=== PATIENT | female | born 1965 | race Caucasian/White ===

== ENCOUNTER → 2017-06-17 12:43 | Outpatient (CLI) | payer MEDICAID, SELFPAY ==
--- NOTE | 2017-06-17 13:03 | XR_ITS ---
XR chest 2V HISTORY: ITS.REASON: PNEUMONIA,COUGH ORDERING PHYSICIAN: Prem Boyce MD PATIENT AGE: 51 years COMPARISON: None available FINDINGS: The cardiomediastinal silhouette and pulmonary vascularity are within normal limits. The lungs are clear without infiltrates, suspicious nodules, or pleural effusions. No acute bony abnormalities. IMPRESSION: Negative chest, no acute finding
[2017-06-17 13:41] LABS: Basophils # 0.1 K/mm3 (0-0.2); Basophils % 0.7 % (0.1-2.0); Eosinophils # 0.3 K/mm3 (0.0-0.4); Eosinophils % 2.5 % (0.1-12.0); Hematocrit 40.6 % (37.0-47.0); Hemoglobin 13.5 g/dL (12.2-16.2); Lymphocytes # 2.6 K/mm3 (0.7-4.5); Lymphocytes % 21.5 K/mm3 (10-50); Mean Corpuscular HGB Conc 33.2 g/dL (31.8-35.4); Mean Corpuscular Hemoglobin 30.4 pg (27.0-31.2); Mean Corpuscular Volume 91.5 fl (81-99); Mean Platelet Volume 7.7 fl (7.4-10.4); Monocytes # 0.6 K/mm3 (0.1-1.0); Monocytes % 4.9 % (1.7-9.3); Neutrophils # 8.4 K/mm3 (1.8-7.8); Neutrophils % 70.4 % (37.0-80.0); Platelet Count 319 K/mm3 (142-424); Red Blood Count 4.43 M/mm3 (4.20-5.40); Red Cell Distribution Width 13.6 % (11.5-17.5); White Blood Count 11.9 K/mm3 (4.8-10.8)
[2017-06-17 14:11] LABS: Alanine Aminotransferase 49 U/L (12-78); Albumin Level 3.6 gm/dL (3.4-5.0); Albumin/Globulin Ratio 0.9 (1.1-1.8); Alkaline Phosphatase 100 U/L (46-116); Aspartate Amino Transferase 37 U/L (15-37); Bilirubin,Total 0.3 mg/dL (0.2-1.0); Blood Urea Nitrogen 8 mg/dL (7-18); Calcium 9.2 mg/dL (8.5-10.1); Carbon Dioxide 24 mmol/L (21.0-32.0); Chloride 100 mmol/L (98-107); Creatinine,Serum 0.67 mg/dL (0.55-1.02); Estimated Glomerular Filt Rate 94 ml/min (>60); GFR (African American) 113 ML/MIN (>60); Glucose 102 mg/dL (74-106); Sodium 134 mmol/L (136-145); Total Protein,Serum 7.6 gm/dL (6.4-8.2)
[2017-06-17 15:12] LABS: Creatine Kinase 51 U/L (26-192)
== END ==
PROVIDERS: PCP Internal Medicine Adolescent Medicine; Visit Provider Internal Medicine Adolescent Medicine
DX: J18.1 Lobar pneumonia, unspecified organism (principal); M79.1 Myalgia; R05 Cough
CPT/HCPCS: 36415; 71046; 80053; 82550; 85025

== ENCOUNTER → 2017-11-04 11:25 | Outpatient (CLI) | payer MEDICAID, SELFPAY ==
--- NOTE | 2017-11-04 11:38 | CT_ITS ---
CT abdomen pelvis wo con CLINICAL INDICATION: Right flank pain radiating into the right lower quadrant ITS.REASON: RENAL COLIC,FLANK PAIN ORDERING PHYSICIAN: Frances Roberto PATIENT AGE: 52 years COMPARISON: None TECHNIQUE: Axial images obtained with sagittal and coronal reformats. All CT scans at the facility use one or more dose reduction, viz: automated exposure control; ma/kV adjustment per patient size (including targeted exams where dose is matched to indication; i.e. head); or iterative reconstruction technique. PROCEDURE: Oral Contrast: None IV Contrast: None . FINDINGS: Lung bases are clear. The liver, gallbladder, spleen, adrenal glands, and pancreas have an unremarkable unenhanced CT appearance. No renal calculi. No ureteral calculi or hydronephrosis. There is a small umbilical hernia which contains fat. There is been prior appendectomy. There is diverticulosis of the ascending and sigmoid colon but no evidence of diverticulitis. Prior hysterectomy. Probable residual ovarian tissue in the left adnexa. No pelvic mass or focal inflammatory change or abnormal fluid collection evident. No acute bony anomalies. Mild osteoarthritic changes are present involving the hips IMPRESSION: 1. No acute abdominal or pelvic findings. 2. No evidence of hydronephrosis or renal or ureteral calculi
[2017-11-04 12:28] LABS: Basophils # 0.1 K/mm3 (0-0.2); Basophils % 0.7 % (0.1-2.0); Eosinophils # 0.2 K/mm3 (0.0-0.4); Eosinophils % 1.5 % (0.1-12.0); Hemoglobin 13.5 g/dL (12.2-16.2); Lymphocytes # 2.3 K/mm3 (0.7-4.5); Lymphocytes % 21.9 K/mm3 (10-50); Mean Corpuscular HGB Conc 31.4 g/dL (31.8-35.4); Mean Corpuscular Hemoglobin 29.1 pg (27.0-31.2); Mean Corpuscular Volume 92.5 fl (81-99); Mean Platelet Volume 7.6 fl (7.4-10.4); Monocytes # 0.4 K/mm3 (0.1-1.0); Monocytes % 3.8 % (1.7-9.3); Neutrophils # 7.5 K/mm3 (1.8-7.8); Platelet Count 357 K/mm3 (142-424); Red Blood Count 4.65 M/mm3 (4.20-5.40); Red Cell Distribution Width 13.3 % (11.5-17.5); White Blood Count 10.4 K/mm3 (4.8-10.8)
[2017-11-04 13:09] LABS: Alanine Aminotransferase 47 U/L (12-78); Albumin Level 3.6 gm/dL (3.4-5.0); Albumin/Globulin Ratio 0.9 (1.1-1.8); Alkaline Phosphatase 86 U/L (46-116); Anion Gap 15.2 mEq/L (5-15); Aspartate Amino Transferase 29 U/L (15-37); Bilirubin,Total 0.3 mg/dL (0.2-1.0); Blood Urea Nitrogen 8 mg/dL (7-18); Calcium 9.4 mg/dL (8.5-10.1); Carbon Dioxide 26 mmol/L (21.0-32.0); Chloride 103 mmol/L (98-107); Creatinine,Serum 0.75 mg/dL (0.55-1.02); Estimated Glomerular Filt Rate 82 ml/min (>60); GFR (African American) 99 ML/MIN (>60); Globulin 3.9 gm/dl (1.3-3.2); Glucose 117 mg/dL (74-106); Potassium 4.2 mmoL/L (3.5-5.1); Sodium 140 mmol/L (136-145); Total Protein,Serum 7.5 gm/dL (6.4-8.2)
== END ==
PROVIDERS: PCP Nurse Practitioner Family; Visit Provider Nurse Practitioner Family
DX: N23 Unspecified renal colic (principal); M54.5 Low back pain
CPT/HCPCS: 36415; 74176; 80053; 85025

== ENCOUNTER 2017-12-03 13:30 | Outpatient (RCR) | payer MEDICAID, SELFPAY | END 2017-12-20 10:41 | disposition home or self-care (01) | LOC: PT 13:30 | PROVIDERS: Family Provider Internal Medicine Adolescent Medicine; PCP Nurse Practitioner Family; Visit Provider Nurse Practitioner Family | DX: M54.16 Radiculopathy, lumbar region (principal) | CPT/HCPCS: 97010; 97012; 97014; 97035; 97140; 97163; G0283 ==

== ENCOUNTER → 2017-12-14 14:22 | Outpatient (CLI) | payer MEDICAID, SELFPAY ==
--- NOTE | 2017-12-14 14:36 | MR_ITS ---
MR lumbar spine wo con HISTORY: ITS.REASON: LOW BACK PAIN, RADICULOPATHY ORDERING PHYSICIAN: Frances Roberto PATIENT AGE: 52 years Comparison: None TECHNIQUE: Standard multiplanar multiecho sequences are performed without contrast. 3-D MIP and myelographic images are also rendered and reviewed FINDINGS: There is normal curvature and alignment. The marrow signal is normal in all lumbar vertebrae. The spinal canal is normal size throughout. There is a small central disc protrusion L4-5 combined with mild hypertrophic facet changes at this level resulting in mild neural foraminal narrowing bilaterally. There are multiple prominent hypertrophic facet changes at L5-S1 level but there is no abnormal disc protrusion. All the remaining lumbar disks appear normal. The conus appears normal. The myelogram sequence is unremarkable. IMPRESSION: Small central disc protrusion L4-5 and mild hypertrophic facet changes at L4-5 and L5-S1
== END ==
PROVIDERS: Family Provider Internal Medicine Adolescent Medicine; PCP Nurse Practitioner Family; Visit Provider Nurse Practitioner Family
DX: M54.16 Radiculopathy, lumbar region (principal)
CPT/HCPCS: 72148; 76376

== ENCOUNTER → 2018-01-03 10:46 | Outpatient (POV) | payer MEDICAID, SELFPAY ==
[2018-01-03 10:58] VITALS: BP 205/100; PULSE 76; RESP 18; O2SAT 98
--- NOTE | 2018-01-03 16:20 | HMH.PMCON ---
Assessment and Plan (1) Degenerative disc disease Current visit: Yes Status: Chronic Qualifiers: Spinal region: lumbar Qualified Code(s): M51.36 - Other intervertebral disc degeneration, lumbar region Category: Medical (2) Lumbar radiculopathy Current visit: Yes Status: Chronic Category: Medical Code(s): M54.16 - Radiculopathy, lumbar region - Assessment and plan all Dx Assessment and Plan for all problems:: We will schedule an L4-L5 lumbar epidural steroid injection. We will also give her 1 month of diclofenac 75 mg 1 p.o. twice daily and gabapentin 300 mg 1 p.o. twice daily. Patient is going to follow-up with me after her injection. Patient is not on any anticoagulation therapy. I believe this injection will be beneficial and allow her to get back to work sooner. This note was dictated using voice recognition software and may contain errors or omissions HPI - Data of Consult Consult date: 01/03/18 Requesting Physician: Lavonne Araujo APRN Primary Care Provider: Frances Roberto Family Provider: Prem Boyce MD - Consult Narrative Reason for consult: Back pain History of present illness: Ms. Caraballo is a 52 year old female who presents today for consultation in regards to her low back pain. Patient states that she had an injury at work and she began to have back pain with right leg tingling and numbness. Patient states standing for long periods of time make the pain worse while lying on her stomach it decreases her pain. Patient has been on Mobic/gabapentin/Lortab from her primary care physician. She states that the gabapentin and the Mobic to help. Patient's been to chiropractic therapy along with physical therapy with no relief. She also utilizes a TENS unit. Patient is out of refills in regards to her anti-inflammatories and her gabapentin. Patient is interested in injective therapy. Patient does have an MRI showing disc protrusion at L4-L5. CC: Lavonne Araujo APRN [facility] History I have reviewed the patient's past medical history: Yes Medical History: Reports:: Deep Vein Thrombosis, Diabetes Mellitus Type 2 Other Surgeries: Yes: Appendectomy, Hysterectomy-Total - *Social History Alcohol Intake: never Occupational Status: employed, other Housing: house - Psychiatric History Expresses thoughts of harming self/others: None Suicide Plan Description: No Plan *Family Hx:: Unable to obtain Review of Systems - Review of Systems ROS General: no recent weight change, no fever, no sleep disturbances Respiratory: no cough, no shortness of air, no recurring pulmonary infections Cardiovascular/Peripheral Vascular: No chest pain, No palpitations, no edema, no shortness of breath. Gastrointestinal: no incontinence, normal bowel movements reported Genitourinary: no incontinence Musculoskeletal: Back pain, leg pain Psychiatric: normal mood/ affect Neurological: [denies weakness in extremities], [denies balance issues] Meds Home Medications Medication Instructions Recorded Confirmed Type Amlodipine Besylate [Amlodipine 10 mg PO DAILY 01/03/18 01/03/18 History 10mg Tab] Carvedilol [Carvedilol 6.25mg Tab] 6.25 mg PO DAILY 01/03/18 01/03/18 History Doxazosin Mesylate [Doxazosin 2mg 4 mg PO DAILY 01/03/18 01/03/18 History Tab] Lisinopril [Lisinopril 40mg Tablet] 40 mg PO DAILY 01/03/18 01/03/18 History Metformin HCl [Metformin 500mg 0 mg PO BID 01/03/18 01/03/18 History Tablet] raNITIdine HCl [Ranitidine HCl] 150 mg PO DAILY 01/03/18 01/03/18 History Allergies Allergy/AdvReac Type Severity Reaction Status Date / Time No Known Allergies Allergy Unverified 05/18/17 14:43 Objective Vital signs: Pulse Resp BP Pulse Ox 76 18 205/100 98 01/03/18 10:58 01/03/18 10:58 01/03/18 10:58 01/03/18 10:58 Narrative: Physical Exam General: Alert and oriented x3, no acute distress, pleasant and cooperative, [on room air]
--- NOTE | 2018-01-03 16:23 | P.CONS_ITS ---
Assessment and Plan (1) Degenerative disc disease Current visit: Yes Status: Chronic Qualifiers: Spinal region: lumbar Qualified Code(s): M51.36 - Other intervertebral disc degeneration, lumbar region Category: Medical (2) Lumbar radiculopathy Current visit: Yes Status: Chronic Category: Medical Code(s): M54.16 - Radiculopathy, lumbar region - Assessment and plan all Dx Assessment and Plan for all problems:: We will schedule an L4-L5 lumbar epidural steroid injection. We will also give her 1 month of diclofenac 75 mg 1 p.o. twice daily and gabapentin 300 mg 1 p.o. twice daily. Patient is going to follow-up with me after her injection. Patient is not on any anticoagulation therapy. I believe this injection will be beneficial and allow her to get back to work sooner. This note was dictated using voice recognition software and may contain errors or omissions HPI - Data of Consult Consult date: 01/03/18 Requesting Physician: Lavonne Araujo APRN Primary Care Provider: Frances Roberto Family Provider: Prem Boyce MD - Consult Narrative Reason for consult: Back pain History of present illness: Ms. Caraballo is a 52 year old female who presents today for consultation in regards to her low back pain. Patient states that she had an injury at work and she began to have back pain with right leg tingling and numbness. Patient states standing for long periods of time make the pain worse while lying on her stomach it decreases her pain. Patient has been on Mobic/gabapentin/Lortab from her primary care physician. She states that the gabapentin and the Mobic to help. Patient's been to chiropractic therapy along with physical therapy with no relief. She also utilizes a TENS unit. Patient is out of refills in regards to her anti-inflammatories and her gabapentin. Patient is interested in injective therapy. Patient does have an MRI showing disc protrusion at L4- L5. CC: Lavonne Araujo APRN [facility] History I have reviewed the patient's past medical history: Yes Medical History: Reports:: Deep Vein Thrombosis, Diabetes Mellitus Type 2 Other Surgeries: Yes: Appendectomy, Hysterectomy-Total - *Social History Alcohol Intake: never Occupational Status: employed, other Housing: house - Psychiatric History Expresses thoughts of harming self/others: None Suicide Plan Description: No Plan *Family Hx:: Unable to obtain Review of Systems - Review of Systems ROS General: no recent weight change, no fever, no sleep disturbances Respiratory: no cough, no shortness of air, no recurring pulmonary infections Cardiovascular/Peripheral Vascular: No chest pain, No palpitations, no edema, no shortness of breath. Gastrointestinal: no incontinence, normal bowel movements reported Genitourinary: no incontinence Musculoskeletal: Back pain, leg pain Psychiatric: normal mood/ affect Neurological: [denies weakness in extremities], [denies balance issues] Meds Home Medications Medication Instructions Recorded Confirmed Type Amlodipine Besylate [Amlodipine 10 mg PO DAILY 01/03/18 01/03/18 History 10mg Tab] Carvedilol [Carvedilol 6.25mg Tab] 6.25 mg PO DAILY 01/03/18 01/03/18 History Doxazosin Mesylate [Doxazosin 2mg 4 mg PO DAILY 01/03/18 01/03/18 History Tab] Lisinopril [Lisinopril 40mg Tablet] 40 mg PO DAILY 01/03/18 01/03/18 History Metformin HCl [Metformin 500mg 0 mg PO BID 01/03/18 01/03/18 History Tablet]
== END ==
PROVIDERS: Family Provider Internal Medicine Adolescent Medicine; PCP Nurse Practitioner Family; Visit Provider Clinical Nurse Specialist Family Health
DX: M51.36 Other intervertebral disc degeneration, lumbar region (principal); M54.16 Radiculopathy, lumbar region
CPT/HCPCS: 99202

== ENCOUNTER → 2018-02-14 10:05 | Outpatient (POV) | payer MEDICAID, SELFPAY ==
[2018-02-14 10:12] VITALS: BP 199/100; PULSE 73; RESP 18; O2SAT 95; BMI 39.5
--- NOTE | 2018-02-14 10:50 | HMH.PAINSOAP ---
[facility] Pain Management SOAP Note Subjective:: Patient is a pleasant 52-year-old white female who we are treating for low back pain and lumbar radiculopathy. Patient states that after her injection she had no relief. Patient has not had any relief with anti-inflammatories or gabapentin. Patient does have a MRI from November showing a disc bulge. She may need a consultation with neurosurgery. Patient rates her pain 7 out of 10. ROS General: no recent weight change, no fever, no sleep disturbances Respiratory: no cough, no shortness of air, no recurring pulmonary infections Cardiovascular/Peripheral Vascular: No chest pain, No palpitations, no edema, no shortness of breath. Gastrointestinal: no incontinence, normal bowel movements reported Genitourinary: no incontinence Musculoskeletal: Back pain, leg pain Psychiatric: normal mood/ affect Neurological: [denies weakness in extremities], [denies balance issues] Objective:: Physical Exam General: Alert and oriented x3, no acute distress, pleasant and cooperative, [on room air] Lungs: Resps E/U, Symmetrical chest expansion Eyes: PERRL Musculoskeletal: Flexion and extension of lumbar spine somewhat guarded secondary to pain, deep tendon reflexes normal, strength in upper and lower extremities [5/5], [abnormal gait noted] Neurological: speech clear, garden consultant equal, no gross sensory deficits Assessment:: Degenerative disc disease lumbar spine with lumbar radiculopathy Plan:: We will have the patient continue on her anti-inflammatories we will set up an appointment with neurosurgery for consultation. This note was dictated using voice recognition software and may contain errors or omissions
--- NOTE | 2018-02-14 10:54 | P.CONS_ITS ---
[facility] Pain Management SOAP Note Subjective:: Patient is a pleasant 52-year-old white female who we are treating for low back pain and lumbar radiculopathy. Patient states that after her injection she had no relief. Patient has not had any relief with anti-inflammatories or gabapentin. Patient does have a MRI from November showing a disc bulge. She may need a consultation with neurosurgery. Patient rates her pain 7 out of 10. ROS General: no recent weight change, no fever, no sleep disturbances Respiratory: no cough, no shortness of air, no recurring pulmonary infections Cardiovascular/Peripheral Vascular: No chest pain, No palpitations, no edema, no shortness of breath. Gastrointestinal: no incontinence, normal bowel movements reported Genitourinary: no incontinence Musculoskeletal: Back pain, leg pain Psychiatric: normal mood/ affect Neurological: [denies weakness in extremities], [denies balance issues] Objective:: Physical Exam General: Alert and oriented x3, no acute distress, pleasant and cooperative, [on room air] Lungs: Resps E/U, Symmetrical chest expansion Eyes: PERRL Musculoskeletal: Flexion and extension of lumbar spine somewhat guarded secondary to pain, deep tendon reflexes normal, strength in upper and lower extremities [5/5], [abnormal gait noted] Neurological: speech clear, board machine set up operator equal, no gross sensory deficits Assessment:: Degenerative disc disease lumbar spine with lumbar radiculopathy Plan:: We will have the patient continue on her anti-inflammatories we will set up an appointment with neurosurgery for consultation. This note was dictated using voice recognition software and may contain errors or omissions
== END ==
PROVIDERS: Family Provider Internal Medicine Adolescent Medicine; PCP Nurse Practitioner Family; Visit Provider Clinical Nurse Specialist Family Health
DX: M51.16 Intervertebral disc disorders with radiculopathy, lumbar region (principal)
CPT/HCPCS: 99213

== ENCOUNTER → 2018-02-22 13:36 | Outpatient (POV) | payer MEDICAID, SELFPAY ==
[2018-02-22 13:47] VITALS: BP 198/101; PULSE 109; RESP 18; O2SAT 96; BMI 39.5
--- NOTE | 2018-02-22 14:10 | HMH.PAINSOAP ---
[facility] Pain Management SOAP Note Subjective:: Patient pleasant 52-year-old white female in today for follow-up. Patient was seen last week and it was determined we would send her to her neurosurgeon. Patient states that her pain is out of control and she is unable to do anything at this point. Patient states that she is unable to sleep. Patient is rating her pain a 9 out of 10 the patient states that she has been on gabapentin 300 mg 1 p.o. 3 times daily and it is no longer helping her as much as it used to. ROS General: no recent weight change, no fever, no sleep disturbances Respiratory: no cough, no shortness of air, no recurring pulmonary infections Cardiovascular/Peripheral Vascular: No chest pain, No palpitations, no edema, no shortness of breath. Gastrointestinal: no incontinence, normal bowel movements reported Genitourinary: no incontinence Musculoskeletal: Back pain Psychiatric: normal mood/ affect, Neurological: [denies weakness in extremities], [denies balance issues] Objective:: Physical Exam General: Alert and oriented x3, no acute distress, pleasant and cooperative, [on room air] Lungs: Resps E/U, Symmetrical chest expansion, Eyes: PERRL Musculoskeletal: Flexion and extension of lumbar spine somewhat guarded secondary to pain, deep tendon reflexes normal, strength in upper and lower extremities [5/5], [abnormal gait noted] Neurological: speech clear, stand up comedian equal, no gross sensory deficits Assessment:: Degenerative disc disease lumbar spine with lumbar radiculopathy Plan:: We will call in prednisone 20 mg 1 p.o. twice daily 5 days along with gabapentin 600 mg 1 p.o. 3 times daily and lidocaine cream 5% to see if this is been official for the patient. I still believe that she needs to be consulted by neurosurgery. I will follow-up with her after this. This note was dictated using voice recognition software and may contain errors or omissions
== END ==
PROVIDERS: Family Provider Internal Medicine Adolescent Medicine; PCP Nurse Practitioner Family; Visit Provider Clinical Nurse Specialist Family Health
DX: M51.16 Intervertebral disc disorders with radiculopathy, lumbar region (principal)
CPT/HCPCS: 99213

== ENCOUNTER → 2018-03-17 12:39 | Outpatient (POV) | payer MEDICAID, SELFPAY | PROVIDERS: Visit Provider Neurological Surgery | DX: Z00.00 Encounter for general adult medical examination without abnormal findings (principal) ==

== ENCOUNTER → 2018-03-24 07:24 | Outpatient (CLI) | payer MEDICAID, SELFPAY ==
--- NOTE | 2018-03-24 07:27 | AS_ITS ---
Renal Arterial Duplex Indications: 405.91 Unspecified renovascular hypertension. IMPRESSIONS 1. Left proximal renal artery not visualized due overlaying gas and patient body habitus. 2. The right renal artery appears normal. 3. The left renal artery appears normal. Complete renal arterial duplex. Duplex scan and Doppler flow study including spectral analysis, color and hdz scale imaging. Location: Vascular laboratory. Patient status: Outpatient. Tables: Arterial flow: + +--------+--------+ Location V sys V ed + +--------+--------+ Right renal - proximal 67.2cm/s 24.2cm/s + +--------+--------+ Right renal - mid 79.2cm/s 21.5cm/s + +--------+--------+ Right renal - distal 65.5cm/s 18.1cm/s + +--------+--------+ Left renal - mid 85.8cm/s 33.8cm/s + +--------+--------+ Left renal - distal 92.7cm/s 30.6cm/s + +--------+--------+ Renal anatomy: + +------+------+ Left Right + +------+------+ Long axis 13.1cm 11.5cm + +------+------+ Short axis 8.4cm 7.9cm + +------+------+ Velocity ratios: + +-----+ V sys + +-----+ Right renal/aortic 1.44 + +-----+ Left renal/aortic 1.69 + +-----+ (Report amended ) Electronically signed by: Ezra Quinteros [id number]
== END ==
PROVIDERS: PCP Nurse Practitioner Family; Visit Provider Nurse Practitioner Family
DX: I10 Essential (primary) hypertension (principal)
CPT/HCPCS: 93976

== ENCOUNTER → 2018-03-28 14:22 | Outpatient (POV) | payer MEDICAID, SELFPAY ==
[2018-03-28 15:05] VITALS: BP 189/89; PULSE 85; RESP 18; O2SAT 97; BMI 39.2
--- NOTE | 2018-03-28 15:36 | HMH.PAINSOAP ---
[facility] Pain Management SOAP Note Subjective:: Patient is a pleasant 52-year-old white female who presents today for follow-up after neurosurgical consultation. Patient is frustrated today because of her low back pain. Patient states the pain is in the middle of her back. Rotation makes it worse. Patient has had one lumbar epidural steroid injection however is not done well for her. Patient has been on gabapentin 600 mg 1 p.o. 3 times daily. She states it makes her quite sleepy. Patient was consulted by neurosurgery and determined to be not a candidate for surgery. She rates her pain an 8 out of 10 today. Patient's MARY ANN #[id number] reviewed and appropriate. ROS General: no recent weight change, no fever, no sleep disturbances Respiratory: no cough, no shortness of air, no recurring pulmonary infections Cardiovascular/Peripheral Vascular: No chest pain, No palpitations, no edema, no shortness of breath. Gastrointestinal: no incontinence, normal bowel movements reported Genitourinary: no incontinence Musculoskeletal: Back pain Psychiatric: normal mood/ affect Neurological: [denies weakness in extremities], [denies balance issues] Objective:: Physical Exam General: Alert and oriented x3, no acute distress, pleasant and cooperative, [on room air] Lungs: Resps E/U, Symmetrical chest expansion, Eyes: PERRL Musculoskeletal: Flexion and extension of lumbar spine somewhat guarded secondary to pain, deep tendon reflexes normal, strength in upper and lower extremities [5/5], [abnormal gait noted], positive Kemps test bilaterally lumbar spine Neurological: speech clear, superintendent board mill equal, no gross sensory deficits Assessment:: Facet arthropathy, lumbar spondylosis, degenerative disc disease lumbar spine Plan:: We will schedule medial branch blocks/facet joint injection at L3-L4 L4-L5 L5-S1. Patient is that this is a diagnostic procedure to help determine her pain center. Patient will follow-up after this injection. Patient may be a stimulator candidate if this is not helpful. This note was dictated using voice recognition software and may contain errors or omissions
== END ==
PROVIDERS: PCP Nurse Practitioner Family; Visit Provider Clinical Nurse Specialist Family Health
DX: M54.06 Panniculitis affecting regions of neck and back, lumbar region (principal); M51.36 Other intervertebral disc degeneration, lumbar region; M47.896 Other spondylosis, lumbar region
CPT/HCPCS: 99213

== ENCOUNTER → 2018-05-16 13:02 | Outpatient (POV) | payer MEDICAID, SELFPAY ==
[2018-05-16 14:05] VITALS: BP 150/82; PULSE 84; RESP 18; O2SAT 99; BMI 39.1
--- NOTE | 2018-05-17 08:39 | P.CONS_ITS ---
[facility] Pain Management SOAP Note Subjective:: Patient is a pleasant 52-year-old white female who presents today for follow-up after medial branch block. Patient got a week relief of 80%. She is doing well. Patient wants to discuss a neurostimulator versus an RFA. I gave her information in regards to both. I do think that she might benefit from a repeat medial branch block before she makes this decision. Patient has been let us know. She rates her pain a 6 out of 10 both in her neck and her lower back ROS General: no recent weight change, no fever, no sleep disturbances Respiratory: no cough, no shortness of air, no recurring pulmonary infections Cardiovascular/Peripheral Vascular: No chest pain, No palpitations, no edema, no shortness of breath. Gastrointestinal: no incontinence, normal bowel movements reported Genitourinary: no incontinence Musculoskeletal: Back pain, neck pain Psychiatric: normal mood/ affect, [denies depression], [denies anxiety] Neurological: [denies weakness in extremities], [denies balance issues] Objective:: Physical Exam General: Alert and oriented x3, no acute distress, pleasant and cooperative, [on room air] Lungs: Resps E/U, Symmetrical chest expansion, Eyes: PERRL Musculoskeletal: Flexion and extension of lumbar spine somewhat guarded secondary to pain, deep tendon reflexes normal, strength in upper and lower extremities [5/5], slightly antalgic gait noted, positive Kemps test bilateral lumbar spine Neurological: speech clear, water and 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 Patient is good to review both and decide which direction she would like to go. Patient can call our office. This note was dictated using voice recognition software and may contain errors or omissions
== END ==
PROVIDERS: PCP Nurse Practitioner Family; Visit Provider Clinical Nurse Specialist Family Health
DX: M51.36 Other intervertebral disc degeneration, lumbar region (principal); M47.896 Other spondylosis, lumbar region; M54.06 Panniculitis affecting regions of neck and back, lumbar region
CPT/HCPCS: 99213

== ENCOUNTER → 2018-07-05 10:06 | Outpatient (POV) | payer MEDICAID, SELFPAY ==
[2018-07-05 10:20] VITALS: BP 160/87; PULSE 77; RESP 18; O2SAT 99; BMI 39.1
--- NOTE | 2018-07-05 10:31 | HMH.PAINSOAP ---
[facility] Pain Management SOAP Note Subjective:: Patient is a pleasant 52-year-old white female who presents today for follow-up. Patient is interested in pursuing her rhizotomy. Patient has had 3 level bilateral medial branch block with which she got 80% relief for over a week. She is doing well she rates her pain a 7 out of 10. She states she has does have some muscle spasms due to the weather. Patient currently on tramadol and gabapentin. Patient states most of her pain is in her back she has pain with twisting motions. Patient failed epidural injections. She is done physical therapy and is continuing a home stretching routine. She is currently on anti-inflammatories. She is not on any anticoagulation therapy. ROS General: no recent weight change, no fever, no sleep disturbances Respiratory: no cough, no shortness of air, no recurring pulmonary infections Cardiovascular/Peripheral Vascular: No chest pain, No palpitations, no edema, no shortness of breath. Gastrointestinal: no incontinence, normal bowel movements reported Genitourinary: no incontinence Musculoskeletal: Back pain Psychiatric: normal mood/ affect Neurological: [denies weakness in extremities], [denies balance issues] Objective:: Physical Exam General: Alert and oriented x3, no acute distress, pleasant and cooperative, [on room air] Lungs: Resps E/U, Symmetrical chest expansion, Eyes: PERRL Musculoskeletal: Flexion and extension of lumbar spine somewhat guarded secondary to pain, deep tendon reflexes normal, strength in upper and lower extremities [5/5], slightly antalgic gait noted, positive Kemps test bilateral lumbar spine, positive facet loading Neurological: speech clear, horse stud worker equal, no gross sensory deficits Assessment:: 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 Patient start with the right side and then 2 weeks later we will do the left side. I will follow-up with the patient after her rhizotomy. We will also start her on Zanaflex 4 mg [address] Hope has reviewed this note and agrees with this plan of care. This note was dictated using voice recognition software and may contain errors or omissions
--- NOTE | 2018-07-05 10:34 | P.CONS_ITS ---
[facility] Pain Management SOAP Note Subjective:: Patient is a pleasant 52-year-old white female who presents today for follow-up. Patient is interested in pursuing her rhizotomy. Patient has had 3 level bilateral medial branch block with which she got 80% relief for over a week. She is doing well she rates her pain a 7 out of 10. She states she has does have some muscle spasms due to the weather. Patient currently on tramadol and gabapentin. Patient states most of her pain is in her back she has pain with twisting motions. Patient failed epidural injections. She is done physical therapy and is continuing a home stretching routine. She is currently on anti- inflammatories. She is not on any anticoagulation therapy. ROS General: no recent weight change, no fever, no sleep disturbances Respiratory: no cough, no shortness of air, no recurring pulmonary infections Cardiovascular/Peripheral Vascular: No chest pain, No palpitations, no edema, no shortness of breath. Gastrointestinal: no incontinence, normal bowel movements reported Genitourinary: no incontinence Musculoskeletal: Back pain Psychiatric: normal mood/ affect Neurological: [denies weakness in extremities], [denies balance issues] Objective:: Physical Exam General: Alert and oriented x3, no acute distress, pleasant and cooperative, [on room air] Lungs: Resps E/U, Symmetrical chest expansion, Eyes: PERRL Musculoskeletal: Flexion and extension of lumbar spine somewhat guarded secondary to pain, deep tendon reflexes normal, strength in upper and lower extremities [5/5], slightly antalgic gait noted, positive Kemps test bilateral lumbar spine, positive facet loading Neurological: speech clear, medical typist equal, no gross sensory deficits Assessment:: 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 Patient start with the right side and then 2 weeks later we will do the left side. I will follow- up with the patient after her rhizotomy. We will also start her on Zanaflex 4 mg [address] Hope has reviewed this note and agrees with this plan of care. This note was dictated using voice recognition software and may contain errors or omissions
== END ==
PROVIDERS: PCP Nurse Practitioner Family; Visit Provider Clinical Nurse Specialist Family Health
DX: M51.16 Intervertebral disc disorders with radiculopathy, lumbar region (principal); M54.06 Panniculitis affecting regions of neck and back, lumbar region
CPT/HCPCS: 99213

== ENCOUNTER → 2018-08-29 14:26 | Outpatient (POV) | payer MEDICAID, SELFPAY ==
--- NOTE | 2018-08-29 15:01 | HMH.PAINSOAP ---
[facility] Pain Management SOAP Note Subjective:: Patient is a pleasant 52-year-old white female presents today for follow-up after RFA. Patient is just getting no relief from her pain. Most of her pain is in the low back and bilateral legs. She rates her pain a 7 out of 10. She is very frustrated at this time. Patient wanted to discuss both intrathecal therapy and neuro stimulation. Patient had a long discussion in regards to this. Patient was unable to make her last psychological evaluation however she states she is ready to do this at this time. ROS General: no recent weight change, no fever, no sleep disturbances Respiratory: no cough, no shortness of air, no recurring pulmonary infections Cardiovascular/Peripheral Vascular: No chest pain, No palpitations, no edema, no shortness of breath. Gastrointestinal: no incontinence, normal bowel movements reported Genitourinary: no incontinence Musculoskeletal: Back pain, leg pain Psychiatric: normal mood/ affect Neurological: [denies weakness in extremities], [denies balance issues] Objective:: Physical Exam General: Alert and oriented x3, no acute distress, pleasant and cooperative, [on room air] Lungs: Resps E/U, Symmetrical chest expansion, Eyes: PERRL Musculoskeletal: Flexion and extension of lumbar spine somewhat guarded secondary to pain, deep tendon reflexes normal, strength in upper and lower extremities [5/5], [abnormal gait noted] Neurological: speech clear, computer technology instructor equal, no gross sensory deficits Assessment:: 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 Patient would like to start with a neurostimulator trial. I do believe this would be appropriate. I will follow-up with the patient after her psych eval. Dr. Hope has reviewed this note and agrees with this plan of care. This note was dictated using voice recognition software and may contain errors or omissions
--- NOTE | 2018-08-29 15:08 | P.CONS_ITS ---
[facility] Pain Management SOAP Note Subjective:: Patient is a pleasant 52-year-old white female presents today for follow-up after RFA. Patient is just getting no relief from her pain. Most of her pain is in the low back and bilateral legs. She rates her pain a 7 out of 10. She is very frustrated at this time. Patient wanted to discuss both intrathecal therapy and neuro stimulation. Patient had a long discussion in regards to this. Patient was unable to make her last psychological evaluation however she states she is ready to do this at this time. ROS General: no recent weight change, no fever, no sleep disturbances Respiratory: no cough, no shortness of air, no recurring pulmonary infections Cardiovascular/Peripheral Vascular: No chest pain, No palpitations, no edema, no shortness of breath. Gastrointestinal: no incontinence, normal bowel movements reported Genitourinary: no incontinence Musculoskeletal: Back pain, leg pain Psychiatric: normal mood/ affect Neurological: [denies weakness in extremities], [denies balance issues] Objective:: Physical Exam General: Alert and oriented x3, no acute distress, pleasant and cooperative, [on room air] Lungs: Resps E/U, Symmetrical chest expansion, Eyes: PERRL Musculoskeletal: Flexion and extension of lumbar spine somewhat guarded secondar y to pain, deep tendon reflexes normal, strength in upper and lower extremities [5/5], [abnormal gait noted] Neurological: speech clear, coach tour driver equal, no gross sensory deficits Assessment:: 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 Patient would like to start with a neurostimulator trial. I do believe this would be appropriate. I will follow-up with the patient after her psych eval. Dr. Hope has reviewed this note and agrees with this plan of care. This note was dictated using voice recognition software and may contain errors or omissions
[2018-08-29 15:16] VITALS: BP 192/98; PULSE 83; RESP 18; O2SAT 98; BMI 40.4
== END ==
PROVIDERS: PCP Nurse Practitioner Family; Visit Provider Clinical Nurse Specialist Family Health
DX: M51.16 Intervertebral disc disorders with radiculopathy, lumbar region (principal); M54.06 Panniculitis affecting regions of neck and back, lumbar region; M47.816 Spondylosis without myelopathy or radiculopathy, lumbar region
CPT/HCPCS: 99212

== ENCOUNTER → 2018-11-15 11:32 | Outpatient (CLI) | payer MEDICAID, SELFPAY ==
[2018-11-15 12:07] LABS: Basophils # 0.1 K/mm3 (0-0.2); Basophils % 0.9 % (0.1-2.0); Eosinophils # 0.2 K/mm3 (0.0-0.4); Eosinophils % 1.4 % (0.1-12.0); Hematocrit 39.3 % (37.0-47.0); Hemoglobin 12.7 g/dL (12.2-16.2); Lymphocytes # 1.7 K/mm3 (0.7-4.5); Lymphocytes % 16.9 % (10-50); Mean Corpuscular HGB Conc 32.4 g/dL (31.8-35.4); Mean Corpuscular Hemoglobin 29.1 pg (27.0-31.2); Mean Corpuscular Volume 89.7 fl (81-99); Mean Platelet Volume 7.4 fl (7.4-10.4); Monocytes # 0.5 K/mm3 (0.1-1.0); Monocytes % 4.5 % (1.7-9.3); Neutrophils # 7.8 K/mm3 (1.8-7.8); Neutrophils % 76.3 % (37.0-80.0); Platelet Count 338 K/mm3 (142-424); Red Blood Count 4.38 M/mm3 (4.20-5.40); Red Cell Distribution Width 13.1 % (11.5-17.5); White Blood Count 10.3 K/mm3 (4.8-10.8)
[2018-11-15 12:34] LABS: Anion Gap 12.3 mEq/L (5-15); Blood Urea Nitrogen 6 mg/dL (7-18); Calcium 8.9 mg/dL (8.5-10.1); Carbon Dioxide 27 mmol/L (21.0-32.0); Chloride 103 mmol/L (98-107); Creatinine,Serum 0.74 mg/dL (0.55-1.02); Estimated Glomerular Filt Rate 83 ml/min (>60); GFR (African American) 100 ML/MIN (>60); Glucose 211 mg/dL (74-106); Potassium 4.3 mmoL/L (3.5-5.1); Sodium 138 mmol/L (136-145)
== END ==
PROVIDERS: Visit Provider Anesthesiology
DX: Z01.818 Encounter for other preprocedural examination (principal)
CPT/HCPCS: 36415; 80048; 85025

== ENCOUNTER → 2018-11-18 10:41 | Outpatient (POV) | payer MEDICAID, SELFPAY ==
[2018-11-18 11:00] VITALS: BP 193/98; PULSE 100; RESP 20; O2SAT 98; BMI 34.8
--- NOTE | 2018-11-18 11:10 | HMH.PAINSOAP ---
[facility] Pain Management SOAP Note Subjective:: This patient is a pleasant 52-year-old white female who is 2 days status post permanent placement of intrathecal pain pump. She is doing well with her pump however she has increased incisional pain. The wound VAC is in place. There is no redness around the wound VAC or incisional area. She has no radicular symptoms no fevers no signs of infection. We will write her for tramadol 50 mg 3-4 times daily to help with her incisional pain over the next week. I will give her 60 pills of her tramadol. Objective:: Alert and oriented x3 no acute distress. Patient does have an antalgic gait. Motor strength of the lower extremities is 5/5. There is no gross sensory deficit. There is no swelling no redness around the incisional area. Assessment:: Degenerative disease of lumbar spine with lumbar radiculopathy symptoms and lumbar spondylosis status post permanent placement intrathecal pain pump 2 days ago with incisional pain. Plan:: We will write her for tramadol 50 mg 3-4 times daily for her incisional pain. I will give her 60 pills. We will follow-up with her on Wednesday to remove her wound VAC.
== END ==
PROVIDERS: PCP Surgery; Visit Provider Anesthesiology
DX: M51.16 Intervertebral disc disorders with radiculopathy, lumbar region (principal); M47.896 Other spondylosis, lumbar region; Z96.89 Presence of other specified functional implants
CPT/HCPCS: 99212

== ENCOUNTER → 2018-11-22 13:58 | Outpatient (POV) | payer MEDICAID, SELFPAY ==
[2018-11-22 14:52] VITALS: BP 179/99; PULSE 94; RESP 20; O2SAT 93; BMI 39.1
--- NOTE | 2018-11-22 15:00 | HMH.PMPROC ---
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 The patient did have some nausea initially after insertion of the pump. She denies any nausea or vomiting today. She does rate her pain a 6 out of 10. She says that her incisional pain is better, but her back pain is still present. Physical Exam General: Alert and oriented x3, no acute distress, pleasant and cooperative, [on room air] Lungs: Resps E/U, Symmetrical chest expansion, Eyes: PERRL Musculoskeletal: Flexion and extension of lumbar spine somewhat guarded secondary to pain, deep tendon reflexes normal, strength in upper and lower extremities [5/5], normal gait noted Neurological: speech clear, buildings and grounds coordinator equal, no gross sensory deficits Procedure Details:: Informed consent was obtained and the risk and benefits of the procedure were explained to the patient. The patient was taken to the procedure room where noninvasive monitoring was placed including noninvasive blood pressure cuff and pulse oximeter. Patient's pump was interrogated and reprogrammed. The infusion rate was increased to 0.125 mg of morphine. The patient tolerated the procedure well. Plan and Disposition:: Wound VAC was removed and tolerated well by the patient. The incision is well approximated, no drainage no redness, or no infection noted to site. We will see the patient back in 2 weeks and reassess her symptoms at that time. She is been instructed to call the office if she has any concerns prior to her next appointment. Dr. Hope has reviewed this note and agrees with this plan of care. This note was dictated using voice recognition software and may contain errors or omissions
== END ==
PROVIDERS: PCP Surgery; Visit Provider Clinical Nurse Specialist Family Health
DX: M51.16 Intervertebral disc disorders with radiculopathy, lumbar region (principal); M54.06 Panniculitis affecting regions of neck and back, lumbar region; M47.896 Other spondylosis, lumbar region
CPT/HCPCS: 62368; 99212

== ENCOUNTER → 2018-12-06 09:59 | Outpatient (POV) | payer MEDICAID, SELFPAY ==
--- NOTE | 2018-12-06 10:19 | HMH.PMPROC ---
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 The patient's incision looks good, it is well approximated, no drainage no redness, no edema. He says I have not had this type of pain relief in many years . The patient says she is doing great, and reports that her pain is a 3 out of 10 today. She does say that her pain starts to come back in a couple of hours however, feeling like a dull ache . She would like an increase in her dose today. Patient says she discussed PTC boluses at her last visit and would like to consider this today. Physical exam General: Alert and oriented x3, no acute distress, pleasant and cooperative, [on room air] Lungs: Respirations even and unlabored, symmetrical chest expansion Eyes: PERRL Musculoskeletal: Flexion and extension of lumbar spine somewhat guarded secondary to pain, deep tendon reflexes normal, strength in upper and lower extremities [5/5], [abnormal gait noted] Neurological: Speech clear, financial analyst accountant equal, no gross sensory deficit Procedure Details:: Informed consent was obtained and the risk and benefits of the procedure were explained to the patient. Patient was taken to the procedure room where noninvasive monitoring was placed including noninvasive blood pressure cuff and pulse oximeter. Patient's pump was interrogated and was reprogrammed. The infusion rate was increased to 0.15 mg of morphine. She was also started on PTC boluses of 0.015 mg every 6 hours. The patient tolerated the procedure well with no complications. Plan and Disposition:: We will see the patient back in 2 weeks and reassess her symptoms at that time. She is been instructed to call the office if she has any concerns prior to her next appointment. Dr. Hope has reviewed this note and agrees with this plan of care. This note was dictated using voice recognition software and make contain errors or omissions.
[2018-12-06 10:32] VITALS: BP 166/95; PULSE 85; RESP 18; O2SAT 99; BMI 40.3
== END ==
PROVIDERS: PCP Nurse Practitioner Family; Visit Provider Clinical Nurse Specialist Family Health
DX: M51.16 Intervertebral disc disorders with radiculopathy, lumbar region (principal); M54.06 Panniculitis affecting regions of neck and back, lumbar region; M47.896 Other spondylosis, lumbar region
CPT/HCPCS: 62368; 99213

== ENCOUNTER → 2018-12-20 10:33 | Outpatient (POV) | payer MEDICAID, SELFPAY ==
--- NOTE | 2018-12-20 11:38 | HMH.PMPROC ---
- Procedure Date: 12/20/18 Time: 11:38 Anesthesiologist:: Fabi Eisenberg APRN Complications:: None Pre-procedure Diagnosis:: Disc disease lumbar spine with lumbar radiculopathy Post-procedure Diagnosis:: Same Indications for Procedure:: Patient is a 52-year-old white female who presents today for follow-up. Patient had an intrathecal pain pump placed. Patient looks good she is doing well today. She does say, however she is still having some pain. She rates her pain a 4 out of 10. She has not been using her PTC doses throughout the day, stating only use it once or twice a day . Patient says that she forgets to use it. She says that she is continuing to have somewhat of a dull ache . She would like an increase in her medication today. We will change the patient's dosing to periodic flow today. Patient understands that she will not need to use the PTC boluses with this type of dosing. She is continuing a home stretching program and anti-inflammatories. She denies any side effects to her medications. [facility] #[id number] has been reviewed and is appropriate. Physical exam General: Alert and oriented x3, no acute distress, pleasant and cooperative, [on room air] Lungs: Respirations even and unlabored, symmetrical chest expansion Eyes: PERRL Musculoskeletal: Flexion and extension of lumbar spine somewhat guarded secondary to pain, deep tendon reflexes normal, strength in upper and lower extremities [5/5], [abnormal gait noted] Neurological: Speech clear, line worker equal, no gross sensory deficit Procedure Details:: Informed consent was obtained and the risk and benefits of the procedure were explained to the patient. Patient was taken to the procedure room where noninvasive monitoring was placed including noninvasive blood pressure cuff and pulse oximeter. Patient's pump was interrogated and was reprogrammed to periodic flow of [morphine 0.025 mg every 3 hours.]. The patient tolerated the procedure well with no complications. Plan and Disposition:: We will see the patient back in 1 week to reassess her symptoms at that time. She is been instructed to call the office if she has any concerns prior to her next appointment. Dr. Hope has reviewed this note and agrees with this plan of care. This note was dictated using voice recognition software and make contain errors or omissions.
--- NOTE | 2018-12-20 11:42 | P.PCN_ITS ---
- Procedure Date: 12/20/18 Time: 11:38 Anesthesiologist:: Fabi Eisenberg APRN Complications:: None Pre-procedure Diagnosis:: Disc disease lumbar spine with lumbar radiculopathy Post-procedure Diagnosis:: Same Indications for Procedure:: Patient is a 52-year-old white female who presents today for follow-up. Patient had an intrathecal pain pump placed. Patient looks good she is doing well today. She does say, however she is still having some pain. She rates her pain a 4 out of 10. She has not been using her PTC doses throughout the day, stating only use it once or twice a day . Patient says that she forgets to use it. She says that she is continuing to have somewhat of a dull ache . She would like an increase in her medication today. We will change the patient's dosing to periodic flow today. Patient understands that she will not need to use the PTC boluses with this type of dosing. She is continuing a home stretching program and anti-inflammatories. She denies any side effects to her medications. [facility] #[id number] has been reviewed and is appropriate. Physical exam General: Alert and oriented x3, no acute distress, pleasant and cooperative, [on room air] Lungs: Respirations even and unlabored, symmetrical chest expansion Eyes: PERRL Musculoskeletal: Flexion and extension of lumbar spine somewhat guarded secondary to pain, deep tendon reflexes normal, strength in upper and lower extremities [5/5], [abnormal gait noted] Neurological: Speech clear, student admissions clerk equal, no gross sensory deficit Procedure Details:: Informed consent was obtained and the risk and benefits of the procedure were explained to the patient. Patient was taken to the procedure room where noninvasive monitoring was placed including noninvasive blood pressure cuff and pulse oximeter. Patient's pump was interrogated and was reprogrammed to periodic flow of [morphine 0.025 mg every 3 hours.]. The patient tolerated the procedure well with no complications. Plan and Disposition:: We will see the patient back in 1 week to reassess her symptoms at that time. She is been instructed to call the office if she has any concerns prior to her next appointment. Dr. Hope has reviewed this note and agrees with this plan of care. This note was dictated using voice recognition software and make contain errors or omissions.
[2018-12-20 12:01] VITALS: BP 156/90; PULSE 76; RESP 18; O2SAT 98; BMI 39.1
== END ==
PROVIDERS: PCP Nurse Practitioner Family; Visit Provider Clinical Nurse Specialist Family Health
DX: M51.16 Intervertebral disc disorders with radiculopathy, lumbar region (principal)
CPT/HCPCS: 62368

== ENCOUNTER → 2019-01-23 12:51 | Outpatient (POV) | payer MEDICAID, SELFPAY ==
[2019-01-23 13:00] VITALS: BP 171/88; PULSE 77; RESP 18; O2SAT 98; BMI 39.1
--- NOTE | 2019-01-23 13:38 | P.PCN_ITS ---
- Procedure Date: 01/23/19 Time: 13:36 Anesthesiologist:: Lavonne Araujo APRN Complications:: None Pre-procedure Diagnosis:: Degenerative disc disease lumbar spine with lumbar radiculopathy Post-procedure Diagnosis:: Same Indications for Procedure:: Patient is a pleasant 53-year-old white female who presents today from intrathecal pain pump adjustment. She rates her pain a 5 out of 10 she is currently on a periodic flow. She denies any side effects or medication. We will increase her today. Physical Exam General: Alert and oriented x3, no acute distress, pleasant and cooperative, [on room air] Lungs: Resps E/U, Symmetrical chest expansion, Eyes: PERRL Musculoskeletal: Flexion and extension of lumbar spine somewhat guarded secondary to pain, deep tendon reflexes normal, strength in upper and lower extremities [5/5], [abnormal gait noted] Neurological: speech clear, parcel post delivery equal, no gross sensory deficits Procedure Details:: Informed consent was obtained and the risk and benefits of the procedure were explained to the patient. The patient was taken to the procedure room where noninvasive monitoring was placed including noninvasive blood pressure cuff and pulse oximeter. Patient's pump was interrogated and reprogrammed. The infusion rate was increased to 0.025 mg of morphine every 2 hours for total daily dose of 0.3 mg/day. The patient tolerated the procedure well. Plan and Disposition:: We will see the patient back at her next intrathecal pain pump refill and reprogram she is been instructed to call the office if she has any issues prior to her next appointment. Dr. Hope has reviewed this note and agrees with this plan of care. This note was dictated using voice recognition software and may contain errors or omissions
--- NOTE | 2019-01-27 13:25 | PC.NURSE ---
REFILLS FOR GABAPENTIN 600MG QID WITH 2 REFILLS CALLED INTO [facility] PER PROVIDER ORDER
== END ==
PROVIDERS: PCP Nurse Practitioner Family; Visit Provider Clinical Nurse Specialist Family Health
DX: M51.16 Intervertebral disc disorders with radiculopathy, lumbar region (principal)
CPT/HCPCS: 62368

== ENCOUNTER → 2019-04-03 14:33 | Outpatient (POV) | payer MEDICAID, SELFPAY ==
[2019-04-03 14:48] VITALS: BP 189/87; PULSE 72; RESP 18; O2SAT 98; BMI 40.7
--- NOTE | 2019-04-04 08:38 | HMH.PMPROC ---
- Procedure Date: 04/03/19 Time: 14:30 Anesthesiologist:: Lavonne Araujo APRN Complications:: None Pre-procedure Diagnosis:: Degenerative disc disease lumbar spine with lumbar radiculopathy and sacroiliitis Post-procedure Diagnosis:: Same Indications for Procedure:: Patient is a pleasant 53-year-old white female who presents today for intrathecal pain pump adjustment. She is had increased pain since she started moving her [place] tree. She rates her pain a 9 out of 10. She is extremely tender over bilateral SI joint. She has a positive Sandra test Rolo's test and SI joint compression test bilaterally. Patient does have an intrathecal pain pump going at 0.03 mg of morphine every 2 hours for total daily dose of 0.36 mg/day. Up until lately she is doing well with this. Physical Exam General: Alert and oriented x3, no acute distress, pleasant and cooperative, [on room air] Lungs: Resps E/U, Symmetrical chest expansion, Eyes: PERRL Musculoskeletal: Flexion and extension of lumbar spine somewhat guarded secondary to pain, deep tendon reflexes normal, strength in upper and lower extremities [5/5], [abnormal gait noted] Neurological: speech clear, supervisor pipe joints equal, no gross sensory deficits Procedure Details:: Informed consent was obtained and the risk and benefits of the procedure were explained to the patient. The patient was taken to the procedure room where noninvasive monitoring was placed including noninvasive blood pressure cuff and pulse oximeter. Patient's pump was interrogated and reprogrammed. The infusion rate was increased to 0.04 mg of morphine every 2 hours for total daily dose of 0.48 mg a day. The patient tolerated the procedure well. Plan and Disposition:: We will set the patient up for bilateral SI joint injections. We will also call her in prednisone 20 mg 1 p.o. twice daily for 5 days and methocarbamol 500 mg 1 p.o. twice daily as needed. She is instructed to call the office if she has any issues prior to her next appointment. Dr. Hope has reviewed this note and agrees with this plan of care. This note was dictated using voice recognition software and may contain errors or omissions
--- NOTE | 2019-04-04 08:41 | P.PCN_ITS ---
- Procedure Date: 04/03/19 Time: 14:30 Anesthesiologist:: Lavonne Araujo APRN Complications:: None Pre-procedure Diagnosis:: Degenerative disc disease lumbar spine with lumbar radiculopathy and sacroiliitis Post-procedure Diagnosis:: Same Indications for Procedure:: Patient is a pleasant 53-year-old white female who presents today for intrathecal pain pump adjustment. She is had increased pain since she started moving her [place] tree. She rates her pain a 9 out of 10. She is extremely tender over bilateral SI joint. She has a positive Sandra test Rolo's test and SI joint compression test bilaterally. Patient does have an intrathecal pain pump going at 0.03 mg of morphine every 2 hours for total daily dose of 0.36 mg/day. Up until lately she is doing well with this. Physical Exam General: Alert and oriented x3, no acute distress, pleasant and cooperative, [on room air] Lungs: Resps E/U, Symmetrical chest expansion, Eyes: PERRL Musculoskeletal: Flexion and extension of lumbar spine somewhat guarded secondary to pain, deep tendon reflexes normal, strength in upper and lower extremities [5/5], [abnormal gait noted] Neurological: speech clear, director quality systems equal, no gross sensory deficits Procedure Details:: Informed consent was obtained and the risk and benefits of the procedure were explained to the patient. The patient was taken to the procedure room where noninvasive monitoring was placed including noninvasive blood pressure cuff and pulse oximeter. Patient's pump was interrogated and reprogrammed. The infusion rate was increased to 0.04 mg of morphine every 2 hours for total daily dose of 0.48 mg a day. The patient tolerated the procedure well. Plan and Disposition:: We will set the patient up for bilateral SI joint injections. We will also call her in prednisone 20 mg 1 p.o. twice daily for 5 days and methocarbamol 500 mg 1 p.o. twice daily as needed. She is instructed to call the office if she has any issues prior to her next appointment. Dr. Hope has reviewed this note and agrees with this plan of care. This note was dictated using voice recognition software and may contain errors or omissions
== END ==
PROVIDERS: PCP Nurse Practitioner Family; Visit Provider Clinical Nurse Specialist Family Health
DX: M51.16 Intervertebral disc disorders with radiculopathy, lumbar region (principal); M46.1 Sacroiliitis, not elsewhere classified
CPT/HCPCS: 62368

== ENCOUNTER → 2019-07-31 10:44 | Outpatient (POV) | payer OTHER, SELFPAY ==
[2019-07-31 11:15] VITALS: BP 167/91; PULSE 91; RESP 18; O2SAT 98; BMI 37.3
--- NOTE | 2019-07-31 11:36 | XR_ITS ---
PROCEDURE: XR SACROILIAC JOINT BI MIN 3V CLINICAL INDICATION: SACROILITIS COMPARISON: No exams were available for comparison FINDINGS: The SI joints have an unremarkable appearance. No evidence of effusion/sclerosis lytic change or significant arthritic change. There are mild osteoarthritic changes of the hips. There is an epidural catheter present with the pump in the right lower quadrant. IMPRESSION: Negative SI joints Dictated by: Ezra Quinteros MD 07/31/2019 13:43 Electronically signed by Ezra Quinteros MD in [place] 07/31/2019 13:43
--- NOTE | 2019-07-31 12:34 | HMH.PMPROC ---
- Procedure Date: 07/31/19 Time: 11:30 Anesthesiologist:: Lavonne Araujo APRN Complications:: None Pre-procedure Diagnosis:: degenerative disc disease lumbar spine with lumbar radiculopathy symptoms and bilateral sacroiliitis Post-procedure Diagnosis:: same Indications for Procedure:: Patient is pleasant 53-year-old white female who presents today for follow-up. Patient is having extreme right SI joint pain. He is struggled with this pain for over 6 months. She does get brief relief with SI joint injections however nothing long-term. Her back and leg pain is doing well with her intrathecal pain pump. Patient and I have discussed an percutaneous SI joint fusion. She is interested in pursuing that. She rates her pain today a 7 out of 10. He is quite tearful today. Physical Exam General: Alert and oriented x3, no acute distress, pleasant and cooperative, [on room air] Lungs: Resps E/U, Symmetrical chest expansion, Eyes: PERRL Musculoskeletal: Flexion and extension of lumbar spine somewhat guarded secondary to pain, deep tendon reflexes normal, strength in upper and lower extremities [5/5], [abnormal gait noted] positive Sandra test SI joint compression test and Rolo's test on the right side. Neurological: speech clear, perianesthesia manager equal, no gross sensory deficits Procedure Details:: Informed consent was obtained and the risk and benefits of the procedure were explained to the patient. The patient was taken to the procedure room where noninvasive monitoring was placed including noninvasive blood pressure cuff and pulse oximeter. Patient's pump was interrogated and reprogrammed. The infusion rate was increased to 0.6 milligrams of morphine a day. The patient tolerated the procedure well. Plan and Disposition:: We will send the patient for some x-rays of her SI joints. We will also set her up for percutaneous SI joint fusion. Patient is continuing a home stretching program she is not on any anticoagulation therapy. Dr. Hope has reviewed this note and agrees with this plan of care. This note was dictated using voice recognition software and may contain errors or omissions
--- NOTE | 2019-08-23 13:00 | PC.PHONENOTE ---
called in Rx for Gabapentin 600mg 5xa day with 2 refills to [facility] per provider order.
== END ==
PROVIDERS: PCP Nurse Practitioner Family; Visit Provider Clinical Nurse Specialist Family Health
DX: M51.16 Intervertebral disc disorders with radiculopathy, lumbar region (principal); M46.1 Sacroiliitis, not elsewhere classified
CPT/HCPCS: 62368; 72202

== ENCOUNTER → 2019-09-18 14:22 | Outpatient (POV) | payer OTHER, SELFPAY ==
[2019-09-18 15:43] VITALS: BP 185/97; PULSE 90; RESP 18; TEMP 36.8; O2SAT 98; BMI 37.5
--- NOTE | 2019-09-18 16:08 | P.PCN_ITS ---
- Procedure Date: 09/18/19 Time: 16:08 Anesthesiologist:: Lavonne Araujo APRN Complications:: None Pre-procedure Diagnosis:: Degenerative disc disease lumbar spine with lumbar radiculopathy and bilateral sacroiliitis Post-procedure Diagnosis:: Same Indications for Procedure:: She is a pleasant 53-year-old white female who presents today for intrathecal pain pump adjustment. Patient is currently having quite a bit of pain rating it a 9 out of 10. Patient had a long discussion in regards to the benefit of SI joint injections for her versus adding bupivacaine to her pump. We will add bupivacaine to her pump on Wednesday. We will start the patient off at 7 5 mg of morphine and 1.5 mg a day of bupivacaine. Physical Exam General: Alert and oriented x3, no acute distress, pleasant and cooperative, [on room air] Lungs: Resps E/U, Symmetrical chest expansion, Eyes: PERRL Musculoskeletal: Flexion and extension of lumbar spine somewhat guarded secondary to pain, deep tendon reflexes normal, strength in upper and lower extremities [5/5], [abnormal gait noted] Neurological: speech clear, electrocardiographic technician equal, no gross sensory deficits Procedure Details:: Pain pump adjustment informed consent was obtained and the risk and benefits of the procedure were explained to the patient. The patient was taken to the procedure room where noninvasive monitoring was placed including noninvasive blood pressure cuff and pulse oximeter. Patient's pump was interrogated and reprogrammed. The infusion rate was increased to 0.75 mg/day of morphine. The patient tolerated the procedure well. Plan and Disposition:: I will follow-up with the patient and her next intrathecal pain pump refill and reprogram. we will fill her with morphine 5 mg/mL and bupivacaine 10 mg/mL Dr. Hope has reviewed this note and agrees with this plan of care. This note was dictated using voice recognition software and may contain errors or omissions We specifically discussed risk factors for Covid-19 including age, heart or lung disease, diabetes, immunosuppression and travel. We also discussed that NSAIDs may worsen Covid-19 infection symptoms and that they should not be used to treat Covid-19 symptoms. Patient was also informed that corticosteroids in any form oral or injectable will decrease immune response and may increase risk of Covid- [address] Hope has reviewed this patient's chart and this note and agrees with plan of care. Patient has been instructed to call the office if they have any issues prior to the next appointment.
== END ==
PROVIDERS: PCP Nurse Practitioner Family; Visit Provider Clinical Nurse Specialist Family Health
DX: M51.16 Intervertebral disc disorders with radiculopathy, lumbar region (principal); M46.1 Sacroiliitis, not elsewhere classified
CPT/HCPCS: 62368

== ENCOUNTER 2019-09-22 08:33 | Day surgery (SDC) | payer OTHER, SELFPAY ==
--- NOTE | 2019-09-21 10:47 | PC.NURSE ---
tizanidine 4mg po tid with 3 refills called into [facility] per provider order
[2019-09-22 08:52] VITALS: BP 104/57; PULSE 73; RESP 18; O2SAT 98; BMI 82.1
[2019-09-22 09:19] VITALS: BP 111/65; PULSE 95; RESP 18
[2019-09-22 09:30] VITALS: BP 115/68; PULSE 85; RESP 18; TEMP 36.8; O2SAT 99
--- NOTE | 2019-09-22 09:37 | HMH.PMPROC ---
- Procedure Date: 09/22/19 Time: 09:37 Anesthesiologist:: Tk Hope MD Complications:: None Pre-procedure Diagnosis:: Degenerative disc disease of lumbar spine with lumbar radiculopathy symptoms and bilateral sacroiliitis Post-procedure Diagnosis:: Same Indications for Procedure:: This patient is a pleasant 53-year-old white female who we are treating for low back pain with lumbar radiculopathy symptoms and bilateral sacroiliitis. She currently has a intrathecal morphine pain pump in place. She is having some increasing pain in her back and down her legs. We will refill her with intrathecal morphine and add bupivacaine to her mixture today. He is currently on 0.8 mg/day of intrathecal morphine. We will add bupivacaine today we will increase her dose today and also increase her PTC boluses. Her [place] and urine drug screen are all appropriate. She is also benefited in the past from SI joint injections with 80 to 90% relief of her bilateral hip pain for several days however this is not long-lasting. She is a candidate for SI joint stabilization. We will seek approval and plan on SI joint stabilization here in the near future. She does have an antalgic gait. Her strength of lower extremities is 5/5. There is no gross sensory deficit. Procedure Details:: Pain pump refill informed consent was obtained and the risks and benefits of the procedure was explained to the patient. The patient was taken to the procedure room. The pump was interrogated. The area over the pump was prepped using ChloraPrep. The pump was accessed with a 22-gauge needle. Approximately 10 mL's of the intrathecal solution was withdrawn and discarded. The pump was then refilled with 20 mL's of intrathecal morphine 5 mg/mL plus bupivacaine 10 mg/mL the pump was interrogated and the infusion was increased to 1 mg/day. PTC was increased to 0.1 mg/day every 3 hours for total of 8 as needed boluses per day.. The patient tolerated the procedure well with no complication. Plan and Disposition:: We will follow-up with her in 2 weeks. Will reevaluate her symptoms at that time. We will seek approval for SI joint stabilization procedure.
[2019-09-22 09:46] VITALS: BP 126/69; PULSE 72; RESP 18; O2SAT 100
== END 2019-09-22 09:48 | disposition home or self-care (01) ==
LOC: SC.PAINP 08:34
PROVIDERS: PCP Nurse Practitioner Family; Visit Provider Anesthesiology
DX: M51.16 Intervertebral disc disorders with radiculopathy, lumbar region (principal); M46.1 Sacroiliitis, not elsewhere classified
CPT/HCPCS: 62370

== ENCOUNTER → 2019-10-09 11:12 | Outpatient (CLI) | payer OTHER, SELFPAY ==
[2019-10-09 11:32] LABS: Basophils # 0.1 K/mm3 (0-0.2); Basophils % 0.9 % (0.1-2.0); Eosinophils # 0.2 K/mm3 (0.0-0.4); Eosinophils % 2.1 % (0.1-12.0); Hematocrit 37.6 % (37.0-47.0); Hemoglobin 12.3 g/dL (12.2-16.2); Lymphocytes # 2.5 K/mm3 (0.7-4.5); Lymphocytes % 28.9 % (10-50); Mean Corpuscular HGB Conc 32.8 g/dL (31.8-35.4); Mean Corpuscular Hemoglobin 29.8 pg (27.0-31.2); Mean Corpuscular Volume 90.8 fl (81-99); Mean Platelet Volume 8.6 fl (7.4-10.4); Monocytes # 0.5 K/mm3 (0.1-1.0); Monocytes % 5.4 % (1.7-9.3); Neutrophils # 5.5 K/mm3 (1.8-7.8); Neutrophils % 62.7 % (37.0-80.0); Platelet Count 277 K/mm3 (142-424); Red Blood Count 4.14 M/mm3 (4.20-5.40); Red Cell Distribution Width 13.7 % (11.5-17.5); White Blood Count 8.8 K/mm3 (4.8-10.8)
[2019-10-09 12:16] LABS: Chloride 100 mmol/L (98-107); Potassium 4.4 mmoL/L (3.5-5.1); Sodium 137 mmol/L (136-145)
[2019-10-09 12:19] LABS: Anion Gap 10.4 mEq/L (5-15); Blood Urea Nitrogen 9 mg/dl (7-17); Carbon Dioxide 31 mmol/L (22.0-30.0); Estimated Glomerular Filt Rate 88 ml/min (>60); GFR (African American) 106 ML/MIN (>60)
[2019-10-09 12:20] LABS: Glucose 142 mg/dl (74-100)
[2019-10-31 16:06] LABS: Covid-19 Nasal PCR Sendout Lex NOT DETECTED
== END ==
PROVIDERS: Visit Provider Anesthesiology
DX: Z01.818 Encounter for other preprocedural examination (principal)
CPT/HCPCS: 36415; 80048; 85025; U0004

== ENCOUNTER 2019-10-11 11:46 | Day surgery (SDC) | payer OTHER, SELFPAY ==
--- NOTE | 2019-10-06 10:15 | SUR.PREOP ---
10/06/2019 @ 1015--PHONE CALL MADE TO PATIENT. PATIENT UNDERSTANDS THAT LAB WORK AND COVID TESTING NEEDS TO BE COMPLETED @ 1100 ON 10/09/2019. PATIENT UNDERSTANDS IF LAB WORK AND COVID-19 TESTS ARE NOT COMPLETED BY 12PM ON THAT DATE, THE SURGERY SCHEDULED WILL BE CANCELLED AND RESCHEDULED FOR ANOTHER TIME.
[2019-10-10 13:24] VITALS: BMI 37.5
[2019-10-11 12:02] VITALS: BP 145/77; PULSE 70; RESP 18; TEMP 37.2; O2SAT 99
--- NOTE | 2019-10-11 12:34 | HMH.ANESCL ---
[facility] Anesthesia Checklist - Patient Identification Patient Identification: Arm Band, Verbal (Name & ) - Structural Data Admitted From: Home Planned Operative Procedure/s: si joint infusion Consent for Planned Operative Procedure(s) Verified: Yes Verified Documents: History and Physical - NPO Status Verified Time NPO: 00:00 - Additional verifications Patient : No Anesthesia Reactions: No Hx Blood Transfusions: No Blood Transfusion Reaction: No Cephalosporin Allergy: No Previous Colonoscopy: Yes - Cardiovascular Assessment Heart Sounds: S1 & S2 Pulse Strength: Baseline Pulse Rhythm: Regular Peripheral Edema: No - Airway Assessment C-Spine Mobility Assessed: Yes TMJ Mobility Assessed: Yes - Neurological Assessment Level of Consciousness: Awake, Alert, Appropriate Hx Seizures: No Numbness or tingling in extremities: No - Anesthesia Plan Anesthesia Risk discussed: Yes Anesthesia Plan: Verified ASA Class: II Anesthesia Type: MAC [facility] History I have reviewed the patient's past medical history: Yes Medical History: Reports:: Deep Vein Thrombosis, Diabetes Mellitus Type 2, Hypertension Denies:: Cancer, Diabetes Mellitus Type 1, Internal Pacemaker, MRSA, Seizures *Have you ever received a pneumonia vaccine?: Yes *Have you received a flu vaccine this season?: Yes Other Medical History: Denies: Blood Transfusion Reaction Anesthesia experience/problems:: none Other Surgeries: Yes: Appendectomy, Hysterectomy-Total, Hysterectomy-Partial, Other (intrathecal pain pump implant). No: Pacemaker Amputation: No Fractures: No - *Social History Educational Level: Completed College Smoking Status: Never smoker Alcohol Intake: never Alcohol Intake Frequency:: holidays/special occasions only Substance Use Type: other *Occupational Status:: unemployed Housing: house Household Members: spouse *Travel in the last 8 weeks: None Family Hx:: Unable to obtain
[2019-10-11 14:11] LABS: POC Glucose,Bedside 116 (70-110)
--- NOTE | 2019-10-11 14:31 | HMH.OPNOTE ---
Date of procedure: 10/11/19 Pre-op Diagnosis:: Sacroiliitis chronic Post-op Diagnosis:: Same Procedure performed:: Right SI joint stabilization with Cornerloc Surgeon:: Tk Hope MD ASSEMBLER FAUCETS:: Marquis Anderson Anesthesia: MAC Estimated blood loss (mL): 5 Clinical Note:: This patient is a pleasant 53-year-old white female who been treating for low back pain with lumbar radiculopathy symptoms. She does have an intrathecal morphine/bupivacaine pain pump in place. She also has chronic sacroiliitis. She does get good relief with injections however this is not long-lasting. Her right side is worse than left. We will do a right SI joint stabilization with Cornerloc system today. Operative findings:: None Operative note:: Informed consent was obtained and the risk and benefits of the procedure was explained to the patient. Patient was taken to the operating room placed prone on the procedure table. Patient was prepped and draped in sterile fashion. A lateral view of the sacrum with C-arm was taken to make sure it was out of anteversion. We then did an oblique view of the right sacroiliac joint. We lined up the anterior and posterior sides of the joint to achieve a [place] . A line was drawn on the skin with the SI joint. The superior and inferior aspect of the joint were anesthetized using lidocaine. The superior and inferior aspect of the joint were marked off. 1 cm medial and 1 cm superiorly into the upper quadrant and 1 cm medial and 1 cm distal a 1 1/2 cm longitudinal incisions were made through the skin and subcutaneous tissues. Guidepins were then placed superior and inferior at a 90 degree angle to each other under C-arm guidance through the incision was made into the superior third and inferior third of the SI joint. Lateral C-arm view was then taken to check the depth of the pins into the SI joint. On the lateral view the joint finder was placed over the guidepin into the appropriate position. The working cannula retractor was then placed over the joint finder into the SI joint into the appropriate position and depth. The joint finder and guidepin were removed. The SI joint was drilled to remove cartilage and to get into the subchondral bone of the sacrum and ilium. The broach was then used to prepare a triangular groove into both the sacrum and ilium for insertion of stabilization grafts. A collagen spine was then placed into the prepared space and the stabilization graft was placed. This was done both superiorly inferiorly into the SI joint. The cannulated retractor was removed. The incisions were then closed with 2-0 Vicryl followed by 4-0 nylon. Dressings were placed and the patient was taken recovery in stable condition. Patient tolerated the procedure well with no complications. Plan and disposition: We will follow-up with this patient in 2 weeks. Will reevaluate her symptoms at that time. We will also remove her sutures at that time. Condition: stable Disposition: PACU Complications:: None
[2019-10-11 16:10] VITALS: BP 164/92; PULSE 82; RESP 20; TEMP 36.8; O2SAT 98
[2019-10-11 16:20] VITALS: BP 122/74; PULSE 87; RESP 20; TEMP 36.8; O2SAT 100
[2019-10-11 16:30] VITALS: BP 179/90; PULSE 75; RESP 20; TEMP 36.8; O2SAT 100
[2019-10-11 16:40] VITALS: BP 174/73; PULSE 74; RESP 20; TEMP 36.8; O2SAT 100
[2019-10-11 16:50] VITALS: BP 167/89; PULSE 78; RESP 20; TEMP 36.8; O2SAT 100
== END 2019-10-11 16:52 | disposition home or self-care (01) ==
LOC: OR 11:48
PROVIDERS: PCP Nurse Practitioner Family; Visit Provider Anesthesiology
PROC: (CPT 27279; principal; 2019-10-11 13:15)
DX: M46.1 Sacroiliitis, not elsewhere classified (principal); E66.9 Obesity, unspecified; I10 Essential (primary) hypertension; K21.9 Gastro-esophageal reflux disease without esophagitis; E11.9 Type 2 diabetes mellitus without complications; M54.16 Radiculopathy, lumbar region; Z68.37 Body mass index [BMI] 37.0-37.9, adult
CPT/HCPCS: 27279; 82962; 96374; 96375; C1713; J3370

== ENCOUNTER 2019-10-24 13:01 | Day surgery (SDC) | payer OTHER, SELFPAY ==
[2019-10-24 13:11] VITALS: BP 157/80; PULSE 100; RESP 18; TEMP 36.7; O2SAT 100; BMI 36.1
--- NOTE | 2019-10-24 13:34 | P.PCN_ITS ---
- Procedure Date: 10/24/19 Time: 13:34 Anesthesiologist:: Lavonne Araujo APRN Complications:: None Pre-procedure Diagnosis:: Degenerative disc disease lumbar spine with lumbar radiculopathy and chronic sacroiliitis Post-procedure Diagnosis:: Same Indications for Procedure:: Patient is a pleasant 54-year-old white female who presents today for medical pain pump refill and reprogram. She is currently on it for morphine and bupivacaine pain pump. She also had a recent coronary lock procedure. This was done on her right SI joint. She was given a one-time prescription of 7.5 mg of [place] for 5 days. [facility] #[id number] reviewed and appropriate. Patient is doing all right however she is having some soreness secondary to that procedure. She denies side effects to her medication and her intrathecal therapy. Physical Exam General: Alert and oriented x3, no acute distress, pleasant and cooperative, [on room air] Lungs: Resps E/U, Symmetrical chest expansion, Eyes: PERRL Musculoskeletal: Flexion and extension of lumbar spine somewhat guarded secondary to pain, deep tendon reflexes normal, strength in upper and lower extremities [5/5], [abnormal gait noted] Neurological: speech clear, relay tester equal, no gross sensory deficits Procedure Details:: Informed consent was obtained and the risk and benefits of the procedure were explained to the patient. The patient was taken to the procedure room where noninvasive monitoring was placed including noninvasive blood pressure cuff and pulse oximeter. Patient's pump was interrogated. The area over the pump was cleansed with chlorhexidine as a cleansing solution. In sterile fashion the pump was accessed with a 22-gauge needle. Approximately 11.5 mL's were removed of the pump solution and discarded appropriately. The pump was then refilled with 20 mL's of morphine 5 mg/mL and bupivacaine 10 mg/mL. The needle was withdrawn and a bandage was placed over the puncture site. The infusion rate was reprogrammed to 0.8 mg/day. The patient tolerated the procedure well. Plan and Disposition:: I will follow-up with the patient at her next intrathecal pain pump refill. She has been instructed to call the office if she has any issues prior to her next appointment. Dr. Hope has reviewed this note and agrees with this plan of care. This note was dictated using voice recognition software and may contain errors or omissions
[2019-10-24 13:38] VITALS: BP 135/85; PULSE 84
[2019-10-24 13:40] VITALS: BP 135/85; PULSE 86; RESP 18; TEMP 36.8
[2019-10-24 13:58] VITALS: BP 150/93; PULSE 85; RESP 18; O2SAT 100
== END 2019-10-24 14:00 | disposition home or self-care (01) ==
LOC: SC.PAINP 13:02
PROVIDERS: PCP Nurse Practitioner Family; Visit Provider Clinical Nurse Specialist Family Health
DX: M51.16 Intervertebral disc disorders with radiculopathy, lumbar region (principal); M46.1 Sacroiliitis, not elsewhere classified; I10 Essential (primary) hypertension
CPT/HCPCS: 62370

== ENCOUNTER → 2019-11-07 11:16 | Outpatient (POV) | payer OTHER, SELFPAY ==
[2019-11-07 12:16] VITALS: BP 99/55; PULSE 64; RESP 18; TEMP 36.6; O2SAT 99; BMI 36.6
--- NOTE | 2019-11-07 12:31 | HMH.PMPROC ---
- Procedure Date: 11/07/19 Time: 12:31 Anesthesiologist:: Lavonne Araujo APRN Complications:: None Pre-procedure Diagnosis:: Degenerative disc disease lumbar spine with lumbar radiculopathy and chronic sacroiliitis Post-procedure Diagnosis:: Same Indications for Procedure:: Patient is a pleasant 54-year-old white female who presents today for intrathecal pain pump reprogram. 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 She like to move forward with the left side. She is having some incisional pain. We will order compounding cream for her to see if this is beneficial. Physical Exam General: Alert and oriented x3, no acute distress, pleasant and cooperative, [on room air] Lungs: Resps E/U, Symmetrical chest expansion, Eyes: PERRL Musculoskeletal: Flexion and extension of lumbar spine somewhat guarded secondary to pain, deep tendon reflexes normal, strength in upper and lower extremities [5/5], [abnormal gait noted] Neurological: speech clear, manager information equal, no gross sensory deficits Procedure Details:: Informed consent was obtained and the risk and benefits of the procedure were explained to the patient. The patient was taken to the procedure room where noninvasive monitoring was placed including noninvasive blood pressure cuff and pulse oximeter. Patient's pump was interrogated and reprogrammed. The infusion rate was increased to 1.3 mg/day. The patient tolerated the procedure well. Plan and Disposition:: We will see the patient back in 3 weeks reassess her symptoms at that time. We will prescribe a compounding cream for her incisional sites on her right coronary lock site. We will set her up for left-sided corner lock when appropriate. She has been instructed to call the office if she has any issues prior to her next appointment. Dr. Hope has reviewed this note and agrees with this plan of care. This note was dictated using voice recognition software and may contain errors or omissions
== END ==
PROVIDERS: PCP Nurse Practitioner Family; Visit Provider Clinical Nurse Specialist Family Health
DX: M51.16 Intervertebral disc disorders with radiculopathy, lumbar region (principal); M46.1 Sacroiliitis, not elsewhere classified
CPT/HCPCS: 62368

== ENCOUNTER → 2019-12-04 14:27 | Day surgery (SDC) | payer OTHER, SELFPAY ==
[2019-12-04 14:38] VITALS: BP 133/73; PULSE 78; RESP 16; TEMP 36.6; O2SAT 98; BMI 37.5
[2019-12-04 14:53] VITALS: BP 135/85; PULSE 85
[2019-12-04 14:54] VITALS: BP 140/88; PULSE 82; RESP 18; O2SAT 99
--- NOTE | 2019-12-04 15:00 | HMH.PMPROC ---
- Procedure Date: 12/04/19 Time: 15:00 Anesthesiologist:: Lavonne Araujo APRN Complications:: None Pre-procedure Diagnosis:: degenerative disease lumbar spine with lumbar radiculopathy and chronic sacroiliitis Post-procedure Diagnosis:: Same Indications for Procedure:: Pleasant 54-year-old white female presents today for intrathecal pain pump refill and reprogram. Patient had a coronary lock procedure on her right side and is doing well. She was given some compounding cream to help with incisional pain she states that this was very beneficial. She rates her pain today a 4 out of 10 overall doing well she would like a slight increase in her intrathecal medications. She is currently on morphine 1.3 mg/day Physical Exam General: Alert and oriented x3, no acute distress, pleasant and cooperative, [on room air] Lungs: Resps E/U, Symmetrical chest expansion, Eyes: PERRL Musculoskeletal: Flexion and extension of lumbar spine somewhat guarded secondary to pain, deep tendon reflexes normal, strength in upper and lower extremities [5/5], [abnormal gait noted] Neurological: speech clear, quick print operator equal, no gross sensory deficits Procedure Details:: Informed consent was obtained and the risk and benefits of the procedure were explained to the patient. The patient was taken to the procedure room where noninvasive monitoring was placed including noninvasive blood pressure cuff and pulse oximeter. Patient's pump was interrogated. The area over the pump was cleansed with chlorhexidine as a cleansing solution. In sterile fashion the pump was accessed with a 22-gauge needle. Approximately 7 mL's were removed of the pump solution and discarded appropriately. The pump was then refilled with 20 mL's of morphine 5 mg/mL. The needle was withdrawn and a bandage was placed over the puncture site. The infusion rate was reprogrammed to 1.5 mg/day. The patient tolerated the procedure well. Plan and Disposition:: I will see the patient back at her next intrathecal pain pump refill and reprogram. We will also schedule her for a left corner lock procedure given the efficacy of the right side I do believe it would benefit her. Overall patient is doing extremely well and is more active and functional. She has been instructed to call the office if she has any issues prior to her next appointment. Dr. Hope has reviewed this note and agrees with this plan of care. This note was dictated using voice recognition software and may contain errors or omissions
== END ==
PROVIDERS: PCP Nurse Practitioner Family; Visit Provider Clinical Nurse Specialist Family Health
DX: M51.16 Intervertebral disc disorders with radiculopathy, lumbar region (principal); M46.1 Sacroiliitis, not elsewhere classified; I10 Essential (primary) hypertension; K21.9 Gastro-esophageal reflux disease without esophagitis; F32.9 Major depressive disorder, single episode, unspecified; Z79.84 Long term (current) use of oral hypoglycemic drugs; Z79.899 Other long term (current) drug therapy
CPT/HCPCS: 62370

== ENCOUNTER 2020-01-01 14:11 | Day surgery (SDC) | payer OTHER, SELFPAY ==
[2020-01-01 14:33] VITALS: BP 165/95; PULSE 75; RESP 18; TEMP 36.7; O2SAT 99; BMI 37.5
[2020-01-01 14:38] VITALS: BP 185/88; PULSE 69; RESP 18; O2SAT 100
[2020-01-01 14:56] VITALS: BP 174/89; PULSE 74; RESP 18; O2SAT 100
--- NOTE | 2020-01-01 15:03 | P.PCN_ITS ---
- Procedure Date: 01/01/20 Time: 15:03 Anesthesiologist:: Lavonne Araujo APRN Complications:: None Pre-procedure Diagnosis:: Degenerative disc disease lumbar spine lumbar radiculopathy Post-procedure Diagnosis:: Same Indications for Procedure:: Patient is a pleasant 54-year-old white female who presents today for intrathecal pain pump refill and reprogram. Patient had a coronary lock procedure on her right side and is doing very well. Most of her pain has resolved. She is got 90% relief of her symptomology in that area. She does still have continuing left-sided pain. She is can be set up for left-sided corner lock procedure. She has had multiple injections with short-term relief. She has a positive Sandra sign SI joint compression test and Cristina's test on the left side. She is currently on morphine 1. 5 mg/day intrathecally. She is doing extremely well with this. Patient is also on gabapentin 600 mg 1 p.o. 5 times a day. [facility] #[id number] reviewed and appropriate. Physical Exam General: Alert and oriented x3, no acute distress, pleasant and cooperative, [on room air] Lungs: Resps E/U, Symmetrical chest expansion, Eyes: PERRL Musculoskeletal: Flexion and extension of lumbar spine somewhat guarded secondary to pain, deep tendon reflexes normal, strength in upper and lower extremities [5/5], [abnormal gait noted] Neurological: speech clear, monument erector equal, no gross sensory deficits Procedure Details:: Informed consent was obtained and the risk and benefits of the procedure were explained to the patient. The patient was taken to the procedure room where noninvasive monitoring was placed including noninvasive blood pressure cuff and pulse oximeter. Patient's pump was interrogated. The area over the pump was cleansed with chlorhexidine as a cleansing solution. In sterile fashion the pump was accessed with a 22-gauge needle. Approximately 9.5 mL's were removed of the pump solution and discarded appropriately. The pump was then refilled with 20 mL's of morphine 10 mg/mL. The needle was withdrawn and a bandage was placed over the puncture site. The infusion rate was reprogrammed to continue to run at 1.5 mg/day. The patient tolerated the procedure well. Plan and Disposition:: We will have her left-sided corner lock procedure. I will follow-up with her at her next intrathecal pain pump refill and reprogram. She has been instructed to call the office if she has any issues prior to her next appointment. Dr. Hope has reviewed this note and agrees with this plan of care. This note was dictated using voice recognition software and may contain errors or omissions
[2020-01-01 15:08] VITALS: BP 170/90; PULSE 67; RESP 18; O2SAT 99
== END 2020-01-01 15:09 | disposition home or self-care (01) ==
LOC: SC.PAINP 14:11
PROVIDERS: PCP Nurse Practitioner Family; Visit Provider Clinical Nurse Specialist Family Health
DX: M51.16 Intervertebral disc disorders with radiculopathy, lumbar region (principal); I10 Essential (primary) hypertension; K21.9 Gastro-esophageal reflux disease without esophagitis; F32.9 Major depressive disorder, single episode, unspecified; Z87.39 Personal history of other diseases of the musculoskeletal system and connective tissue; Z79.899 Other long term (current) drug therapy
CPT/HCPCS: 95991

== ENCOUNTER 2020-03-04 13:57 | Day surgery (SDC) | payer OTHER, SELFPAY ==
[2020-03-04 14:41] VITALS: BP 175/82; PULSE 77; RESP 20; TEMP 36.2; O2SAT 97; BMI 37.5
[2020-03-04 15:03] VITALS: BP 164/88; PULSE 82; RESP 18; O2SAT 98
[2020-03-04 15:06] VITALS: BP 162/87; PULSE 85; RESP 18; O2SAT 98
[2020-03-04 15:16] VITALS: BP 171/92; PULSE 77; RESP 18; O2SAT 97
--- NOTE | 2020-03-14 08:31 | P.PCN_ITS ---
- Procedure Date: 03/14/20 Time: 08:31 Anesthesiologist:: Fabi Eisenberg APRN Complications:: None Pre-procedure Diagnosis:: Degenerative disc disease lumbar spine with lumbar radiculopathy symptoms Post-procedure Diagnosis:: Same Indications for Procedure:: Patient is a pleasant 54-year-old white female who presents today for intrathecal pain pump refill and reprogram. She has been treated for chronic low back pain with lumbar radiculopathy symptoms. Patient would like an increase in her intrathecal therapy today. She is having worsening low back pain. We will increase her today to see if she gets relief. Her drug screen and Clive have been appropriate. 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 The patient was taken to the procedure room where noninvasive monitoring was placed including noninvasive blood pressure cuff and pulse oximeter. Patient's pump was interrogated. The area over the pump was cleansed with chlorhexidine as a cleansing solution. In sterile fashion the pump was accessed with a 22-gauge needle. Approximately 8 mL mls of the pump solution was removed and discarded appropriately. The pump was then refilled with 20 mL's of morphine 10 mg per mill bupivacaine 10 mg/mL. The needle was withdrawn and a bandage was placed over the puncture site. The infusion rate was reprogrammed at increased to morphine 2 mg/day and bupivacaine 2 mg/day. The patient tolerated well with no complication. Plan and Disposition:: We will see the patient back at her next intrathecal pain pump refill and reprogram. She has been instructed to contact the clinic if she has any concerns before next appointment. The patient and I specifically discussed risk factors for COVID19. These risks include, but are not limited to age greater than 60, heart or lung disease, diabetes, immunosuppression, and travel. We also discussed NSAIDs may worsen COVID19 infection or symptoms. Patient should not use NSAIDs to treat COVID19 signs or symptoms. Patient was also informed that any type of corticosteroid of any form (oral or injection) will decrease the patient's immune system response and may increase the likelihood of COVID19 infection and symptoms[address] Dr. Hope has reviewed this note and agrees with this plan of care. This note was dictated using voice recognition software and make contain errors or omissions.
== END 2020-03-04 15:17 | disposition home or self-care (01) ==
LOC: SC.PAINP 13:58
PROVIDERS: PCP Nurse Practitioner Family; Visit Provider Clinical Nurse Specialist Family Health
DX: M51.16 Intervertebral disc disorders with radiculopathy, lumbar region (principal); I10 Essential (primary) hypertension; K21.9 Gastro-esophageal reflux disease without esophagitis; F32.9 Major depressive disorder, single episode, unspecified
CPT/HCPCS: 62370

== ENCOUNTER 2020-04-22 14:06 | Day surgery (SDC) | payer OTHER, SELFPAY ==
[2020-04-22 14:13] VITALS: BP 147/80; PULSE 75; RESP 18; O2SAT 98; BMI 38.5
[2020-04-22 14:34] VITALS: BP 95/80; PULSE 72; RESP 18; TEMP 36.9; O2SAT 99
[2020-04-22 14:42] VITALS: BP 100/87; PULSE 73; RESP 18; O2SAT 99
--- NOTE | 2020-04-22 14:46 | P.PCN_ITS ---
- Procedure Date: 04/22/20 Time: 14:47 Anesthesiologist:: Lavonne Araujo APRN Complications:: None Pre-procedure Diagnosis:: Degenerative disc disease lumbar spine lumbar radiculopathy Post-procedure Diagnosis:: Same Indications for Procedure:: Patient is a very pleasant 54-year-old white female who presents today for intrathecal pain pump refill and reprogram. Patient rates her pain today at 7 out of 10. Patient had a right-sided corner lock procedure and is doing extremely well with this. Patient's left side is giving her trouble at this time. She has had several rounds of SI joint injections with good relief. She would like to do a corner lock procedure on the left side. Patient denies any side effects to her medication she would like a slight increase in her intrat hecal infusion. She is currently on a morphine/bupivacaine infusion. Procedure Details:: Informed consent was obtained and the risk and benefits of the procedure were explained to the patient. The patient was taken to the procedure room where noninvasive monitoring was placed including noninvasive blood pressure cuff and pulse oximeter. Patient's pump was interrogated. The area over the pump was cleansed with chlorhexidine as a cleansing solution. In sterile fashion the pump was accessed with a 22-gauge needle. Approximately 7.5mL's were removed of the pump solution and discarded appropriately. The pump was then refilled with 20 mL's of morphine 10 mg/mL and bupivacaine 10 mg/mL. The needle was withdrawn and a bandage was placed over the puncture site. The infusion rate was reprogrammed to increase to 2.25 mg/day. The patient tolerated the procedure well. Plan and Disposition:: See the patient back at her next intrathecal pain pump refill and reprogram she has been instructed to call the office if she has any issues prior to her next appointment. Patient's [facility] #[id number] reviewed reviewed and appropriate. She is on gabapentin 600 mg 1 p.o. 5 times a day. We will set her up for her left-sided corner lock procedure. Dr. Hope has reviewed this note and agrees with this plan of care. This note was dictated using voice recognition software and may contain errors or omissions
[2020-04-22 14:52] VITALS: BP 135/90; PULSE 70; RESP 18; O2SAT 98
== END 2020-04-22 14:53 | disposition home or self-care (01) ==
LOC: SC.PAINP 14:07
PROVIDERS: PCP Nurse Practitioner Family; Visit Provider Clinical Nurse Specialist Family Health
DX: M51.16 Intervertebral disc disorders with radiculopathy, lumbar region (principal); I10 Essential (primary) hypertension; E78.5 Hyperlipidemia, unspecified; K21.9 Gastro-esophageal reflux disease without esophagitis; F41.9 Anxiety disorder, unspecified; F32.9 Major depressive disorder, single episode, unspecified
CPT/HCPCS: 62370

== ENCOUNTER 2020-06-03 14:29 | Day surgery (SDC) | payer MEDICARE, MEDICAID, SELFPAY ==
[2020-06-03 14:34] VITALS: BP 155/79; PULSE 91; RESP 18; TEMP 36.4; O2SAT 98; BMI 37.5
[2020-06-03 14:54] VITALS: BP 167/97; PULSE 89; RESP 18; TEMP 36.8; O2SAT 98
[2020-06-03 14:59] VITALS: BP 168/85; PULSE 90; RESP 18; TEMP 36.9; O2SAT 98
--- NOTE | 2020-06-03 15:03 | P.PCN_ITS ---
- Procedure Date: 06/03/20 Time: 15:03 Anesthesiologist:: Lavonne Araujo APRN Complications:: None Pre-procedure Diagnosis:: Degenerative disc disease lumbar spine lumbar radiculopathy Post-procedure Diagnosis:: Same Indications for Procedure:: Patient is a very pleasant 54-year-old white female presents today for intrathecal pain pump refill and reprogram she rates the pain a 7 out of 10. She had a right-sided corner lock procedure and is doing well with this she would like the left side to be done. She has had several rounds of SI joint injections with good relief. She like to move forward with a left-sided corner lock. She would also like an increase in her morphine she is currently at 2.25 mg/day. [facility] #[id number] reviewed and appropriate. Procedure Details:: Informed consent was obtained and the risk and benefits of the procedure were explained to the patient. The patient was taken to the procedure room where noninvasive monitoring was placed including noninvasive blood pressure cuff and pulse oximeter. Patient's pump was interrogated. The area over the pump was cleansed with chlorhexidine as a cleansing solution. In sterile fashion the pump was accessed with a 22-gauge needle. Approximately 8.5 mL's were removed of the pump solution and discarded appropriately. The pump was then refilled with 20 mL's of morphine 20 mg/mL and bupivacaine 10 mg/mL. The needle was withdrawn and a bandage was placed over the puncture site. The infusion rate was reprogrammed to be increased to 2.75 mg/day. The patient tolerated the procedure well. Plan and Disposition:: I will see the patient back at her next intrathecal pain pump refill and reprogram she has been instructed to call the office if she has any issues prior to her next appointment. Patient will get set up for her left-sided corner lock procedure. Dr. Hope has reviewed this note and agrees with this plan of care. This note was dictated using voice recognition software and may contain errors or omissions
[2020-06-03 15:12] VITALS: BP 149/81; PULSE 92; RESP 18; O2SAT 98
== END 2020-06-03 15:13 | disposition home or self-care (01) ==
LOC: SC.PAINP 14:33
PROVIDERS: PCP Nurse Practitioner Family; Visit Provider Clinical Nurse Specialist Family Health
DX: M51.16 Intervertebral disc disorders with radiculopathy, lumbar region (principal); Z45.1 Encounter for adjustment and management of infusion pump; I10 Essential (primary) hypertension; E11.9 Type 2 diabetes mellitus without complications; K21.9 Gastro-esophageal reflux disease without esophagitis; F41.9 Anxiety disorder, unspecified; F32.9 Major depressive disorder, single episode, unspecified; Z79.84 Long term (current) use of oral hypoglycemic drugs; Z79.899 Other long term (current) drug therapy
CPT/HCPCS: 62370

== ENCOUNTER → 2020-07-22 09:47 | Outpatient (CLI) | payer MEDICARE, MEDICAID, SELFPAY ==
[2020-07-22 10:25] LABS: Basophils # 0.1 K/mm3 (0-0.2); Basophils % 0.9 % (0.1-2.0); Eosinophils # 0.2 K/mm3 (0.0-0.4); Eosinophils % 1.9 % (0.1-12.0); Hematocrit 39.9 % (37.0-47.0); Lymphocytes # 2.8 K/mm3 (0.7-4.5); Lymphocytes % 25.7 % (10-50); Mean Corpuscular HGB Conc 32.6 g/dL (31.8-35.4); Mean Corpuscular Hemoglobin 30.5 pg (27.0-31.2); Mean Corpuscular Volume 93.7 fl (81-99); Mean Platelet Volume 7.8 fl (7.4-10.4); Monocytes # 0.7 K/mm3 (0.1-1.0); Monocytes % 6.3 % (1.7-9.3); Neutrophils # 7.1 K/mm3 (1.8-7.8); Neutrophils % 65.3 % (37.0-80.0); Platelet Count 301 K/mm3 (142-424); Red Blood Count 4.26 M/mm3 (4.20-5.40); Red Cell Distribution Width 13.6 % (11.5-17.5); White Blood Count 10.8 K/mm3 (4.8-10.8)
[2020-07-22 10:44] LABS: Chloride 107 mmol/L (98-107)
[2020-07-22 10:45] LABS: Potassium 4.9 mmoL/L (3.5-5.1); Sodium 141 mmol/L (136-145)
[2020-07-22 10:48] LABS: Anion Gap 14.9 mEq/L (5-15); Blood Urea Nitrogen 29 mg/dl (7-17); Calcium 10.3 mg/dl (8.4-10.2); Carbon Dioxide 24 mmol/L (22.0-30.0); Estimated Glomerular Filt Rate 52 ml/min (>60); GFR (African American) 63 ML/MIN (>60); Glucose 140 mg/dl (74-100)
[2020-07-22 11:01] LABS: Coronavirus 19 IgG Antibody Positive (Negative); Coronavirus 19 IgM Antibody Negative (Negative)
== END ==
PROVIDERS: Visit Provider Anesthesiology
DX: Z01.818 Encounter for other preprocedural examination (principal); Z20.822 Contact with and (suspected) exposure to COVID-19; Z86.16 Personal history of COVID-19; M53.3 Sacrococcygeal disorders, not elsewhere classified
CPT/HCPCS: 36415; 80048; 85025; 86328

== ENCOUNTER → 2020-07-24 10:00 | Outpatient (CLI) | payer MEDICARE, MEDICAID, SELFPAY ==
[2020-07-24 10:27] LABS: Basophils # 0.1 K/mm3 (0-0.2); Basophils % 0.8 % (0.1-2.0); Eosinophils # 0.3 K/mm3 (0.0-0.4); Eosinophils % 2.9 % (0.1-12.0); Hematocrit 39.4 % (37.0-47.0); Hemoglobin 12.6 g/dL (12.2-16.2); Lymphocytes # 2.5 K/mm3 (0.7-4.5); Lymphocytes % 27.7 % (10-50); Mean Corpuscular HGB Conc 32.1 g/dL (31.8-35.4); Mean Corpuscular Hemoglobin 30.6 pg (27.0-31.2); Mean Corpuscular Volume 95.2 fl (81-99); Mean Platelet Volume 7.7 fl (7.4-10.4); Monocytes # 0.3 K/mm3 (0.1-1.0); Monocytes % 3.7 % (1.7-9.3); Neutrophils # 5.8 K/mm3 (1.8-7.8); Neutrophils % 64.8 % (37.0-80.0); Platelet Count 262 K/mm3 (142-424); Red Blood Count 4.14 M/mm3 (4.20-5.40); Red Cell Distribution Width 13.8 % (11.5-17.5); White Blood Count 8.9 K/mm3 (4.8-10.8)
[2020-07-24 12:05] LABS: Chloride 104 mmol/L (98-107)
[2020-07-24 12:06] LABS: Potassium 4.3 mmoL/L (3.5-5.1); Sodium 139 mmol/L (136-145)
[2020-07-24 12:08] LABS: Blood Urea Nitrogen 22 mg/dl (7-17); Estimated Glomerular Filt Rate 66 ml/min (>60); GFR (African American) 80 ML/MIN (>60)
[2020-07-24 12:09] LABS: Anion Gap 13.3 mEq/L (5-15); Carbon Dioxide 26 mmol/L (22.0-30.0); Glucose 223 mg/dl (74-100)
[2020-07-24 12:23] LABS: Coronavirus 19 IgG Antibody Negative (Negative); Coronavirus 19 IgM Antibody Negative (Negative)
== END ==
PROVIDERS: Visit Provider Anesthesiology
DX: Z01.818 Encounter for other preprocedural examination (principal); Z20.822 Contact with and (suspected) exposure to COVID-19; M53.3 Sacrococcygeal disorders, not elsewhere classified
CPT/HCPCS: 36415; 80048; 85025; 86328

== ENCOUNTER 2020-07-26 10:59 | Day surgery (SDC) | payer MEDICARE, MEDICAID, SELFPAY ==
[2020-07-17 15:19] VITALS: BMI 37.5
[2020-07-26] VITALS (12 sets, daily range): BP systolic 105–172; BP diastolic 52–96; PULSE 67–90; RESP 15–18; TEMP 36.1–36.4; O2SAT 92–100
--- NOTE | 2020-07-26 13:14 | P.PN_ITS ---
[facility] Anesthesia Checklist - Patient Identification Patient Identification: Arm Band - Structural Data Admitted From: Home Planned Operative Procedure/s: Sacroiliac Joint Fusion Consent for Planned Operative Procedure(s) Verified: Yes Verified Documents: Surgical Consent, History and Physical - NPO Status Verified Time NPO: 00:00 - Additional verifications Anesthesia Reactions: No Hx Blood Transfusions: No Blood Transfusion Reaction: No - Airway Assessment C-Spine Mobility Assessed: Yes (mp2) TMJ Mobility Assessed: Yes Dentition: Good Dentition - Neurological Assessment Level of Consciousness: Awake, Alert - Anesthesia Plan Anesthesia Risk discussed: Yes Anesthesia Plan: Verified ASA Class: III Anesthesia Type: General [facility] History I have reviewed the patient's past medical history: Yes Medical History: Reports:: Deep Vein Thrombosis, Diabetes Mellitus Type 2, Hyperlipidemia, Hypertension Denies:: Cancer, Diabetes Mellitus Type 1, Internal Pacemaker, MRSA, Seizures *Have you ever received a pneumonia vaccine?: Yes *Have you received a flu vaccine this season?: Yes Other Medical History: Denies: Blood Transfusion Reaction Anesthesia experience/problems:: nac Laterality Cases: Right: Other Other Surgeries: Yes: Appendectomy, Hysterectomy-Total, Hysterectomy-Partial, Other (bladder reconstruction). No: Pacemaker Amputation: No Fractures: No - *Social History Last grade of school completed: Some college Smoking Status: Never smoker Alcohol Intake: never Alcohol Intake Frequency:: holidays/special occasions only Substance Use Type: other *Occupational Status:: disabled Housing: house Household Members: spouse *Travel in the last 8 weeks: None Family Hx:: No significant family history
--- NOTE | 2020-07-26 14:07 | P.PN_ITS ---
[facility] Anesthesia Record Part I Intake, IV Amount: 1,000 Estimated blood loss (mL): 10 Urine output (mL): 0 Blood Pressure: 105/52 SaO2: 94 Pulse Rate: 83 Respiratory Rate: 16 Temperature: 97 F Patient is:: Drowsy, Stable Stable to PACU at:: 14:00
--- NOTE | 2020-07-26 14:11 | HMH.OPNOTE ---
Date of procedure: 07/26/20 Pre-op Diagnosis:: Sacroiliitis Post-op Diagnosis:: Same Procedure performed:: Left SI joint stabilization fluoroscopy Surgeon:: Tk Hope MD WILDLAND FIRE FIGHTER:: Sunday Patel Anesthesia: GETAleta Estimated blood loss (mL): 25 Clinical Note:: Pleasant 54-year-old white female who we are treating for sacroiliitis. She is status post right sided SI joint stabilization approximately 4 to 5 months ago. She is doing very well with this. She does also have an intrathecal morphine/bupivacaine pain pump in place. She is doing well with her pain pump. She is having some increasing pain over her left SI joint. She has failed all conservative treatments including physical therapy, injections, oral medications. She only gets short-term relief with injections. She did get 80 to 90% relief with previous injections only for short period of time. She [facility] Operative findings:: None Operative note:: Informed consent was obtained and the risk and benefits of the procedure was explained to the patient. Patient was taken to the operating room placed prone on the procedure table. Patient was prepped and draped in sterile fashion. A lateral view of the sacrum with C-arm was taken to make sure it was out of anteversion. We then did an oblique view of the left sacroiliac joint. We lined up the anterior and posterior sides of the joint to achieve a Purlear . A line was drawn on the skin with the SI joint. The superior and inferior aspect of the joint were anesthetized using lidocaine. The superior and inferior aspect of the joint were marked off. 1 cm medial and 1 cm superiorly into the upper quadrant and 1 cm medial and 1 cm distal a 1 1/2 cm longitudinal incisions were made through the skin and subcutaneous tissues. Guidepins were then placed superior and inferior at a 90 degree angle to each other under C-arm guidance through the incision was made into the superior third and inferior third of the SI joint. Lateral C-arm view was then taken to check the depth of the pins into the SI joint. On the lateral view the joint finder was placed over the guidepin into the appropriate position. The working cannula retractor was then placed over the joint finder into the SI joint into the appropriate position and depth. The joint finder and guidepin were removed. The SI joint was drilled to remove cartilage and to get into the subchondral bone of the sacrum and ilium. The broach was then used to prepare a triangular groove into both the sacrum and ilium for insertion of stabilization grafts. A collagen spine was then placed into the prepared space and the stabilization graft was placed. This was done both superiorly inferiorly into the SI joint. The cannulated retractor was removed. The incisions were then closed with 2-0 Vicryl followed by apples and 4-0 nylon. Dressings were placed and the patient was taken recovery in stable condition. Patient tolerated the procedure well with no complications. Patient was discharged home neurologically intact with good relief of pain symptoms. We will follow-up with this patient in 1 week for wound check. We will follow-up in 2 weeks for suture removal and staple removal. We have given the patient [place] and Phenergan for postop pain. Condition: stable Disposition: PACU Complications:: None
[2020-07-26 14:17] LABS: POC Glucose,Bedside 151 (70-110)
--- NOTE | 2020-07-29 11:03 | P.PN_ITS ---
[facility] Anesthesia Record Part II Discharge Time: 14:34 Destination: Surgical Day Care (OP Surgery) PACU nurse assessment reviewed?: Yes Patient Condition:: Good Anesthesia Complications:: None Swallowing reflex intact?: Yes Cyanosis?: No Blood Pressure: 144/82 Pulse Rate: 69 Temperature: 97.4 F Mental Status: Alert & Oriented Pain level:: 5 Nausea and/or vomitting:: Nauseated Intake, IV Amount: 0
[2020-07-29 11:04] VITALS: BP 144/82; PULSE 69; TEMP 36.3
[2020-08-02 10:52] LABS: POC Glucose,Bedside 111 (70-110)
[2020-08-02 10:52] LABS: POC Glucose,Bedside < 40 (70-110)
== END 2020-07-26 15:38 | disposition home or self-care (01) ==
LOC: OR 11:00
PROVIDERS: PCP Nurse Practitioner Family; Visit Provider Anesthesiology
DX: M46.1 Sacroiliitis, not elsewhere classified (principal); E11.9 Type 2 diabetes mellitus without complications; E78.5 Hyperlipidemia, unspecified; I10 Essential (primary) hypertension; K21.9 Gastro-esophageal reflux disease without esophagitis; Z86.718 Personal history of other venous thrombosis and embolism; Z90.49 Acquired absence of other specified parts of digestive tract; Z79.899 Other long term (current) drug therapy
CPT/HCPCS: 27279; 82962; 96374; C1713; J2405; J2710; J3370

== ENCOUNTER → 2020-08-08 14:08 | Outpatient (POV) | payer MEDICARE, MEDICAID, SELFPAY ==
--- NOTE | 2020-08-08 14:24 | P.CONS_ITS ---
[facility] Pain Management SOAP Note Subjective:: Patient is a 54-year-old white female who presents today for follow-up after left SI joint stabilization. Patient has bebo and sutures in place. Patient has noted redness and some drainage around certain bebo. Patient was given 3 days worth of Bactrim and did finish this however I do believe a another course of Bactrim would be advantageous. Patient rates her pain today a 9 out of 10. ROS General: no recent weight change, no fever, no sleep disturbances Respiratory: no cough, no shortness of air, no recurring pulmonary infections Cardiovascular/Peripheral Vascular: No chest pain, No palpitations, no edema, no shortness of breath. Gastrointestinal: no new onset incontinence, normal bowel movements reported Genitourinary: no new onset incontinence Musculoskeletal: SI joint pain, suture pain Psychiatric: normal mood/ affect Neurological: [denies new onset weakness in extremities], [denies new onset balance issues] Objective:: Physical Exam General: Alert and oriented x3, no acute distress, pleasant and cooperative, [on room air] Lungs: Resps E/U, Symmetrical chest expansion, Eyes: PERRL Musculoskeletal: Flexion and extension of lumbar spine somewhat guarded secondary to pain, deep tendon reflexes normal, strength in upper and lower extremities [5/5], [abnormal gait noted] Neurological: speech clear, 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 I will see the patient back in 1 week reassess her symptoms at that time she has been instructed to call the office if she has any worsening symptomology or issues prior to this appointment. Dr. Hope has reviewed this note and agrees with this plan of care. This note was dictated using voice recognition software and may contain errors or omissions [facility] History I have reviewed the patient's past medical history: Yes Medical History: Reports:: Deep Vein Thrombosis, Diabetes Mellitus Type 2, Hy perlipidemia, Hypertension Denies:: Cancer, Diabetes Mellitus Type 1, Internal Pacemaker, MRSA, Seizures *Have you ever received a pneumonia vaccine?: Yes *Have you received a flu vaccine this season?: Yes Other Medical History: Denies: Blood Transfusion Reaction Laterality Cases: Right: Other Other Surgeries: Yes: Appendectomy, Hysterectomy-Total, Hysterectomy-Partial, Other (bladder reconstruction). No: Pacemaker Amputation: No Fractures: No - *Social History Smoking Status: Never smoker Alcohol Intake: never Alcohol Intake Frequency:: holidays/special occasions only Substance Use Type: other *Occupational Status:: disabled Housing: house Household Members: spouse *Travel in the last 8 weeks: None Family Hx:: No significant family history
[2020-08-08 15:56] VITALS: BP 134/74; PULSE 75; RESP 18; O2SAT 98; BMI 37.5
== END ==
PROVIDERS: PCP Nurse Practitioner Family; Visit Provider Clinical Nurse Specialist Family Health
DX: M51.16 Intervertebral disc disorders with radiculopathy, lumbar region (principal); M46.1 Sacroiliitis, not elsewhere classified; Z98.890 Other specified postprocedural states
CPT/HCPCS: 99213; G0463

== ENCOUNTER 2020-08-15 11:37 | Day surgery (SDC) | payer MEDICARE, MEDICAID, SELFPAY ==
--- NOTE | 2020-08-15 12:01 | HMH.PMPROC ---
- Procedure Date: 08/15/20 Time: 12:01 Anesthesiologist:: Lavonne Araujo APRN Complications:: None Pre-procedure Diagnosis:: Degenerative disc disease lumbar spine lumbar radiculopathy, sacroiliitis, status post SI joint stabilization Post-procedure Diagnosis:: Same Indications for Procedure:: Patient is pleasant 54-year-old white female who presents today for an intrathecal pain pump refill and reprogram. Patient was having a little bit of drainage and redness with her previous SI joint stabilization that has since resolved. She is completed her antibiotics. We are here today refilling her intrathecal pain pump. Procedure Details:: Informed consent was obtained and the risk and benefits of the procedure were explained to the patient. The patient was taken to the procedure room where noninvasive monitoring was placed including noninvasive blood pressure cuff and pulse oximeter. Patient's pump was interrogated. The area over the pump was cleansed with chlorhexidine as a cleansing solution. In sterile fashion the pump was accessed with a 22-gauge needle. Approximately 8.5 mL's were removed of the pump solution and discarded appropriately. The pump was then refilled with 20 mL's of morphine 20 mg/mL and bupivacaine 10 mg/mL. The needle was withdrawn and a bandage was placed over the puncture site. The infusion rate was reprogrammed to we will continue her at morphine 2.75 mg/day. The patient tolerated the procedure well. Plan and Disposition:: We will see the patient back in 2 weeks reassess her at that time she has been instructed to call the office if she has any issues prior to her next appointment. Dr. Hope has reviewed this note and agrees with this plan of care. This note was dictated using voice recognition software and may contain errors or omissions
[2020-08-15 12:13] VITALS: BP 159/78; BP 162/92; BP 163/91; PULSE 72; PULSE 74; RESP 18; O2SAT 98; BMI 37.7
== END 2020-08-15 12:15 | disposition home or self-care (01) ==
LOC: SC.PAINP 11:38
PROVIDERS: PCP Nurse Practitioner Family; Visit Provider Clinical Nurse Specialist Family Health
DX: M51.16 Intervertebral disc disorders with radiculopathy, lumbar region (principal); Z45.1 Encounter for adjustment and management of infusion pump; M46.1 Sacroiliitis, not elsewhere classified; Z98.890 Other specified postprocedural states; I10 Essential (primary) hypertension; M19.90 Unspecified osteoarthritis, unspecified site; F32.9 Major depressive disorder, single episode, unspecified
CPT/HCPCS: 95991

== ENCOUNTER → 2020-10-03 17:43 | Outpatient (CLI) | payer MEDICARE, MEDICAID, SELFPAY ==
[2020-10-03 17:56] LABS: Basophils # 0.1 K/mm3 (0-0.2); Basophils % 1.2 % (0.1-2.0); Eosinophils # 0.2 K/mm3 (0.0-0.4); Eosinophils % 2.4 % (0.1-12.0); Hematocrit 36.9 % (37.0-47.0); Hemoglobin 11.9 g/dL (12.2-16.2); Lymphocytes # 2.2 K/mm3 (0.7-4.5); Lymphocytes % 24.5 % (10-50); Mean Corpuscular HGB Conc 32.2 g/dL (31.8-35.4); Mean Corpuscular Hemoglobin 30.1 pg (27.0-31.2); Mean Corpuscular Volume 93.5 fl (81-99); Mean Platelet Volume 9.3 fl (7.4-10.4); Monocytes # 0.7 K/mm3 (0.1-1.0); Monocytes % 7.4 % (1.7-9.3); Neutrophils # 5.8 K/mm3 (1.8-7.8); Neutrophils % 64.5 % (37.0-80.0); Platelet Count 304 K/mm3 (142-424); Red Blood Count 3.94 M/mm3 (4.20-5.40); Red Cell Distribution Width 13.6 % (11.5-17.5)
[2020-10-03 18:44] LABS: Alanine Aminotransferase 38 U/L (12-78); Albumin Level 4.2 g/dl (3.5-5.0); Albumin/Globulin Ratio 1.4 (1.1-1.8); Alkaline Phosphatase 121 U/L (38-126); Anion Gap 11.6 mEq/L (5-15); Aspartate Amino Transferase 39 U/L (14-36); Bilirubin,Total 0.4 mg/dl (0.2-1.3); Blood Urea Nitrogen 20 mg/dl (7-17); Calcium 9.2 mg/dl (8.4-10.2); Carbon Dioxide 28 mmol/L (22.0-30.0); Chloride 104 mmol/L (98-107); Estimated Glomerular Filt Rate 58 ml/min (>60); GFR (African American) 70 ML/MIN (>60); Glucose 111 mg/dl (74-100); Potassium 4.6 mmoL/L (3.5-5.1); Sodium 139 mmol/L (136-145); Total Protein,Serum 7.2 g/dl (6.3-8.2)
[2020-10-03 19:13] LABS: Thyroid Stimulating Hormone 0.81 uIU/mL (0.465-4.68)
== END ==
PROVIDERS: Visit Provider Internal Medicine Adolescent Medicine
DX: I10 Essential (primary) hypertension (principal); E11.9 Type 2 diabetes mellitus without complications; Z79.84 Long term (current) use of oral hypoglycemic drugs
CPT/HCPCS: 80053; 83036; 84443; 85025

== ENCOUNTER 2020-11-11 14:02 | Day surgery (SDC) | payer MEDICARE, MEDICAID, SELFPAY ==
[2020-11-11 14:05] VITALS: BP 135/79; PULSE 80; RESP 18; TEMP 36.7; O2SAT 97; BMI 38.3
[2020-11-11 14:30] VITALS: BP 153/96; PULSE 83; RESP 18; O2SAT 99
[2020-11-11 14:31] VITALS: BP 151/103; RESP 18; O2SAT 99
[2020-11-11 14:50] VITALS: BP 126/86; PULSE 86; RESP 18; O2SAT 97
--- NOTE | 2020-11-11 15:05 | HMH.PMPROC ---
- Procedure Date: 11/11/20 Time: 15:05 Anesthesiologist:: Fabi Eisenberg APRN Complications:: None Pre-procedure Diagnosis:: Degenerative disc disease lumbar spine with lumbar radiculopathy symptoms, chronic sacroiliitis Post-procedure Diagnosis:: Same Indications for Procedure:: Patient is a 55-year-old white female who presents today for intrathecal pain pump refill and reprogram. She has been treated for degenerative disc disease lumbar spine with lumbar radiculopathy symptoms and chronic sacroiliitis. She is status post bilateral corner lock with no relief. She is currently on 10/bupivacaine at 2.75 mg/day. She says that she is not getting any relief and rates her pain a 9 out of 10 today. She is asking for other medications that she can take. She takes gabapentin and tizanidine with little to no relief. According to the patient's Clive she is also being given tramadol, patient also takes tramadol 50 mg 1 tablet p.o. 3 times daily. Her Clive #[id number] has been reviewed and is appropriate. X-rays have been appropriate. We discussed changing her medication to Dilaudid. Patient would like to try this. I did discuss with Dr. Lou the medication change out. He would like to start her on Dilaudid 5 mg per mil to begin at a dose of Dilaudid at 0.5 mg/day. Physical exam General: Alert and oriented x3, no acute distress, pleasant and cooperative, [on room air] Lungs: Respirations even and unlabored, symmetrical chest expansion Eyes: PERRL Musculoskeletal: Flexion and extension of lumbar spine somewhat guarded secondary to pain, deep tendon reflexes normal, strength in upper and lower extremities [5/5], [abnormal gait noted] Neurological: Speech clear, wellness health coach equal, no gross sensory deficit Procedure Details:: Informed consent was obtained and the risk and benefits of the procedure were explained to the patient. The patient was taken to the procedure room where noninvasive monitoring was placed including noninvasive blood pressure cuff and pulse oximeter. Patient's pump was interrogated. The area over the pump was cleansed with chlorhexidine as a cleansing solution. In sterile fashion the pump was accessed with a 22-gauge needle. Approximately 7 mL mls of the pump solution was removed and discarded appropriately. The pump was then refilled with 20 mL's of morphine 20 mg per mill bupivacaine 10 mg per male. The needle was withdrawn and a bandage was placed over the puncture site. The infusion rate was reprogrammed at morphine/bupivacaine at 3.02 mg/day. The patient tolerated well with no complication. Plan and Disposition:: We will plan for concentration change of Dilaudid 5 mg per mill to start at 0.5 mg/day per Dr. Hope. Patient will undergo medication change out under fluoroscopy with Dr. Jaquez. I will see the patient back at her next intrathecal refill. Patient has been instructed to contact the clinic with any concerns before the next appointment. Dr. Hope has reviewed this note and agrees with this plan of care. This note was dictated using voice recognition software and make contain errors or omissions.
== END 2020-11-11 14:51 | disposition home or self-care (01) ==
LOC: SC.PAINP 14:04
PROVIDERS: PCP Internal Medicine Adolescent Medicine; Visit Provider Clinical Nurse Specialist Family Health
DX: M51.16 Intervertebral disc disorders with radiculopathy, lumbar region (principal); M46.1 Sacroiliitis, not elsewhere classified
CPT/HCPCS: 62370

== ENCOUNTER 2020-11-22 11:14 | Day surgery (SDC) | payer MEDICARE, MEDICAID, SELFPAY ==
[2020-11-22 11:50] VITALS: BP 127/76; PULSE 76; RESP 18; TEMP 36.4; O2SAT 98; BMI 38.3
[2020-11-22 13:31] VITALS: BP 163/94; PULSE 84; RESP 18; O2SAT 98
[2020-11-22 13:49] VITALS: PULSE 83; RESP 18; O2SAT 98
[2020-11-22 14:40] VITALS: BP 148/88; PULSE 83; RESP 20; O2SAT 98
--- NOTE | 2020-11-22 17:24 | HMH.PMPROC ---
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 She treated for degenerative disc disease of the lumbar spine with lumbar radiculopathy symptoms and chronic sacroiliitis. She has underwent the joint stabilization procedure bilaterally with unfortunately no pain relief. She is currently on morphine 20 mg/mL with bupivacaine 10 mg/mL at constant flow with a PTC of 0.13 mg boluses 8 times a day with a 3-hour lockout, with the total max daily dose of 4.02 mg/day. She reports that she has not been getting very much pain relief with the current pump settings and rates her pain as a 9 out of 10 today. She reports that there has also been slight discrepancies during her pump refills with the volume withdrawn versus expected volume. She currently is taking gabapentin tizanidine also with very minimal pain relief. She is also taking tramadol 50 mg 1 tablet p.o. 3 times a day per Clive report. Plan is for her To Undergo Intrathecal Pain Pump Refill and Reprogram with a Double procedure given the change in medication from morphine to Dilaudid. Procedure Details:: Informed consent was obtained and the risks and benefits of the procedure was explained to the patient. The patient was taken to the procedure room. The pump was interrogated. The area over the pump was prepped using ChloraPrep. The pump was accessed with a 22-gauge needle. Approximately [18] mL's of the intrathecal solution was withdrawn and discarded as needle was withdrawn and discarded. The pump was then refilled with 20 mL's of intrathecal [dilaudid 5mg/ml and bupivacaine 5 mg/mL]. Next, was attempted to access the catheter side-port, unfortunately medication and CSF was not able to be freely withdrawn. Furthermore, it was calculated that there was 7.4 mg of previous medication solution in the internal tubing and catheter. As of this high concentration, we were unable to proceed further with a catheter dye study to assess the integrity, patency, and overall function of the catheter. Next, the needle was withdrawn and discarded. The pump was re-interrogated so that the daily dose will be[0.5 mg/day] with the constant flow setting and a bridge bolus of 7.43 mg for 44 hours was initiated]. The patient tolerated the procedure well with no complications. Next refill date is on [May 09, 2021]. Plan and Disposition:: We discussed with the patient that we were unable to aspirate the old medication from the internal tubing and the catheter. We will follow-up with her on Wednesday and will reassess pain symptoms at that time. I discussed with her to contact her clinic sooner should any issues arise. Should patient continue to have no pain relief with this current change we may consider catheter revision in the future.
== END 2020-11-22 14:40 | disposition home or self-care (01) ==
LOC: SC.PAINP 11:15
PROVIDERS: PCP Internal Medicine Adolescent Medicine; Visit Provider Anesthesiology Pain Medicine
DX: M51.16 Intervertebral disc disorders with radiculopathy, lumbar region (principal); M46.1 Sacroiliitis, not elsewhere classified; E78.5 Hyperlipidemia, unspecified; I10 Essential (primary) hypertension; M19.90 Unspecified osteoarthritis, unspecified site; E11.9 Type 2 diabetes mellitus without complications; Z86.718 Personal history of other venous thrombosis and embolism; K21.9 Gastro-esophageal reflux disease without esophagitis; F41.9 Anxiety disorder, unspecified; F32.9 Major depressive disorder, single episode, unspecified
CPT/HCPCS: 61070; 62370; C1772

== ENCOUNTER 2020-11-23 14:14 | Observation (INO) | payer MEDICARE, MEDICAID, SELFPAY ==
[2020-11-23] VITALS (10 sets, daily range): BP systolic 140–177; BP diastolic 77–100; PULSE 96–122; RESP 12–224; TEMP 36.6–37; O2SAT 93–99; BMI 40.3; BMI 38.7
--- NOTE | 2020-11-23 14:17 | HMH.EDGENADL ---
ED Disposition Clinical Impression: Encephalopathy Accidental overdose Qualifiers: Encounter type: initial encounter Qualified Code(s): T50.901A - Poisoning by unspecified drugs, medicaments and biological substances, accidental (unintentional), initial encounter UTI (urinary tract infection) Qualifiers: Urinary tract infection type: acute pyelonephritis Qualified Code(s): N10 - Acute pyelonephritis Disposition: Admitted as Observation Condition on Discharge: Good Time of Disposition: 17:31 - Critical Care Critical Care Time: No Attestation: On 11/23/20, the high probability of a clinically significant, sudden or life threatening deterioration of the following system(s) required my full and direct attention, intervention and personal management. The time I documented below is in addition to time spent performing reported procedures but includes the following listed in this critical care notation. Medical Decision Making - Medical Records Medical records reviewed: Yes: I reviewed the patient's medical records. - Clive Inquiry Pt receiving controlled substance: No Vital Signs: 11/23/20 14:21 11/23/20 15:02 11/23/20 15:23 Temperature 98.6 F Temperature Source Oral Pulse Rate 122 H Pulse Rate [Left] 121 H Respiratory Rate 224 H 20 12 Blood Pressure Blood Pressure [Right Arm] 177/100 H Blood Pressure Mean Blood Pressure Mean [Right Arm] 125 02 Sat by Pulse Oximetry 96 96 Oxygen Delivery Method Room Air 11/23/20 16:10 11/23/20 16:30 11/23/20 17:01 Temperature Temperature Source Pulse Rate 96 H 101 H 107 H Pulse Rate [Left] Respiratory Rate 13 23 26 H Blood Pressure 152/77 H 140/81 150/95 H Blood Pressure [Right Arm] Blood Pressure Mean 116 101 113 Blood Pressure Mean [Right Arm] 02 Sat by Pulse Oximetry 95 93 L 93 L Oxygen Delivery Method - Lab Data Lab results reviewed: Yes: I reviewed the patient's lab results. Lab Results 11/23/20 14:15: WBC 12.7 H, RBC 4.54, Hgb 13.9, Hct 40.3, MCV 88.8, MCH 30.5, MCHC 34.4, RDW 13.5, Plt Count 293, MPV 8.5, Neut % (Auto) 88.4 H, Lymph % (Auto) 9.3 L, [place] % (Auto) 1.7, Eos % (Auto) 0.2, Baso % (Auto) 0.4, Neut # (Auto) 11.2 H, Lymph # (Auto) 1.2, [place] # (Auto) 0.2, Eos # (Auto) 0.0, Baso # (Auto) 0.1, Total Counted 100, Neutrophils % (Manual) 87 H, Lymphocytes % (Manual) 10, Monocytes % (Manual) 3, Platelet Estimate Normal, RBC Morphology Normal 11/23/20 14:15: Sodium 140, Potassium 3.9, Chloride 107, Carbon Dioxide 22, Anion Gap 14.9, BUN 16, Creatinine 0.90, Estimated Creat Clear 129, Estimated GFR 65, Est GFR ( Amer) 79, Glucose 263 H, Calcium 10.1 11/23/20 15:21: Urine Color Yellow, Urine Appearance Cloudy, Urine pH 6.0, Ur Specific [place] 1.020, Urine Protein Negative, Urine Glucose (UA) 1+, Urine Ketones Trace, Urine Blood Trace-i, Urine Nitrate Positive, Urine Bilirubin Negative, Urine Urobilinogen 1.0, Ur Leukocyte Esterase 2+ A, Urine RBC Occasional, Urine WBC 10-20, Ur Squamous Epith Cells 10-20, Urine Bacteria 2+ 11/23/20 15:21: Urine Opiates Screen Positive H, Urine Methadone Screen Negative, Ur Barbituates Screen Negative, Ur Phencyclidine Scrn Negative, Ur Amphetamines Screen Negative, U Benzodiazepines Scrn Negative, Urine Cocaine Screen Negative, U Marijuana (THC) Screen Negative Result diagrams: 11/23/20 14:15 11/23/20 14:15 Orders (Tests/Meds): ED MEDICATIONS Generic Name Dose Route Start Last Admin Trade Name Freq PRN Reason Stop Dose Admin Ceftriaxone Sodium 1 gm/ 50 mls @ 100 mls/hr 11/23/20 16:00 11/23/20 16:02 Sodium Chloride IV 12/07/20 15:59 100 mls/hr Q24H JENNY Administration Protocol Discontinued Medications Generic Name Dose Route Start Last Admin Trade Name Freq PRN Reason Stop Dose Admin Iopamidol 100 ml 11/23/20 15:55 11/23/20 16:13 Iopamidol-370 (76%);100ml Bottle IV 11/23/20 15:56 100 ml ONCE ONE Administration Sodium Chloride 10 ml 11/23
--- NOTE | 2020-11-23 14:33 | ECG_ITS ---
APPROVED REPORT Exam: Resting ECG HR:119 bpm ECG Measurements Heart Rate 119 AXES DC 158 P 61 QRSd 114 QRS 261 QT 320 T 24 QTc 450 Conclusion Sinus tachycardia Low voltage QRS Right bundle branch block Inferior infarct, age undetermined Abnormal ECG Electronically signed by : Prem Boyce, 11/23/2020 21:27:43
--- NOTE | 2020-11-23 14:45 | PC.NURSE ---
Family at bedside.
[2020-11-23 14:52] LABS: Basophils # 0.1 K/mm3 (0-0.2); Basophils % 0.4 % (0.1-2.0); Chloride 107 mmol/L (98-107); Eosinophils % 0.2 % (0.1-12.0); Hematocrit 40.3 % (37.0-47.0); Hemoglobin 13.9 g/dL (12.2-16.2); Lymphocytes # 1.2 K/mm3 (0.7-4.5); Lymphocytes % 9.3 % (10-50); Mean Corpuscular HGB Conc 34.4 g/dL (31.8-35.4); Mean Corpuscular Hemoglobin 30.5 pg (27.0-31.2); Mean Corpuscular Volume 88.8 fl (81-99); Mean Platelet Volume 8.5 fl (7.4-10.4); Monocytes # 0.2 K/mm3 (0.1-1.0); Monocytes % 1.7 % (1.7-9.3); Neutrophils # 11.2 K/mm3 (1.8-7.8); Neutrophils % 88.4 % (37.0-80.0); Platelet Count 293 K/mm3 (142-424); Potassium 3.9 mmoL/L (3.5-5.1); Red Blood Count 4.54 M/mm3 (4.20-5.40); Red Cell Distribution Width 13.5 % (11.5-17.5); Sodium 140 mmol/L (136-145); White Blood Count 12.7 K/mm3 (4.8-10.8)
[2020-11-23 14:54] LABS: MANUAL DIFFERENTIAL MANUAL DIFFERENTIAL (MANUAL DIFF)
[2020-11-23 14:55] LABS: Anion Gap 14.9 mEq/L (5-15); Blood Urea Nitrogen 16 mg/dl (7-17); Carbon Dioxide 22 mmol/L (22.0-30.0); Creatinine Clearance Estimated 129 mL/min (50-200); Estimated Glomerular Filt Rate 65 ml/min (>60); GFR (African American) 79 ML/MIN (>60)
[2020-11-23 14:56] LABS: Calcium 10.1 mg/dl (8.4-10.2); Glucose 263 mg/dl (74-100)
--- NOTE | 2020-11-23 15:02 | CT_ITS ---
PROCEDURE INFORMATION: Exam: CT Abdomen And Pelvis With Contrast Exam date and time: 11/23/2020 3:02 PM Age: 55 years old Clinical indication: Nausea and vomiting; Additional info: Nausea/vomiting TECHNIQUE: Imaging protocol: Computed tomography of the abdomen and pelvis with contrast. Radiation optimization: All CT scans at this facility use at least one of these dose optimization techniques: automated exposure control; mA and/or kV adjustment per patient size (includes targeted exams where dose is matched to clinical indication); or iterative reconstruction. Contrast material: ISOVUE; Contrast volume: 100 ml; Contrast route: IV; COMPARISON: ABDPELWO CT abdomen pelvis wo con 11/04/2017 11:45 AM FINDINGS: Tubes, catheters and devices: Spinal stimulator noted posteriorly. Lungs: Atelectatic changes noted within the lung bases. Heart: The heart demonstrates mild diffuse enlargement. Liver: There is a diffuse decrease in hepatic parenchymal density, consistent with mild fatty infiltration. Gallbladder and bile ducts: Normal. No calcified stones. No ductal dilation. Pancreas: Normal. No ductal dilation. Spleen: Normal. No splenomegaly. Adrenal glands: Normal. No mass. Kidneys and ureters: Nonspecific low-density foci of the kidneys statistically favor benign cysts, no further follow-up needed, as large as 9 mm on the right. Stomach and bowel: Mild diverticulosis is present in the distal colon. Appendix: No evidence of appendicitis. Intraperitoneal space: Normal. No significant fluid collection. Vasculature: The vasculature demonstrates diffuse mild atherosclerotic calcification. Lymph nodes: Unremarkable. No enlarged lymph nodes. Urinary bladder: Unremarkable as visualized. Reproductive: Unremarkable as visualized. Bones/joints: The lumbar spine demonstrates mild degenerative changes at multiple levels. Soft tissues: There is a fat-containing umbilical hernia. IMPRESSION: 1. Mild diverticulosis is present in the distal colon. 2. The heart demonstrates mild diffuse enlargement. COMMENTS: Consistent with the [employer]'s Incidental Findings Committee white paper (J Am Jeremías Radiol 2018): Any incidental renal lesion less than 1 cm or classified as too small to characterize, or any incidental cystic renal lesion characterized as simple-appearing, is likely benign. No follow-up imaging is recommended for these lesions per consensus recommendations based on imaging criteria.
[2020-11-23 15:03] LABS: Lymphocytes % 10 % (10-50); Monocytes % 3 % (2-9); Neutrophils % 87 % (42-76); Platelet Estimate Normal; RBC Morphology Normal; Total Cells Counted 100
[2020-11-23 15:38] LABS: Microscopic, Urine URINE MICROSCOPIC (MICROSCOPIC)
--- NOTE | 2020-11-23 15:40 | PC.NURSE ---
Pt going to rad.
--- NOTE | 2020-11-23 15:41 | PC.NURSE ---
Pt to rad.
[2020-11-23 15:44] LABS: Appearance,Urine CLOUDY (Clear); Bilirubin,Urine Negative (Negative); Blood, Urine TRACE-I (Negative); Color,Urine YELLOW (Yellow); Glucose,Urine (UA) 1+ (Negative); Ketones,Urine TRACE (Negative); Leukocyte Esterase,Urine 2+ (Negative); Nitrate,Urine POSITIVE (Negative); Protein,Urine Negative (Negative)
[2020-11-23 15:49] LABS: Bacteria,Urine 2+ /lpf; RBC,Urine Occasional #/hpf (0-3)
[2020-11-23 15:59] LABS: Barbiturates Screen,Urine Negative ng/ml (<200)
[2020-11-23 16:00] LABS: Benzodiazepines Screen,Urine Negative ng/ml (<200)
[2020-11-23 16:01] LABS: Amphetamine/Metha Screen,Urine Negative ng/ml (<1000); Cannabinoid Screen,Urine Negative ng/ml (<50)
--- NOTE | 2020-11-23 16:01 | PC.NURSE ---
pt back from CT scanner at this time.
[2020-11-23 16:02] LABS: Cocaine Screen,Urine Negative ng/ml (<300); Methadone Screen,Urine Negative ng/ml (<300)
[2020-11-23 16:03] LABS: Opiate Screen,Urine Positive ng/ml (<300)
--- NOTE | 2020-11-23 16:03 | PC.NURSE ---
pt returned from rad
[2020-11-23 16:04] LABS: Phencyclidine Screen,Urine Negative ng/ml (<25)
--- NOTE | 2020-11-23 16:43 | PC.NURSE ---
Messaged left for
--- NOTE | 2020-11-23 17:04 | PC.NURSE ---
MD speaking with MD Ferro at this time.
--- NOTE | 2020-11-23 17:06 | PC.NURSE ---
Dr Solo gifford.
--- NOTE | 2020-11-23 17:12 | PC.NURSE ---
Dr Li speaking to Dr Banda
[2020-11-23 17:15] LABS: Coronavirus 19, PCR Not Detected (NotDetected); Influenza A, PCR Not Detected (NotDetected); Influenza B, PCR Not Detected (NotDetected)
--- NOTE | 2020-11-23 17:25 | PC.NURSE ---
Pt's daughter gave me her remote to her pain pump. I will give it to her nurse.
--- NOTE | 2020-11-23 17:40 | PC.NURSE ---
Pt has requested to leave the v/s monitors off.
--- NOTE | 2020-11-23 17:49 | PC.NURSE ---
Bernadine from pain managment at bedside, unable to change dose on pain pump as pt is still on bridge bolus of morphine for 17.5 more hours. Informed to call Dr. Hope if any further changes.
--- NOTE | 2020-11-23 17:55 | PC.NURSE ---
Admit report given to GRACIELA Centeno
--- NOTE | 2020-11-23 18:17 | PC.NURSE ---
Pt arrived to the floor at this time
--- NOTE | 2020-11-23 18:45 | PC.NURSE ---
Pt lethargic, but awakens easily. Will awaken for brief period of time, but uncooperative w/ admission. Unable to complete med rec @ this time.
--- NOTE | 2020-11-23 18:47 | PC.NURSE ---
Pt's remote to pain pump locked in drawer, Jose Lees RN witnessed.
--- NOTE | 2020-11-23 21:58 | PC.NURSE ---
Spoke to Dr Banda on the phone, wanted 6.25 of Coreg given once now, and to resume scheduled coreg in the AM.
[2020-11-24 04:18] VITALS: BP 150/90; PULSE 82; RESP 18; TEMP 36.7; O2SAT 94
--- NOTE | 2020-11-24 04:43 | PC.NURSE ---
Pt is A/O x4. Pt has been easily arousable and able to carry on a conversation. Stand by assist to bathroom and tolerated well. Pt on Room air. New IV started #20 right hand and is patent and infusing LR @ 125ml/hr. Patient is on a diabetic diet. Pt denies any pain. Call light within reach, VSS, no concerns at this time.
[2020-11-24 05:23] VITALS: BMI 40.1
[2020-11-24 06:37] LABS: Basophils # 0.1 K/mm3 (0-0.2); Basophils % 0.3 % (0.1-2.0); Eosinophils # 0.1 K/mm3 (0.0-0.4); Eosinophils % 0.4 % (0.1-12.0); Hematocrit 36.5 % (37.0-47.0); Lymphocytes # 1.9 K/mm3 (0.7-4.5); Lymphocytes % 14.5 % (10-50); Mean Corpuscular Hemoglobin 30.3 pg (27.0-31.2); Mean Corpuscular Volume 89.2 fl (81-99); Mean Platelet Volume 8.2 fl (7.4-10.4); Monocytes # 0.5 K/mm3 (0.1-1.0); Monocytes % 3.9 % (1.7-9.3); Neutrophils # 10.7 K/mm3 (1.8-7.8); Neutrophils % 80.9 % (37.0-80.0); Platelet Count 257 K/mm3 (142-424); Red Cell Distribution Width 13.6 % (11.5-17.5); White Blood Count 13.2 K/mm3 (4.8-10.8)
[2020-11-24 06:45] LABS: Chloride 106 mmol/L (98-107); Potassium 3.8 mmoL/L (3.5-5.1); Sodium 142 mmol/L (136-145)
[2020-11-24 06:48] LABS: Anion Gap 11.8 mEq/L (5-15); Blood Urea Nitrogen 16 mg/dl (7-17); Carbon Dioxide 28 mmol/L (22.0-30.0); Creatinine Clearance Estimated 76 mL/min (50-200); Estimated Glomerular Filt Rate 75 ml/min (>60); GFR (African American) 91 ML/MIN (>60)
[2020-11-24 06:49] LABS: Calcium 9.3 mg/dl (8.4-10.2); Glucose 220 mg/dl (74-100)
[2020-11-24 07:37] LABS: Hemoglobin 12.4 g/dL (12.2-16.2)
[2020-11-24 07:57] VITALS: BP 152/89; PULSE 73; RESP 15; TEMP 36.5; O2SAT 94
--- NOTE | 2020-11-24 10:07 | HMH.HPDC ---
General - General Admission date:: 11/23/20 Discharge date: 11/24/20 *Admission Date: 11/23/20 *Chief complaint: Encephalopathy *History of present illness: Ms. hellers 55-year-old female with chronic pain, depression, hypertension who was brought to the ER via EMS after her family found her at home confused and concerning for possible overdose. On arrival she was somnolent and difficult to arouse. Patient's family found her at home she was having nausea and vomiting and stating her abdomen hurt. She received Narcan x1 with some improvement in her symptoms temporarily until the medication wore off. On arrival to the ER work-up included a CT of her abdomen pelvis, urinalysis, labs, and IV fluids. Findings initially positive for UTI. Additionally patient had a recent visit to her pain management doctor where her pain pump reservoir was transitioned from morphine to Dilaudid. Admitted to medicine for further observation and management due to patient living by herself, being unable to go home to a safe environment, and persistent encephalopathy. On assessment this morning, she is sitting up on bedside, alert and oriented x3. Requesting to go home. Still complaining of some mild nausea but overall feeling significantly better. Has been drinking adequate p.o. fluids but poor p.o. food intake. Vitals consistent with mild hypertension but no respiratory distress, oxygen requirement, somnolence on exam, or altered mental status. Denies chest pain, shortness of breath, diarrhea. Does have some nausea and episode of vomiting this morning. Abdominal discomfort somewhat improved. Afebrile [facility] History I have reviewed the patient's past medical history: Yes Medical History: Reports:: Deep Vein Thrombosis, Diabetes Mellitus Type 2, Hyperlipidemia, Hypertension Denies:: Cancer, Diabetes Mellitus Type 1, Internal Pacemaker, MRSA, Seizures *Have you ever received a pneumonia vaccine?: No *Have you received a flu vaccine this season?: No Other Medical History: Reports: Arthritis. Denies: Blood Transfusion Reaction Laterality Cases: Right: Other Other Surgeries: Yes: Appendectomy, Hysterectomy-Total, Hysterectomy-Partial, Other (bladder reconstruction). No: Pacemaker Amputation: No Fractures: No - *Social History Smoking Status: Never smoker Alcohol Intake: never Alcohol Intake Frequency:: holidays/special occasions only Substance Use Type: other *Occupational Status:: disabled Housing: house Household Members: spouse *Travel in the last 8 weeks: None Family Hx:: Unable to obtain Review of Systems - Review of Systems Review of systems:: pertinent systems reviewed and negative unless documented below (14 point review of systems performed, pertinent positives and negatives as per HPI) Exam Vital signs and Labs for Last 24 Hours: Temp Pulse Resp BP Pulse Ox 97.7 F 73 15 152/89 H 94 L 11/24/20 07:57 11/24/20 07:57 11/24/20 07:57 11/24/20 07:57 11/24/20 07:57 Laboratory Results - last 24 hr 11/23/20 14:15: WBC 12.7 H, RBC 4.54, Hgb 13.9, Hct 40.3, MCV 88.8, MCH 30.5, MCHC 34.4, RDW 13.5, Plt Count 293, MPV 8.5, Neut % (Auto) 88.4 H, Lymph % (Auto) 9.3 L, [place] % (Auto) 1.7, Eos % (Auto) 0.2, Baso % (Auto) 0.4, Neut # (Auto) 11.2 H, Lymph # (Auto) 1.2, [place] # (Auto) 0.2, Eos # (Auto) 0.0, Baso # (Auto) 0.1, Total Counted 100, Neutrophils % (Manual) 87 H, Lymphocytes % (Manual) 10, Monocytes % (Manual) 3, Platelet Estimate Normal, RBC Morphology Normal 11/23/20 14:15: Sodium 140, Potassium 3.9, Chloride 107, Carbon Dioxide 22, Anion Gap 14.9, BUN 16, Creatinine 0.90, Estimated Creat Clear 129, Estimated GFR 65, Est GFR ( Amer) 79, Glucose 263 H, Calcium 10.1 11/23/20 15:21: Urine Color Yellow, Urine Appearance Cloudy, Urine pH 6.0, Ur Specific [place] 1.020, Urine Protein Negative, Urine Glucose (UA) 1+, Urine Ketones Trace, Urine Blood Trace-i, Urine Nitrate Positive, Urine Bilirubin Negative, Urine Urobilinogen 1.0, Ur Leukoc
[2020-11-24 10:49] LABS: POC Glucose,Bedside 232 (70-110)
--- NOTE | 2020-11-24 12:01 | PC.NURSE ---
Discharge education provided to pt who verbalized understanding. Pain pump remote given to pt prior to discharge. Pt left floor at 11:58 by wheelchair accompanied by 2nd floor staff.
[2020-11-25 00:52] LABS: POC Glucose,Bedside 206 (70-110)
[2020-11-29 16:12] LABS: Methadone Negative (Cutoff=100)
[2020-11-29 21:38] LABS: Cocaine + Metabolite Negative (Cutoff=150); Codeine Negative (Cutoff=100); Hydrocodone Negative (Cutoff=100); Hydromorphone Negative (Cutoff=100); Morphine Positive (.); Opiates Positive (.)
[2020-12-05 10:13] LABS: Miscellaneous Test NEGATIVE
== END 2020-11-24 11:58 | disposition home or self-care (01) ==
LOC: ER 15:35 → 2ND 17:25
PROVIDERS: Admitting Provider Internal Medicine Adolescent Medicine; Emergency Provider Family Medicine; PCP Internal Medicine Adolescent Medicine; Visit Provider Internal Medicine Adolescent Medicine
DX: T40.2X1A Poisoning by other opioids, accidental (unintentional), initial encounter (principal); N39.0 Urinary tract infection, site not specified; G92 Toxic encephalopathy; Z20.822 Contact with and (suspected) exposure to COVID-19; Y83.1 Surgical operation with implant of artificial internal device as the cause of abnormal reaction of the patient, or of later complication, without mention of misadventure at the time of the procedure; Z45.1 Encounter for adjustment and management of infusion pump; Z96.89 Presence of other specified functional implants; E11.9 Type 2 diabetes mellitus without complications; Z79.84 Long term (current) use of oral hypoglycemic drugs; I10 Essential (primary) hypertension; Z79.899 Other long term (current) drug therapy; M54.16 Radiculopathy, lumbar region; R45.89 Other symptoms and signs involving emotional state
CPT/HCPCS: 74177; 80048; 80305; 80353; 80358; 80361; 80365; 81001; 82962; 85007; 85025; 87086; 87088; 87186; 93005; 96374; 99283; G0378; G0480; J2405; Q9967; U0003

== ENCOUNTER → 2020-11-25 08:40 | Outpatient (POV) | payer MEDICARE, MEDICAID, SELFPAY ==
[2020-11-25 09:02] VITALS: BP 154/84; PULSE 74; RESP 18; O2SAT 96; BMI 38.3
--- NOTE | 2020-11-25 12:30 | P.PCN_ITS ---
- Procedure Date: 11/25/20 Time: 08:35 Anesthesiologist:: Fabi Eisenberg APRN Complications:: None Pre-procedure Diagnosis:: Degenerative disc disease lumbar spine with lumbar radiculopathy symptoms Post-procedure Diagnosis:: Same Indications for Procedure:: Patient is a 55-year-old white female who presents today for intrathecal pain pump adjustment. The patient did contact the clinic over the weekend due to feelings of oversedation. Patient underwent medication change out on 11/22/2020 from morphine/bupivacaine to Dilaudid. According to the patient and her assessment note, the patient's family contacted EMS after the family found her at home confused and somnolent. The patient was given Narcan x2. The patient reports that she did have a seizure after Narcan. She also reports to have been getting severe nausea vomiting and diarrhea following Narcan. On arrival at the emergency room, a work-up of the CT of her abdomen, pelvis, and urinalysis found the patient to be positive for urinary tract infection. She is alert and oriented today. She is rating her pain at 8 out of 10. Patient says, however, she would like a decrease in her medications. We will decrease her today. She is complaining of severe taste and smell since having the medication changed out. She is denying any drowsiness at this time. She does continue to have some nausea. She is currently on Dilaudid at 0.5 mg/day Physical exam General: Alert and oriented x3, no acute distress, pleasant and cooperative, [on room air] Lungs: Respirations even and unlabored, symmetrical chest expansion Eyes: PERRL Musculoskeletal: Flexion and extension of [] lumbar spine somewhat guarded secondary to pain, deep tendon reflexes normal, strength in upper and lower extremities [5/5], [abnormal gait noted] Neurological: Speech clear, employee relations representative equal, no gross sensory deficit Procedure Details:: Informed consent was obtained and the risk and benefits of the procedure were explained to the patient. Patient was taken to the procedure room where noninvasive monitoring was placed including noninvasive blood pressure cuff and pulse oximeter. Patient's pump was interrogated and was reprogrammed to Dilaudid at 0.4 mg/day []. The patient tolerated the procedure well with no complications. Plan and Disposition:: We will plan to follow-up with the patient in 1 week for reevaluation of symptoms. She is alert and oriented today and is tolerating the medication more appropriately at this time. She was decreased today to Dilaudid at 0.4 mg/day. She has been instructed if she does feel any drowsiness or changes in symptoms, to return to the emergency room or clinic. Patient has been instructed to contact the clinic with any concerns before the next appointment. Dr. Hope has reviewed this note and agrees with this plan of care. This note was dictated using voice recognition software and make contain errors or omissions.
== END ==
PROVIDERS: Visit Provider Clinical Nurse Specialist Family Health
DX: M51.16 Intervertebral disc disorders with radiculopathy, lumbar region (principal); Z45.1 Encounter for adjustment and management of infusion pump
CPT/HCPCS: 62368

== ENCOUNTER → 2020-12-02 09:01 | Outpatient (POV) | payer MEDICARE, MEDICAID, SELFPAY ==
[2020-12-02 09:15] VITALS: BP 161/92; PULSE 74; RESP 18; O2SAT 98; BMI 38.8
--- NOTE | 2020-12-02 09:17 | P.PCN_ITS ---
- Procedure Date: 12/02/20 Time: 09:17 Anesthesiologist:: Fabi Eisenberg APRN Complications:: None Pre-procedure Diagnosis:: Degenerative disc disease lumbar spine with lumbar radiculopathy symptoms Post-procedure Diagnosis:: Same Indications for Procedure:: Patient is a 55-year-old white female who presents today for intrathecal pain pump adjustment. She has been treated for degenerative disc disease lumbar spine with lumbar radiculopathy symptoms. She was seen in the clinic on 11/25/2020 for a decrease in her intrathecal therapy. On 11/22/2020, the patient underwent medication change out of morphine/bupivacaine to Dilaudid. According to the patient and assessment note, the patient presented to the emergency room and was Narcan x2. She also reported to have had a seizure after Narcan. She returned to the clinic the following week and was decreased with her intrathecal therapy due to oversedation. Patient was decreased from Dilaudid at 0.5 mg/day to 0.4 mg/day. Patient is complaining of severe pain and says she feels her pump is now turned off. She would like to be increased once again. We will increase her today. She rates her pain a 6 out of 10 today. She would also like her PTC device set up. She has been advised to use caution with her PTC device, as it does increase her risk for oversedation. She is in agreement. 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 Patient was taken to the procedure room where noninvasive monitoring was placed including noninvasive blood pressure cuff and pulse oximeter. Patient's pump was interrogated and was reprogrammed to Dilaudid at 0.05 mg/day. PTC started at 0.05 mg 4 times daily. The patient tolerated the procedure well with no complications. Plan and Disposition:: We will plan to see the patient back at her next intrathecal refill. She has been instructed to contact clinic if she has any concerns for next morning. Patient has been instructed to contact the clinic with any concerns before the next appointment. Dr. Hope has reviewed this note and agrees with this plan of care. This note was dictated using voice recognition software and make contain errors or omissions.
== END ==
PROVIDERS: Visit Provider Clinical Nurse Specialist Family Health
DX: M51.16 Intervertebral disc disorders with radiculopathy, lumbar region (principal); Z45.1 Encounter for adjustment and management of infusion pump
CPT/HCPCS: 62368

== ENCOUNTER → 2020-12-30 17:36 | Outpatient (CLI) | payer MEDICARE, MEDICAID, SELFPAY ==
[2020-12-30 18:44] LABS: Alanine Aminotransferase 53 U/L (12-78); Albumin Level 4.1 g/dl (3.5-5.0); Albumin/Globulin Ratio 1.3 (1.1-1.8); Alkaline Phosphatase 107 U/L (38-126); Anion Gap 13.7 mEq/L (5-15); Aspartate Amino Transferase 97 U/L (14-36); Bilirubin,Total 0.6 mg/dl (0.2-1.3); Blood Urea Nitrogen 17 mg/dl (7-17); Calcium 9.3 mg/dl (8.4-10.2); Carbon Dioxide 27 mmol/L (22.0-30.0); Chloride 102 mmol/L (98-107); Chol/HDL Ratio 5.8 (1-3.5); Cholesterol 209 mg/dl (140-200); Estimated Glomerular Filt Rate 58 ml/min (>60); GFR (African American) 70 ML/MIN (>60); Globulin 3.2 g/dL (1.3-3.2); Glucose 165 mg/dl (74-100); HDL Cholesterol 36 mg/dl (40-60); Potassium 4.7 mmoL/L (3.5-5.1); Sodium 138 mmol/L (136-145); Total Protein,Serum 7.3 g/dl (6.3-8.2); Triglycerides 148 mg/dl (30-150); VLDL Cholesterol 30 mg/dL (0-40)
[2020-12-30 18:55] LABS: Direct LDL Cholesterol 128.84 mg/dL (100-129)
[2020-12-30 19:28] LABS: Hemoglobin A1C 8.8 % (4.0-6.0)
== END ==
PROVIDERS: Visit Provider Internal Medicine Adolescent Medicine
DX: E11.9 Type 2 diabetes mellitus without complications (principal); Z79.84 Long term (current) use of oral hypoglycemic drugs
CPT/HCPCS: 80053; 80061; 83036

== ENCOUNTER 2021-01-05 07:55 | Outpatient (CLI) | payer MEDICARE, MEDICAID, SELFPAY ==
[2021-01-05] VITALS (8 sets, daily range): BP systolic 121–149; BP diastolic 70–78; PULSE 78–86; RESP 16–18; TEMP 36.9–37.1; O2SAT 93–98; BMI 39.1
--- NOTE | 2021-01-05 10:08 | PC.NURSE ---
Infusion still running via dial flow, pt informed to keep arm straight.
--- NOTE | 2021-01-05 10:55 | PC.NURSE ---
1020 infusion complete, pt resting comfortably in bed.
== END 2021-01-05 11:41 | disposition home or self-care (01) ==
LOC: INF 07:56
PROVIDERS: PCP Internal Medicine Adolescent Medicine; Visit Provider Internal Medicine Adolescent Medicine
DX: U07.1 COVID-19 (principal)
CPT/HCPCS: 96365

== ENCOUNTER 2021-03-03 13:11 | Day surgery (SDC) | payer MEDICARE, MEDICAID, SELFPAY ==
[2021-03-03 13:18] VITALS: BP 183/99; PULSE 77; RESP 18; TEMP 37.2; O2SAT 94; BMI 37.5
--- NOTE | 2021-03-03 13:35 | HMH.PMPROC ---
- Procedure Date: 03/03/21 Time: 13:35 Anesthesiologist:: Fabi Eisenberg APRN Complications:: None Pre-procedure Diagnosis:: Degenerative disc disease lumbar spine with lumbar radiculopathy symptoms Post-procedure Diagnosis:: Same Indications for Procedure:: Patient is a 55-year-old white female who presents today for intrathecal pain pump refill and reprogram. She is being treated for degenerative disc disease lumbar spine with lumbar radiculopathy symptoms. Patient says that when changing medication from morphine to Dilaudid, she did end up with oversedation. She reports that she was Narcan x2 and spent a night in the hospital. She has asked to not be seen with Dr. Jaquez in the future. She is requesting to only have follow-up visits with Dr. Hope if need for physician follow-up. She does rate her pain a 5 out of 10 would like an increase today. She is on Dilaudid/bupivacaine at 0.5 mg/day. She is also managed in the clinic with gabapentin, tramadol. She needs refills on these medications. She is previously taken tizanidine and says it is causing GI upset. She would like to change to a different muscle relaxer. 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 The patient was taken to the procedure room where noninvasive monitoring was placed including noninvasive blood pressure cuff and pulse oximeter. Patient's pump was interrogated. The area over the pump was cleansed with chlorhexidine as a cleansing solution. In sterile fashion the pump was accessed with a 22-gauge needle. Approximately 8 mls of the pump solution was removed and discarded appropriately. The pump was then refilled with 20 mL's of Dilaudid 5 mg/mL and bupivacaine 2.5 mg per male. The needle was withdrawn and a bandage was placed over the puncture site. The infusion rate was reprogrammed at Dilaudid/bupivacaine 0.55 mg/day.. The patient tolerated well with no complication. Plan and Disposition:: We will plan to increase the patient's concentration medication to Dilaudid 5 mg/mL and bupivacaine 5 mg per mill next visit. We will continue the patient's gabapentin 600 mg 1 tablet p.o. 5 times daily and tramadol 50 mg 1 tablet p.o. 3 times daily. We will stop the patient's tizanidine and start her on Flexeril 5 mg 1 tablet p.o. 3 times daily. Risks and benefits of the medication have been explained in detail to the patient. The patient has been advised to consult with his/her primary care provider and pharmacist regarding drug-drug interaction of medications currently prescribed. Patient has been prescribed a controlled substance after being counseled on the medication, medication safety, and possible side effects. MARY ANN report has been obtained and reviewed prior to prescription and found to be appropriate. Opioid contract was reviewed and signed by the patient, and that they have agreed to all of the terms set forth by our compliance program. Patient has been instructed to contact the clinic with any concerns before the next appointment. Dr. Hope has reviewed this note and agrees with this plan of care. This note was dictated using voice recognition software and make contain errors or omissions. We will see the patient back in the clinic at the next intrathecal refill. Patient has been instructed to contact the clinic with any concerns before the next appointment. Dr. Hope has reviewed this note and agrees with this plan of care. This note was dictated us
[2021-03-03 13:36] VITALS: BP 188/90; PULSE 76; RESP 18; O2SAT 95
[2021-03-03 13:38] VITALS: PULSE 79; RESP 18; O2SAT 95
[2021-03-03 13:50] VITALS: BP 189/100; PULSE 82; RESP 20; O2SAT 94
[2021-03-03 14:34] LABS: Barbiturates Screen,Urine Negative ng/ml (<200); Benzodiazepines Screen,Urine Negative ng/ml (<200)
[2021-03-03 14:35] LABS: Amphetamine/Metha Screen,Urine Negative ng/ml (<1000)
[2021-03-03 14:36] LABS: Cocaine Screen,Urine Negative ng/ml (<300); Methadone Screen,Urine Negative ng/ml (<300)
[2021-03-03 14:37] LABS: Cannabinoid Screen,Urine Negative ng/ml (<50)
[2021-03-03 14:38] LABS: Opiate Screen,Urine Positive ng/ml (<300); Phencyclidine Screen,Urine Negative ng/ml (<25)
== END 2021-03-03 13:50 | disposition home or self-care (01) ==
PROVIDERS: PCP Internal Medicine Adolescent Medicine; Visit Provider Clinical Nurse Specialist Family Health
DX: M51.16 Intervertebral disc disorders with radiculopathy, lumbar region (principal); Z45.1 Encounter for adjustment and management of infusion pump
CPT/HCPCS: 62370; 80305

== ENCOUNTER 2021-06-09 13:29 | Day surgery (SDC) | payer MEDICARE, MEDICAID, SELFPAY ==
[2021-06-09 13:39] VITALS: BP 133/87; PULSE 108; RESP 20; TEMP 36.3; O2SAT 96; BMI 38.3
--- NOTE | 2021-06-09 13:58 | HMH.PMPROC ---
- Procedure Date: 06/09/21 Time: 13:58 Anesthesiologist:: Fabi Eisenberg APRN Complications:: None Pre-procedure Diagnosis:: Degenerative disc disease of the lumbar spine with lumbar radiculopathy symptoms Post-procedure Diagnosis:: Same Indications for Procedure:: Patient is a pleasant 55-year-old female who presents today for intrathecal pain pump [refill] [and reprogram]. The patient is being treated for the treated this is of the lumbar spine with lumbar radiculopathy symptoms. Patient is currently being managed with Dilaudid 5 mg/mL at a rate of 0.55 mg/day and bupivacaine 2.5 mg/mL. Patient denies any side effects from this medications. Patient says that she is still having significant pain. She was started on Flexeril 5 mg 3 times a day which has not been helping her. We will adjust her pump today. We will also start her on Robaxin. Patient rates pain a 7 out of 10. Drug screen is appropriate. Clive [id number] has been reviewed and is appropriate. ORT score is low risk Physical exam General: Alert and oriented x3, no acute distress, pleasant and cooperative, [on room air] Lungs: Respirations even and unlabored, symmetrical chest expansion Eyes: PERRL Musculoskeletal: Flexion and extension of lumbar [spine] somewhat guarded secondary to pain, normal gait noted Neurological: Speech clear, no gross sensory deficit Procedure Details:: Informed consent was obtained and the risk and benefits of the procedure were explained to the patient. The patient was taken to the procedure room where noninvasive monitoring was placed including noninvasive blood pressure cuff and pulse oximeter. Patient's pump was interrogated. The area over the pump was cleansed with chlorhexidine as a cleansing solution. In sterile fashion the pump was accessed with a 22-gauge needle. Approximately 7 mls of the pump solution was removed and discarded appropriately. The pump was then refilled with 20 mL's of Dilaudid 5 mg/mL and bupivacaine 5 mg/mL. The needle was withdrawn and a bandage was placed over the puncture site. The infusion rate was reprogrammed at Dilaudid 0.6 mg/day. The patient tolerated well with no complication. Plan and Disposition:: We will start the patient on Robaxin. We will also refill the patient's gabapentin 600 mg 5 times a day and tramadol 50 mg 3 times a day. We will provide the patient with 3 months worth of refills on these. We will see the patient back in the clinic at the next intrathecal refill. Patient has been instructed to contact the clinic with any concerns before the next appointment. Dr. Hope has reviewed this note and agrees with this plan of care. This note was dictated using voice recognition software and make contain errors or omissions.
[2021-06-09 14:02] VITALS: BP 136/89; PULSE 112; PULSE 116; RESP 18; O2SAT 97
[2021-06-09 14:20] VITALS: BP 138/92; PULSE 110; RESP 20; O2SAT 99
[2021-06-09 16:00] LABS: Amphetamine/Metha Screen,Urine Negative ng/ml (<1000); Barbiturates Screen,Urine Negative ng/ml (<200)
[2021-06-09 16:01] LABS: Benzodiazepines Screen,Urine Negative ng/ml (<200)
[2021-06-09 16:02] LABS: Cannabinoid Screen,Urine Negative ng/ml (<50); Cocaine Screen,Urine Negative ng/ml (<300)
[2021-06-09 16:05] LABS: Methadone Screen,Urine Negative ng/ml (<300); Opiate Screen,Urine Negative ng/ml (<300)
[2021-06-09 16:06] LABS: Phencyclidine Screen,Urine Negative ng/ml (<25)
[2021-06-24 22:31] LABS: Codeine Negative (Cutoff=100); Hydrocodone Negative (Cutoff=100); Hydromorphone Positive (.); Morphine Negative (Cutoff=100); Opiates Positive (.)
== END 2021-06-09 14:20 | disposition home or self-care (01) ==
PROVIDERS: PCP Internal Medicine Adolescent Medicine; Visit Provider Clinical Nurse Specialist Family Health
DX: M51.16 Intervertebral disc disorders with radiculopathy, lumbar region (principal); Z45.1 Encounter for adjustment and management of infusion pump; Z79.891 Long term (current) use of opiate analgesic; I10 Essential (primary) hypertension; E78.5 Hyperlipidemia, unspecified; E11.9 Type 2 diabetes mellitus without complications; Z86.718 Personal history of other venous thrombosis and embolism
CPT/HCPCS: 62370; 80305; 80361; 80365; G0480

== ENCOUNTER 2021-09-22 13:12 | Day surgery (SDC) | payer MEDICARE, MEDICAID, SELFPAY ==
[2021-09-22 13:29] VITALS: BP 178/97; BP 179/106; PULSE 65; PULSE 83; RESP 18; TEMP 36.6; O2SAT 98; O2SAT 99; BMI 39.1
[2021-09-22 13:47] VITALS: BP 196/89; PULSE 85; RESP 18; O2SAT 95
[2021-09-22 13:50] VITALS: BP 189/97; PULSE 84; RESP 17; O2SAT 95
--- NOTE | 2021-09-22 13:53 | HMH.PMPROC ---
- Procedure Date: 09/22/21 Time: 13:53 Anesthesiologist:: Rolo Vincent CRNA Complications:: None Pre-procedure Diagnosis:: Generative disc disease lumbar spine. Lumbar radicular symptoms. Chronic sacroiliitis. Post-procedure Diagnosis:: Same Indications for Procedure:: Very pleasant 85-year-old white female that comes to our clinic today for intrathecal pump refill. She currently is being managed with Dilaudid 5 mg/mL at a rate of 0.55 mg/day and bupivacaine 2.5 mg/mL. Patient complained of some severe pain over the right SI joint. Upon palpation patient has extreme point tenderness. She states the pain is 10/10. She reports the pains been going on for 4 to 5 weeks. I discussed in detail with the patient increase in pain pump rate. Also, discussed in detail right SI joint injection. Patient has had corner lock bilaterally. We will increase her rate by 10% today. Procedure Details:: Details of the procedure were explained to the patient. The patient was taken to the procedure room placed in the sitting position. The area over the pain pump was cleaned using chlorhexidine as a cleansing solution. The pump was accessed without difficulty using a 22-gauge needle. 5 mL of solution was withdrawn. The pump was then filled with 20 cc containing Dilaudid 5 mg/mL and bupivacaine 2.5 mg/mL. Patient tolerated procedure without difficulty. There were no complications. The new rate for this patient is Dilaudid 5 mg/mL at 0.66 mg/day. Plan and Disposition:: Patient was discharged without incident
--- NOTE | 2021-09-22 14:05 | PC.NURSE ---
Pt. c/o nausea and has had one episode of vomiting; checked fsbs; 97; VSS
--- NOTE | 2021-09-22 14:11 | PC.NURSE ---
Pt. left with an elevated BP and refused further assessment of condition or vital signs; pt. verbalized understanding of risks/complications.
== END 2021-09-22 14:09 | disposition home or self-care (01) ==
LOC: SC.PAINP 13:14
PROVIDERS: PCP Internal Medicine Adolescent Medicine; Visit Provider Nurse Anesthetist, Certified Registered
DX: M51.16 Intervertebral disc disorders with radiculopathy, lumbar region (principal); M46.1 Sacroiliitis, not elsewhere classified; Z45.1 Encounter for adjustment and management of infusion pump
CPT/HCPCS: 95991

== ENCOUNTER 2021-11-24 13:17 | Day surgery (SDC) | payer MEDICARE, MEDICAID, SELFPAY ==
[2021-11-24 13:29] VITALS: BP 158/89; PULSE 74; RESP 18; TEMP 36.4; O2SAT 98; BMI 38.3
[2021-11-24 13:44] VITALS: BP 199/98; PULSE 78; RESP 20; O2SAT 99
--- NOTE | 2021-11-24 13:57 | HMH.PMPROC ---
- Procedure Date: 11/24/21 Time: 13:57 Anesthesiologist:: AZ Chan Complications:: None Pre-procedure Diagnosis:: Degenerative disc disease of lumbar spine Post-procedure Diagnosis:: Same Indications for Procedure:: Patient is a pleasant 55-year-old who presents today for intrathecal pain pump refill and reprogram. The patient is being treated for degenerative disc disease of lumbar spine with lumbar radiculopathy symptoms and chronic sacroiliitis. Patient is currently being managed with Dilaudid 5 mg/mL at a rate of 0.66 mg/day and bupivacaine 5 mg/mL at a rate of 0.66 mg/day. Patient denies any side effects from this medication. Patient rates pain a 6 out of 10. Drug screen is appropriate. Clive [id number] has been reviewed and is appropriate. Physical exam General: Alert and oriented x3, no acute distress, pleasant and cooperative Lungs: Respirations even and unlabored, symmetrical chest expansion Eyes: PERRL Musculoskeletal: Flexion and extension of lumbar [spine] somewhat guarded secondary to pain, [antalgic gait noted] Neurological: Speech clear, no gross sensory deficit Procedure Details:: Informed consent was obtained and the risk and benefits of the procedure were explained to the patient. The patient was taken to the procedure room where noninvasive monitoring was placed including noninvasive blood pressure cuff and pulse oximeter. Patient's pump was interrogated. The area over the pump was cleansed with chlorhexidine as a cleansing solution. In sterile fashion the pump was accessed with a 22-gauge needle. Approximately 9 mls of the pump solution was removed and discarded appropriately. The pump was then refilled with 20 mL's of Dilaudid 5 mg/mL. The needle was withdrawn and a bandage was placed over the puncture site. The infusion rate was reprogrammed and increased to Dilaudid 0.75 mg/day and bupivacaine 0.75 mg/day. The patient tolerated well with no complication. Plan and Disposition:: We will see the patient back in the clinic at the next intrathecal refill. Patient has a history of cornerloc procedure bilaterally. Pat has recommended SI injections bilaterally. At this time patient will let us know if she would like to schedule these injections. We will try and get the patient applied for home refill with [facility]. Patient has been instructed to contact the clinic with any concerns before the next appointment. Dr. Hope has reviewed this note and agrees with this plan of care. This note was dictated using voice recognition software and make contain errors or omissions.
[2021-11-24 14:00] VITALS: BP 170/98; PULSE 80; RESP 20; O2SAT 98
== END 2021-11-24 14:00 | disposition home or self-care (01) ==
LOC: SC.PAINP 13:19
PROVIDERS: PCP Internal Medicine Adolescent Medicine; Visit Provider Student in an Organized Health Care Education/Training Program
DX: M51.16 Intervertebral disc disorders with radiculopathy, lumbar region (principal); M46.1 Sacroiliitis, not elsewhere classified
CPT/HCPCS: 62370

== ENCOUNTER 2022-01-27 13:25 | Day surgery (SDC) | payer MEDICARE, MEDICAID, SELFPAY ==
[2022-01-27 13:45] VITALS: BP 144/85; PULSE 75; RESP 20; TEMP 36.8; O2SAT 95; BMI 38.3
[2022-01-27 14:14] VITALS: BP 117/74; PULSE 66; RESP 18; O2SAT 99
[2022-01-27 14:18] VITALS: BP 117/75; PULSE 67; RESP 18; O2SAT 98
--- NOTE | 2022-01-27 14:23 | EXP.PAIN.PRO ---
Procedure Date: 01/27/22 Time: 14:23 Anesthesiologist:: Rolo Vincent CRNA Complications:: None Pre-procedure Diagnosis:: Degenerative disc disease lumbar spine multilevels lumbar radiculopathy symptoms. Chronic sacroiliitis. Post-procedure Diagnosis:: Same. Indications for Procedure:: This patient is a pleasant 56-year-old female that comes our clinic today for intrathecal pain pump interrogation and refill. She is currently being managed with hydromorphone 5 mg/mL and bupivacaine 5 mg/mL at a current rate of 0.75 mg/day for both medications. She is requesting a increase in her pain pump today. She is complaining of right low posterior back pain. She has extreme point tenderness over the right SI joint. Patient informs me she has had corner lock system implant. I informed the patient she would require right SI joint injection of cortisone and local anesthetic. We will put her on the schedule for this. If in fact the injection does not take away the right posterior buttock pain we will proceed with increase in pain pump dose. Procedure Details:: Details of the procedure were explained to the patient. The patient taken the procedure room placed in the sitting position. The over the pump was cleansed using chlorhexidine as a cleansing solution. The pump was accessed with ease using 22-gauge needle. 8 cc of fluid was removed and discarded appropriate. The pump was then filled with 20 cc of solution containing 5 mg/mL of Dilaudid and 5 mg/mL of bupivacaine. There will be no changes in the pump rate today. Plan and Disposition:: Patient was scheduled for right side joint injection. She was discharged from the clinic without incident.
[2022-01-27 14:36] VITALS: BP 175/94; PULSE 67; RESP 20; O2SAT 97
== END 2022-01-27 14:37 | disposition home or self-care (01) ==
PROVIDERS: PCP Internal Medicine Adolescent Medicine; Visit Provider Nurse Anesthetist, Certified Registered
DX: M51.16 Intervertebral disc disorders with radiculopathy, lumbar region (principal); M46.1 Sacroiliitis, not elsewhere classified
CPT/HCPCS: 95991

== ENCOUNTER 2022-02-10 14:12 | Day surgery (SDC) | payer MEDICARE, MEDICAID, SELFPAY ==
[2022-02-10 14:36] VITALS: BP 170/109; PULSE 75; PULSE 76; RESP 18; O2SAT 97
[2022-02-10 14:43] VITALS: BP 151/82; PULSE 81; RESP 20; O2SAT 98; BMI 38.3
--- NOTE | 2022-02-10 14:44 | EXP.PAIN.PRO ---
Procedure Date: 02/10/22 Time: 14:44 Anesthesiologist:: Rolo Vincent CRNA Complications:: None Pre-procedure Diagnosis:: Degenerative disc disease of lumbar spine multilevels with lumbar radiculopathy symptoms, chronic sacroiliitis Post-procedure Diagnosis:: Same Indications for Procedure:: Patient is a pleasant 56-year-old female who presents today for right SI injection. We are currently treating patient for degenerative disc disease of lumbar spine multilevels with lumbar radiculopathy symptoms, chronic sacroiliitis. Today the patient rates her pain a 6 out of 10 and states it is primarily along her right low back that radiates into her right leg. Patient denies any new trauma or injury. We will proceed forward with the right SI injection. Procedure Details:: Informed consent was obtained and the risk and benefits of the procedure were explained to the patient. The patient was taken to the procedure room where noninvasive monitors were placed including a noninvasive blood pressure cuff and a pulse oximeter. The patient was placed in the prone position on the procedure table. The right buttocks was cleansed using chlorhexidine as a cleansing solution. The C-arm fluoroscopy was used to view the right SI joint. Using a 22-gauge spinal needle was inserted under fluoroscopic guidance into the inferior aspect of the right SI joint. Approximately 8 mL of bupivacaine 0.25% and Depo-Medrol 40 mg were incrementally injected into the sacroiliac joint. The patient tolerated the procedure well with no complications. Plan and Disposition:: Patient was discharged with no complications. Patient will follow-up in clinic in 2 weeks. She has been instructed to contact the clinic with any concerns before the next appointment date. Dr. Hope has reviewed this note and agrees with the plan of care. This note was dictated using voice recognition and may contain errors or omissions.
[2022-02-10 14:55] VITALS: BP 168/88; PULSE 75; RESP 20; O2SAT 96
== END 2022-02-10 14:56 | disposition home or self-care (01) ==
PROVIDERS: PCP Internal Medicine Adolescent Medicine; Visit Provider Nurse Anesthetist, Certified Registered
DX: M51.16 Intervertebral disc disorders with radiculopathy, lumbar region (principal); M46.1 Sacroiliitis, not elsewhere classified
CPT/HCPCS: 27096; G0260; J1030

== ENCOUNTER 2022-04-03 14:04 | Day surgery (SDC) | payer MEDICARE, MEDICAID, SELFPAY ==
[2022-04-03 14:19] VITALS: BP 177/98; PULSE 83; RESP 18; TEMP 36.6; O2SAT 96; BMI 39.1
[2022-04-03 15:06] VITALS: BP 189/88; PULSE 65; RESP 18; O2SAT 97
[2022-04-03 15:07] VITALS: BP 189/88; PULSE 65; RESP 18; O2SAT 98
[2022-04-03 15:15] VITALS: BP 170/88; PULSE 74; RESP 20; O2SAT 97
--- NOTE | 2022-04-03 15:26 | EXP.PAIN.PRO ---
Procedure Date: 04/03/22 Time: 15:26 Anesthesiologist:: Tk Hope MD Complications:: None Pre-procedure Diagnosis:: Degenerative disc disease of lumbar spine multilevel with lumbar radiculopathy symptoms Post-procedure Diagnosis:: Same Indications for Procedure:: This patient is a pleasant 56-year-old white female who we are treating for low back pain with lumbar radiculopathy symptoms and sacroiliitis. She does have an intrathecal pain pump in place with intrathecal Dilaudid/bupivacaine. She is currently going at 0.75 mg/day. She is having some increasing pain and is asking for an increase today. We will refill her pump and increase her to 0.9 mg/day. Clive and drug screen are all appropriate. She does have an antalgic gait. Motor strength of lower extremities is 5/5. There is no gross sensory deficit. Procedure Details:: Informed consent was obtained and the risks and benefits of the procedure was explained to the patient. The patient was taken to the procedure room. The pump was interrogated. The area over the pump was prepped using ChloraPrep. The pump was accessed with a 22-gauge needle. Approximately 7 mL's of the intrathecal solution was withdrawn and discarded. The pump was then refilled with 20 mL's of intrathecal Dilaudid 5 mg/mL plus bupivacaine 5 mg/mL. The pump was interrogated and the infusion was increased to 0.9 mg/day. The patient tolerated the procedure well with no complication. Plan and Disposition:: We will follow-up with her in 2 weeks. Will reevaluate symptoms at that time.
== END 2022-04-03 15:15 | disposition home or self-care (01) ==
LOC: SC.PAINP 14:06
PROVIDERS: PCP Internal Medicine Adolescent Medicine; Visit Provider Anesthesiology
DX: M51.16 Intervertebral disc disorders with radiculopathy, lumbar region (principal)
CPT/HCPCS: 62370

== ENCOUNTER 2022-06-16 13:03 | Day surgery (SDC) | payer MEDICARE, MEDICAID, SELFPAY ==
[2022-06-16 13:25] VITALS: BP 193/106; PULSE 80; RESP 18; TEMP 36.6; O2SAT 99; BMI 39.1
[2022-06-16 13:31] VITALS: BP 150/70; PULSE 80; RESP 18; O2SAT 98
[2022-06-16 13:32] VITALS: BP 150/70; PULSE 80; RESP 19; O2SAT 98
--- NOTE | 2022-06-16 13:47 | P.PCN_ITS ---
Procedure Date: 06/16/22 Time: 13:30 Anesthesiologist:: Rolo Vincent CRNA Complications:: None Pre-procedure Diagnosis:: Degenerative disc disease lumbar spine multilevels. Lumbar radiculopathy. Post-procedure Diagnosis:: Same. Indications for Procedure:: Patient is a pleasant 56-year-old female comes our clinic today for intrathecal pain pump refill. Over the last 2 weeks patient states she has had intense low lumbar off the midline to the right sharp, stabbing pain. She does have extreme point tenderness over the right sacroiliac joint. Patient is status post bilateral sacroiliac joint corner lock system fusions. The sacroiliac joint fusions were done 2 years ago. Patient does not complain of any side effects from the intrathecal pain pump. She is currently being managed with Dilaudid 5 mg/mL at 0.9 mg/day. Bupivacaine 5 mg/mL at 0.9 mg/day. Patient also using PTC dose of 0.0500 mg 3-4 times per day. Patient reports typically, her pain is held in check with intrathecal pain pump management. However, over the last 2 weeks she has had this intense right lower lumbar/right buttock pain. I discussed doing a right diagnostic sacroiliac joint injection today along with intrathecal pain pump refill. She wishes to proceed. She rates her pain 10/10. Procedure Details:: Procedure: Right sacroliliac joint injection under fluoroscopy Informed consent was obtained and the risk and benefits of the procedure were ex plained to the patient.~ The patient was taken to the procedure room and noninvasive monitors were placed including noninvasive blood pressure cuff and pulse oximeter.~ The patient was placed prone on the procedure table.~ The~ right hip was cleansed using Betadine as a cleansing solution.~ C-arm fluorosocpy was used to view the right SI joint.~ The skin and subcutaneous tissues were anesthetized using Lidocaine 1.5% and a 25-gauge needle.~ After this, a 22-gauge spinal needle was inserted under fluoroscopic guidance into the inferior aspect of the right SI joint.~ Omnipaque dye was injected and a good spread was seen throughout the joint.~ After this, approximately 5 mL of bupivacaine 0.25% and Depo-Medrol 40 mg was incrementally injected into the sacroiliac joint.~ The patient tolerated the procedure well with no complications.~ The patient was observed in the Pain Clinic, then discharged home neurologically intact.~ Details of the procedure explained to the patient. The patient taken to procedure room while in the prone position using fluoroscopy guidance the intrathecal pain pump was accessed with ease using a 22-gauge inch and a half needle. 3.8 mL of solution was withdrawn and discarded appropriately. 3.8 mL of solution was expected. The pump was then filled with 20 cc of solution containing Dilaudid 5 mg/mL and bupivacaine 5 mg/mL. The pump was interrogated. The rate was increased by 20%. Her new intrathecal pain pump rate is 1.1 mg/day of Dilaudid and bupivacaine. We increased her PTC dose to 0.1000 mg per dose. Plan and Disposition:: After the right sacroiliac joint diagnostic injection which contained 40 mg of Depo-Medrol +4 mg of 0.25% Marcaine +4 mg 1% lidocaine I ambulated around the clinic with the patient for 10 minutes. Patient performed sitting and standing in a repetitive motion multiple times. Patient reports the pain is the same. She has no relief in regards to the right sacroiliac joint diagnostic block. Patient continues to rate the pain 10/10. I suggest to the patient we get a repeat of her lumbar MRI. We will get this scheduled for her and she will return to see us in the clinic to review MRI findings.
[2022-06-16 13:50] VITALS: BP 168/94; PULSE 81; RESP 18; O2SAT 99
== END 2022-06-16 13:50 | disposition home or self-care (01) ==
PROVIDERS: PCP Internal Medicine Adolescent Medicine; Visit Provider Nurse Anesthetist, Certified Registered
DX: M51.16 Intervertebral disc disorders with radiculopathy, lumbar region (principal); M53.3 Sacrococcygeal disorders, not elsewhere classified; Z45.1 Encounter for adjustment and management of infusion pump; Z98.1 Arthrodesis status
CPT/HCPCS: 27096; 62370; G0260

== ENCOUNTER 2022-08-04 12:54 | Day surgery (SDC) | payer MEDICARE, MEDICAID, SELFPAY ==
[2022-08-04 13:12] VITALS: BP 168/83; PULSE 68; RESP 18; TEMP 36.8; O2SAT 98; BMI 39.1
--- NOTE | 2022-08-04 13:27 | EXP.PAIN.PRO ---
Procedure Date: 08/04/22 Time: 13:20 Anesthesiologist:: Rolo Vincent CRNA Complications:: None Pre-procedure Diagnosis:: Degenerative disc disease lumbar spine multilevels. Lumbar radiculopathy. Post-procedure Diagnosis:: Same. Indications for Procedure:: Patient is a very pleasant 56-year-old female comes our clinic today for intrathecal pain pump interrogation refill. Patient is doing very well on her current intrathecal management. She is being managed with Dilaudid 5 mg/mL at 1.1 mg/day. Bupivacaine 5 mg/mL at 1.1 mg/day. Patient also using PTC dose 0.05 mg 3-4 times per day. She does not report any side effects or complications regarding the intrathecal pump at this time. Procedure Details:: Details of the procedure explained to the patient. The patient taken to procedure room placed in the sitting position. The area over the pump was cleansed using chlorhexidine as a cleansing solution. The pump was interrogated. The pump was accessed with ease using a 22-gauge inch and a half needle. 6.5 mL of solution was withdrawn and discarded appropriately. The pump was then filled incrementally with 20 cc of Dilaudid 5 mg/mL and bupivacaine 5 mg/mL. Patient tolerated the procedure without difficulty. There were no complications. Plan and Disposition:: Patient was discharged without incident.
[2022-08-04 13:30] VITALS: BP 149/92; PULSE 77; RESP 18; O2SAT 98
== END 2022-08-04 13:30 | disposition home or self-care (01) ==
PROVIDERS: PCP Internal Medicine Adolescent Medicine; Visit Provider Nurse Anesthetist, Certified Registered
DX: Z45.1 Encounter for adjustment and management of infusion pump (principal); M51.16 Intervertebral disc disorders with radiculopathy, lumbar region
CPT/HCPCS: 95991

== ENCOUNTER 2022-09-22 12:33 | Day surgery (SDC) | payer MEDICARE, MEDICAID, SELFPAY ==
[2022-09-22 12:40] VITALS: BP 141/75; PULSE 71; RESP 18; TEMP 36.7; O2SAT 97; BMI 39.1
[2022-09-22 12:47] VITALS: BP 153/86; PULSE 69; RESP 18; O2SAT 98
[2022-09-22 13:05] VITALS: BP 128/76; PULSE 71; RESP 18; O2SAT 97
--- NOTE | 2022-09-22 13:39 | P.PCN_ITS ---
Procedure Date: 09/22/22 Time: 13:00 Anesthesiologist:: Rolo Vincent CRNA Complications:: None Pre-procedure Diagnosis:: Degenerative disc disease lumbar spine multilevels. Lumbar radiculopathy. Post-procedure Diagnosis:: Same. Indications for Procedure:: Patient is a very pleasant 56-year-old female comes our clinic today for intrathecal pain pump interrogation and refill. Patient is currently being managed with Dilaudid 5 mg/mL at 1.1 mg/day. Also bupivacaine 5 mg/mL at 1.1 mg/day. Patient having some extreme point tenderness over the bilateral sacroiliac joint areas. Patient reports the low lumbar/posterior hip area bilaterally is 10/10 pain scale. She has difficulty with sitting, standing, ambulating. Does not complain of much lumbar back pain. Patient was scheduled for lumbar MRI to further discern pathology several weeks ago. However, patient did not have a ride and was unable to attend the appointment. She requested a we reschedule the lumbar MRI. Also, patient has had bilateral corner lock systems placed in the SI joints a couple of years ago. However, it appears she is having pain in this area again. I discussed bilateral sacroiliac joint injections. Also, increasing the pain pump. Patient requesting bilateral sacroiliac joint injections and if no relief in her overall pain she wishes to increase the pump rate. She has positive Cristina's test bilaterally. Positive Gaenslen's test bilaterally. Positive bilateral sacroiliac joint compression t est. Procedure Details:: Details of the procedure explained the patient. The patient taken to procedure room placed in the sitting position. The over the pump was cleaned using chlorhexidine as a cleansing solution. The pump was accessed with a ease. Using a 22-gauge inch and a half needle. 4.7 mL of solution was withdrawn and discarded appropriately. The pump was then filled with 20 cc of Dilaudid 5 mg/mL and bupivacaine 5 mg/mL. The pump will remain the same rate. Plan and Disposition:: Patient will be scheduled for lumbar MRI. We will schedule patient for bilateral sacroiliac joint injections. She was discharged without incident.
== END 2022-09-22 13:05 | disposition home or self-care (01) ==
LOC: SC.PAINP 12:34
PROVIDERS: PCP Internal Medicine Adolescent Medicine; Visit Provider Nurse Anesthetist, Certified Registered
DX: Z45.1 Encounter for adjustment and management of infusion pump (principal); M51.16 Intervertebral disc disorders with radiculopathy, lumbar region
CPT/HCPCS: 95991

== ENCOUNTER 2022-09-29 14:00 | Day surgery (SDC) | payer MEDICARE, MEDICAID, SELFPAY ==
[2022-09-29 14:15] VITALS: BP 161/89; PULSE 75; RESP 18; TEMP 36.3; O2SAT 97; BMI 39.1
--- NOTE | 2022-09-29 14:32 | PC.NURSE ---
1420- Pt blood sugar 283 per dexcom
[2022-09-29 14:46] VITALS: BP 180/93; PULSE 78; RESP 18; O2SAT 97
--- NOTE | 2022-09-29 14:53 | P.PCN_ITS ---
Procedure Date: 09/29/22 Time: 14:45 Anesthesiologist:: Rolo Vincent CRNA Complications:: None Pre-procedure Diagnosis:: Degenerative disc disease lumbar spine multilevels. Lumbar radiculopathy. Postlaminectomy syndrome Post-procedure Diagnosis:: Same. Indications for Procedure:: Patient is a very pleasant 56-year-old female that comes our clinic today for bilateral sacroiliac joint injections. Patient's had these injections in the past with significant improvement lasting 1 to 2 months. Upon examination she has extreme point tenderness over the bilateral sacroiliac joints. Discussed in detail with the patient regarding her overall pain symptoms. She describes low back pain bilateral hip and leg radicular symptoms. She rates the pain 8/10. Patient is also being managed with intrathecal Dilaudid and bupivacaine. However, patient states she is in 7/10 pain all day every day. She describes her pain as constant, dull, aching, sharp and stabbing in the low back at times. Has difficulty ambulating without pain. Patient has difficulty standing due to increased lumbar back pain as well as bilateral hip and leg radicular symptoms. Procedure Details:: Procedure: Bilateral sacroiliac joint injections under fluoroscopy Informed consent was obtained and the risks and benefits of the procedure were explained to the patient.~ The patient was taken to the procedure room and noninvasive monitors were placed including a noninvasive blood pressure cuff and pulse oximeter.~ The patient was placed prone on the procedure table. Both hips were cleansed using Betadine as a cleansing solution. C-arm fluoroscopy was used to view the right sacroiliac joint.~ The skin and subcutaneous tissues were anesthetized using lidocaine 1.5% and a 25-gauge needle.~ After this, a 22-gauge spinal needle was inserted under fluoroscopic guidance into the inferior aspect of the right sacroiliac joint.~ Omnipaque dye was injected and good spread was seen throughout the joint.~ After this, approximately 5 mL of bupivacaine, 0.25% and Depo-Medrol, 40 mg was incrementally injected into the right sacroiliac joint. We then moved to the left sacroiliac joint.~ The skin and subcutaneous tissues were anesthetized using lidocaine 1.5% and a 25-gauge needle.~ After this, a 22- gauge spinal needle was inserted under fluoroscopic guidance into the inferior aspect of the left sacroiliac joint.~ Omnipaque dye was injected and good spread was seen throughout the joint. After this, approximately 5 mL of bupivacaine, 0.25% and Depo-Medrol, 40 mg was incrementally injected into the left sacroiliac joint.~ The patient tolerated the procedure well with no complications. The patient was observed in the Pain Clinic and then was discharged home neurologically intact. Plan and Disposition:: Discussed in detail with the patient regarding treatment options. I will have the patient come back to the clinic and see Dr. Hope for reevaluation regarding the intrathecal pain pump management.
== END 2022-09-29 14:46 | disposition home or self-care (01) ==
LOC: SC.PAINP 14:02
PROVIDERS: PCP Internal Medicine Adolescent Medicine; Visit Provider Nurse Anesthetist, Certified Registered
DX: M51.16 Intervertebral disc disorders with radiculopathy, lumbar region (principal); M96.1 Postlaminectomy syndrome, not elsewhere classified; M46.1 Sacroiliitis, not elsewhere classified
CPT/HCPCS: 27096; G0260; J1040

== ENCOUNTER 2022-11-10 13:54 | Day surgery (SDC) | payer MEDICARE, MEDICAID, SELFPAY ==
[2022-11-10 14:00] VITALS: BP 151/72; PULSE 57; RESP 16; TEMP 36.6; O2SAT 98; BMI 39.1
[2022-11-10 14:13] VITALS: BP 180/90; PULSE 75; RESP 18; O2SAT 97
--- NOTE | 2022-11-10 14:20 | EXP.PAIN.PRO ---
Procedure Date: 11/10/22 Time: 14:18 Anesthesiologist:: Rolo Vincent CRNA Complications:: None Pre-procedure Diagnosis:: Degenerative disc lumbar spine multilevels. Lumbar radiculopathy. Lumbar postlaminectomy syndrome Post-procedure Diagnosis:: Same. Indications for Procedure:: Very pleasant 56-year-old female that comes our clinic today for intrathecal pain pump interrogation, refill and reprogramming. Patient currently being managed with intrathecal Dilaudid 5 mg/mL and bupivacaine 5 mg/mL. Both are 1.1 mg/day. Patient having low back pain as well as right posterior hip pain. She describes the pain as constant, dull, aching. Patient states she only gets relief for 2 to 3 hours at night after taking tizanidine. She rates her pain 7/10. Procedure Details:: Details of the procedure explained to the patient. The patient taken to procedure room placed in the sitting position. The area of the pump was cleansed using chlorhexidine as a cleansing solution. The pump was interrogated. The pump was accessed with ease using a 22-gauge inch and a half needle. 5 mL of solution was withdrawn and discarded appropriately. The pump was then filled incrementally with 20 cc of Dilaudid 5 mg/mL and bupivacaine 5 mg/mL. The pump was increased by 20%. Patient will return to our clinic in 2 weeks for follow-up visit. If pain is not improved we will increase the pump at that time. New intrathecal pain pump rate for both medications is 1.32 mg/day. Patient tolerated procedure without difficulty. There are no complications. Plan and Disposition:: Patient was discharged without incident. She will follow-up in the office with us in 2 weeks for potential additional increase in intrathecal pain pump rate if needed.
[2022-11-10 14:24] VITALS: BP 152/85; PULSE 74; RESP 18; O2SAT 98
== END 2022-11-10 14:24 | disposition home or self-care (01) ==
LOC: SC.PAINP 13:56
PROVIDERS: PCP Internal Medicine Adolescent Medicine; Visit Provider Nurse Anesthetist, Certified Registered
DX: M51.16 Intervertebral disc disorders with radiculopathy, lumbar region (principal); M96.1 Postlaminectomy syndrome, not elsewhere classified; M25.551 Pain in right hip
CPT/HCPCS: 62370

== ENCOUNTER 2022-12-08 13:52 | Day surgery (SDC) | payer MEDICARE, MEDICAID, SELFPAY ==
[2022-12-08 14:10] VITALS: BP 154/79; PULSE 77; RESP 18; O2SAT 95; BMI 39.1
[2022-12-08 14:17] VITALS: BP 163/90; PULSE 75; RESP 18; O2SAT 97
[2022-12-08 14:18] VITALS: BP 163/90; PULSE 75; RESP 18; O2SAT 97
[2022-12-08 14:30] VITALS: BP 152/88; PULSE 73; RESP 18; O2SAT 95
--- NOTE | 2022-12-08 14:30 | EXP.PAIN.PRO ---
Procedure Date: 12/08/22 Time: 14:22 Anesthesiologist:: Rolo Vincent CRNA Complications:: None Pre-procedure Diagnosis:: Degenerative disc lumbar spine multilevels. Lumbar radiculopathy. Lumbar postlaminectomy syndrome. Post-procedure Diagnosis:: Same. Indications for Procedure:: Patient is a very pleasant 57-year-old female comes our clinic today for intrathecal pain pump interrogation and refill. Patient is currently being managed with Dilaudid 5 mg/mL 1.32 mg/day. Bupivacaine 5 mg/mL at 1.32 mg/day. Patient reports intrathecal pain pump not helping with her low back pain. Also, patient reports she continues with lumbar radiculopathy in her legs. Overall, patient voices she is unhappy with intrathecal pain pump management. She has had the pump for 3 years. She reports today it is never helped her. Procedure Details:: Details of the procedure explained to the patient. The patient taken to procedure room placed in the sitting position. The area of pumps cleansed using chlorhexidine as a cleansing solution. The pump was interrogated. The pump was accessed with ease using a 22-gauge inch and half needle. 10.1 mL of solution was withdrawn from the pump and discarded appropriately. The pump was then filled incrementally with 20 cc containing Dilaudid 5 mg/mL and bupivacaine 5 mg/mL. Patient tolerated procedure without difficulty. There are no complications Plan and Disposition:: Discussed in detail with the patient regarding treatment options. I recommend a follow-up visit with Dr. Hope on December 18, 2022. He can discuss with the patient regarding options and treatment of her pain.
[2022-12-08 18:09] LABS: Amphetamine/Metha Screen,Urine Negative ng/ml (<1000)
[2022-12-08 18:10] LABS: Barbiturates Screen,Urine Negative ng/ml (<200)
[2022-12-08 18:11] LABS: Benzodiazepines Screen,Urine Negative ng/ml (<200)
[2022-12-08 18:12] LABS: Cannabinoid Screen,Urine Negative ng/ml (<50); Cocaine Screen,Urine Negative ng/ml (<300)
[2022-12-08 18:14] LABS: Methadone Screen,Urine Negative ng/ml (<300); Opiate Screen,Urine Positive ng/ml (<300)
[2022-12-08 18:15] LABS: Phencyclidine Screen,Urine Negative ng/ml (<25)
[2022-12-15 16:05] LABS: Codeine Negative (Cutoff=100); Hydrocodone Negative (Cutoff=100); Hydromorphone Positive (.); Morphine Negative (Cutoff=100); Opiates Positive (.)
== END 2022-12-08 14:30 | disposition home or self-care (01) ==
PROVIDERS: Nurse Practitioner Family; PCP Internal Medicine Adolescent Medicine; Visit Provider Nurse Anesthetist, Certified Registered
DX: M51.16 Intervertebral disc disorders with radiculopathy, lumbar region (principal); M96.1 Postlaminectomy syndrome, not elsewhere classified
CPT/HCPCS: 80305; 80361; 80365; 95991; G0480

== ENCOUNTER → 2022-12-18 13:34 | Outpatient (CLI) | payer MEDICARE, MEDICAID, SELFPAY ==
[2022-12-18 14:10] VITALS: BP 168/95; PULSE 84; TEMP 36.4; O2SAT 99; BMI 39.1
== END ==
PROVIDERS: PCP Internal Medicine Adolescent Medicine; Visit Provider Anesthesiology
DX: M51.16 Intervertebral disc disorders with radiculopathy, lumbar region (principal)
CPT/HCPCS: 62368

== ENCOUNTER → 2022-12-31 12:54 | Outpatient (POV) | payer MEDICARE, MEDICAID, SELFPAY ==
--- NOTE | 2022-12-31 13:22 | EXP.PAIN.PRO ---
Procedure Date: 12/31/22 Time: 13:22 Anesthesiologist:: Yocasta Calderon APRN Complications:: None Pre-procedure Diagnosis:: Degenerative disc disease of lumbar spine with lumbar radiculopathy symptoms Post-procedure Diagnosis:: Sign Indications for Procedure:: Patient is a pleasant 57-year-old female who presents today for intrathecal reprogramming adjustment. We are currently treating the patient for degenerative disc disease of lumbar spine with lumbar radiculopathy symptoms. Today she rates her pain a 4 out of 10. Patient is currently managed with Dilaudid 5 mg/mL with a daily dose of 1.05 mg/day and bupivacaine 5 mg/mL with a daily dose of 1.05 mg/day. Patient denies any side effects from this medication. At our last visit she was given a order for a new MRI and was going to be sent for a referral to a neurosurgeon. She states today that she is decided against both of these and that she is just planning on having the device explanted. Patient states that she is never gotten significant relief with either the morphine or Dilaudid and that she continues to have significant pain in her low back. Patient has tried multiple injections with minimal relief. Patient is currently managed with gabapentin 600 mg 5 times a day and tramadol 3 times a day. Her Clive is [id number]. Its been reviewed and appropriate. Physical Exam: General: Alert and oriented x3, no acute distress, pleasant and cooperative Lungs: Respirations even and unlabored, symmetrical chest expansion Eyes: PERRL Musculoskeletal: Flexion and extension of lumbar [spine] somewhat guarded secondary to pain, [antalgic gait noted] Neurological: Speech clear, no gross sensory deficit Procedure Details:: Informed consent was obtained and the risk and benefits of the procedure were explained to the patient. Patient was taken to the procedure room where noninvasive monitoring was placed including noninvasive blood pressure cuff and pulse oximeter. Patient's pump was interrogated and was reprogrammed to Dilaudid 0.84 mg/day and bupivacaine 0.84 mg/day. The patient tolerated the procedure well with no complications. Plan and Disposition:: I have discussed with the patient that she may benefit from fentanyl in her pump however it is completely up to her if she would like to proceed forward with explant. I have counseled the patient that she can just let us know if she decides to proceed forward with this option. Patient tolerated her intrathecal decrease with no complications. Patient will return to clinic in 2 weeks for reevaluation of symptoms and intrathecal reprogramming adjustment. Patient has been instructed to contact the clinic with any concerns before the next appointment. Dr. Hope has reviewed this note and agrees with this plan of care. This note was dictated using voice recognition software and make contain errors or omissions. -- It Is medically necessary for this patient to continue to have their intrathecal pump refilled at regular intervals. This patient had an intrathecal pain pump implanted after meeting criteria of chronic intractable pain for greater than 3 months and failing conservative treatments. Patient has committed and been compliant to the treatment plan and all planned follow up care. Since implantation of the intrathecal pain pump, the patient has had decreased pain and been more functional. Oral medications have been reduced including intake of oral opioids. Patient continues to do well with intrathecal therapy with decrease in pain symptoms and increase in functional status. Stopping intrathecal medications can lead to life threatening withdrawal, seizures, cardiac arrest, severe pain, and possible . Pumps that are not refilled at regular intervals can be damages and cause and need for replacement. We continually titrate dose and concentration to optimize pain relief and function. We are limited in concentration for certain drugs to safely deliver medications
[2022-12-31 13:49] VITALS: BP 169/86; PULSE 71; RESP 20; O2SAT 96; BMI 37.5
== END | disposition home or self-care (01) ==
PROVIDERS: Visit Provider Nurse Practitioner Family
DX: M51.16 Intervertebral disc disorders with radiculopathy, lumbar region (principal)
CPT/HCPCS: 62368

== ENCOUNTER → 2023-01-14 14:17 | Outpatient (POV) | payer MEDICARE, MEDICAID, SELFPAY ==
--- NOTE | 2023-01-14 15:05 | EXP.PAIN.PRO ---
Procedure Date: 01/14/23 Time: 15:05 Anesthesiologist:: Yocasta Calderon APRN Complications:: None Pre-procedure Diagnosis:: Degenerative disc disease of lumbar spine with lumbar radiculopathy symptoms Post-procedure Diagnosis:: Same Indications for Procedure:: Patient is a pleasant 57-year-old female who presents today for intrathecal reprogramming adjustment. We are currently treating the patient for degenerative disc disease of lumbar spine with lumbar radiculopathy symptoms. Today she rates her pain a 5 out of 10. Patient denies any new trauma or injury or any change location or type of pain she experiences. Patient is currently managed with Dilaudid 5 mg/mL with a daily dose of 0.84 mg/day. And bupivacaine 5 mg/mL with a daily dose of 0.84 mg/day. Patient denies any side effects from this medication. Patient has been slowly weaning down off this medication with the plan to explant due to not feeling that she has gotten significant relief. Patient did have a bad episode of being overmedicated or possibly withdrawing from the medication that made her rethink having this pump. She does state that following our last visit in conversation she has started to rethink this decision. She states that she has been experiencing more pain. She is requesting if we can slowly decrease her pump medication and turn it off temporarily before deciding to proceed forward with the explant. Patient is currently managed with gabapentin 600 mg 5 times a day and tramadol 50 mg 3 times a day. Patient denies any side effects from this medication. Her Clive is [id number]. Its been reviewed and appropriate. Physical Exam: General: Alert and oriented x3, no acute distress, pleasant and cooperative Lungs: Respirations even and unlabored, symmetrical chest expansion Eyes: PERRL Musculoskeletal: Flexion and extension of lumbar [spine] somewhat guarded secondary to pain, [antalgic gait noted] Neurological: Speech clear, no gross sensory deficit Procedure Details:: Informed consent was obtained and the risk and benefits of the procedure were explained to the patient. Patient was taken to the procedure room where noninvasive monitoring was placed including noninvasive blood pressure cuff and pulse oximeter. Patient's pump was interrogated and was reprogrammed to Dilaudid 0.68 mg/day and bupivacaine 0.68 mg/day. The patient tolerated the procedure well with no complications. Plan and Disposition:: Patient tolerated her intrathecal decrease with no complications and was discharged neurologically intact. I have discussed with the patient that that is perfectly fine for us to lower her dose enough in order to turn off the device temporarily and give her some time to think on if she wants the device actually explanted. Previously I have discussed with the patient that we can always change her intrathecal medication to see if she gets better coverage with a different medicine. Patient will return to clinic in 2 weeks for reevaluation of symptoms and intrathecal decrease. Patient has been instructed to contact the clinic with any concerns before the next appointment. Dr. Hope has reviewed this note and agrees with this plan of care. This note was dictated using voice recognition software and make contain errors or omissions. -- It Is medically necessary for this patient to continue to have their intrathecal pump refilled at regular intervals. This patient had an intrathecal pain pump implanted after meeting criteria of chronic intractable pain for greater than 3 months and failing conservative treatments. Patient has committed and been compliant to the treatment plan and all planned follow up care. Since implantation of the intrathecal pain pump, the patient has had decreased pain and been more functional. Oral medications have been reduced including intake of oral opioids. Patient continues to do well with intrathecal therapy with decrease in pain symptoms and increase in func
[2023-01-14 15:46] VITALS: BP 164/77; PULSE 73; RESP 18; O2SAT 99; BMI 37.5
== END | disposition home or self-care (01) ==
PROVIDERS: Visit Provider Nurse Practitioner Family
DX: M51.16 Intervertebral disc disorders with radiculopathy, lumbar region (principal); Z97.8 Presence of other specified devices
CPT/HCPCS: 62368; 99213; G0463

== ENCOUNTER → 2023-01-27 13:51 | Outpatient (POV) | payer MEDICARE, MEDICAID, SELFPAY ==
--- NOTE | 2023-01-27 14:41 | EXP.PAIN.PRO ---
Procedure Date: 01/27/23 Time: 14:41 Anesthesiologist:: Yocasta Calderon APRN Complications:: None Pre-procedure Diagnosis:: Degenerative disc disease of lumbar spine with lumbar radiculopathy symptoms Post-procedure Diagnosis:: Same Indications for Procedure:: Patient is a pleasant 57-year-old female who presents today for 2-week follow-up and intrathecal adjustment and reprogram. We are currently treating the patient for degenerative disc disease of lumbar spine with lumbar radiculopathy symptoms. Today she rates her pain a 6 out of 10. Patient denies any new trauma or injury. She does state that she has had increased pain following her last decrease of her intrathecal pump. Patient is currently managed with Dilaudid 5 mg/mL with a daily dose of 0.68 mg/day and bupivacaine 5 mg/mL with a daily dose of 0.68 mg/day. Patient denies any side effects from this medication. Patient has been slowly decreasing her pump medication with the plan to turn it off temporarily and see how she does. Patient did have a bad episode of having her pain pump refilled by Dr. Jaquez in the past and then went home and around 2:00 in the morning had symptoms to where she could not move and felt like she was getting more medication than what she was supposed to. Patient has been on edge following this episode and has family that is tried talking her into having her pump removed. Patient does state that she does believe the pump is still helping her and so she is not decided whether or not she fully wants to have it explanted or not. Patient is currently managed with gabapentin 600 mg 5 times a day, tramadol 50 mg 3 times a day and tizanidine 4 mg 3 times daily. Patient denies any side effects from this medication. Her Clive is [id number]. Its been reviewed and appropriate. Physical Exam: General: Alert and oriented x3, no acute distress, pleasant and cooperative Lungs: Respirations even and unlabored, symmetrical chest expansion Eyes: PERRL Musculoskeletal: Flexion and extension of lumbar [spine] somewhat guarded secondary to pain, [antalgic gait noted] Neurological: Speech clear, no gross sensory deficit Procedure Details:: Informed consent was obtained and the risk and benefits of the procedure were explained to the patient. Patient was taken to the procedure room where noninvasive monitoring was placed including noninvasive blood pressure cuff and pulse oximeter. Patient's pump was interrogated and was reprogrammed to Dilaudid 0.544 mg/day and bupivacaine 0.544 mg/day. The patient tolerated the procedure well with no complications. Plan and Disposition:: Patient tolerated her intrathecal decrease with no complications and was discharged neurologically intact. I will refill the patient's gabapentin 600 mg 5 times a day, tramadol 50 mg 3 times a day and tizanidine 4 mg 3 times a day and provide a 1 month supply of this medication. I have counseled the patient on decreasing her intrathecal pump medications and we will plan on refilling her on her before February 09 and decreasing her 20% at that visit. I will plan on seeing her back in another 2 weeks from that date for an additional decrease with the plan to turn her off when she is at an acceptable rate to minimize withdrawal symptoms. Patient has been counseled to contact our office if she has any additional issues and problems until her next appointment. We will see the patient back in the clinic at the next intrathecal refill. Patient has been instructed to contact the clinic with any concerns before the next appointment. Dr. Hope has reviewed this note and agrees with this plan of care. This note was dictated using voice recognition software and make contain errors or omissions. -- It Is medically necessary for this patient to continue to have their intrathecal pump refilled at regular intervals. This patient had an intrathecal pain pump implanted after meeting criteria of chronic intractable pain for great
[2023-01-27 15:38] VITALS: BP 166/88; PULSE 69; RESP 18; O2SAT 96; BMI 37.3
== END | disposition home or self-care (01) ==
PROVIDERS: Visit Provider Nurse Practitioner Family
DX: M51.16 Intervertebral disc disorders with radiculopathy, lumbar region (principal); Z97.8 Presence of other specified devices
CPT/HCPCS: 62368; 99213; G0463

== ENCOUNTER 2023-02-09 10:13 | Day surgery (SDC) | payer MEDICARE, MEDICAID, SELFPAY ==
[2023-02-09 10:22] VITALS: BP 144/87; PULSE 78; RESP 20; TEMP 36.7; O2SAT 97; BMI 37.5
[2023-02-09 10:29] VITALS: BP 146/84; PULSE 75; RESP 18; O2SAT 97
[2023-02-09 10:30] VITALS: BP 146/84; PULSE 75; RESP 18; O2SAT 98
--- NOTE | 2023-02-09 10:35 | EXP.PAIN.PRO ---
Procedure Date: 02/09/23 Time: 10:30 Anesthesiologist:: Rolo Vincent CRNA Complications:: None Pre-procedure Diagnosis:: Degenerative disc lumbar spine multilevels for lumbar radiculopathy Post-procedure Diagnosis:: Same. Indications for Procedure:: Patient is a very pleasant 57-year-old female comes our clinic today for intrathecal pain pump interrogation and refill. Patient requesting increase in the rate. She is having some increased low back pain as well as bilateral hip and leg radicular symptoms. Patient currently being managed with Dilaudid 5 mg/mL and bupivacaine 5 mg/mL. Patient does not complain of any side effects or complications regarding the intrathecal pain pump. Procedure Details:: Details of the procedure explained to the patient. The patient taken to procedure room placed in the sitting position. The area of the pumps cleansed using chlorhexidine as a cleansing solution. The pump was interrogated. The pump was accessed with ease using a 22-gauge inch and half needle. 4 mL of solution was withdrawn and discarded appropriately. The pump was then filled with 20 cc of solution containing Dilaudid 5 mg/mL and bupivacaine 5 mg/mL. The rate will be increased by 10%. Dilaudid 5 mg/mL at 0.6 mg today. Bupivacaine 5 mg/mL at 0.6 mg today. Plan and Disposition:: Patient was discharged without incident.
[2023-02-09 10:44] VITALS: BP 133/82; PULSE 72; RESP 20
== END 2023-02-09 10:45 | disposition home or self-care (01) ==
PROVIDERS: PCP Internal Medicine Adolescent Medicine; Visit Provider Nurse Anesthetist, Certified Registered
DX: M51.16 Intervertebral disc disorders with radiculopathy, lumbar region (principal); Z97.8 Presence of other specified devices
CPT/HCPCS: 95991

== ENCOUNTER 2023-04-20 13:44 | Day surgery (SDC) | payer MEDICARE, MEDICAID, SELFPAY ==
[2023-04-20 14:04] VITALS: BP 111/54; PULSE 77; RESP 16; TEMP 36.5; O2SAT 95; BMI 37.5
[2023-04-20 14:12] VITALS: BP 177/97; PULSE 72; O2SAT 96
[2023-04-20 14:19] VITALS: BP 177/94; PULSE 73; O2SAT 95
--- NOTE | 2023-04-20 14:24 | EXP.PAIN.PRO ---
Procedure Date: 04/20/23 Time: 14:15 Anesthesiologist:: Rolo Vincent CRNA Complications:: None Pre-procedure Diagnosis:: Degenerative disc lumbar spine multilevels. Lumbar radiculopathy. Lumbar postlaminectomy syndrome. Post-procedure Diagnosis:: Same. Indications for Procedure:: Patient is a very pleasant 57-year-old female comes our clinic today for intrathecal pain pump interrogation refill. She is currently being managed with Dilaudid 5 mg/mL at a rate of 0. 600 0 mg/day. Also, bupivacaine 5 mg/mL rate is 0.6000 mg/day. Patient is reporting increased pain in the low back as well as right hip and leg radicular symptoms. She rates her pain 6/10. Patient requesting increase in the rate today. I think this is reasonable. We will increase her by 10%. Procedure Details:: Details of the procedure explained to the patient. Patient taken procedure and placed in the sitting position. The area over the pump is cleansed with chlorhexidine's cleansing solution. The pump was interrogated. The pump was accessed with ease using 22-gauge inch and half needle. 5.5 mL of solution was withdrawn and discarded appropriately. The pump was then filled with 20 cc of a solution containing Dilaudid 5 mg/mL and bupivacaine 5 mg/mL. The new rate will be Dilaudid 0.6600 mg/day. Bupivacaine 0.6600 mg/day. Patient tolerated procedure without difficulty. There are no complications. Plan and Disposition:: Patient was discharged without incident.
[2023-04-20 14:25] VITALS: BP 166/94; PULSE 74; RESP 16; O2SAT 95
[2023-04-20 20:45] LABS: Amphetamine/Metha Screen,Urine Negative ng/ml (<1000)
[2023-04-20 20:46] LABS: Barbiturates Screen,Urine Negative ng/ml (<200)
[2023-04-20 20:47] LABS: Benzodiazepines Screen,Urine Negative ng/ml (<200); Cannabinoid Screen,Urine Negative ng/ml (<50)
[2023-04-20 20:48] LABS: Cocaine Screen,Urine Negative ng/ml (<300); Methadone Screen,Urine Negative ng/ml (<300)
[2023-04-20 20:49] LABS: Opiate Screen,Urine Negative ng/ml (<300)
[2023-04-20 20:50] LABS: Phencyclidine Screen,Urine Negative ng/ml (<25)
[2023-04-27 13:24] LABS: Codeine Negative (Cutoff=100); Hydrocodone Negative (Cutoff=100); Hydromorphone Positive (.); Morphine Negative (Cutoff=100); Opiates Positive (.)
== END 2023-04-20 14:25 | disposition home or self-care (01) ==
PROVIDERS: Anesthesiology; PCP Internal Medicine Adolescent Medicine; Visit Provider Nurse Anesthetist, Certified Registered
DX: M51.16 Intervertebral disc disorders with radiculopathy, lumbar region (principal); M96.1 Postlaminectomy syndrome, not elsewhere classified; Z97.8 Presence of other specified devices
CPT/HCPCS: 80305; 80361; 80365; 95991; G0480

== ENCOUNTER 2023-06-11 11:43 | Day surgery (SDC) | payer MEDICARE, MEDICAID, SELFPAY ==
[2023-06-11 12:08] VITALS: BP 159/86; PULSE 77; RESP 16; O2SAT 91; BMI 37.5
[2023-06-11 12:25] VITALS: BP 151/93; PULSE 83; RESP 18; O2SAT 91
[2023-06-11 12:30] VITALS: BP 171/92; PULSE 79; RESP 18; O2SAT 95
--- NOTE | 2023-06-11 12:38 | P.PCN_ITS ---
Procedure Date: 06/11/23 Time: 12:38 Anesthesiologist:: Tk Hope MD Complications:: None Pre-procedure Diagnosis:: Degenerative disc disease of lumbar spine with lumbar radiculopathy symptoms and postlaminectomy syndrome lumbar spine Post-procedure Diagnosis:: Same Indications for Procedure:: The patient is a pleasant 57-year-old white female who we are treating for low back pain with lumbar radiculopathy symptoms. She does have a intrathecal Dilaudid/bupivacaine pain pump in place. She is currently going at 0.66 mg/day. She is having some increasing pain. We will refill her pump and increase her infusion today. I also talked her about changing out her pump as the [employer] pump system is malfunctioning and the company has gone out of business. There is a warning about premature battery failure. Patients are not doing well on this pump so we will plan on changing over to a [employer] pain pump system. Will need to change catheter and pump generator. Patient does have antalgic gait. Motor strength of lower extremities is 5/5. There is no gross sensory deficit. Procedure Details:: Informed consent was obtained and the risks and benefits of the procedure was explained to the patient. The patient was taken to the procedure room. The pump was interrogated. The area over the pump was prepped using ChloraPrep. The pump was accessed with a 22-gauge needle. Approximately 8 mL's of the intrathecal solution was withdrawn and discarded. The pump was then refilled with 20 mL's of intrathecal Dilaudid 5 mg/mL plus bupivacaine 5 mg per ml. The pump was interrogated and the infusion was increased to 0.8 mg/day. The patient tolerated the procedure well with no complication. Plan and Disposition:: We will follow-up with this patient at her next pump refill. This to be on or before August 01, 2023. Will also seek approval for change out of her pain pump system to a [employer] pain pump system.
== END 2023-06-11 12:25 | disposition home or self-care (01) ==
LOC: SC.PAINP 11:45
PROVIDERS: PCP Internal Medicine Adolescent Medicine; Visit Provider Anesthesiology
DX: M51.16 Intervertebral disc disorders with radiculopathy, lumbar region (principal); M96.1 Postlaminectomy syndrome, not elsewhere classified; Z97.8 Presence of other specified devices; Z45.1 Encounter for adjustment and management of infusion pump
CPT/HCPCS: 62370

== ENCOUNTER 2023-06-11 12:32 | Emergency (ER) | payer MEDICARE, MEDICAID, SELFPAY ==
[2023-06-11 12:33] VITALS: BP 173/96; PULSE 79; RESP 18; TEMP 36.5; O2SAT 95; BMI 37.5
--- NOTE | 2023-06-11 13:11 | XR_ITS ---
FINAL REPORT CLINICAL HISTORY: productive cough chest pain COMPARISON: None FINDINGS: Two views of the chest were obtained. The heart size and pulmonary vascularity are within normal limits. The mediastinum is normal. No acute pulmonary abnormality is identified. Atelectasis is present in the right lung base. There is no pneumothorax. The bony thorax is intact. IMPRESSION: No active cardiopulmonary disease. Reviewed, Interpreted and Dictated by Renan Alvarez III, MD Transcribed by Eboni Ross Authenticated and [facility]
--- NOTE | 2023-06-11 13:13 | ED_ITS ---
Discharge Plan Disposition Patient Disposition: Home, Self-Care Chief Complaint: Urogenital-Female Prescriptions Prescriptions: No Action ranitidine HCl 150 MG tablet 150 mg PO DAILY lisinopril 40 MG tablet 40 mg PO DAILY metformin 1,000 MG tablet 1,000 mg PO DAILY promethazine 12.5 MG tablet 1 - 2 tab PO Q8H PRN (Reason: Nausea) 3 Days Qty: 12 0RF carvedilol 6.25 MG tablet 6.25 mg PO BID cyclobenzaprine 5 MG tablet 5 mg PO TID PRN (Reason: spasms) 30 Days Qty: 90 2RF methocarbamol 500 MG tablet 500 mg PO DAILY PRN (Reason: muscle spasms) Qty: 30 0RF gabapentin 600 MG tablet 600 mg PO 5XDAY Qty: 450 0RF tizanidine [Zanaflex] 4 MG tablet 4 mg PO TID Qty: 270 0RF tramadol 50 MG tablet 50 mg PO TID PRN (Reason: Moderate Pain) Qty: 270 0RF Referrals Follow up/Referrals: Prem Boyce MD [Primary Care Provider] - See instructions Activity Restrictions/Add. Instructions Additional Instructions/Restrictions: At this time it was felt you are safe to be discharged home. If new or worsening symptoms please do not hesitate to return the emergency department. If symptoms persist please follow-up with your family doctor as you are able. Please continue to take your antibiotics as previously discussed. Clinical Impressions Clinical Impression: Acute viral syndrome Discharge ED Provider: Norm Cruz General Adult HPI General Chief complaint: Urogenital-Female Stated complaint: congestion, back pain. Sent from Dr. Boyce's offi Time Seen by Provider: 06/11/23 12:37 Mode of Arrival: Ambulatory Source of Information: Patient Limitations: No Limitations Description of Symptoms (Recalled from ER Triage Doc. by RN): Patient states she was seen by Leena on Wednesday and was diagnosed with a UTI. States that she called their office today and told them she wasn't feeling any better and had developed a cough and congestion as well. States they told her to come to the ER for evaluation and treatment. Patient currently taking Levoquin for her UTI. History of Present Illness HPI narrative: Patient is a 57-year-old female with past medical history of recurrent urinary tract infections who presents to the emergency department for multiple complaints. Patient states that since just after she has had cough, congestion, dysuria. She was evaluated at PCPs office who diagnosed her with urinary tract infection for which she has been taking Levaquin for which symptoms have been refractory. She called and they said that she was growing E. coli in her urine and she should come to the emergency department and be evaluated. Patient is complaining of continued dysuria, productive cough. No reports of chest pain. No other acute complaints at this time. Related Data Home Medications Medication Instructions Recorded Confirmed lisinopril 40 mg tablet 40 mg PO DAILY High blood pressure 01/03/18 06/11/23 ranitidine HCl 150 mg tablet 150 mg PO DAILY Heartburn 01/03/18 06/11/23 metformin 1,000 mg tablet 1,000 mg PO DAILY Diabetes 11/23/20 06/11/23 carvedilol 6.25 mg tablet 6.25 mg PO BID Heartburn 03/03/21 06/11/23 Previous Rx's Medication Instructions Recorded promethazine 12.5 mg tablet 1 - 2 tab PO Q8H PRN Nausea 3 days 11/24/20 #12 tabs cyclobenzaprine 5 mg tablet 5 mg PO TID PRN spasms 30 days #90 03/03/21 tabs methocarbamol 500 mg tablet 500 mg PO DAILY PRN muscle spasms 06/09/21 #30 tabs gabapentin 600 mg tablet 600 mg PO 5XDAY . #450 tabs 12/07/22 tizanidine 4 mg tablet (Zanaflex) 4 mg PO TID Pain #270 tabs 12/07/22 tramadol 50 mg tablet 50 mg PO TID PRN Moderate Pain 12/07/22 #270 tabs Allergies Allergy/AdvReac Type Severity Reaction Status Date / Time No Known Allergies Allergy Verified 06/11/23 12:08 [facility] Disclaimer: The information contained in this section may have been updated after the patient was seen, as this information can be updated by other users. Medical History (Updated 06/11/23 @ 15:26 by Norm Cruz MD) Diabetes Diabetes GERD (gastroesophageal reflux disease) Family History Other No significant family history Social History Smoking Status: Never smoker second hand exposure: No alcohol intake: never substance use type: other current occupational status: other Travel in the last 8 weeks: None household members: spouse housing: house current occupational exposures/hazards: No caffeine: Yes ROS Obtained: Yes Systems reviewed as appropriate & no additional complaints except as documented Physical Exam General General appearance: alert and in no apparent distress Head Head exam: atraumatic and normocephalic Eye Eye exam: Present PERRL and EOMI ENT ENT exam: Present mucous membranes moist Neck Neck exam: Present normal inspection Chest Chest inspection: Present normal inspection and symmetric chest wall rise Respiratory Respiratory exam: Present normal lung sounds bilaterally; Absent respiratory distress Cardiovascular Cardiovascular exam: Present regular rate and normal rhythm Abdominal Exam Abdominal exam: Present soft; Absent tenderness Extremities Exam Extremities exam: Present normal inspection Neurological Exam Neurological exam: Present alert Psychiatric Psychiatric exam: Present normal affect Skin Skin exam: Present warm and dry Medical Decision Making Clive Inquiry Pt receiving controlled substance: No Vital Signs: 06/11/23 12:33 06/11/23 13:36 Temperature 97.7 F Temperature Source Oral Pulse Rate 79 Pulse Rate [Radial] 79 Respiratory Rate 18 16 Blood Pressure 173/104 H Blood Pressure [Right Arm] 173/96 H Blood Pressure Mean [Right Arm] 121 Blood Pressure Source [Right Arm] Automatic Cuff Blood Pressure Position [Right Arm] Sitting 02 Sat by Pulse Oximetry 95 97 Oxygen Delivery Method Room Air Lab Data Lab Results 06/11/23 13:27: Urine Color Yellow, Urine Appearance Clear, Urine pH 6.0, Ur Specific [place] >= 1.030, Urine Protein Negative, Urine Glucose (UA) Negative, Urine Ketones Negative, Urine Blood 1+, Urine Nitrate Negative, Urine Bilirubin Negative, Urine Urobilinogen 0.2, Ur Leukocyte Esterase Negative, Urine RBC 3-5, Urine WBC Occasional, Ur Squamous Epith Cells Occasional, Urine Bacteria 1+ 06/11/23 13:30: WBC 11.0 H, RBC 4.57, Hgb 14.2, Hct 41.9, MCV 91.6, MCH 31.0, MCHC 33.8, RDW 13.7, Plt Count 271, MPV 8.1, Neut % (Auto) 62.1, Lymph % (Auto) 27.7, [place] % (Auto) 6.1, Eos % (Auto) 3.2, Baso % (Auto) 1.0, Neut # (Auto) 6.8, Lymph # (Auto) 3.0, [place] # (Auto) 0.7, Eos # (Auto) 0.4, Baso # (Auto) 0.1, Sodium 139, Potassium 4.2, Chloride 101, Carbon Dioxide 31 H, Anion Gap 11.2, BUN 15, Creatinine 0.90, Estimated Creat Clear 121, Estimated GFR 65, Est GFR ( Amer) 79, Glucose 171 H, Calcium 9.6, Total Bilirubin 0.5, AST 54 H, ALT 50, Alkaline Phosphatase 131 H, Total Protein 8.1, Albumin 4.3, Globulin 3.8 H, Albumin/Globulin Ratio 1.1, SARS-CoV-2 (PCR) Not detected, Influenza A Untype (PCR) Not detected, Influenza Type B (PCR) Not detected 06/11/23 13:30 06/11/23 13:30 Orders (Tests/Meds): ED MEDICATIONS Discontinued Medications Generic Name Dose Route Start Last Admin Trade Name Freq PRN Reason Stop Dose Admin Acetaminophen 1,000 mg 06/11/23 13:12 06/11/23 13:37 Acetaminophen 1,000mg/100ml Vial IV 06/11/23 13:13 1,000 mg ONCE ONE Administration Lactated Ringer's 1,000 mls @ 999 mls/hr 06/11/23 13:12 06/11/23 13:37 Lactated Ringer's 1000 Ml Bag IV 06/11/23 14:12 999 mls/hr .Q1H1M ONE Administration Ondansetron HCl 4 mg 06/11/23 13:12 06/11/23 13:37 Ondansetron 4mg/2ml Vial IV 06/11/23 13:13 4 mg ONCE ONE Administration ORDERS Category Date Time Status CXR 2 view (NOT portable) [XR chest 2V] Stat Exams 06/11/23 13:11 Completed CBC w/Auto Diff [Complete Blood Count Auto Diff] Stat Lab 06/11/23 13:30 Completed CMP [Comprehensive Metabolic Panel] Stat Lab 06/11/23 13:30 Completed Rapid PCR Covid and Flu A/B Stat Lab 06/11/23 13:30 Completed UA [Urinalysis and Microscopic] Stat Lab 06/11/23 13:27 Completed Medical Decision Narrative: In summary patient is a 57-year-old female with past medical history described above who presents emergency department for evaluation of dysuria, cough. Patient is hemodynamically stable nontoxic-appearing upon arrival, afebrile. Differential diagnosis includes refractory urinary tract infection, influenza, pneumonia, viral respiratory tract infection, among others. Workup will be conducted with hematologic labs, urinalysis, chest x-ray, viral swab. Initial interventions include crystalloid bolus, Zofran, IV Tylenol. Workup reviewed by me, hematologic labs are nonactionable. Chest x-ray read as no acute pathology. Viral swab negative. Urinalysis no evidence of persistent infection currently on Levaquin which is adequate. Upon repeat evaluation patient continued to be in no respiratory distress on room air. Given this patient is appropriate for discharge at this time and was given return precautions. Critical Care Critical Care Time Critical Care Time: No
[2023-06-11 13:30] LABS: Microscopic, Urine URINE MICROSCOPIC (MICROSCOPIC)
[2023-06-11 13:36] VITALS: BP 173/104; PULSE 79; RESP 16; O2SAT 97
[2023-06-11] MEDS: ACETAMINOPHEN 1,000MG/100ML VIAL 1000 MG IV (13:37)
[2023-06-11] MEDS: ONDANSETRON 4MG/2ML VIAL 4 MG IV (13:37)
[2023-06-11] MEDS: LACTATED RINGERS 1000ML 1,000 ML 999 ML IV (13:37)
[2023-06-11 13:44] LABS: Coronavirus 19, PCR Not Detected (NotDetected); Influenza A, PCR Not Detected (NotDetected); Influenza B, PCR Not Detected (NotDetected)
[2023-06-11 14:04] LABS: Appearance,Urine CLEAR (Clear); Bilirubin,Urine Negative (Negative); Blood, Urine 1+ (Negative); Color,Urine YELLOW (Yellow); Glucose,Urine (UA) Negative (Negative); Ketones,Urine Negative (Negative); Leukocyte Esterase,Urine Negative (Negative); Nitrate,Urine Negative (Negative); Protein,Urine Negative (Negative); Specific Gravity, Urine >= 1.030 (1.005-1.030); Urobilinogen,Urine 0.2 EU/dl (0.2)
[2023-06-11 14:14] LABS: Bacteria,Urine 1+ /lpf; Squamous Epithelial Cell,Urine Occasional #/hpf (0-5); WBC,Urine Occasional #/hpf (0-3)
[2023-06-11 14:14] LABS: Chloride 101 mmol/L (98-107)
[2023-06-11 14:15] LABS: Basophils # 0.1 K/mm3 (0-0.2); Eosinophils # 0.4 K/mm3 (0.0-0.4); Eosinophils % 3.2 % (0.1-12.0); Hematocrit 41.9 % (37.0-47.0); Hemoglobin 14.2 g/dL (12.2-16.2); Lymphocytes % 27.7 % (10-50); Mean Corpuscular HGB Conc 33.8 g/dL (31.8-35.4); Mean Corpuscular Volume 91.6 fl (81-99); Mean Platelet Volume 8.1 fl (7.4-10.4); Monocytes # 0.7 K/mm3 (0.1-1.0); Monocytes % 6.1 % (1.7-9.3); Neutrophils # 6.8 K/mm3 (1.8-7.8); Neutrophils % 62.1 % (37.0-80.0); Platelet Count 271 K/mm3 (142-424); Potassium 4.2 mmoL/L (3.5-5.1); Red Blood Count 4.57 M/mm3 (4.20-5.40); Red Cell Distribution Width 13.7 % (11.5-17.5); Sodium 139 mmol/L (136-145)
[2023-06-11 14:17] LABS: Alanine Aminotransferase 50 U/L (12-78); Albumin Level 4.3 g/dl (3.5-5.0); Albumin/Globulin Ratio 1.1 (1.1-1.8); Alkaline Phosphatase 131 U/L (38-126); Anion Gap 11.2 mEq/L (5-15); Aspartate Amino Transferase 54 U/L (14-36); Bilirubin,Total 0.5 mg/dl (0.2-1.3); Blood Urea Nitrogen 15 mg/dl (7-17); Carbon Dioxide 31 mmol/L (22.0-30.0); Creatinine Clearance Estimated 121 mL/min (50-200); Estimated Glomerular Filt Rate 65 ml/min (>60); GFR (African American) 79 ML/MIN (>60); Globulin 3.8 g/dL (1.3-3.2); Total Protein,Serum 8.1 g/dl (6.3-8.2)
[2023-06-11 14:18] LABS: Calcium 9.6 mg/dl (8.4-10.2); Glucose 171 mg/dl (74-100)
[2023-06-11 15:46] VITALS: BP 166/84; PULSE 79; RESP 16; TEMP 36.7
== END 2023-06-11 15:47 | disposition home or self-care (01) ==
PROVIDERS: Emergency Provider Emergency Medicine; PCP Internal Medicine Adolescent Medicine
DX: R05.9 Cough, unspecified (principal); R09.81 Nasal congestion; R30.0 Dysuria; B34.9 Viral infection, unspecified; E11.9 Type 2 diabetes mellitus without complications; K21.9 Gastro-esophageal reflux disease without esophagitis
CPT/HCPCS: 71046; 80053; 81001; 85025; 87636; 96361; 96374; 96375; 99285; J0131; J2405

== ENCOUNTER 2023-08-06 06:44 | Day surgery (SDC) | payer MEDICARE, MEDICAID, SELFPAY ==
[2023-08-03 13:24] VITALS: BMI 37.5
[2023-08-06] VITALS (8 sets, daily range): BP systolic 136–173; BP diastolic 76–95; PULSE 80–97; RESP 14–18; TEMP 36.2–36.6; O2SAT 93–97
[2023-08-06 07:20] LABS: Basophils # 0.1 K/mm3 (0-0.2); Basophils % 1.2 % (0.1-2.0); Eosinophils # 0.2 K/mm3 (0.0-0.4); Eosinophils % 2.2 % (0.1-12.0); Hemoglobin 12.4 g/dL (12.2-16.2); Lymphocytes # 2.8 K/mm3 (0.7-4.5); Lymphocytes % 30.3 % (10-50); Mean Corpuscular HGB Conc 32.6 g/dL (31.8-35.4); Mean Corpuscular Volume 94.9 fl (81-99); Mean Platelet Volume 8.4 fl (7.4-10.4); Monocytes # 0.5 K/mm3 (0.1-1.0); Monocytes % 5.5 % (1.7-9.3); Neutrophils # 5.7 K/mm3 (1.8-7.8); Neutrophils % 60.9 % (37.0-80.0); Platelet Count 248 K/mm3 (142-424); Red Blood Count 4.01 M/mm3 (4.20-5.40); Red Cell Distribution Width 13.8 % (11.5-17.5); White Blood Count 9.4 K/mm3 (4.8-10.8)
[2023-08-06] MEDS: VANCOMYCIN HCL 2,250 MG in 0.9 % SODIUM CHLORIDE 250 ML 125 MG IV (07:20)
[2023-08-06] MEDS: LACTATED RINGERS 1000ML 1,000 ML 25 ML IV (07:20)
[2023-08-06 07:33] LABS: Anion Gap 8.7 mEq/L (5-15); Blood Urea Nitrogen 14 mg/dl (7-17); Calcium 9.3 mg/dl (8.4-10.2); Carbon Dioxide 31 mmol/L (22.0-30.0); Chloride 105 mmol/L (98-107); Creatinine Clearance Estimated 137 mL/min (50-200); Estimated Glomerular Filt Rate 74 ml/min (>60); GFR (African American) 90 ML/MIN (>60); Glucose 128 mg/dl (74-100); Potassium 3.7 mmoL/L (3.5-5.1); Sodium 141 mmol/L (136-145)
--- NOTE | 2023-08-06 08:02 | EXP.ANES.CKL ---
[facility] Disclaimer: The information contained in this section may have been updated after the patient was seen, as this information can be updated by other users. Medical History GERD (gastroesophageal reflux disease) Diabetes Diabetes Surgical History History of hysterectomy History of appendectomy Family History Other No significant family history Social History Smoking Status: Never smoker second hand exposure: No alcohol intake: never substance use type: other current occupational status: other Travel in the last 8 weeks: None household members: spouse housing: house current occupational exposures/hazards: No caffeine: Yes [facility] Anesthesia Checklist Patient Identification Patient Identification: Arm Band, Family and Verbal (Name & ) Structural Data Admitted From: Home Planned Operative Procedure/s: pain pump replacement Consent for Planned Operative Procedure(s) Verified: Yes Verified Documents: Surgical Consent and History and Physical NPO Status Verified Time NPO: 22:00 Chart Verification Results Verified: CBC, BMP, ECG and Chest Xray Additional verifications Fingerstick Blood Glucose: 115 Patient : No Anesthesia Reactions: No Hx Blood Transfusions: No Blood Transfusion Reaction: No Cardiovascular Assessment Heart Sounds: S1 & S2 Pulse Rhythm: Irregular Peripheral Edema: No Airway Assessment Mallampati Score:: Class II C-Spine Mobility Assessed: Yes (FROM) TMJ Mobility Assessed: Yes Dentition: Good Dentition (Nothing loose per pt.) Neurological Assessment Level of Consciousness: Awake, Alert, Appropriate and Follows Commands Hx Seizures: No Numbness or tingling in extremities: Yes (SHELLY LE) Anesthesia Plan Anesthesia Risk discussed: Yes Anesthesia Plan: Verified ASA Class: III Anesthesia Type: MAC
[2023-08-06 09:34] LABS: Amphetamine/Metha Screen,Urine Negative ng/ml (<1000)
[2023-08-06 09:35] LABS: Barbiturates Screen,Urine Negative ng/ml (<200)
[2023-08-06 09:36] LABS: Benzodiazepines Screen,Urine Negative ng/ml (<200)
[2023-08-06 09:37] LABS: Cannabinoid Screen,Urine Negative ng/ml (<50); Cocaine Screen,Urine Negative ng/ml (<300)
[2023-08-06 09:38] LABS: Opiate Screen,Urine Positive ng/ml (<300)
[2023-08-06 09:39] LABS: Phencyclidine Screen,Urine Negative ng/ml (<25)
[2023-08-06 09:43] LABS: Methadone Screen,Urine Negative ng/ml (<300)
[2023-08-06] MEDS: SODIUM CHLORIDE 0.9% 20ML VIAL 20 ML IV (10:08)
[2023-08-06] MEDS: LIDOCAINE 1% W/EPI 1:100,000 20ML VIAL 40 ML (10:08)
[2023-08-06] MEDS: GENTAMICIN 80 MG/2 ML VIAL (10:08)
[2023-08-06 10:36] LABS: POC Glucose,Bedside 115 (70-110)
--- NOTE | 2023-08-06 10:54 | P.PNANES_ITS ---
[facility] Anesthesia Record Part I Anesthesia Record I Intake, IV Amount: 800 Hydration: Adequate Estimated blood loss (mL): 10 Urine output (mL): 0 Blood Products used (#): none Blood Pressure: 154/89 SaO2: 95 Pulse Rate: 97 Airway Patency: Patent Respiratory Rate: 14 Temperature: 97.1 F Patient is:: Awake (Talking) and Stable Stable to PACU at:: 10:55
--- NOTE | 2023-08-06 11:05 | P.OP_ITS ---
Date of procedure: 08/06/23 Pre-op Diagnosis:: Nonfunctioning intrathecal pain pump for degenerative disease of lumbar spine with lumbar radiculopathy symptoms Post-op Diagnosis:: Same Procedure performed:: Replacement intrathecal pain pump system with new intrathecal catheter and replacement pain pump generator Surgeon:: Tk Hope MD ENGINEERING LABORATORY TECHNICIAN:: Other Anesthesia: MAC Estimated blood loss (mL): 5 Clinical Note:: This patient is a pleasant 57-year-old white female who we are treating for low back pain with lumbar radiculopathy symptoms. She has a flowonix intrathecal pain pump system. This pump is malfunctioning. We are changing her out to an intrathecal Medtronic pain pump system. Will replace her intrathecal catheter and pain pump generator today. We will start her at 0.4 mg/day of intrathecal Dilaudid/bupivacaine. Operative findings:: None Operative note:: Informed consent was obtained risk and benefits of the procedure were explained to the patient. The patient was taken the operating room placed prone on the procedure table. She was prepped and draped in sterile fashion. The skin and subcutaneous tissues overlying the pain pump generator were anesthetized using lidocaine. I made incision dissected down to the pain pump generator. I dissected out the generator and disconnected the catheter. The catheter was tied off in the pocket with 0 silk ties x 3. C-arm fluoroscopy was then used to view the lumbar spine. The skin and subcutaneous tissues adjacent to the L4-L5 and L5-S1 interspace were anesthetized using lidocaine. I made incision dissected down to the lumbar paraspinous fascia. A 17-gauge spinal needle was inserted and advanced into the L4-5 interspace until clear CSF was obtained. After this intrathecal catheter was inserted and advanced to the T9 vertebral body. We were unable to advance any further because of suspected obstruction. The catheter was midline that was posterior. We left the tip of the catheter at the top of the T9 vertebral body. The stylette of the catheter and the needle withdrawn. The catheter was secured to the fascia with anchor device and 2-0 Prolene. I filled the pump up with 20 mL of intrathecal Dilaudid/bupivacaine 2 mg/mL for each. I tunneled catheter from the back to the pump pocket and attached catheter to the pump. We are able to freely withdraw clear CSF through the sideport. The pump was then placed in the pocket with an antibiotic pouch. Both incisions were then closed 2-0 Vicryl followed by subcutaneous bebo in 4-0 nylon. Patient tolerated the procedure well with no complications. The pump was interrogated and started at 0.4 mg/day of intrathecal Dilaudid/bupivacaine. Patient was discharged home neurologic intact with good relief of pain symptoms. Plan and disposition: We will follow-up with this patient in 1 week for wound check and reprogram. Will follow-up in 2 to 3 weeks for suture removal. Condition: stable Disposition: PACU Complications:: None
== END 2023-08-06 11:50 | disposition home or self-care (01) ==
PROVIDERS: PCP Nurse Practitioner; Visit Provider Anesthesiology
PROC: (CPT 62350; principal; 2023-08-06 08:30)
DX: Z45.1 Encounter for adjustment and management of infusion pump (principal); T85.698A Other mechanical complication of other specified internal prosthetic devices, implants and grafts, initial encounter; M51.16 Intervertebral disc disorders with radiculopathy, lumbar region; E11.9 Type 2 diabetes mellitus without complications
CPT/HCPCS: 62350; 62362; 36415; 80048; 80307; 82962; 83036; 85025; 96374; C1755; C1772; J3370

== ENCOUNTER 2023-08-13 11:20 | Outpatient (POV) | payer MEDICARE, MEDICAID, SELFPAY ==
--- NOTE | 2023-08-13 11:39 | P.PCN_ITS ---
Procedure Date: 08/13/23 Time: 11:39 Anesthesiologist:: Yocasta Calderon APRN Complications:: None Pre-procedure Diagnosis:: Degenerative disc disease of lumbar spine with lumbar radiculopathy symptoms Post-procedure Diagnosis:: Same Indications for Procedure:: Patient is a pleasant 57-year-old female who presents to the for 1 week postop follow-up of intrathecal pain pump replacement on 08/06/2023. Today she rates her pain an 8 out of 10. Patient denies any problems following this procedure however she does states she has having overall incisional pain as well as some increased low back pain. Patient is currently managed with Dilaudid 2 mg/mL with a daily dose of 0.3998 mg/day and bupivacaine 2 mg/mL with a daily dose of 0.3998 mg/day. She denies any side effects from this medication. Patient is also prescribed gabapentin 600 mg 5 times a day however she does not need any refills at this time. Patient was given a 3-month supply with her last refill. Her Clive has been reviewed and is appropriate. Physical Exam: General: Alert and oriented x3, no acute distress, pleasant and cooperative Lungs: Respirations even and unlabored, symmetrical chest expansion Eyes: PERRL Musculoskeletal: Flexion and extension of lumbar [spine] somewhat guarded secondary to pain, [antalgic gait noted] Neurological: Speech clear, no gross sensory deficit Skin: Incision sites are clean, dry, well-approximated with minimal erythema noted patient has a very minimal seroma noted along the right lateral incision, sutures intact Procedure Details:: Informed consent was obtained and the risk and benefits of the procedure were explained to the patient. Patient was taken to the procedure room where noninvasive monitoring was placed including noninvasive blood pressure cuff and pulse oximeter. Patient's pump was interrogated and was reprogrammed to Dilaudid 0.4394 mg/day and bupivacaine 0.4394 mg/day. The patient tolerated the procedure well with no complications. Plan and Disposition:: Patient tolerated her intrathecal increase with no complications. I have counseled the patient that I will send in a new order of her compounded cream and have counseled her to not put it over the incision sites. Patient was also set up with her bolus device today with an additional 10% of her overall dosage and allowed up to 4 boluses in a 24-hour. Patient tolerated these changes with no issues and was discharged neurologically intact. Patient was also counseled on continuing her postop restrictions including no submerging in water until her incisions are fully healed, minimal bending, twisting or lifting and to continue to use her abdominal binder to prevent additional seroma accumulation. Patient will return to clinic in 2 weeks for reevaluation of symptoms and suture removal. Patient is agreeable with this plan of care. Patient has been instructed to contact the clinic with any concerns before the next appointment. Dr. Hope has reviewed this note and agrees with this plan of care. This note was dictated using voice recognition software and make contain errors or omissions. -- It Is medically necessary for this patient to continue to have their intrathecal pump refilled at regular intervals. This patient had an intrathecal pain pump implanted after meeting criteria of chronic intractable pain for greater than 3 months and failing conservative treatments. Patient has committed and been compliant to the treatment plan and all planned follow up care. Since implantation of the intrathecal pain pump, the patient has had decreased pain and been more functional. Oral medications have been reduced including intake of oral opioids. Patient continues to do well with intrathecal therapy with decrease in pain symptoms and increase in functional status. Stopping intra thecal medications can lead to life threatening withdrawal, seizures, cardiac arrest, severe pain, and possible . Pumps that are not refilled at regular intervals can be damages and cause and need for replacement. We continually titrate dose and concentration to optimize pain relief and function. We are limited in concentration for certain drugs to safely deliver medications through the pump and stay within the recommendations from the Polyanalges[employer] Consensus Committee Guidelines. Depending on dose and concentration these pumps may need to be refilled sooner than 3 months as we titrate.
[2023-08-13 13:20] VITALS: BP 153/90; PULSE 79; RESP 18; O2SAT 99; BMI 37.5
== END 2023-08-13 23:59 | disposition home or self-care (01) ==
PROVIDERS: PCP Nurse Practitioner; Visit Provider Nurse Practitioner Family
DX: M51.16 Intervertebral disc disorders with radiculopathy, lumbar region (principal); Z97.8 Presence of other specified devices; Z45.1 Encounter for adjustment and management of infusion pump
CPT/HCPCS: 62368; 99213; G0463

== ENCOUNTER 2023-08-30 13:47 | Outpatient (POV) | payer MEDICARE, MEDICAID, SELFPAY ==
--- NOTE | 2023-08-30 13:54 | EXP.PAIN.PRO ---
Procedure Date: 08/30/23 Time: 13:54 Anesthesiologist:: Yocasta Calderon APRN Complications:: None Pre-procedure Diagnosis:: Degenerative disc disease of lumbar spine with lumbar radiculopathy symptoms Post-procedure Diagnosis:: Same Indications for Procedure:: If shePatient is a pleasant 57-year-old female who presents to the for follow-up of intrathecal pain pump replacement on 08/06/2023. Today she rates her pain an 5 out of 10. She denies any new trauma or injury. She does state that she is doing well following this procedure however the sutures are becoming a little bit more bothersome he is currently managed with Dilaudid 2 mg/mL with a daily dose of 0.4394 mg/day and bupivacaine 2 mg/mL with a daily dose of 0.4394 mg/day. She denies any side effects from these medications. She does state that she has been moving around more and is requesting an increase today. She is also prescribed gabapentin 600 mg 5 times a day however she does not need any refills at this time. Patient is asking whether or not if she can get in obtaining been she does have the red light in her device that helped for therapeutic healing. Her Clive has been reviewed and is appropriate. Physical Exam: General: Alert and oriented x3, no acute distress, pleasant and cooperative Lungs: Respirations even and unlabored, symmetrical chest expansion Eyes: PERRL Musculoskeletal: Flexion and extension of lumbar [spine] somewhat guarded secondary to pain, [antalgic gait noted] Neurological: Speech clear, no gross sensory deficit Skin: Incision sites are clean, dry, well-approximated with minimal erythema noted patient has a very minimal seroma noted along the right lateral incision, sutures intact Procedure Details:: Informed consent was obtained and the risk and benefits of the procedure were explained to the patient. Patient was taken to the procedure room where noninvasive monitoring was placed including noninvasive blood pressure cuff and pulse oximeter. Patient's pump was interrogated and was reprogrammed to Dilaudid 0.4834 mg/day and bupivacaine 0.4834 mg/day. The patient tolerated the procedure well with no complications. Plan and Disposition:: Patient tolerated her intrathecal increase with no complications and was discharged neurologically intact. I have counseled the patient to continue her full 6-week postop restrictions. Patient did have her sutures taken out during today's visit. I have also counseled the patient that I would hold off on any tanning bed due to increased risk of infection since her incisions are not healed. Patient acknowledges understanding and states that she will wait. Patient will return to clinic in 1 month for reevaluation of symptoms and plan of care. Patient has been instructed to contact the clinic with any concerns before the next appointment. Dr. Hope has reviewed this note and agrees with this plan of care. This note was dictated using voice recognition software and make contain errors or omissions. -- It Is medically necessary for this patient to continue to have their intrathecal pump refilled at regular intervals. This patient had an intrathecal pain pump implanted after meeting criteria of chronic intractable pain for greater than 3 months and failing conservative treatments. Patient has committed and been compliant to the treatment plan and all planned follow up care. Since implantation of the intrathecal pain pump, the patient has had decreased pain and been more functional. Oral medications have been reduced including intake of oral opioids. Patient continues to do well with intrathecal therapy with decrease in pain symptoms and increase in functional status. Stopping intrathecal medications can lead to life threatening withdrawal, seizures, cardiac arrest, severe pain, and possible . Pumps that are not refilled at regular intervals can be damages and cause and need for replacement. We continually titrate dose and concentration to optimize pain relief and function. We are limited in concentration for certain drugs to safely deliver medications through the pump and stay within the recommendations from the Polyanalgesic Consensus Committee Guidelines. Depending on dose and concentration these pumps may need to be refilled sooner than 3 months as we titrate.
[2023-08-30 14:00] VITALS: BP 150/78; PULSE 85; RESP 18; O2SAT 98; BMI 37.5
== END 2023-08-30 23:59 | disposition home or self-care (01) ==
PROVIDERS: PCP Nurse Practitioner; Visit Provider Nurse Practitioner Family
DX: M51.16 Intervertebral disc disorders with radiculopathy, lumbar region (principal); Z97.8 Presence of other specified devices; Z45.1 Encounter for adjustment and management of infusion pump
CPT/HCPCS: 62368; 99213; G0463

== ENCOUNTER 2023-09-21 13:53 | Day surgery (SDC) | payer MEDICARE, MEDICAID, SELFPAY ==
[2023-09-21 14:08] VITALS: BP 152/75; PULSE 82; RESP 18; TEMP 36.6; O2SAT 95; BMI 37.5
--- NOTE | 2023-09-21 14:24 | P.PCN_ITS ---
Procedure Date: 09/21/23 Time: 14:10 Anesthesiologist:: Rolo Vincent CRNA Complications:: None Pre-procedure Diagnosis:: Degenerative disc lumbar spine multilevels. Lumbar radiculopathy. Post-procedure Diagnosis:: Same. Indications for Procedure:: Patient is a very pleasant 57-year-old female that comes to our clinic today for intrathecal pain pump interrogation and refill. Patient currently being managed with hydromorphone 2 mg/mL and bupivacaine 2 mg/mL. Hydromorphone rate is 0.48 34 mg/day and bupivacaine 0.4834 mg/day. Patient doing very well with her current settings. She did not request any changes. She does not report any side effects or complications. Procedure Details:: Details of the procedure explained to the patient. The patient states procedure room placed in the sitting position. They are over the bumps cleaned using chlorhexidine as a cleansing solution. The pump was interrogated. The pump was accessed with ease using a 22-gauge inch and a half needle. 6.5 mL of solution was withdrawn and discarded appropriately. The pump was then filled with 20 cc of solution containing hydromorphone 2 mg/mL and bupivacaine 2 mg/mL. Patient tolerated procedure without difficulty. There was no complications. Plan and Disposition:: Patient was discharged without incident.
[2023-09-21 14:31] VITALS: BP 143/88; PULSE 78; RESP 18; O2SAT 95
== END 2023-09-21 14:31 | disposition home or self-care (01) ==
PROVIDERS: PCP Nurse Practitioner; Visit Provider Nurse Anesthetist, Certified Registered
DX: M51.16 Intervertebral disc disorders with radiculopathy, lumbar region (principal); Z97.8 Presence of other specified devices; Z45.1 Encounter for adjustment and management of infusion pump
CPT/HCPCS: 95991

== ENCOUNTER 2023-10-26 13:56 | Day surgery (SDC) | payer MEDICARE, MEDICAID, SELFPAY ==
[2023-10-26 14:24] VITALS: BP 117/69; PULSE 84; RESP 18; O2SAT 98; BMI 37.5
--- NOTE | 2023-10-26 14:36 | EXP.PAIN.PRO ---
Procedure Date: 10/26/23 Time: 14:30 Anesthesiologist:: Rolo Vincent CRNA Complications:: None Pre-procedure Diagnosis:: Degenerative disc lumbar spine multilevels. Lumbar radiculopathy. Post-procedure Diagnosis:: Same. Indications for Procedure:: Patient is a pleasant 58-year-old female comes our clinic today for intrathecal pain pump interrogation and refill. She is currently being managed with hydromorphone 2 mg/mL at 0.4834 mg/day. And bupivacaine 2 mg/mL 0.4834 mg/day patient requesting increase due to low back pain. Upon examination patient has extreme point tenderness over the bilateral sacroiliac joints. Patient reports 6 months ago she had sacroiliac joint injected bilaterally and low back pain was much better. She has positive Gaenslen's test bilaterally. Positive Cristina's test bilaterally. Positive bilateral sacroiliac joint compression test. We discussed bilateral sacroiliac joint injections of cortisone. She wishes to proceed pending insurance approval. I will increase the patient's intrathecal pain pump rate today.. Procedure Details:: Details of the procedure explained to the patient. The patient taken procedure room placed in sitting position. The area of the pump is cleansed using chlorhexidine as a cleansing solution. The pump was interrogated. The pump was accessed with ease using a 22-gauge inch and half needle. 8 mL of solution was withdrawn discarded appropriate. The pump was then filled with 20 cc of solution containing hydromorphone 2 mg/mL and bupivacaine 2 mg/mL. Pump rate will increase today to hydromorphone 0.5795 mg/day. And bupivacaine 0. 579 5 mg/day. Plan and Disposition:: Patient was discharged without incident.
[2023-10-26 14:37] VITALS: BP 139/74; PULSE 79; RESP 18; O2SAT 98
[2023-10-26 14:51] VITALS: BP 134/72; PULSE 84; RESP 18; O2SAT 95
[2023-10-26 14:52] VITALS: BP 134/72; PULSE 84; RESP 19; O2SAT 95
== END 2023-10-26 14:38 | disposition home or self-care (01) ==
PROVIDERS: PCP Nurse Practitioner; Visit Provider Nurse Anesthetist, Certified Registered
DX: M51.16 Intervertebral disc disorders with radiculopathy, lumbar region (principal); Z97.8 Presence of other specified devices; Z45.1 Encounter for adjustment and management of infusion pump
CPT/HCPCS: 62370

== ENCOUNTER 2023-11-30 13:24 | Day surgery (SDC) | payer MEDICARE, MEDICAID, SELFPAY ==
[2023-11-30 13:53] VITALS: BP 143/78; PULSE 69; RESP 18; TEMP 36.9; O2SAT 96; BMI 37.5
[2023-11-30 14:23] VITALS: BP 150/87; PULSE 82; RESP 18; O2SAT 97
--- NOTE | 2023-11-30 14:27 | EXP.PAIN.PRO ---
Procedure Date: 11/30/23 Time: 14:00 Anesthesiologist:: Rolo Vincent CRNA Complications:: None Pre-procedure Diagnosis:: Disc lumbar spine multilevels. Lumbar radiculopathy. Post-procedure Diagnosis:: Same. Indications for Procedure:: Patient is a pleasant 58-year-old female comes our clinic today for intrathecal pain pump interrogation and refill. She is currently being managed with hydromorphone 2 mg/mL and bupivacaine 2 mg/mL. Both are at a rate of 0.5795 mg/day. She is requesting increase. She is having some increased pain in the lumbar spine with activity. She rates her pain 8/10. Procedure Details:: Details of the procedure explained to the patient. The patient taken procedure and placed in the sitting position. They over the pumps cleansed using chlorhexidine's cleansing solution. The pump was interrogated. The pump was accessed with ease using a 22-gauge inch and half needle. 6 mL of solution was withdrawn discarded appropriately. The pump was then filled with 20 cc of solution containing hydromorphone 2 mg/mL and bupivacaine 2 mg/mL. The rate will increase both rates will be 0.6950 mg/day. Patient tolerated procedure without difficulty. There are no complications. Plan and Disposition:: Patient was discharged without incident.
[2023-11-30 14:29] VITALS: BP 150/87; PULSE 82; RESP 18; O2SAT 97
[2023-11-30 14:33] VITALS: BP 150/85; PULSE 86; RESP 18; O2SAT 96
== END 2023-11-30 14:33 | disposition home or self-care (01) ==
PROVIDERS: PCP Nurse Practitioner; Visit Provider Nurse Anesthetist, Certified Registered
DX: M54.16 Radiculopathy, lumbar region (principal)
CPT/HCPCS: 95991

== ENCOUNTER 2023-12-14 14:03 | Day surgery (SDC) | payer MEDICARE, MEDICAID, SELFPAY ==
[2023-12-14 14:29] VITALS: BP 139/80; PULSE 98; RESP 18; O2SAT 98; BMI 37.5
[2023-12-14 14:33] VITALS: BP 142/77; PULSE 73; RESP 18; O2SAT 98
--- NOTE | 2023-12-14 14:34 | P.PCN_ITS ---
Procedure Date: 12/14/23 Time: 14:20 Anesthesiologist:: Rolo Vincent CRNA Complications:: None Pre-procedure Diagnosis:: Bilateral sacroiliitis Post-procedure Diagnosis:: Same. Indications for Procedure:: Patient is a very pleasant 58-year-old female comes our clinic today for bilateral sacroiliac joint injections of cortisone. Patient describes low lumbar back pain as constant, dull, aching. Patient also reports bilateral posterior hip pain. Patient has difficulty transitioning from sitting to standing. She rates her pain 8/10. Procedure Details:: Procedure: Bilateral sacroiliac joint injections under fluoroscopy Informed consent was obtained and the risks and benefits of the procedure were explained to the patient.~ The patient was taken to the procedure room and noninvasive monitors were placed including a noninvasive blood pressure cuff and pulse oximeter.~ The patient was placed prone on the procedure table. Both hips were cleansed using Betadine as a cleansing solution. C-arm fluoroscopy was used to view the right sacroiliac joint.~ The skin and subcutaneous tissues were anesthetized using lidocaine 1.5% and a 25-gauge needle.~ After this, a 22-gauge spinal needle was inserted under fluoroscopic guidance into the inferior aspect of the right sacroiliac joint.~ Omnipaque dye was injected and good spread was seen throughout the joint.~ After this, approximately 5 mL of bupivacaine, 0.25% and Depo-Medrol, 40 mg was incrementally injected into the right sacroiliac joint. We then moved to the left sacroiliac joint.~ The skin and subcutaneous tissues were anesthetized using lidocaine 1.5% and a 25-gauge needle.~ After this, a 22- gauge spinal needle was inserted under fluoroscopic guidance into the inferior aspect of the left sacroiliac joint.~ Omnipaque dye was injected and good spread was seen throughout the joint. After this, approximately 5 mL of bupivacaine, 0.25% and Depo-Medrol, 40 mg was incrementally injected into the left sacroiliac joint.~ The patient tolerated the procedure well with no complications. The patient was observed in the Pain Clinic and then was discharged home neurologically intact. Plan and Disposition:: Patient was discharged without incident.
[2023-12-14] MEDS: BUPIVACAINE 0.25% 10ML INJ 25 MG IJ (14:36)
[2023-12-14 14:37] VITALS: BP 149/79; PULSE 74; RESP 18; O2SAT 97
[2023-12-14] MEDS: methylPREDNISolone ACETATE 80MG/ML VIAL 80 MG (14:37)
[2023-12-14] MEDS: LIDOCAINE 1% 5ML PF VIAL 5 ML (14:37)
[2023-12-14 14:39] VITALS: BP 149/79; PULSE 74; RESP 18; O2SAT 97
== END 2023-12-14 14:35 | disposition home or self-care (01) ==
PROVIDERS: PCP Nurse Practitioner; Visit Provider Nurse Anesthetist, Certified Registered
DX: M46.1 Sacroiliitis, not elsewhere classified (principal)
CPT/HCPCS: 27096; G0260; J1010

== ENCOUNTER 2024-05-05 12:46 | Day surgery (SDC) | payer MEDICARE, MEDICAID, SELFPAY ==
[2024-05-05 13:07] VITALS: BP 173/87; PULSE 70; RESP 16; TEMP 36.6; O2SAT 97; BMI 36.8
--- NOTE | 2024-05-05 13:13 | P.PCN_ITS ---
Procedure Date: 05/05/24 Time: 13:13 Anesthesiologist:: Yocasta Calderon APRN Complications:: None Pre-procedure Diagnosis:: Degenerative disc disease of lumbar spine with lumbar radiculopathy symptoms Post-procedure Diagnosis:: Same Indications for Procedure:: Patient is a pleasant 58-year-old female who presents today for intrathecal refill and reprogram. Today she rates her pain a 5 out of 10. Patient is currently managed with Dilaudid 0.695 mg/day and bupivacaine 0.695 mg/day. She denies any side effects from this medication. She states that she still has quite a bit of tenderness in and around her pump site that this is all been since she had a fall during the summer. Patient states that she was carrying gifts for her daughter's birthday and she stumbled. Patient states she does not feel like she did anything significant to the pump itself however is just remaining tender around that area. Patient has been prescribed compounded cream in the past and states that the last time she did try and get it that it was going to cost her $35. Patient states that it did work really well.Her Clive has been reviewed and is appropriate. Physical Exam: General: Alert and oriented x3, no acute distress, pleasant and cooperative Lungs: Respirations even and unlabored, symmetrical chest expansion Eyes: PERRL Musculoskeletal: Flexion and extension of lumbar [spine] somewhat guarded secondary to pain, [antalgic gait noted] Neurological: Speech clear, no gross sensory deficit Procedure Details:: Informed consent was obtained and the risk and benefits of the procedure were explained to the patient. The patient had noninvasive monitoring placed including noninvasive blood pressure cuff and pulse oximeter. Patient's pump was interrogated. The area over the pump was cleansed with chlorhexidine as a cleansing solution. In sterile fashion the pump was accessed with a 22-gauge needle. Approximately 3.1 mls of the pump solution was removed and discarded appropriately. The pump was then refilled with 20 mL's of Dilaudid. The needle was withdrawn and a bandage was placed over the puncture site. The infusion rate was reprogrammed and continued at Dilaudid and bupivacaine 0.695 mg/day. The patient tolerated well with no complication. Plan and Disposition:: Patient tolerated her intrathecal refill and reprogram with no complications and was discharged neurologically intact. I will order the patient a compounded cream. I did also discuss with the patient due to her significant tenderness around the lateral and midline area of the pump that she may benefit from trigger point injections at this location. We will follow-up on future visits. Patient does state that she has not been using her bolus device because where she was worried she would run out. She does state that she does get improvement with the boluses. Patient will return to clinic for the next intrathecal refill and reprogram. We will see the patient back in the clinic at the next intrathecal refill. Patient has been instructed to contact the clinic with any concerns before the next appointment. Dr. Hope has reviewed this note and agrees with this plan of care. This note was dictated using voice recognition software and make contain errors or omissions. -- It Is medically necessary for this patient to continue to have their intrathecal pump refilled at regular intervals. This patient had an intrathecal pain pump implanted after meeting criteria of chronic intractable pain for greater than 3 months and failing conservative treatments. Patient has committed and been compliant to the treatment plan and all planned follow up care. Since implantation of the intrathecal pain pump, the patient has had decreased pain and been more functional. Oral medications have been reduced including intake of oral opioids. Patient continues to do well with intrathecal therapy with decrease in pain symptoms and increase in functional status. Stopping intrathecal medications can lead to life threatening withdrawal, seizures, cardiac arrest, severe pain, and possible . Pumps that are not refilled at regular intervals can be damages and cause and need for replacement. We continua lly titrate dose and concentration to optimize pain relief and function. We are limited in concentration for certain drugs to safely deliver medications through the pump and stay within the recommendations from the [employer] Consensus [employer] Guidelines. Depending on dose and concentration these pumps may need to be refilled sooner than 3 months as we titrate.
[2024-05-05 13:17] VITALS: BP 171/81; PULSE 69; RESP 18; O2SAT 99
[2024-05-05 13:18] VITALS: BP 171/81; PULSE 70; RESP 18; O2SAT 99
[2024-05-05 13:33] VITALS: BP 164/87; PULSE 67; RESP 16; O2SAT 98
== END 2024-05-05 13:33 | disposition home or self-care (01) ==
PROVIDERS: PCP Nurse Practitioner; Visit Provider Nurse Practitioner Family
DX: M51.16 Intervertebral disc disorders with radiculopathy, lumbar region (principal)
CPT/HCPCS: 62370; 99212; G0463

== ENCOUNTER 2024-07-14 11:15 | Day surgery (SDC) | payer MEDICARE, MEDICAID, SELFPAY ==
[2024-07-14 11:24] VITALS: BP 152/85; PULSE 89; RESP 16; TEMP 36.9; O2SAT 96; BMI 36.0
--- NOTE | 2024-07-14 11:26 | P.PCN_ITS ---
Procedure Date: 07/14/24 Time: 11:39 Anesthesiologist:: Yocasta Calderon APRN Complications:: None Pre-procedure Diagnosis:: Degenerative Disc disease lumbar spine with lumbar radiculopathy Post-procedure Diagnosis:: same Indications for Procedure:: Patient is a pleasant 58-year-old female who presents today for intrathecal refill and reprogram. Today she rates her pain a 6 out of 10. Patient is currently managed with Dilaudid 4mg/ml with a daily dose of 0.695 mg/day and bupivacaine 4mg/ml with 0.695 mg/day. She denies any side effects from this medication. Pt is also managed with compound cream, gabapentin 600mg 5x per day and tramadol 50mg tid. She denies any side effects. Her Clive has been reviewed and is appropriate. Physical Exam: General: Alert and oriented x3, no acute distress, pleasant and cooperative Lungs: Respirations even and unlabored, symmetrical chest expansion Eyes: PERRL Musculoskeletal: Flexion and extension of lumbar [spine] somewhat guarded secondary to pain, [antalgic gait noted] Neurological: Speech clear, no gross sensory deficit Procedure Details:: Informed consent was obtained and the risk and benefits of the procedure were explained to the patient. The patient had noninvasive monitoring placed including noninvasive blood pressure cuff and pulse oximeter. Patient's pump was interrogated. The area over the pump was cleansed with chlorhexidine as a cleansing solution. In sterile fashion the pump was accessed with a 22-gauge needle. Approximately 8 mls of the pump solution was removed and discarded appropriately. The pump was then refilled with 20 mL's of 4mg/ml of Dilaudid and bupivacaine. The needle was withdrawn and a bandage was placed over the puncture site. The infusion rate was reprogrammed and continued at Dilaudid and bupivacaine 0.695 mg/day. The patient tolerated well with no complication. Plan and Disposition:: Patient tolerated her intrathecal refill and reprogram with no complications and was discharged neurologically intact. Patient will return to clinic for the next intrathecal refill and reprogram. We will see the patient back in the clinic at the next intrathecal refill. Patient has been instructed to contact the clinic with any concerns before the next appointment. Dr. Hope has reviewed this note and agrees with this plan of care. This note was dictated using voice recognition software and make contain errors or omissions. -- It Is medically necessary for this patient to continue to have their intrathecal pump refilled at regular intervals. This patient had an intrathecal pain pump implanted after meeting criteria of chronic intractable pain for greater than 3 months and failing conservative treatments. Patient has committed and been compliant to the treatment plan and all planned follow up care. Since implantation of the intrathecal pain pump, the patient has had decreased pain and been more functional. Oral medications have been reduced including intake of oral opioids. Patient continues to do well with intrathecal therapy with decrease in pain symptoms and increase in functional status. Stopping intrathecal medications can lead to life threatening withdrawal, seizures, c ardiac arrest, severe pain, and possible . Pumps that are not refilled at regular intervals can be damages and cause and need for replacement. We continually titrate dose and concentration to optimize pain relief and function. We are limited in concentration for certain drugs to safely deliver medications through the pump and stay within the recommendations from the Polyanal[employer] Consensus Committee Guidelines. Depending on dose and concentration these pumps may need to be refilled sooner than 3 months as we titrate.
[2024-07-14 11:33] VITALS: BP 143/76; PULSE 84; RESP 18; O2SAT 97
[2024-07-14 11:34] VITALS: BP 143/76; PULSE 82; RESP 18; O2SAT 96
[2024-07-14 11:51] VITALS: BP 140/93; PULSE 86; RESP 16; O2SAT 96
== END 2024-07-14 11:51 | disposition home or self-care (01) ==
LOC: SC.PAINP 11:19 → SC.PAIN 11:25
PROVIDERS: PCP Nurse Practitioner; Visit Provider Nurse Practitioner Family
DX: M51.16 Intervertebral disc disorders with radiculopathy, lumbar region (principal)
CPT/HCPCS: 62370

== ENCOUNTER 2024-09-22 08:35 | Day surgery (SDC) | payer MEDICARE, MEDICAID, SELFPAY ==
[2024-09-22 08:46] VITALS: BP 147/80; PULSE 80; RESP 16; TEMP 36.9; O2SAT 97; BMI 37.3
[2024-09-22 08:54] VITALS: BP 135/77; PULSE 77; RESP 18; O2SAT 96
[2024-09-22 09:03] VITALS: BP 135/77; PULSE 78; RESP 18; O2SAT 96
--- NOTE | 2024-09-22 09:03 | EXP.HP ---
History of Present Illness *Admission Date: 09/22/24 *Reason for visit:: Intrathecal refill; DDD *History of present illness: Degenerative disc disease [facility] Disclaimer: The information contained in this section may have been updated after the patient was seen, as this information can be updated by other users. Medical History GERD (gastroesophageal reflux disease) Diabetes Diabetes Surgical History History of hysterectomy History of appendectomy Family History Other No significant family history Social History Smoking Status: Never smoker second hand exposure: No alcohol intake: never substance use type: other current occupational status: other Travel in the last 8 weeks: None household members: spouse housing: house current occupational exposures/hazards: No caffeine: Yes Have you lived/traveled outside [place] in past 30 days?: No Contact w/someone who lives/traveled outside [place] past 30 days?: No Exposure to someone with infectious disease in past 14 days?: No Do you have a fever (greater than 100.4 F or 38 C)?: No Have you tested positive for COVID-19: No Exposed to someone with COVID-19 in past 14 days?: No Do you have a sore throat?: No Do you have a cough?: No Do you have any weakness?: No Do you have any diarrhea?: No Are you experiencing any unusual bleeding?: No Do you have any muscle aches/pain?: No Do you have any abdominal pain?: No Are you experiencing loss of taste or smell?: No Other Medical History Have you received the Flu Vaccine for this season: No Have you received the Pneumonia Vaccine: No Review of Systems Review of Systems Review of systems:: pertinent systems reviewed and negative unless documented below Review of systems (narrative): Review of Systems: General: No recent weight changes, no fever, no sleep disturbances Respiratory: No cough, no shortness of air, no recurring pulmonary infections Cardiovascular/peripheral vascular: No chest pain, no palpitations, no edema, no shortness of breath Gastrointestinal: No new onset incontinence, normal bowel movements reported Genitourinary: No new onset incontinence Musculoskeletal: Chronic back pain Psychiatric: [Normal mood/affect] Neurological: [Denies weakness in extremities], [denies balance issues] Meds Home Medications and Allergies Home Medications ?Medication ?Instructions ?Recorded ?Confirmed ?Type lisinopril 40 mg tablet 40 mg PO DAILY High blood pressure 01/03/18 09/22/24 History ranitidine HCl 150 mg tablet 150 mg PO DAILY Heartburn 01/03/18 09/22/24 History metformin 1,000 mg tablet 1,000 mg PO DAILY Diabetes 11/23/20 09/22/24 History promethazine 12.5 mg tablet 1 - 2 tab PO Q8H PRN Nausea 3 days 11/24/20 09/22/24 Rx #12 tabs carvedilol 6.25 mg tablet 6.25 mg PO BID Heartburn 03/03/21 09/22/24 History insulin glargine 100 unit/mL (3 100 unit SQ BID 08/03/23 09/22/24 History mL) subcutaneous pen (Lantus Solostar U-100 Insulin) semaglutide 0.25 mg or 0.5 mg (2 0.25 mg SQ WEEKLY 08/03/23 09/22/24 History mg/3 mL) subcutaneous pen injector (Ozempic) sulfamethoxazole 800 1 tab PO BID #14 tabs 08/06/23 09/22/24 Rx mg-trimethoprim 160 mg tablet (Bactrim DS) tizanidine 4 mg tablet (Zanaflex) 4 mg PO TID Pain #270 tabs 11/08/23 09/22/24 Rx gabapentin 600 mg tablet 600 mg PO 5XDAY . #450 tabs 05/12/24 09/22/24 Rx tramadol 50 mg tablet 50 mg PO TID PRN Moderate Pain 05/12/24 09/22/24 Rx #270 tabs New Prescriptions to Start Prescriptions: Allergies Allergy/AdvReac Type Severity Reaction Status Date / Time No Known Allergies Allergy Verified 11/30/23 13:53 Exam Data for Last 24 hours Vital signs and Labs for Last 24 Hours: Temp Pulse Resp BP Pulse Ox O2 Del Method 98.4 F 77 18 135/77 96 Room Air 09/22/24 08:46 09/22/24 08:54 09/22/24 08:54 09/22/24 08:54 09/22/24 08:54 09/22/24 08:54 I & O for Last 24 hours: Intake & Output 09/19/24 09/20/24 09/21/24 09/22/24 23:59 23:59 23:59 23:59 Weight 238 lb Constitutional Constitutional: no acute distress *Routine HEENT Exam Head: Present normocephalic and atraumatic Eye: Present PERRL ENT: Present mucous membranes moist *Routine Neck Exam Neck: Present supple *Routine Respiratory Exam Respiratory: Present CTA bilaterally *Routine Cardiovascular Exam Cardiovascular: Present RRR *Routine Abdominal Exam Abdominal: Present soft *Routine Rectal Exam Rectal:: deferred *Routine Genitalia Exam Genitalia:: normal female Routine Back/Spine/Pelvis Exam Back/Spine: Present pain with flexion *Routine Skin Exam Skin: Present intact Routine Psychiatric Exam Psychiatric: Present normal affect Detailed Neurological Exam Brainstem reflexes: present: corneal reflex, present: gag reflex and present: oculocephalic reflex Assessment and Plan *Assessment and plan (1) Lumbar radiculopathy: Status: Chronic Category: Medical Code(s): M54.16 - Radiculopathy, lumbar region (2) Degenerative disc disease: Status: Chronic Qualifiers: Spinal region: lumbar Qualified Code(s): M51.36 - Other intervertebral disc degeneration, lumbar region Category: Medical Plan Patient has been instructed to contact the clinic with any concerns before the next appointment. Dr. Hope has reviewed this note and agrees with this plan of care. This note was dictated using voice recognition software and make contain errors or omissions. All injections are used with Lidocaine, Bupivacaine and dexamethasone. Occasionally urine drug screen is needed to verify patient's compliance with our office pain contract. This is ordered based off specific treatments related to chronic pain with the potential to abuse certain medications.
--- NOTE | 2024-09-22 09:10 | P.PCN_ITS ---
Procedure Date: 09/22/24 Time: 09:10 Anesthesiologist:: Yocasta Calderon APRN Complications:: None Pre-procedure Diagnosis:: Degenerative disc disease of the lumbar spine with lumbar radiculopathy symptoms Post-procedure Diagnosis:: Same Indications for Procedure:: Patient is a pleasant 58-year-old female who presents today for intrathecal refill and reprogram. Today she rates her pain a 6 out of 10. She denies any new trauma or injury. Patient is currently managed with Dilaudid 4 mg/mL with a daily dose of 0.695 mg/day. She denies any side effects. Patient is also managed with gabapentin 600 mg 5 times a day, tramadol 50 mg 3 times daily and compounded cream. She denies any side effects. Her Clive is currently not accessible. Physical Exam: General: Alert and oriented x3, no acute distress, pleasant and cooperative Lungs: Respirations even and unlabored, symmetrical chest expansion Eyes: PERRL Musculoskeletal: Flexion and extension of lumbar [spine] somewhat guarded secondary to pain, [antalgic gait noted] Neurological: Speech clear, no gross sensory deficit Procedure Details:: Informed consent was obtained and the risk and benefits of the procedure were explained to the patient. The patient had noninvasive monitoring placed including noninvasive blood pressure cuff and pulse oximeter. Patient's pump was interrogated. The area over the pump was cleansed with chlorhexidine as a cleansing solution. In sterile fashion the pump was accessed with a 22-gauge needle. Approximately 6 mls of the pump solution was removed and discarded appropriately. The pump was then refilled with 20 mL's of Dilaudid 4 mg/ml and bupivacaine 4 mg/mL. The needle was withdrawn and a bandage was placed over the puncture site. The infusion rate was reprogrammed and increased 10% to Dilaudid and bupivacaine 0.765 mg/day. The patient tolerated well with no complication. Plan and Disposition:: Patient tolerated the procedure well with no complications and was discharged neurologically intact. Patient will return to clinic on or before their next intrathecal refill date. We will see the patient back in the clinic at the next intrathecal refill. Patient has been instructed to contact the clinic with any concerns before the next appointment. Dr. Hope has reviewed this note and agrees with this plan of care. This note was dictated using voice recognition software and make contain errors or omissions. -- It Is medically necessary for this patient to continue to have their intrathecal pump refilled at regular intervals. This patient had an intrathecal pain pump im planted after meeting criteria of chronic intractable pain for greater than 3 months and failing conservative treatments. Patient has committed and been compliant to the treatment plan and all planned follow up care. Since implantation of the intrathecal pain pump, the patient has had decreased pain and been more functional. Oral medications have been reduced including intake of oral opioids. Patient continues to do well with intrathecal therapy with decrease in pain symptoms and increase in functional status. Stopping intrathecal medications can lead to life threatening withdrawal, seizures, cardiac arrest, severe pain, and possible . Pumps that are not refilled at regular intervals can be damages and cause and need for replacement. We continually titrate dose and concentration to optimize pain relief and function. We are limited in concentration for certain drugs to safely deliver medications through the pump and stay within the recommendations from the [employer]ensus [employer] Guidelines. Depending on dose and concentration these pumps may need to be refilled sooner than 3 months as we titrate. A UDS is needed to verify patient's compliance with our office pain contract. This is ordered based off specific treatments related to chronic pain with the potential to abuse certain medications.
[2024-09-22 09:18] VITALS: BP 131/75; PULSE 77; RESP 16; O2SAT 98
== END 2024-09-22 09:18 | disposition home or self-care (01) ==
PROVIDERS: PCP Nurse Practitioner; Visit Provider Nurse Practitioner Family
DX: M51.16 Intervertebral disc disorders with radiculopathy, lumbar region (principal)
CPT/HCPCS: 62370; 99221

== ENCOUNTER 2024-11-24 11:40 | Day surgery (SDC) | payer MEDICARE, MEDICAID, SELFPAY ==
--- NOTE | 2024-11-24 11:44 | EXP.PM.HP ---
History of Present Illness *Admission Date: 11/24/24 *Reason for visit:: Intrathecal refill; DDD *History of present illness: Same [facility] Disclaimer: The information contained in this section may have been updated after the patient was seen, as this information can be updated by other users. Medical History GERD (gastroesophageal reflux disease) Diabetes Diabetes Surgical History History of hysterectomy History of appendectomy Family History Other No significant family history Social History Smoking Status: Never smoker second hand exposure: No alcohol intake: never substance use type: other current occupational status: other Travel in the last 8 weeks?: None household members: spouse housing: house current occupational exposures/hazards: No caffeine: Yes Have you lived/traveled outside [place] in past 30 days?: No Contact w/someone who lives/traveled outside US past 30 days?: No Exposure to someone with infectious disease in past 14 days?: No Do you have a fever (greater than 100.4 F or 38 C)?: No Have you tested positive for COVID-19?: No Exposed to someone with COVID-19 in past 14 days?: No Do you have a sore throat?: No Do you have a cough?: No Do you have any weakness?: No Do you have any diarrhea?: No Are you experiencing any unusual bleeding?: No Do you have any muscle aches/pain?: No Do you have any abdominal pain?: No Are you experiencing loss of taste or smell?: No Other Medical History Have you received the Flu Vaccine for this season: No Have you received the Pneumonia Vaccine: No Review of Systems Review of Systems Review of systems:: pertinent systems reviewed and negative unless documented below Review of systems (narrative): Review of Systems: General: No recent weight changes, no fever, no sleep disturbances Respiratory: No cough, no shortness of air, no recurring pulmonary infections Cardiovascular/peripheral vascular: No chest pain, no palpitations, no edema, no shortness of breath Gastrointestinal: No new onset incontinence, normal bowel movements reported Genitourinary: No new onset incontinence Musculoskeletal: Chronic back pain Psychiatric: [Normal mood/affect] Neurological: [Denies weakness in extremities], [denies balance issues] Meds Home Medications and Allergies Home Medications ?Medication ?Instructions ?Recorded ?Confirmed ?Type lisinopril 40 mg tablet 40 mg PO DAILY High blood pressure 01/03/18 11/24/24 History ranitidine HCl 150 mg tablet 150 mg PO DAILY Heartburn 01/03/18 11/24/24 History metformin 1,000 mg tablet 1,000 mg PO DAILY Diabetes 11/23/20 11/24/24 History promethazine 12.5 mg tablet 1 - 2 tab PO Q8H PRN Nausea 3 days 11/24/20 11/24/24 Rx #12 tabs carvedilol 6.25 mg tablet 6.25 mg PO BID Heartburn 03/03/21 11/24/24 History insulin glargine 100 unit/mL (3 100 unit SQ BID 08/03/23 11/24/24 History mL) subcutaneous pen (Lantus Solostar U-100 Insulin) semaglutide 0.25 mg or 0.5 mg (2 0.25 mg SQ WEEKLY 08/03/23 11/24/24 History mg/3 mL) subcutaneous pen injector (Ozempic) sulfamethoxazole 800 1 tab PO BID #14 tabs 08/06/23 11/24/24 Rx mg-trimethoprim 160 mg tablet (Bactrim DS) gabapentin 600 mg tablet 600 mg PO 5X . #450 tabs 09/28/24 11/24/24 Rx tramadol 50 mg tablet 50 mg PO TID PRN Moderate Pain 09/28/24 11/24/24 Rx #270 tabs tizanidine 4 mg tablet (Zanaflex) 4 mg PO TID Pain #270 tabs 09/29/24 11/24/24 Rx New Prescriptions to Start Prescriptions: Allergies Allergy/AdvReac Type Severity Reaction Status Date / Time No Known Allergies Allergy Verified 11/30/23 13:53 Exam Constitutional Constitutional: no acute distress *Routine HEENT Exam Head: Present normocephalic and atraumatic Eye: Present PERRL ENT: Present mucous membranes moist *Routine Neck Exam Neck: Present supple *Routine Respiratory Exam Respiratory: Present CTA bilaterally *Routine Cardiovascular Exam Cardiovascular: Present RRR *Routine Abdominal Exam Abdominal: Present soft *Routine Rectal Exam Rectal:: deferred *Routine Genitalia Exam Genitalia:: deferred Routine Back/Spine/Pelvis Exam Back/Spine: Present pain with flexion *Routine Skin Exam Skin: Present intact and warm *Routine Neurological Exam Neurological: Present alert and oriented X3 Routine Psychiatric Exam Psychiatric: Present normal affect and normal thought process Assessment and Plan *Assessment and plan (1) Lumbar radiculopathy: Status: Chronic Category: Medical Code(s): M54.16 - Radiculopathy, lumbar region (2) Degenerative disc disease: Status: Chronic Qualifiers: Spinal region: lumbar Qualified Code(s): M51.36 - Other intervertebral disc degeneration, lumbar region Category: Medical Plan Patient has been instructed to contact the clinic with any concerns before the next appointment. Dr. Hope has reviewed this note and agrees with this plan of care. This note was dictated using voice recognition software and make contain errors or omissions. All injections are used with Lidocaine, Bupivacaine and dexamethasone. Occasionally urine drug screen is needed to verify patient's compliance with our office pain contract. This is ordered based off specific treatments related to chronic pain with the potential to abuse certain medications.
--- OUTSIDE RECORDS SUMMARY | 2024-11-24 11:44 | XMS_ITS | Data Portability ---
Author Organization [facility] [employer] [facility] Address [address] [place] [address] Assessment No assessment recorded. Plan of Treatment Reminders Order Date Submit Date Provider Last Modified By Organization Details Last Modified Time Details Appointments FOLLOW UP 15 2024 10:45A M Red Oconnor APRN Not available Not available Not available Lab urinalysi s, dipstick [address], [address], 10/16/2024 16:58:16 lipid panel, serum 2024 025 [facility], [address] [place] [address], [address], 10/17/2024 08:11:14 HbA1c (hemoglob in A1c), blood [email or web address], [address], 10/16/2024 17:50:42 CMP, serum or plasma 2024 025 [email or web address], [address] [place] [address], [address], 10/17/2024 08:11:13 CBC w/ auto diff 2024 025 [facility]), [address] [place], [address], 10/17/2024 08:11:12 TSH + free T4, serum 2024 025 [facility] [address] [place], [address], 10/17/2024 08:11:12 unlisted lab - toxassure flex 19, [id number] -P 2024 025 [facility]), [address] [place], [address], 10/21/2024 12:08:17 vitamin D, 25-hydrox y, total, serum 2024 025 [facility]), [address] [place], [address], 10/17/2024 08:11:15 Hepatitis C IgG Ab, qual, serum 2024 025 [facility]), [address] [place], [address], 10/17/2024 08:11:15 HIV 1 + 2, meaningfu l use set 2024 025 [facility]), [address] [place], [address], 10/17/2024 08:11:16 cobalamin and folate panel, serum 2024 025 [facility]), [address] [place], [address], 10/17/2024 08:11:14 cobalamin and folate panel, serum [address]), [address] [place], [address], 09/27/2024 15:55:48 vitamin D, 25-hydrox y, total, serum 2024 025 [email or web address] [facility] ([place]), [facility] [place], [address], 09/27/2024 15:55:48 HbA1c (hemoglob in A1c), blood [address], [address], 07/20/2024 17:33:13 lipid panel, serum 2024 025 [email or web address] [facility] ([place]), [facility] [place], [address], 09/27/2024 15:55:48 CMP, serum or plasma 2024 025 [email or web address] [facility] ([place]), [address] [place] [address], [address], 09/27/2024 15:55:48 CBC w/ auto diff 2024 025 [email or web address] [facility] ([place]), [facility] [place], [address], 09/27/2024 15:55:48 TSH + free T4, serum 2024 025 [email or web address] [facility] ([place]), [address] [place] [address], [address], 09/27/2024 15:55:48 rapid flu (A+B) [address], [address], 07/07/2024 10:50:31 rapid SARS CoV 2 Ag, QL, IA, upper respirato ry specimen [address], [address], 07/07/2024 10:50:31 HbA1c (hemoglob in A1c), blood 2023 024 [email or web address] [facility], [address] [place] [address], [address], 04/10/2024 17:30:32 Referral None recorded. Procedures diabetic foot screen (PROC) 2024 025 Not available 10/16/2024 11:48:07 Surgeries None recorded. Imaging electroca rdiogram [email or web address], [address], 10/16/2024 12:27:21 MAMMO, screening , digital, bilateral - first avail 2024 025 [facility] Centralized Scheduling, [address] , [place], [address], 08/04/2024 11:07:53 Medication Orders phentermi ne 37.5 mg tablet 2024 025 [facility], [address] [place] [address], [address], 11/14/2024 16:09:57 phentermi ne 37.5 mg tablet 2024 025 [facility], [address] [place] [address], [address], 10/16/2024 12:38:52 Ozempic 1 mg/dose (4 mg/3 mL) subcutane ous pen injector 2024 025 [facility], [address] [place] [address], [address], 10/16/2024 12:28:52 lisinopri l 40 mg tablet 2024 025 [facility], [address] [place] [address], [id number], 07/28/2024 16:09:55 Ozempic 1 mg/dose (4 mg/3 mL) subcutane ous pen injector 2024 025 [facility], [address] [place] [address], [address], 10/16/2024 12:38:52 rosuvasta tin 10 mg tablet 2024 025 [facility], [address] [place] [address], [address], 09/30/2024 09:42:47 Linzess 290 mcg capsule 2023 024 [facility], [address] [place] [address], [address], 04/10/2024 17:31:51 omeprazol e 40 mg capsule,d elayed release 2023 024 [facility], [address] [place] [address], [address], 04/10/2024 17:31:52 Ozempic 1 mg/dose (4 mg/3 mL) subcutane ous pen injector 2023 024 [facility], [address] [place] [address], [address], 05/04/2024 12:07:55 Patient TargetsNo targets recorded. Patient Instructions Encounter Date Encounter Id Patient Instructions Last Modified By Organization Details Last Modified Time 10/16/2024 [id number] diabetes foot health: care instructions [email or web address] Not available 10/16/2024 17:50:42 Reason for Referral None Reported. Results Created Date Observation Date Name Description Value Unit Range Abnormal Flag Note LastModifiedBy Organization Detail LastModifiedTime 04/10/20 24 04/10/2024 HbA1c (hemo globi n A1c), blood HbA1c 6.9 Not Available [address], [address], 04/10/2024 16:38:31 07/07/19 25 07/07/2024 rapid flu (A+B) Flu A positi ve Not Available [address], [address], 07/07/2024 09:20:29 07/07/19 25 07/07/2024 rapid flu (A+B) Flu B negati ve Not Available [address], [address], 07/07/2024 09:20:29 07/07/19 25 07/07/2024 rapid SARS CoV 2 Ag, QL, IA, upper respi rator y speci men SARS CoV Ag negati ve Not Available [address], [address], 07/07/2024 09:20:31 07/20/19 25 07/20/2024 HbA1c (hemo globi n A1c), blood HbA1c 7.1 Not Available [address], [address], 07/20/2024 17:03:55 10/17/19 25 10/17/2024 TSH+F REE T4 TSH 1.050 uIU/m L 0.450- 4.500 normal Not Available [facility] ([facility]) [address], [place], [address], 10/17/2024 08:11:12 10/17/19 25 10/17/2024 TSH+F REE T4 T4,free(dire ct) 1.07 NG/dL 0.82-1 .77 normal Not Available [facility] ([facility]) [address], [place], [address], 10/17/2024 08:11:12 10/17/19 25 10/17/2024 CBC WITH DIFFE RENTI AL/PL ATELE T WBC 8.4 x10e3 /uL 3.4-10 .8 normal Not Available [facility] ([facility]) [address] [place], [address], 10/17/2024 08:11:12 10/17/19 25 10/17/2024 CBC WITH DIFFE RENTI AL/PL ATELE T RBC 4.01 x10e6 /uL 3.77-5 .28 normal Not Available [facility] ([facility]) [address] [place], [address], 10/17/2024 08:11:12 10/17/19 25 10/17/2024 CBC WITH DIFFE RENTI AL/PL ATELE T hemoglobin 12.4 g/dL 11.1-1 5.9 normal Not Available [facility] ([facility]) [address] [place], [address], 10/17/2024 08:11:12 10/17/19 25 10/17/2024 CBC WITH DIFFE RENTI AL/PL ATELE T hematocrit 38.8 % 34.0-4 6.6 normal Not Available [facility] ([facility]) [address] [place], [address], 10/17/2024 08:11:12 10/17/19 25 10/17/2024 CBC WITH DIFFE RENTI AL/PL ATELE T MCV 97 fL 79-97 normal Not Available [facility] ([facility]) [address] [place], [address], 10/17/2024 08:11:12 10/17/19 25 10/17/2024 CBC WITH DIFFE RENTI AL/PL ATELE T MCH 30.9 pg 26.6-3 3.0 normal Not Available [facility] ([facility]) [address] [place], [address], 10/17/2024 08:11:12 10/17/19 25 10/17/2024 CBC WITH DIFFE RENTI AL/PL ATELE T MCHC 32.0 g/dL 31.5-3 5.7 normal Not Available [facility] ([facility]) [address], [place], [address], 10/17/2024 08:11:12 10/17/19 25 10/17/2024 CBC WITH DIFFE RENTI AL/PL ATELE T RDW 13.1 % 11.7-1 5.4 Not Available [facility] ([facility]) [address], [place], [address], 10/17/2024 08:11:12 10/17/19 25 10/17/2024 CBC WITH DIFFE RENTI AL/PL ATELE T platelets 228 x10e3 /uL 150-45 0 normal Not Available [facility] ([facility]) [address], [place], [address], 10/17/2024 08:11:12 10/17/19 25 10/17/2024 CBC WITH DIFFE RENTI AL/PL ATELE T neutrophils 66 % not estab. normal Not Available [facility] ([facility]) [address], [place], [address], 10/17/2024 08:11:12 10/17/19 25 10/17/2024 CBC WITH DIFFE RENTI AL/PL ATELE T lymphs 25 % not estab. normal Not Available [facility] ([facility]) [address], [place], [address], 10/17/2024 08:11:12 10/17/19 25 10/17/2024 CBC WITH DIFFE RENTI AL/PL ATELE T monocytes 6 % not estab. normal Not Available [facility] ([facility]) [address], [place], [address], 10/17/2024 08:11:12 10/17/19 25 10/17/2024 CBC WITH DIFFE RENTI AL/PL ATELE T eos 2 % not estab. normal Not Available [facility] ([facility]) [address] [place], [address], 10/17/2024 08:11:12 10/17/19 25 10/17/2024 CBC WITH DIFFE RENTI AL/PL ATELE T basos 1 % not estab. normal Not Available [facility] ([facility]) [address], [place], [address], 10/17/2024 08:11:12 10/17/19 25 10/17/2024 CBC WITH DIFFE RENTI AL/PL ATELE T immature cells JEWEL STRIPPER Not Available [facility] ([facility]) [address] [place], [address], 10/17/2024 08:11:12 10/17/19 25 10/17/2024 CBC WITH DIFFE RENTI AL/PL ATELE T neutrophils (absolute) 5.5 x10e3 /uL 1.4-7. 0 normal Not Available [facility] ([facility]) [address] [place], [address], 10/17/2024 08:11:12 10/17/19 25 10/17/2024 CBC WITH DIFFE RENTI AL/PL ATELE T lymphs (absolute) 2.1 x10e3 /uL 0.7-3. 1 normal Not Available [facility] ([facility]) [address] [place], [address], 10/17/2024 08:11:12 10/17/19 25 10/17/2024 CBC WITH DIFFE RENTI AL/PL ATELE T monocytes(ab solute) 0.5 x10e3 /uL 0.1-0. 9 normal Not Available [facility] ([facility]) [address] [place], [address], 10/17/2024 08:11:12 10/17/19 25 10/17/2024 CBC WITH DIFFE RENTI AL/PL ATELE T eos (absolute) 0.2 x10e3 /uL 0.0-0. 4 normal Not Available [facility] ([facility]) [address], [place], [address], 10/17/2024 08:11:12 10/17/19 25 10/17/2024 CBC WITH DIFFE RENTI AL/PL ATELE T baso (absolute) 0.1 x10e3 /uL 0.0-0. 2 normal Not Available [facility] ([facility]) [address], [place], [address], 10/17/2024 08:11:12 10/17/19 25 10/17/2024 CBC WITH DIFFE RENTI AL/PL ATELE T immature granulocytes 0 % not estab. Not Available [facility] ([facility]) [address], [place], [address], 10/17/2024 08:11:12 10/17/19 25 10/17/2024 CBC WITH DIFFE RENTI AL/PL ATELE T immature grans (abs) 0.0 x10e3 /uL 0.0-0. 1 Not Available [facility] ([facility]) [address], [place], [address], 10/17/2024 08:11:12 10/17/19 25 10/17/2024 CBC WITH DIFFE RENTI AL/PL ATELE T NRBC JEWEL STRIPPER Not Available [facility] ([facility]) [address], [place], [address], 10/17/2024 08:11:12 10/17/19 25 10/17/2024 CBC WITH DIFFE RENTI AL/PL ATELE T hematology comments: JEWEL STRIPPER Not Available [facility] ([facility]) [address], [place], [address], 10/17/2024 08:11:12 10/17/19 25 10/17/2024 COMP. METAB OLIC PANEL (14) glucose 165 mg/dL 70-99 above high normal Not Available [facility] ([facility]) [address] [place], [address], 10/17/2024 08:11:13 10/17/19 25 10/17/2024 COMP. METAB OLIC PANEL (14) BUN 16 mg/dL 6-24 normal Not Available [facility] ([facility]) [address] [place], [address], 10/17/2024 08:11:13 10/17/19 25 10/17/2024 COMP. METAB OLIC PANEL (14) creatinine 1.00 mg/dL 0.57-1 .00 normal Not Available [facility] ([facility]) [address] [place], [address], 10/17/2024 08:11:13 10/17/19 25 10/17/2024 COMP. METAB OLIC PANEL (14) eGFR 66 mL/mi n/1.7 3 >59 normal Not Available [facility] ([facility]) [address] [place], [address], 10/17/2024 08:11:13 10/17/19 25 10/17/2024 COMP. METAB OLIC PANEL (14) BUN/creatini ne ratio 16 9-23 normal Not Available [facility] ([facility]) [address] [place], [address], 10/17/2024 08:11:13 10/17/19 25 10/17/2024 COMP. METAB OLIC PANEL (14) sodium 141 mmol/ L 134-14 4 normal Not Available [facility] ([facility]) [address] [place], [address], 10/17/2024 08:11:13 10/17/19 25 10/17/2024 COMP. METAB OLIC PANEL (14) potassium 4.3 mmol/ L 3.5-5. 2 normal Not Available [facility] ([facility]) [address] [place], [address], 10/17/2024 08:11:13 10/17/19 25 10/17/2024 COMP. METAB OLIC PANEL (14) chloride 103 mmol/ L 96-106 normal Not Available [facility] ([facility]) [address] [place], [address], 10/17/2024 08:11:13 10/17/19 25 10/17/2024 COMP. METAB OLIC PANEL (14) carbon dioxide, total 22 mmol/ L 20-29 normal Not Available [facility] ([facility]) [address] [place], [address], 10/17/2024 08:11:13 10/17/19 25 10/17/2024 COMP. METAB OLIC PANEL (14) calcium 9.8 mg/dL 8.7-10 .2 normal Not Available [facility] ([facility]) [address] [place], [address], 10/17/2024 08:11:13 10/17/19 25 10/17/2024 COMP. METAB OLIC PANEL (14) protein, total 6.8 g/dL 6.0-8. 5 normal Not Available [facility] ([facility]) [address] [place], [address], 10/17/2024 08:11:13 10/17/19 25 10/17/2024 COMP. METAB OLIC PANEL (14) albumin 4.1 g/dL 3.8-4. 9 normal Not Available [facility] ([facility]) [address] [place], [address], 10/17/2024 08:11:13 10/17/19 25 10/17/2024 COMP. METAB OLIC PANEL (14) globulin, total 2.7 g/dL 1.5-4. 5 Not Available [facility] ([facility]) [address] [place], [address], 10/17/2024 08:11:13 10/17/19 25 10/17/2024 COMP. METAB OLIC PANEL (14) bilirubin, total 0.4 mg/dL 0.0-1. 2 normal Not Available [facility] ([facility]) [address] [place], [address], 10/17/2024 08:11:13 10/17/19 25 10/17/2024 COMP. METAB OLIC PANEL (14) alkaline phosphatase 110 IU/L 44-121 normal Not Available [facility] ([facility]) [address] [place], [address], 10/17/2024 08:11:13 10/17/19 25 10/17/2024 COMP. METAB OLIC PANEL (14) AST (SGOT) 23 IU/L 0-40 normal Not Available [facility] ([facility]) [address] [place], [address], 10/17/2024 08:11:13 10/17/19 25 10/17/2024 COMP. METAB OLIC PANEL (14) ALT (SGPT) 22 IU/L 0-32 normal Not Available [facility] ([facility]) [address] [place], [address], 10/17/2024 08:11:13 10/17/19 25 10/17/2024 LIPID PANEL cholesterol, total 116 mg/dL 100-19 9 normal Not Available [facility] ([facility]) [address] [place], [address], 10/17/2024 08:11:14 10/17/19 25 10/17/2024 LIPID PANEL triglyceride s 118 mg/dL 0-149 normal Not Available [facility] ([facility]) [address] [place], [address], 10/17/2024 08:11:14 10/17/19 25 10/17/2024 LIPID PANEL HDL cholesterol 43 mg/dL >39 normal Not Available [facility] ([facility]) [address] [place], [address], 10/17/2024 08:11:14 10/17/19 25 10/17/2024 LIPID PANEL VLDL cholesterol donita 21 mg/dL 5-40 Not Available [facility] ([facility]) [address], [place], [address], 10/17/2024 08:11:14 10/17/19 25 10/17/2024 LIPID PANEL LDL chol calc ([facility]) 52 mg/dL 0-99 Not Available [facility]) [address], [place], [address], 10/17/2024 08:11:14 10/17/19 25 10/17/2024 LIPID PANEL LDL calc comment: JEWEL STRIPPER Not Available [facility] ([facility]) [address], [place], [address], 10/17/2024 08:11:14 10/17/19 25 10/17/2024 VITAM IN B12 AND FOLAT E vitamin B12 514 pg/mL 232-12 45 normal Not Available [facility] ([facility]) [address] [place], [address], 10/17/2024 08:11:14 10/17/19 25 10/17/2024 VITAM IN B12 AND FOLAT E folate (folic acid), serum 15.6 NG/mL >3.0 normal A serum folat e jason ntrat ion of less than 3.1 ng/mL is consi dered to repre sent clini donita defic iency . Not Available [facility] ([facility]) [address] [place], [address], 10/17/2024 08:11:14 10/17/19 25 10/17/2024 HCV ANTIB LUCY RFX TO QUANT PCR HCV Ab Non Reacti ve non reacti ve Not Available [facility] ([facility]) [address], [place], [address], 10/17/2024 08:11:15 10/17/19 25 10/17/2024 HCV ANTIB LUCY RFX TO QUANT PCR interpretati on: Commen t Not infec adriana with HCV unles s early or acute infec tion is suspe cted (whic h may be delay ed in an immun ocomp romis ed indiv idual ), or other evide nce exist s to indic ate HCV infec tion. Not Available [facility] ([facility]) [address], [place], [address], 10/17/2024 08:11:15 10/17/19 25 10/17/2024 VITAM IN D, 25-HY DROXY vitamin D, 25-hydroxy 27.8 NG/mL 30.0-1 00.0 below low normal Vitam in D defic iency has been defin ed by the Insti tute of Medic ine and an Endoc rine Socie ty pract ice guide line as a level of serum 25-OH vitam in D less than 20 ng/mL (1,2) . The Endoc rine Socie ty went on to [facility] defin e vitam in D insuf ficie ncy as a level betwe en 21 and 29 ng/mL (2). 1. IOM (Inst itute of Medic ine). 2009. Dieta ry refer ence intak es for calci um and D. Thaddeus campo [place]: The Natio nal [facility] Press . 2. Carrie pearson [place], Patrick perea [place], Cristopher off-F errar i [place], et al. Evalu ation , treat ment, and preve ntion of vitam in D defic iency : an Endoc rine Socie ty clini donita pract ice guide line. JCEM. 2010; 96(7) :1911 -30. Not Available [facility] ([facility]) [address], [place], [address], 10/17/2024 08:11:15 10/17/19 25 10/17/2024 HIV AB/P2 4 AG WITH REFLE X HIV Ab/P24 Ag screen Non Reacti ve non reacti ve HIV-1 /HIV- 2 antib odies and HIV-1 p24 antig en were NOT detec adriana. There is no labor atory evide nce of HIV infec tion. HIV Negat gabriela Not Available [facility] ([facility]) [address], [place], [address], 10/17/2024 08:11:16 10/17/19 25 10/16/2024 urina lysis , dipst ick Leukocytes Negati ve Not Available [address], [address], 10/16/2024 12:02:10 10/17/19 25 10/16/2024 urina lysis , dipst ick Nitrite positi ve Not Available [address], [address], 10/16/2024 12:02:10 10/17/19 25 10/16/2024 urina lysis , dipst ick Urobilinogen 1 Not Available [address], [address], 10/16/2024 12:02:10 10/17/19 25 10/16/2024 urina lysis , dipst ick Protein Negati ve Not Available [address], [address], 10/16/2024 12:02:10 10/17/19 25 10/16/2024 urina lysis , dipst ick pH 7.0 Not Available [address], [address], 10/16/2024 12:02:10 05/10/16/2024 urina lysis , dipst ick Blood Small Not Available [address], [address], 10/16/2024 12:02:10 10/17/19 25 10/16/2024 urina lysis , dipst ick Specific [place] 1.025 Not Available [address], [address], 10/16/2024 12:02:10 10/17/19 25 10/16/2024 urina lysis , dipst ick Ketone Negati ve Not Available [address], [address], 10/16/2024 12:02:10 10/17/19 25 10/16/2024 urina lysis , dipst ick Bilirubin Negati ve Not Available [address], [address], 10/16/2024 12:02:10 10/17/1910/16/2024 urina lysis , dipst ick Glucose Negati ve Not Available [address], [address], 10/16/2024 12:02:10 10/17/1910/16/2024 urina lysis , dipst ick Appearance Clear Not Available [address], [address], 10/16/2024 12:02:10 10/17/1910/16/2024 urina lysis , dipst ick Color Dark Yellow Not Available [address], [address], 10/16/2024 12:02:10 10/17/19 25 10/16/2024 HbA1c (hemo globi n A1c), blood HbA1c 6.8 Not Available [address], [place], [address], 10/14/2024 09:45:35 10/18/1910/21/2024 TOXAS SURE FLEX 19, UR summary report FINAL ===== ===== ===== ===== ===== ===== ===== ===== ===== ===== ===== ===== ===== === Opiat e Class , MS, Ur RFX Metha done, MS, Ur RFX Trama dol, MS, Ur RFX Gabap entin , MS, Ur RFX ToxAs sure Flex 19, Ur ===== ===== ===== ===== ===== ===== ===== ===== ===== ===== ===== ===== ===== === Test Resul t Flag Units Drug Prese nt [place] morph one 213 ng/mg creat [place] morph one may be admin ister ed as a sched uled presc ripti on medic ation ; it is also an expec adriana metab olite of hydro codon e. Trama dol >2513 ng/mg creat O-Derrell methy ltram adol >2513 ng/mg creat N-Derrell methy ltram adol 245 ng/mg creat Sourc e of trama dol is a presc ripti on medic ation . O-derrell methy ltram adol and N-derrell methy ltram adol are expec adriana metab olite s of trama dol. Gabap entin PRESE NT ===== ===== ===== ===== ===== ===== ===== ===== ===== ===== ===== ===== ===== === Test Resul t Flag Units Ref Range Creat inine 199 mg/dL >=20 ===== ===== ===== ===== ===== ===== ===== ===== ===== ===== ===== ===== ===== === Decla red Medic ation s: Medic ation list was not provi ded. ===== ===== ===== ===== ===== ===== ===== ===== ===== ===== ===== ===== ===== === For clini donita consu ltati on, pleas e call . ===== ===== ===== ===== ===== ===== ===== ===== ===== ===== ===== ===== ===== === Not Available [facility] ([facility]) [address] [place], [address], 10/21/2024 12:08:17 10/18/1910/21/2024 TOXAS SURE FLEX 19, UR pdf . Not Available [facility] ([facility]) [address] [place], [address], 10/21/2024 12:08:17 10/18/1910/21/2024 TOXAS SURE FLEX 19, UR creatinine 199 mg/dL >=20 REFER ENCE RANGE : Ref Range >=20 Not Available [facility] ([facility]) [address] [place], [address], 10/21/2024 12:08:17 10/18/1910/21/2024 TOXAS SURE FLEX 19, UR amphetamines ia Negati ve NG/mL cutoff :300 Not Available [facility] ([facility]) [address] [place], [address], 10/21/2024 12:08:17 10/18/19 25 10/21/2024 TOXAS SURE FLEX 19, UR benzodiazepi lizz Negati ve Not Available [facility] ([facility]) [address] [place], [address], 10/21/2024 12:08:17 10/18/19 25 10/21/2024 TOXAS SURE FLEX 19, UR diazepam Not Detect ed NG/mg _crea t Not Available [facility] ([facility]) [address] [place], [address], 10/21/2024 12:08:17 10/18/19 25 10/21/2024 TOXAS SURE FLEX 19, UR desmethyldia zepam Not Detect ed NG/mg _crea t Not Available [facility] ([facility]) [address] [place], [address], 10/21/2024 12:08:17 10/18/19 25 10/21/2024 TOXAS SURE FLEX 19, UR oxazepam Not Detect ed NG/mg _crea t Not Available [facility] ([facility]) [address] [place], [address], 10/21/2024 12:08:17 10/18/19 25 10/21/2024 TOXAS SURE FLEX 19, UR temazepam Not Detect ed NG/mg _crea t Expec adriana metab olism of benzo diaze pine class drugs : Paren t Drug Detec adriana Metab olite s ----- ----- - ----- ----- ----- ----- Diaze richard: Desme thyld iazep am, Temaz epam, Oxaze richard Chlor diaze poxid e: Desme thyld iazep am, Oxaze richard Clora zepat e: Desme thyld iazep am, Oxaze richard Halaz epam: Desme thyld iazep am, Oxaze richard Temaz epam: Oxaze richard Oxaze richard: None Not Available [facility] ([facility]) [address] [place], [address], 10/21/2024 12:08:17 10/18/19 25 10/21/2024 TOXAS SURE FLEX 19, UR alprazolam Not Detect ed NG/mg _crea t Not Available [facility] ([facility]) [address] [place], [address], 10/21/2024 12:08:17 10/18/19 25 10/21/2024 TOXAS SURE FLEX 19, UR alpha-hydrox yalprazolam Not Detect ed NG/mg _crea t Not Available [facility] ([facility]) [address] [place], [address], 10/21/2024 12:08:17 10/18/19 25 10/21/2024 TOXAS SURE FLEX 19, UR desalkylflur azepam Not Detect ed NG/mg _crea t Not Available [facility] ([facility]) [address] [place], [address], 10/21/2024 12:08:17 10/18/19 25 10/21/2024 TOXAS SURE FLEX 19, UR lorazepam Not Detect ed NG/mg _crea t Not Available [facility] ([facility]) [address] [place], [address], 10/21/2024 12:08:17 10/18/19 25 10/21/2024 TOXAS SURE FLEX 19, UR alpha-hydrox ytriazolam Not Detect ed NG/mg _crea t Not Available [facility] ([facility]) [address] [place], [address], 10/21/2024 12:08:17 10/18/19 25 10/21/2024 TOXAS SURE FLEX 19, UR clonazepam Not Detect ed NG/mg _crea t Not Available [facility] ([facility]) [address] [place], [address], 10/21/2024 12:08:17 10/18/19 25 10/21/2024 TOXAS SURE FLEX 19, UR 7-aminoclona zepam Not Detect ed NG/mg _crea t Not Available [facility] ([facility]) [address] [place], [address], 10/21/2024 12:08:17 10/18/19 25 10/21/2024 TOXAS SURE FLEX 19, UR midazolam Not Detect ed NG/mg _crea t Not Available [facility] ([facility]) [address] [place], [address], 10/21/2024 12:08:17 10/18/19 25 10/21/2024 TOXAS SURE FLEX 19, UR alpha-hydrox ymidazolam Not Detect ed NG/mg _crea t Not Available [facility] ([facility]) [address] [place], [address], 10/21/2024 12:08:17 10/18/19 25 10/21/2024 TOXAS SURE FLEX 19, UR flunitrazepa m Not Detect ed NG/mg _crea t Not Available [facility] ([facility]) [address] [place], [address], 10/21/2024 12:08:17 10/18/19 25 10/21/2024 TOXAS SURE FLEX 19, UR desmethylflu nitrazepam Not Detect ed NG/mg _crea t Not Available [facility] ([facility]) [address] [place], [address], 10/21/2024 12:08:17 10/18/19 25 10/21/2024 TOXAS SURE FLEX 19, UR cocaine metabolite ia Negati ve NG/mL cutoff :150 Not Available [facility] ([facility]) [address] [place], [address], 10/21/2024 12:08:17 10/18/19 25 10/21/2024 TOXAS SURE FLEX 19, UR ethyl alcohol enzymatic Negati ve g/dL cutoff :0.020 Not Available [facility] ([facility]) [address] [place], [address], 10/21/2024 12:08:17 10/18/19 25 10/21/2024 TOXAS SURE FLEX 19, UR cannabinoids ia Negati ve NG/mL cutoff :20 Not Available [facility] ([facility]) [address] [place], [address], 10/21/2024 12:08:17 10/18/19 25 10/21/2024 TOXAS SURE FLEX 19, UR 6-acetylmorp raghav ia Negati ve NG/mL cutoff :10 Not Available [facility] ([facility]) [address] [place], [address], 10/21/2024 12:08:17 10/18/19 25 10/21/2024 TOXAS SURE FLEX 19, UR opiate class ia COMMEN T NG/mL cutoff :100 Furth er testi ng indic ated Not Available [facility] ([facility]) [address] [place], [address], 10/21/2024 12:08:17 10/18/19 25 10/21/2024 TOXAS SURE FLEX 19, UR oxycodone class ia Negati ve NG/mL cutoff :100 Not Available [facility] ([facility]) [address] [place], [address], 10/21/2024 12:08:17 10/18/19 25 10/21/2024 TOXAS SURE FLEX 19, UR methadone ia COMMEN T NG/mL cutoff :100 Furth er testi ng indic ated Not Available [facility] ([facility]) [address] [place], [address], 10/21/2024 12:08:17 10/18/19 25 10/21/2024 TOXAS SURE FLEX 19, UR methadone mtb ia Negati ve NG/mL cutoff :100 Not Available [facility] ([facility]) [address] [place], [address], 10/21/2024 12:08:17 10/18/19 25 10/21/2024 TOXAS SURE FLEX 19, UR buprenorphin e ia Negati ve NG/mL cutoff :5.0 Not Available [facility] ([facility]) [address] [place], [address], 10/21/2024 12:08:17 10/18/19 25 10/21/2024 TOXAS SURE FLEX 19, UR fentanyl ia Negati ve NG/mL cutoff :2.0 Not Available [facility] ([facility]) [address] [place], [address], 10/21/2024 12:08:17 10/18/19 25 10/21/2024 TOXAS SURE FLEX 19, UR tapentadol ia Negati ve NG/mL cutoff :200 Not Available [facility] ([facility]) [address] [place], [address], 10/21/2024 12:08:17 10/18/19 25 10/21/2024 TOXAS SURE FLEX 19, UR tramadol ia COMMEN T NG/mL cutoff :200 Furth er testi ng indic ated Not Available [facility] ([facility]) [address] [place], [address], 10/21/2024 12:08:17 10/18/19 25 10/21/2024 TOXAS SURE FLEX 19, UR barbiturates ia Negati ve NG/mL cutoff :200 Not Available [facility] ([facility]) [address] [place], [address], 10/21/2024 12:08:17 10/18/19 25 10/21/2024 TOXAS SURE FLEX 19, UR other hallucinogen s Negati ve Not Available [facility] ([facility]) [address] [place], [address], 10/21/2024 12:08:17 10/18/19 25 10/21/2024 TOXAS SURE FLEX 19, UR ketamine Not Detect ed Not Available [facility] ([facility]) [address] [place], [address], 10/21/2024 12:08:17 10/18/19 25 10/21/2024 TOXAS SURE FLEX 19, UR norketamine Not Detect ed Not Available [facility] ([facility]) [address] [place], [address], 10/21/2024 12:08:17 10/18/19 25 10/21/2024 TOXAS SURE FLEX 19, UR phencyclidin e ia Negati ve NG/mL cutoff :25 Not Available [facility] ([facility]) [address] [place], [address], 10/21/2024 12:08:17 10/18/19 25 10/21/2024 TOXAS SURE FLEX 19, UR gabapentin ia COMMEN T ug/mL cutoff :1.0 Furth er testi ng indic ated Not Available [facility] ([facility]) [address] [place], [address], 10/21/2024 12:08:17 10/18/19 25 10/21/2024 TOXAS SURE FLEX 19, UR opiate antagonist Negati ve Not Available [facility] ([facility]) [address] [place], [address], 10/21/2024 12:08:17 10/18/19 25 10/21/2024 TOXAS SURE FLEX 19, UR naltrexone Not Detect ed Not Available [facility] ([facility]) [address] [place], [address], 10/21/2024 12:08:17 10/18/19 25 10/21/2024 TOXAS SURE FLEX 19, UR sedative/hyp notics Negati ve Not Available [facility] ([facility]) [address] [place], [address], 10/21/2024 12:08:17 10/18/19 25 10/21/2024 TOXAS SURE FLEX 19, UR zolpidem Not Detect ed Not Available [facility] ([facility]) [address] [place], [address], 10/21/2024 12:08:17 10/18/19 25 10/21/2024 TOXAS SURE FLEX 19, UR zolpidem acid Not Detect ed Not Available [facility] ([facility]) [address] [place], [address], 10/21/2024 12:08:17 10/18/19 25 10/21/2024 TOXAS SURE FLEX 19, UR zopiclone/es zopiclone Not Detect ed Not Available [facility] ([facility]) [address] [place], [address], 10/21/2024 12:08:17 10/18/19 25 10/21/2024 TOXAS SURE FLEX 19, UR amino chloropyridi ne Not Detect ed Not Available [facility] ([facility]) [address] [place], [address], 10/21/2024 12:08:17 10/18/19 25 10/21/2024 TOXAS SURE FLEX 19, UR zaleplon Not Detect ed Expec adriana metab olism of Sedat daniel/ Hypno tics: Paren t Drug Detec adriana Metab olite s ----- ----- - ----- ----- ----- ----- Zolpi dem: Zolpi dem Acid Zopic lone/ Eszop iclon e: Amino Chlor opyri dine Zalep beverley: None Not Available [facility] ([facility]) [address] [place], [address], 10/21/2024 12:08:17 10/18/1910/21/2024 TOXAS SURE FLEX 19, UR kratom ia Negati ve NG/mL cutoff :5.0 Not Available [facility] ([facility]) [address] [place], [address], 10/21/2024 12:08:17 10/18/19 25 10/18/2024 TSH+F REE T4 TSH COMMEN T uIU/m L Pleas e refer to the [facility]i men for addit ional lab resul ts. SEE:1 6429 8-0 Not Available [facility] ([facility]) [address] [place], [address], 10/21/2024 12:08:18 10/18/19 25 10/18/2024 TSH+F REE T4 T4,free(dire ct) TNP Test not perfo rmed Not Available [facility] ([facility]) [address] [place], [address], 10/21/2024 12:08:18 10/18/19 25 10/18/2024 CBC WITH DIFFE RENTI AL/PL ATELE T WBC COMMEN T x10e3 /uL [facility] for addit ional lab resul ts. SEE: 6429 8-0 Not Available [facility] ([facility]) [address] [place], [address], 10/21/2024 12:08:19 10/18/19 25 10/18/2024 CBC WITH DIFFE RENTI AL/PL ATELE T RBC TNP Test not perfo rmed Not Available [facility] ([facility]) [address] [place], [address], 10/21/2024 12:08:19 10/18/19 25 10/18/2024 CBC WITH DIFFE RENTI AL/PL ATELE T hemoglobin TNP Test not perfo rmed Not Available [facility] ([facility]) [address], [place], [address], 10/21/2024 12:08:19 10/18/19 25 10/18/2024 CBC WITH DIFFE RENTI AL/PL ATELE T hematocrit TNP Test not perfo rmed Not Available [facility] ([facility]) [address], [place], [address], 10/21/2024 12:08:19 10/18/19 25 10/18/2024 CBC WITH DIFFE RENTI AL/PL ATELE T MCV JEWEL STRIPPER Not Available [facility] ([facility]) [address] [place], [address], 10/21/2024 12:08:19 10/18/19 25 10/18/2024 CBC WITH DIFFE RENTI AL/PL ATELE T MCH JEWEL STRIPPER Not Available [facility] ([facility]) [address], [place], [address], 10/21/2024 12:08:19 10/18/19 25 10/18/2024 CBC WITH DIFFE RENTI AL/PL ATELE T MCHC JEWEL STRIPPER Not Available [facility] ([facility]) [address] [place], [address], 10/21/2024 12:08:19 10/18/19 25 10/18/2024 CBC WITH DIFFE RENTI AL/PL ATELE T RDW JEWEL STRIPPER Not Available [facility] ([facility]) [address] [place], [address], 10/21/2024 12:08:19 10/18/19 25 10/18/2024 CBC WITH DIFFE RENTI AL/PL ATELE T platelets TNP Test not perfo rmed Not Available [facility] ([facility]) [address] [place], [address], 10/21/2024 12:08:19 10/18/19 25 10/18/2024 CBC WITH DIFFE RENTI AL/PL ATELE T neutrophils TNP Test not perfo rmed Not Available [facility] ([facility]) [address] [place], [address], 10/21/2024 12:08:19 10/18/19 25 10/18/2024 CBC WITH DIFFE RENTI AL/PL ATELE T lymphs TNP Test not perfo rmed Not Available [facility] ([facility]) [address] [place], [address], 10/21/2024 12:08:19 10/18/19 25 10/18/2024 CBC WITH DIFFE RENTI AL/PL ATELE T monocytes TNP Test not perfo rmed Not Available [facility] ([facility]) [address] [place], [address], 10/21/2024 12:08:19 10/18/19 25 10/18/2024 CBC WITH DIFFE RENTI AL/PL ATELE T eos TNP Test not perfo rmed Not Available [facility] ([facility]) [address] [place], [address], 10/21/2024 12:08:19 10/18/19 25 10/18/2024 CBC WITH DIFFE RENTI AL/PL ATELE T basos JEWEL STRIPPER Not Available [facility] ([facility]) [address] [place], [address], 10/21/2024 12:08:19 10/18/19 25 10/18/2024 CBC WITH DIFFE RENTI AL/PL ATELE T immature cells JEWEL STRIPPER Not Available [facility] ([facility]) [address] [place], [address], 10/21/2024 12:08:19 10/18/19 25 10/18/2024 CBC WITH DIFFE RENTI AL/PL ATELE T neutrophils (absolute) JEWEL STRIPPER Not Available [facility] ([facility]) [address] [place], [address], 10/21/2024 12:08:19 10/18/19 25 10/18/2024 CBC WITH DIFFE RENTI AL/PL ATELE T lymphs (absolute) TNP Test not perfo rmed Not Available [facility] ([facility]) [address] [place], [address], 10/21/2024 12:08:19 10/18/19 25 10/18/2024 CBC WITH DIFFE RENTI AL/PL ATELE T monocytes(ab solute) JEWEL STRIPPER Not Available [facility] ([facility]) [address] [place], [address], 10/21/2024 12:08:19 10/18/19 25 10/18/2024 CBC WITH DIFFE RENTI AL/PL ATELE T eos (absolute) TNP Test not perfo rmed Not Available [facility] ([facility]) [address] [place], [address], 10/21/2024 12:08:19 10/18/19 25 10/18/2024 CBC WITH DIFFE RENTI AL/PL ATELE T baso (absolute) TNP Test not perfo rmed Not Available [facility] ([facility]) [address] [place], [address], 10/21/2024 12:08:19 10/18/19 25 10/18/2024 CBC WITH DIFFE RENTI AL/PL ATELE T immature granulocytes JEWEL STRIPPER Not Available [facility] ([facility]) [address] [place], [address], 10/21/2024 12:08:19 10/18/19 25 10/18/2024 CBC WITH DIFFE RENTI AL/PL ATELE T immature grans (abs) JEWEL STRIPPER Not Available [facility] ([facility]) [address] [place], [address], 10/21/2024 12:08:19 10/18/19 25 10/18/2024 CBC WITH DIFFE RENTI AL/PL ATELE T NRBC JEWEL STRIPPER Not Available [facility] ([facility]) [address], [place], [address], 10/21/2024 12:08:19 10/18/19 25 10/18/2024 CBC WITH DIFFE RENTI AL/PL ATELE T hematology comments: JEWEL STRIPPER Not Available [facility] ([facility]) [address], [place], [address], 10/21/2024 12:08:19 10/18/19 25 10/18/2024 COMP. METAB OLIC PANEL (14) glucose COMMEN T mg/dL Pleas e [facility] to the [facility] for addit ional lab resul ts. SEE:1 39-31 6-429 8-0 Not Available [facility] ([facility]) [address], [place], [address], 10/21/2024 12:08:20 10/18/19 25 10/18/2024 COMP. METAB OLIC PANEL (14) BUN TNP Test not perfo rmed Not Available [facility] ([facility]) [address], [place], [address], 10/21/2024 12:08:20 10/18/19 25 10/18/2024 COMP. METAB OLIC PANEL (14) creatinine TNP Test not perfo rmed Not Available [facility] ([facility]) [address], [place], [address], 10/21/2024 12:08:20 10/18/19 25 10/18/2024 COMP. METAB OLIC PANEL (14) eGFR JEWEL STRIPPER Not Available [facility] ([facility]) [address], [place], [address], 10/21/2024 12:08:20 10/18/19 25 10/18/2024 COMP. METAB OLIC PANEL (14) BUN/creatini ne ratio JEWEL STRIPPER Not Available [facility] ([facility]) [address], [place], [address], 10/21/2024 12:08:20 10/18/19 25 10/18/2024 COMP. METAB OLIC PANEL (14) sodium TNP Test not perfo rmed Not Available [facility] ([facility]) [address], [place], [address], 10/21/2024 12:08:20 10/18/19 25 10/18/2024 COMP. METAB OLIC PANEL (14) potassium TNP Test not perfo rmed Not Available [facility] ([facility]) [address], [place], [address], 10/21/2024 12:08:20 10/18/19 25 10/18/2024 COMP. METAB OLIC PANEL (14) chloride TNP Test not perfo rmed Not Available [facility] ([facility]) [address], [place], [address], 10/21/2024 12:08:20 10/18/19 25 10/18/2024 COMP. METAB OLIC PANEL (14) carbon dioxide, total TNP Test not perfo rmed Not Available [facility] ([facility]) [address], [place], [address], 10/21/2024 12:08:20 10/18/19 25 10/18/2024 COMP. METAB OLIC PANEL (14) calcium TNP Test not perfo rmed Not Available [facility] ([facility]) [address], [place], [address], 10/21/2024 12:08:20 10/18/19 25 10/18/2024 COMP. METAB OLIC PANEL (14) protein, total TNP Test not perfo rmed Not Available [facility] ([facility]) [address], [place], [address], 10/21/2024 12:08:20 10/18/19 25 10/18/2024 COMP. METAB OLIC PANEL (14) albumin TNP Test not perfo rmed Not Available [facility] ([facility]) [address], [place], [address], 10/21/2024 12:08:20 10/18/19 25 10/18/2024 COMP. METAB OLIC PANEL (14) globulin, total JEWEL STRIPPER Not Available [facility] ([facility]) [address], [place], [address], 10/21/2024 12:08:20 10/18/19 25 10/18/2024 COMP. METAB OLIC PANEL (14) A/G ratio JEWEL STRIPPER Not Available [facility] ([facility]) [address], [place], [address], 10/21/2024 12:08:20 10/18/19 25 10/18/2024 COMP. METAB OLIC PANEL (14) bilirubin, total TNP Test not perfo rmed Not Available [facility] ([facility]) [address], [place], [address], 10/21/2024 12:08:20 10/18/19 25 10/18/2024 COMP. METAB OLIC PANEL (14) alkaline phosphatase TNP Test not perfo rmed Not Available [facility] ([facility]) [address], [place], [address], 10/21/2024 12:08:20 10/18/19 25 10/18/2024 COMP. METAB OLIC PANEL (14) AST (SGOT) TNP Test not perfo rmed Not Available [facility] ([facility]) [address], [place], [address], 10/21/2024 12:08:20 10/18/19 25 10/18/2024 COMP. METAB OLIC PANEL (14) ALT (SGPT) TNP Test not perfo rmed Not Available [facility] ([facility]) [address] [place], [address], 10/21/2024 12:08:20 10/18/19 25 10/21/2024 OPIAT E CLASS , MS, UR RFX opiate class +POSIT GABRIELA+ Not Available [facility] ([facility]) [address] [place], [address], 10/21/2024 12:08:21 10/18/19 25 10/21/2024 OPIAT E CLASS , MS, UR RFX codeine Not Detect ed NG/mg _crea t Not Available [facility] ([facility]) [address] [place], [address], 10/21/2024 12:08:21 10/18/19 25 10/21/2024 OPIAT E CLASS , MS, UR RFX morphine Not Detect ed NG/mg _crea t Not Available [facility] ([facility]) [address] [place], [address], 10/21/2024 12:08:21 10/18/19 25 10/21/2024 OPIAT E CLASS , MS, UR RFX normorphine Not Detect ed NG/mg _crea t Not Available [facility] ([facility]) [address] [place], [address], 10/21/2024 12:08:21 10/18/19 25 10/21/2024 OPIAT E CLASS , MS, UR RFX norcodeine Not Detect ed NG/mg _crea t Not Available [facility] ([facility]) [address] [place], [address], 10/21/2024 12:08:21 10/18/19 25 10/21/2024 OPIAT E CLASS , MS, UR RFX hydrocodone Not Detect ed NG/mg _crea t Not Available [facility] ([facility]) [address], [place], [address], 10/21/2024 12:08:21 10/18/19 25 10/21/2024 OPIAT E CLASS , MS, UR RFX hydromorphon e 213 NG/mg _crea t Not Available [facility] ([facility]) [address] [place], [address], 10/21/2024 12:08:21 10/18/19 25 10/21/2024 OPIAT E CLASS , MS, UR RFX dihydrocodei ne Not Detect ed NG/mg _crea t Not Available [facility] ([facility]) [address], [place], [address], 10/21/2024 12:08:21 10/18/19 25 10/21/2024 OPIAT E CLASS , MS, UR RFX norhydrocodo ne Not Detect ed NG/mg _crea t Expec adriana metab olism of opiat e class drugs : Paren t Drug Detec adriana Metab olite s ----- ----- - ----- ----- ----- ----- Codei ne: Major : Morph ine, [place] de[place] Minor : [place] codon e, [place] morph one, Dihyd rocod eine, Norhy droco done, Normo rphin e Morph ine: Major : Normo rphin e Minor : [place] morph one [place] codon e: [place] morph one, Dihyd rocod eine, Norhy droco done [place] morph one: None Dihyd rocod eine: None Heroi n: 6-Arnaldo tylmo rphin e (if inclu ded), Morph ine, Normo rphin e Codei ne, in small amoun ts in christine rison to morph ine, is often detec adriana when heroi n is the sourc e drug. Not Available [facility] ([facility]) [address], [place], [address], 10/21/2024 12:08:21 10/18/19 25 10/18/2024 LIPID PANEL cholesterol, total COMMEN T mg/dL Pleas e refer to the [facility] for addit ional lab resul ts. SEE:1 39-31 6-429 8-0 Not Available [facility] ([facility]) [address], [place], [address], 10/21/2024 12:08:21 10/18/19 25 10/18/2024 LIPID PANEL triglyceride s TNP Test not perfo rmed Not Available [facility] ([facility]) [address], [place], [address], 10/21/2024 12:08:21 10/18/19 25 10/18/2024 LIPID PANEL HDL cholesterol TNP Test not perfo rmed Not Available [facility] ([facility]) [address], [place], [address], 10/21/2024 12:08:21 10/18/19 25 10/18/2024 LIPID PANEL VLDL cholesterol donita COMMEN T mg/dL Unabl e to calcu late resul t since non-n umeri c resul t obtai henny for compo nent test. Not Available [facility] ([facility]) [address], [place], [address], 10/21/2024 12:08:21 10/18/19 25 10/18/2024 LIPID PANEL LDL chol calc ([facility]) JEWEL STRIPPER Not Available [facility] ([facility]) [address], [place], [address], 10/21/2024 12:08:21 10/18/19 25 10/18/2024 LIPID PANEL LDL calc comment: JEWEL STRIPPER Not Available [facility] ([facility]) [address], [place], [address], 10/21/2024 12:08:21 10/18/19 25 10/21/2024 TRAMA DOL, MS, UR RFX tramadol / mtbs +POSIT GABRIELA+ Not Available [facility] ([facility]) [address] [place], [address], 10/21/2024 12:08:22 10/18/19 25 10/21/2024 TRAMA DOL, MS, UR RFX tramadol >2513 NG/mg _crea t Not Available [facility] ([facility]) [address] [place], [address], 10/21/2024 12:08:22 10/18/19 25 10/21/2024 TRAMA DOL, MS, UR RFX O-desmethylt ramadol >2513 NG/mg _crea t Not Available [facility] ([facility]) [address] [place], [address], 10/21/2024 12:08:22 10/18/19 25 10/21/2024 TRAMA DOL, MS, UR RFX N-desmethylt ramadol 245 NG/mg _crea t Not Available [facility] ([facility]) [address] [place], [address], 10/21/2024 12:08:22 10/18/19 25 10/21/2024 METHA DONE, MS, UR RFX methadone Negati ve Not Available [facility] ([facility]) [address] [place], [address], 10/21/2024 12:08:22 10/18/19 25 10/21/2024 METHA DONE, MS, UR RFX methadone Not Detect ed NG/mg _crea t Not Available [facility] ([facility]) [address] [place], [address], 10/21/2024 12:08:22 10/18/19 25 10/21/2024 METHA DONE, MS, UR RFX EDDP (methadone mtb) Not Detect ed NG/mg _crea t Not Available [facility] ([facility]) [address] [place], [address], 10/21/2024 12:08:22 10/18/19 25 10/18/2024 VITAM IN B12 AND FOLAT E vitamin B12 COMMEN T pg/mL Pleas e refer to the [facility] for addit ional lab resul ts. SEE:1 6-429 8-0 Not Available [facility] ([facility]) [address] [place], [address], 10/21/2024 12:08:23 10/18/19 25 10/18/2024 VITAM IN B12 AND FOLAT E folate (folic acid), serum TNP Test not perfo rmed Not Available [facility] ([facility]) [address] [place], [address], 10/21/2024 12:08:23 10/18/19 25 10/18/2024 HCV ANTIB LUCY RFX TO QUANT PCR HCV Ab COMMEN T Pleas e refer to the [facility] for addit ional lab resul ts. SEE:1 6429 8-0 Not Available [facility] ([facility]) [address] [place], [address], 10/21/2024 12:08:23 10/18/19 25 10/21/2024 GABAP ENTIN , MS, UR RFX anticonvulsa nts +POSIT GABRIELA+ Not Available [facility] ([facility]) [address] [place], [address], 10/21/2024 12:08:24 10/18/19 25 10/21/2024 GABAP ENTIN , MS, UR RFX gabapentin PRESEN T Not Available [facility] ([facility]) [address] [place], [address], 10/21/2024 12:08:24 10/18/19 25 10/18/2024 VITAM IN D, 25-HY DROXY vitamin D, 25-hydroxy COMMEN T NG/mL Pleas e refer to the [facility] for addit ional lab resul ts. SEE:1 429 8-0 Vitam in D defic iency has been defin ed by the Insti tute of Medic ine and an Endoc rine Socie ty pract ice guide line as a level of serum 25-OH vitam in D less than 20 ng/mL (1,2) . The Endoc rine Socie ty went on to furth er defin e vitam in D insuf ficie ncy as a level betwe en 21 and 29 ng/mL (2). 1. IOM (Inst itute of Medic ine). 2010. Dieta ry refer ence latha es for calci um and D. Thaddeus campo [place]: The [facility] . 2. Carrie pearson [place], Patrick perea [place], Cristopher off-F errar i [place]OR[place], et al. Evalu ation , treat ment, and preve ntion of vitam in D defic iency : an Endoc rine Socie ty clini donita pract ice guide line. JCEM. 2010; 96(7) :1911 -30. Not Available [facility] ([facility]) [address], [place], [address], 10/21/2024 12:08:24 10/18/19 25 10/18/2024 HIV AB/P2 4 AG WITH REFLE X HIV Ab/P24 Ag screen COMMEN T Pleas e refer to the follo wing speci men for addit ional lab resul ts. SEE:1 429 8-0 Not Available [facility] ([facility]) [address], [place], [address], 10/21/2024 12:08:25 10/18/19 25 10/18/2024 PLEAS E NOTE please note Commen t The date and/o r time of colle ction was not indic ated on the requi sitio n as requi red by state and [place] law. The date of recei pt of the speci men was used as the colle ction date if not suppl ied. Not Available [facility] ([facility]) [address], [place], [address], 10/21/2024 12:08:25 10/18/19 25 10/18/2024 SPECI MEN STATU S REPOR T specimen status report COMMEN T Pleas e refer to the follo wing speci men for addit ional lab resul ts. TEST: 35071 6 TSH+F ree T4 48215 9 CBC With Diffe renti al/Pl atele t 39101 0 Comp. Metab olic Panel (14) 64733 6 Lipid Panel 60272 0 Vitam in B12 and Folat e 13664 0 HCV Antib lucy RFX to Quant PCR 90580 0 Vitam in D, 25-Hy droxy 74061 5 HIV Ab/p2 4 Ag with Refle x SEE:1 39-31 6-429 8-0 Not Available [facility] ([facility]) [address], [place], [address], 10/21/2024 12:08:26 08/05/19 25 08/04/2024 MAMMO , scree braden, digit al, bilat eral [facility] [address] [place] [address] Phone: Fax: Name: SKIP STEWART Exam Date: 08/05/19 25 : 968 Age 58 years Gender : F Access ion: [id number] Physic he: BRIGITTE OCONNOR Facili ty: [facility] Facili ty HSV: Outpat ient Exam: WHIT SCREEN MAMMO W CAD BILAT Exam: 3-D screen ing mammog emilio includ ing tomosy nthesi s and CAD (Compu ter Assist ed Detect ion). Clinic al indica tion: Asympt omatic screen ing exam Compar gab: Exams to 2017 TECHNI QUE: Routin e bilate ral 2D screen ing mammog vladimir with CC and MLO views obtain ed. 3-D tomosy nthesi s and Comput er assist ed detect ion were utiliz ed for this exam. BREAST DENSIT Y: There are scatte red areas of fibrog landul ar densit y FINDIN GS: No suspic ious mass, abdias ectura l distor tion, or suspic ious calcif icatio ns are presen t. IMPRES ANTONIO: No eviden ce of malign tracee in either breast Recomm endati on: Annual screen ing mammog emilio recomm ended in one year The result s of this report will be commun icated to the patien t by letter in layman 's terms. ACR BI-RAD S: BI-RAD S assess ment catego ry 1: Negati ve mammog vladimir Mammog emilio does not detect approx imatel y 10-15% of breast cancer s. A normal mammog vladimir does not exclud e breast cancer in a patien t with palpab le mass or abnorm al findin gs on physic al examin ation. These patien ts may need biopsi es and when clinic ally indica adriana a biopsy should not be postpo henny becaus e of a normal mammog vladimir. If the patien t has breast surger y or biopsy , FDA/MQ [place] Regula tory Guidel joshua mandat e that this facili ty receiv e pathol ogic result s for follow -up correl ation. Electr onical ly signed by: Myron Fuchs MD 2024 11:03 AM EST RP Workst ation: [id number] Dictat ed By: Myron Fuchs Transc ribed By: Transc ribed On: 08/05/19 10:45 AM Electr onical ly signed by: Myron Fuchs 08/05/19 Thank you for referr ing SKIP STEWART to [facility]. Legall y authen ticate d by GALA MEDRANO MD 08-04 10:45: 00 CC'ed Logic: Orderi ng Provid er: DONNY RAY CC Provid er: DONNY RAY Attend ing Provid er: DONNY RAY Referr ing Provid er: DONNY RAY Admitt ing Provid er: DONNY RAY [facility] (Radiology) [address] , [place], [address], 08/04/2024 13:18:03 08/05/19 25 08/04/2024 MAMMO , michaele braden, digit al, bilat eral No observ ation record ed. [facility] ([facility]) [address] [place] [address] [place], [address], 08/04/2024 13:37:48 10/17/19 elect kevin vuonggr am No observ ation record ed. [email or web address] Not Available 2024 16:03:11 Result Notes Documentation Provider Name and Address Organization Details Recorded Time Mammo, Screening, Digital, Bilateral : [address] [place] [address] Name: SKIP LANGSTON Exam Date: 08/04/2024 : 1965 Age 58 years Gender: F Physician: FABI OCONNOR [facility] Facility HSV: Outpatient Exam: WHIT SCREEN MAMMO W CAD BILAT Exam: 3-D screening mammography including tomosynthesis and CAD (Computer Assisted Detection). Clinical indication: Asymptomatic screening exam Comparison: Exams to 2017 TECHNIQUE: Routine bilateral 2D screening mammogram with CC and MLO views obtained. 3-D tomosynthesis and Computer assisted detection were utilized for this exam. BREAST DENSITY: There are scattered areas of fibroglandular density FINDINGS: No suspicious mass, architectural distortion, or suspicious calcifications are present. IMPRESSION: No evidence of malignancy in either breast Recommendation: Annual screening mammography recommended in one year The results of this report will be communicated to the patient by letter in layman's terms. ACR BI-RADS: BI-RADS assessment category 1: Negative mammogram Mammography does not detect approximately 10-15% of breast cancers. A normal mammogram does not exclude breast cancer in a patient with palpable mass or abnormal findings on physical examination. These patients may need biopsies and when clinically indicated a biopsy should not be postponed because of a normal mammogram. If the patient has breast surgery or biopsy, FDA/SA Regulatory Guidelines mandate that this facility receive pathologic results for follow-up correlation. Electronically signed by: Jerome Fuchs MD 08/04/2024 11:03 AM YOLANDA GAITAN Dictated By: Jerome Fuchs Transcribed By: Transcribed On: 08/04/2024 10:45 AM Electronically signed by: Jerome Fuchs 08/04/2024 Thank you for referring SKIP L[facility]ST[facility] to [facility]. Legally authenticated by GALA COPPOLA MD 2024-08-04 10:45:00 CC'ed Logic: Ordering Provider: DONNY HUTCHINSON CC Provider: DONNY HUTCHINSON Attending Provider: DONNY HUTCHINSON Referring Provider: DONNY HUTCHINSON Admitting Provider: DONNY Oconnor, ALANNA [address] [place] [address], [address] [place] [address], [employer] 08/04/2024 13:18:03 Problems Name Problem SNOMED Code Status Onset Date Resolution Date Notes Provider Name and Address Organization Details Recorded Time Farrah l hyperten antonio 07700161 Active 2023 Fabi Oconnor APRN [address] [place] [address], [address] [place] [address] , [employer] 4 16:33:16 Gastroes ophageal reflux disease without esophagi tis 993859970 Active 2023 Fabi Oconnor APRN [address] [place] [address], [address] [place] [address] , [employer] 4 16:33:18 Increase d frequenc y of urinatio n 536505711 Active 2023 Fabi Oconnor APRN [address] [place] [address], [address] [place] [address] , [employer] 4 16:33:20 Hyperlip idemia 65942516 Active 2023 Fabi Oconnor RN ACUTE [address] [place] [address], [address] [place] [address] , [employer] 4 16:33:22 Diabetes mellitus 90662058 Active 2023 Savanah vásquez, [employer] 13:57:34 Chronic constipa tion 103396810 Active 2023 Savanah vásquez, [employer] 4 11:28:03 Breast lump 13780425 Active 2023 Savanah vásquez, [employer] 4 11:28:03 Mass of right breast 27229282418 811654 Active 2023 Savanah vásquez, [employer] 4 10:16:12 Fever 285576045 Active 2024 Savanah vásquez, [employer] 5 09:20:26 Type 2 diabetes mellitus 36214028 Active 2024 Savanah vásquez, [employer] 5 09:45:32 Type 2 diabetes mellitus without complica tion 860433723 Active 2017 Not Available [facility] 2 22:13:05 Mixed hyperlip idemia 055745754 Active 2017 Problem Code: E78.2; Problem Code Type: ICD-10; Not Available [facility] 2 22:13:05 Generali zed anxiety disorder 02428745 Active 2019 Problem Code: F41.1; Problem Code Type: ICD-10; Not Available [facility] 2 22:13:05 Hyperten sive disorder 61450891 Completed 201704/13/2018 Problem Code: I10; Problem Code Type: ICD-10; Not Available [facility] 2 22:13:05 Lumbosac ral radiculo desire 7947358 Active 2017 Problem Code: M54.16; Problem Code Type: ICD-10; Not Available [facility] 2 22:13:05 Low back pain 196197466 Completed 201711/08/2017 Problem Code: M54.5; Problem Code Type: ICD-10; Not Available [facility] 2 22:13:05 Renal colic 1648035 Completed 201711/15/2017 Problem Code: N23; Problem Code Type: ICD-10; Not Available [facility] 2 22:13:05 Dysphagi a 35641310 Active 2018 Problem Code: R13.1; Problem Code Type: ICD-10; Not Available [facility] 2 22:13:06 Contusio n of lower back 760537320 Completed 201703/14/2018 Not Available [facility] 2 22:13:06 General examinat ion of patient Active 2020 Not Available [facility] 2 22:13:06 Screenin g for malignan t neoplasm of colon Active 2018 Not Available [facility] 2 22:13:06 Screenin g for malignan t neoplasm of colon Completed 201703/07/2018 Not Available [facility] 2 22:13:06 Screenin g mammogra phy Completed 201812/25/2019 Problem Code: Z12.31; Problem Code Type: ICD-10; Not Available [facility] 2 22:13:06 Screenin g mammogra phy Completed 201703/07/2018 Problem Code: Z12.31; Problem Code Type: ICD-10; Not Available [facility] 2 22:13:06 Influenz a vaccine needed 93273680742 06 Completed 201906/28/2020 Problem Code: Z23; Problem Code Type: ICD-10; Not Available [facility] 2 22:13:07 Influenz a vaccine needed 70085662305 Active 2018 Problem Code: Z23; Problem Code Type: ICD-10; Not Available [facility] 2 22:13:07 Body mass index 30+ - obesity 891557890 Active 2018 Problem Code: Z68.39; Problem Code Type: ICD-10; Not Available [facility] 2 22:13:07 Benign essentia l hyperten antonio 2901286 Completed 201701/06/2018 Problem Code: 401.1; Problem Code Type: ICD-9; Not Available [facility] 2 22:13:08 Fall Completed 201703/14/2018 Not Available [facility] 2 22:13:08 Contusio n of back 63110686 Completed 201703/14/2018 Problem Code: 922.31; Problem Code Type: ICD-9; Not Available [facility] 2 22:13:09 Accident al fall Completed 201703/14/2018 Problem Code: E888.9; Problem Code Type: ICD-9; Not Available [facility] 2 22:13:09 Finding of body mass index 602914269 Completed 201703/14/2018 Problem Code: Z68.41; Problem Code Type: ICD-10; Not Available [facility] 2 22:13:09 Finding of body mass index 620480572 Completed 201712/25/2019 Problem Code: Z68.41; Problem Code Type: ICD-10; Not Available [facility] 2 22:13:09 Screenin g for cancer Completed 201703/07/2018 Problem Code: V76.49; Problem Code Type: ICD-9; Not Available [facility] 2 22:13:10 Body mass index 40+ - severely obese 082568732 Completed 201703/14/2018 Problem Code: V85.41; Problem Code Type: ICD-9; Not Available [facility] 2 22:13:10 Problem Notes None recorded. Procedures Surgical History Date Name Laterality Status Provider Name and Address Organization Details Recorded Time 10/17/19 25 Diabetic Foot Screen completed Fabi Oconnor APRN [address] [place], [address], [employer] 10/16/2024 12:24:57 08/05/19 25 Most Recent Mammogram completed Savanah [employer] 11/13/2024 13:04:00 11/05/19 18 hysterectomy completed Not Available [facility] 022 22:56:19 05/31/18 97 Appendectomy completed Savanah [employer] 07/15/2023 14:28:56 Appendectomy completed Savanah Jackson [employer] 10/12/2023 15:31:15 Back Surgery completed Savanah Jackson [employer] 10/12/2023 15:31:15 Hysterectomy completed Savanah Jackson [employer] 10/12/2023 15:31:15 Imaging Results None recorded. Procedure Notes None recorded. Medical Equipment None Reported. Allergies Allergen ID Allergen Name Allergen Category Reaction Reaction Severity Criticality Documentation Date Start Date Code Code System Note Provider Name and Address Organization Details Recorded Time 60317 pravastat in sodium medicatio n Not available Not available Not available 02/03/202222254 4 RxNorm Aller gyCod e: '2030'; Aller gyNam e: 'prav astat in'; Aller gyCon ceptT ype: 'RxNO RM'; Savanah vásquez [employer] 14:15:57 Medications Name Sig Start Date Stop Date Status Note LastModified by Organization Details LastModified Time cyclobenza johanny 10 mg tablet Take 1 tablet(s ) by mouth every 8 hours as needed 03/15 completed Not Available Not Available Not Available amoxicilli n 500 mg capsule 07/15 completed Not Available Not Available Not Available silver sulfadiazi ne 1 % topical cream 07/15 completed Not Available Not Available Not Available metformin 500 mg tablet 1 tablet 2 times daily 07/15 completed Not Available Not Available Not Available carvedilol 6.25 mg tablet Take 1 Tablet by mouth two times a day 07/15 completed Not Available Not Available Not Available gabapentin 600 mg tablet TAKE ONE TABLET BY MOUTH FIVE TIMES DAILY active Not Available Not Available No t Available carvedilol 12.5 mg tablet TAKE TWO TABLETS BY MOUTH EVERY DAY active Not Available Not Available No t Available azithromyc in 250 mg tablet 07/15 completed Not Available Not Available Not Available pravastati n 40 mg tablet take 1 tablet (40 mg) by oral route once daily at bedtime 07/15 completed Not Available Not Available Not Available tizanidine 4 mg tablet TAKE ONE TABLET BY MOUTH THREE TIMES DAILY NEEDED FOR PAIN active Not Available Not Available No t Available hydrocodon e 5 mg-acetami nophen 325 mg tablet 07/15 completed Not Available Not Available Not Available meloxicam 15 mg tablet Take 1 tab by mouth once daily for inflamma tion. 07/15 completed Not Available Not Available Not Available prednisone 20 mg tablet TAKE ONE TABLET BY MOUTH THREE TIMES DAILY 10/11 completed Not Available Not Available Not Available phentermin e 37.5 mg tablet Take 1 tablet every day by oral route. 2024 active Not Available Not Available Not Avai lable sulfametho xazole 800 mg-trimeth oprim 160 mg tablet TAKE ONE TABLET BY MOUTH every 12 hours FOR 10 DAYS 11/13 completed Not Available Not Available Not Available omeprazole 40 mg capsule,de layed release TAKE ONE CAPSULE BY MOUTH EVERY DAY active Not Available Not Available No t Available aspirin 81 mg tablet,del ayed release Take 1 tablet(s ) by mouth daily 07/15 completed Not Available Not Available Not Available tramadol 50 mg tablet TAKE ONE TABLET BY MOUTH THREE TIMES DAILY NEEDED for moderate pain active Not Available Not Available No t Available gentamicin 0.3 % eye drops instill 1 - 2 drops into affected eye(s) by ophthalm ic route every 4 hours 12/24 completed Not Available Not Available Not Available Lidoderm 5 % topical patch Apply 1 patch(es ) to affected area for up to 12 hours in a 24 hour period 03/14 completed Not Available Not Available Not Available amlodipine 10 mg tablet TAKE 1 TABLET BY MOUTH ONCE DAILY 07/14 completed Not Available Not Available Not Available doxycyclin e monohydrat e 100 mg capsule TAKE ONE CAPSULE BY MOUTH TWICE DAILY 10/11 completed Not Available Not Available Not Available hydrocodon e 7.5 mg-acetami nophen 325 mg tablet Take 1 tablet(s ) by mouth q 6 hr prn 12/06 completed Not Available Not Available Not Available metformin 1,000 mg tablet take 1 tablet (1,000 mg) by oral route 2 times per day with morning and evening meals 07/15 completed Not Available Not Available Not Available ranitidine 150 mg tablet 1 po bid 05/17 completed Not Available Not Available Not Available buspirone 10 mg tablet take 1 tablet (10 mg) by oral route 3 times per day for anxiety 07/15 completed Not Available Not Available Not Available promethazi ne 25 mg tablet take one tablet by mouth every 8 hours as needed 10/11 completed Not Available Not Available Not Available polymyxin B sulfate 10,000 unit-trime thoprim 1 mg/mL eye drops 07/15 completed Not Available Not Available Not Available oxybutynin chloride ER 5 mg tablet,ext ended release 24 hr TAKE ONE TABLET BY MOUTH ONCE DAILY active Not Available Not Available No t Available gabapentin 300 mg capsule 1 Capsule three times a day by mouth 03/07 completed Not Available Not Available Not Available omeprazole 20 mg capsule,de layed release take 1 capsule (20 mg) by oral route once daily before a meal 07/15 completed Not Available Not Available Not Available doxazosin 4 mg tablet Take 1 tablet(s ) by mouth daily 02/15 completed Not Available Not Available Not Available levofloxac in 500 mg tablet TAKE 1 TABLET BY MOUTH EVERY 24 HOURS FOR 7 DAYS 07/15 completed Not Available Not Available Not Available albuterol sulfate HFA 90 mcg/actuat ion aerosol inhaler active Not Available Not Available Not Available lisinopril 40 mg tablet TAKE ONE TABLET BY MOUTH EVERY DAY active Not Available Not Available No t Available ondansetro n 4 mg disintegra ting tablet 07/15 completed Not Available Not Available Not Available cefdinir 300 mg capsule 07/15 completed Not Available Not Available Not Available fluoxetine 20 mg capsule take 1 capsule (20 mg) by oral route once daily 07/15 completed Not Available Not Available Not Available neomycin 3.5 mg/g-polym yxin B 10,000 unit/g-dex ameth 0.1 % eye oint 07/15 completed Not Available Not Available Not Available rosuvastat in 10 mg tablet TAKE ONE TABLET BY MOUTH EVERY DAY active Not Available Not Available No t Available rosuvastat in 20 mg tablet take 1 tablet (20 mg) by oral route once daily 05/17 completed Not Available Not Available Not Available nitrofuran toin monohydrat e/macrocry stals 100 mg capsule 07/15 completed Not Available Not Available Not Available Lantus Solostar U-100 Insulin 100 unit/mL (3 mL) subcutaneo us pen inject 45 Units SQ qam and q pm 10/11 completed Not Available Not Available Not Available Dilaudid (PF) pain pump active dilaudi d/bupiv [facility] Not Available Not Available Not Available Linzess 145 mcg capsule TAKE ONE CAPSULE BY MOUTH ONCE DAILY 04/10 completed Not Available Not Available Not Available Linzess 290 mcg capsule TAKE ONE CAPSULE BY MOUTH ONCE DAILY active Not Available Not Available No t Available Bydureon BCise 2 mg/0.85 mL subcutaneo us auto-injec tor 2 mg injected subcutan eously once a week. 10/11 completed Not Available Not Available Not Available Ozempic 1 mg/dose (2 mg/1.5 mL) subcutaneo us pen injector Inject 1 mg every week by subcutan eous route for 90 days. 01/10 completed Not Available Not Available Not Available Ozempic 0.25 mg or 0.5 mg (2 mg/1.5 mL) subcutaneo us pen injector 0.25 mg SQ q week x4 weeks, then 0.5mg SQ q week 10/11 completed Not Available Not Available Not Available Fluzone Quad 60 mcg (15 mcg x 4)/0.5 mL intramuscu lar susp. inject 0.5 millilit er (60 mcg) by intramus cular route once 09/24 completed Not Available Not Available Not Available Afluria Qd 2019- (36 mos up)(PF)60 mcg (15 mcg x4)/0.5 mL IM syringe inject 0.5 millilit er (60 mcg) by intramus cular route once 06/28 completed Not Available Not Available Not Available Ozempic 1 mg/dose (4 mg/3 mL) subcutaneo us pen injector Inject by subcutan eous route for 28 days. active Not Available Not Available No t Available Dexcom G7 Sensor device CHANGE EVERY 10 DAYS active Not Available Not Available No t Available Ozempic 0.25 mg or 0.5 mg (2 mg/3 mL) subcutaneo us pen injector inject 0.25 mg SQ once a week x4 weeks, then 0.5mg SQ once a week thereaft er 10/11 completed Not Available Not Available Not Available Vitals Date Recorded Body height Body mass index (BMI) Body weight Body temperature Heart rate Oxygen saturation Oxygen saturation in Arterial blood by Pulse oximetry Systolic blood pressure Diastolic blood pressure Provider Name and Address Organization Details Last Updated DateTime 5 170.18 cm 37.3 kg/m2 593694. 98 g 99.7 [degF] 81 /min 93 % 93 % 138 mm[Hg] 87 mm[Hg] [employer] 5 09:20:21 Date Recorded Body height Body mass index (BMI) Body weight Heart rate Oxygen saturation Oxygen saturation in Arterial blood by Pulse oximetry Systolic blood pressure Diastolic blood pressure Provider Name and Address Organization Details Last Updated DateTime 5 170.18 cm 37.3 kg/m2 194132. 98 g 85 /min 95 % 95 % 131 mm[Hg] 80 mm[Hg] Savanah [employer] 5 17:03:47 Date Recorded Body height Body mass index (BMI) Body weight Heart rate Oxygen saturation Oxygen saturation in Arterial blood by Pulse oximetry Systolic blood pressure Diastolic blood pressure Provider Name and Address Organization Details Last Updated DateTime 5 170.18 cm 37.9 kg/m2 678951. 35 g 85 /min 95 % 95 % 120 mm[Hg] 66 mm[Hg] [employer] 5 11:46:39 Date Recorded Body height Body mass index (BMI) Body weight Heart rate Oxygen saturation Oxygen saturation in Arterial blood by Pulse oximetry Systolic blood pressure Diastolic blood pressure Provider Name and Address Organization Details Last Updated DateTime 5 170.18 cm 38.1 kg/m2 925453. 75 g 80 /min 97 % 97 % 136 mm[Hg] 84 mm[Hg] Savanah Jackson [employer] 5 13:12:56 Date Recorded Body height Body mass index (BMI) Body weight Heart rate Oxygen saturation Oxygen saturation in Arterial blood by Pulse oximetry Systolic blood pressure Diastolic blood pressure Provider Name and Address Organization Details Last Updated DateTime 4 170.18 cm 37.6 kg/m2 184298. 17 g 80 /min 94 % 94 % 137 mm[Hg] 81 mm[Hg] Savanah Jackson [employer] 4 16:38:04 Social History Question Answer Notes LastModified by Organizat ion Details LastModified Time Tobacco Smoking Status Never Smoker SocialHis toryQuest ion: 'Tobacco/ Alcohol/S upplement s'; SocialHis toryRespo nse: 'Never Smoker'; Not Available [facility] 02/03/2022 22:58:37 Do You Have An Advance Directive? No Information not available 10/12/2023 Is Your Home Air Conditioned? Yes Information not available 07/15/2023 Are You Blind Or Do You Have Difficulty Seeing? No Information not available 07/15/2023 What Is Your Level Of Caffeine Consumption? Occasional Information not available 07/15/2023 Are You A Caregiver? No Information not available 07/15/2023 In The 14 Days Before Symptom Onset, Have You Had Close Contact With A Laboratory-confir med COVID-19 While That Case Was Ill? No Information not available 07/15/2023 In The 14 Days Before Symptom Onset, Have You Had Close Contact With A Person Who Is Under Investigation For COVID-19 While That Person Was Ill? No Information not available 07/15/2023 Have You Been To An Area Known To Be High Risk For COVID-19? No Information not available 07/15/2023 Are You Deaf Or Do You Have Serious Difficulty Hearing? No Information not available 07/15/2023 What Type Of Diet Are You Following? REGULAR Information not available 07/15/2023 Have There Been Any Changes To Your Family Or Social Situation? No Information no t available 07/15/2023 Are There Any Guns Present In Your Home? No Information not available 10/12/2023 Which Of Your Hands Is Dominant? Right Information not available 10/12/2023 What Is Your Home Situation? Other Information not available 10/12/2023 Do You Have A Medical Power Of Animal Nutrition Consultant? No Information not available 10/12/2023 What Was The Date Of Your Most Recent Tobacco Screening? 11/13/2024 Information not available 11/13/2024 Do You Have Any Pets? Yes Information not available 10/12/2023 What Is Your Relationship Status? Information not available 07/15/2023 Have You Repeated Any Grades? No Information not available 10/12/2023 Do You Use Your Seat Belt Or Car Seat Routinely? Yes Information not available 07/15/2023 Are You Sexually Active? No Information not available 10/12/2023 Do You Have Any Siblings? 2 Brothers 1 Sister Information not available 10/12/2023 Do You Have Smoke And Carbon Monoxide Detectors In Your Home? Yes Information not available 07/15/2023 Are You Passively Exposed To Smoke? No Information no t available 07/15/2023 Are There Any Smokers In Your House? No Information not available 07/15/2023 Do You Use Sunscreen Routinely? Yes Information not available 10/12/2023 Has Tobacco Cessation Counseling Been Provided? No Information not available 07/15/2023 Have You Recently Traveled Abroad? No Information not available 07/15/2023 Do You Have Difficulty Walking Or Climbing Stairs? No Information not available 07/15/2023 Sex: Female Functional Status Question Answer Note LastModified by Organizat ion Details LastModified Time Do you use any illicit or recreational drugs? No Information not available 07/15/2023 What is your level of alcohol consumption? None Information not available 07/15/2023 Are you currently employed? No Information not available 07/15/2023 Do you have transportation difficulties? No Information not available 07/15/2023 Are you able to walk? YESWOREST Information not available 07/15/2023 Do you have difficulty doing errands alone? No Information not available 07/15/2023 Are you able to care for yourself? Yes Information n ot available 07/15/2023 Do you have difficulty dressing or bathing? No Information not available 07/15/2023 What is your exercise level? Occasional Information not available 10/12/2023 Mental Status Question Answer Note LastModified by Organization D etails LastModified Time Do you have difficulty concentrating, remembering or making decisions? No Information no t available 07/15/2023 Are you or have you been involved with bullying? No Information not available 10/12/2023 Family History Relationship Description Onset Age of this Age Resolved Age Notes LastModified by Organization Details LastModified Time Unspecified Relation Family history of malignant neoplasm Relati ve: ''; Not available 10/12/2023 15:31:12 Unspecified Relation Family history of Hypertension Relati ve: ''; Not available 10/12/2023 15:31:12 Unspecified Relation Family history of breast cancer Relati ve: ''; Not available 10/12/2023 15:31:12 Mother Malignant neoplasm of lung Not available 10/11 15:31:12 Mother Hypertensive disorder Not available 10/11 15:31:12 Notes:*Procedure Description : Documented family medical history in mother*Relative: Mother Medical History Condition Response Diabetes Y Obesity Y Acid Reflux (GERD) Y High Cholesterol Y Hypertension Y Gynecological History Statement/Question Response Menses Monthly N HPV Vaccine N Date of Last Pap Smear Most Recent Mammogram 08/04/2024 Age at First Child 19 Obstetrics History GPAL:G 0 P 0 0 0 0 Immunizations Vaccine Type Date Status Note Provider Nam e and Address Organization Details Recorded Time Influenza, split virus, quadrivalent, preservative 0 completed Not Available [facility] 02/03/2022 23:41:00 pneumococcal polysaccharide PPV23 8 completed Not Available [facility] 02/03/2022 23:41:00 Influenza, split virus, quadrivalent, preservative 9 completed Not Available [facility] 02/03/2022 23:41:00 Pneumococcal conjugate PCV15, polysaccharide [id number] conjugate, adjuvant, PF 5 completed Fabi Oconnor APRN [address] [place], [address], [facility] 11/13/2024 13:34:38 zoster recombinant 5 completed Fabi Oconnor APRN [address] [place], [address], [facility] 11/13/2024 13:34:38 MMR 8 completed Not Available [facility] 11/13/2024 12:53:59 Td (adult), 2 Lf tetanus toxoid, preservative free, adsorbed 8 completed Not Available [facility] 11/13/2024 12:53:59 Hep B, adult 8 completed Not Available [facility] 11/13/2024 12:53:59 Hep B, adult 8 completed Not Available [facility] 11/13/2024 12:53:59 Influenza, recombinant, quadrivalent, PF 2 completed Not Available [facility] 11/13/2024 12:53:59 Influenza, split virus, quadrivalent, PF 3 completed Not Available [facility] 11/13/2024 12:53:59 Past Encounters Encounter ID Performer Location Encounter Start Date Encounter Closed Date Diagnosis/Indication Diagnosis SNOMED-CT Code Diagnosis ICD10 Code Diagnosis Note [id number] Fabi Oconnor [address] [address] 07/15/2023 13:59:47 07/15/2023 15:18:35 Type 2 diabetes mellitus without complication 998648629 E11.9 Lower resp iratory tract infection 30705136 J22 Essential hypertension 96439851 I10 Gastroesop hageal reflux disease without esophagitis 936752180 K21.9 Increased frequency of urination 623130828 R35.0 Hyperlipidemia 04608844 E78.5 Body mass index 30+ - obesity 780743763 Z68.38 [id number] [place] [address] 10/12/2023 15:27:34 10/12/2023 15:59:39 Diabetes mellitus 75456014 E11.9 Gastroesop hageal reflux disease without esophagitis 354532243 K21.9 Increased frequency of urination 928641140 R35.0 Type 2 anirudh betes mellitus without complication 202476672 E11.9 Body mass index 30+ - obesity 503018333 Z68.38 [id number] [place] [address] 01/11/2024 13:49:29 01/11/2024 14:35:58 Diabetes mellitus 19623576 E11.9 Chronic constipation 236 396831 K59.09 Breast lump 97554980 N63 .0 Gastroesop hageal reflux disease without esophagitis 819704466 K21.9 Increased frequency of urination 889073433 R35.0 Body mass index 30+ - obesity 698719590 Z68.38 [id number] [place] [address] 04/10/2024 16:29:16 04/10/2024 16:52:26 Type 2 diabetes mellitus without complication 475471230 E11.9 Chronic constipation 236 850371 K59.09 Gastroesop hageal reflux disease without esophagitis 204771712 K21.9 Body mass index 30+ - obesity 762130906 Z68.38 [id number] [place] [address] 07/07/2024 09:01:33 07/07/2024 10:28:57 Fever 480249920 R50.9 Influenza caused by Influenza A virus 983495283 J09.X2 Body mass index 30+ - obesity 628182653 Z68.38 [id number] Fabi Oconnor, [place] [address] 07/20/2024 16:52:25 07/20/2024 17:27:16 Type 2 diabetes mellitus without complication 224910161 E11.9 Essential hypertension 59223722 I10 Hyperlipidemia 13753195 E78.5 Fatigue 88214439 R53.83 Vitamin D deficiency 347 77828 E55.9 Vitamin B deficiency 479 16493 E53.9 Body mass index 30+ - obesity 112297335 Z68.38 Screening mammography 24 019308 Z12.31 [id number] [place] [address] 10/16/2024 11:32:17 10/16/2024 12:27:20 Type 2 diabetes mellitus 01619223 E11.9 Patient reports that she had DM eye exam @ [facility] eye doc in [place]. Will call for record. Severe obesity 602057794 1 9104 E66.01 Fatigue 84691674 R53.83 Mixed hyperlipidemia 267 976935 E78.2 Vitamin D deficiency 347 47683 E55.9 Cobalamin deficiency 190 979306 E53.8 HIV screening 085292306 Z11.4 Viral scre ening status 564233920 Z11.59 Dysuria 93790748 R30.0 Type 2 anirudh betes mellitus without complication 552685602 E11.9 Body mass index 30+ - obesity 758427418 Z68.37 [id number] [place] [address] 11/13/2024 12:53:23 11/13/2024 13:27:14 Active or passive immunization 070502526 Z23 Active immunization 3387 9002 Z23 General ex amination of patient 229493014 Z00.01 Obesity 968141703 E66.9 Body mass index 30+ - obesity 783719933 Z68.38 Health Concerns Section Related Observation LastModified by Organization Detai ls LastModified Time None Recorded Concern Status LastModified by Organization Details LastModified Time None Recorded Advance Directives Directive N: Payers Insurance Date Sequence Insurance Name Policy Number Policy Parada Covered Member ID Parada Member ID Guarantor Name 11/10/2024 1 [employer] (MEDICARE REPLACEMENT/ ADVANTAGE - PPO) [id number] [place] [employer] [id number] Skip Workrobbie 11/10/2024 2 MEDICAID-[facility] - FFS/TRADITIO NAL [place] Workrobbie [id number] Skip Langston 11/10/2024 MEDICARE [place] [employer] - [facility] [place] Workman [id number] Skip Workrobbie 07/07/2024 1 [employer] (MEDICARE REPLACEMENT/ ADVANTAGE - PPO) [place] Workman [id number] Skip Workrobbie 07/15/2023 1 *SELF PAY* Ca anayeli Workman Notes Date Note Type Note Provider Name and Address Organization Details Recorded Time 04/10/2024 text/html pt here today fo r medication refills. pt states shes doing well on current medication regime and request that the linzess be increased to the next dose due to some increased constipation. A1C 6.9, 7.5 at last visit. pt to continue current medication regime, diabetic diet and exercise. Fabi Oconnor APRN [address] [place], [address], [employer] [employer] 04/10/2024 17:03:12 07/07/2024 text/html pt here today with c/o sore throat, cough, headache, and fever x3 days. rapid flu A positive. advised pt to rest, increase fluids, tylenol/ibuprofen for fever/pain. return for worsening symptoms. Fabi Oconnor APRN [address] [place], [address], [employer] 07/07/2024 09:46:08 07/20/2024 text/html 58 year old female present for diabetes f/u. Denies acute complaints today. States she is taking all medication as prescribed without AE. A1C 7.1 today. Will plan to refill medication and order labs today. She will return to office at later date for labs.Needs an update mammogram screening. Pt agrees and will order todayLast cologuard janurary 2023 -normal per pt Fabi Oconnor APRN [address] [place], [address], [place] [employer] 07/20/2024 17:33:10 10/16/2024 text/html pt here today fo r medication refills. pt states shes doing well on current medication regime. A1C 6.8, 7.1 at last visit. pt states that she is having a hard time losing wt. states that she has switched to water and diet soda if she has one. states that she has been trying to walk and not having much luck. states that she thinks if she could lose some wt that she wouldnt me in so much pain and she would like to get rid of her pain pump. pt states that she has taken adipex before and did well with it. pt denies any cp, soa. ordered EKG, labs. we will try adipex for a few months. pt voiced understanding. pt also c/o dysuria x2 weeks. states that she just didnt want to come in. states that she doesnt think that she can urinate at this time. pt will come back later today when she can. Savanah vásquez, [employer] 10/16/2024 16:58:27 11/13/2024 text/html pt here today fo r AWV. pt states shes doing well and has no new complaints. pt states that she went last month and got the adipex filled, went to [facility] and it must have fell out of her purse because she didnt make it home with it. states it fell out with the bag and all because she didnt even open it. states that she called [facility] and no one had turned it in. states that she is going to [facility] today to check again to see if someone turned it in. Fabi Oconnor APRN [address] [facility], [place], [address], [employer] 11/13/2024 13:45:31 OBGyn Episode No OBEpisode recorded.
[2024-11-24 11:45] VITALS: BP 144/81; PULSE 63; RESP 18; O2SAT 95; BMI 36.3
--- OUTSIDE RECORDS SUMMARY | 2024-11-24 11:45 | XMS_ITS | Data Portability ---
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 Additionally, concern for ISD. Her prolapse is her continence mechanism. Discussed referral to Dr. Blas or Urogyn pending her rec. Meanwhile, Oxybut for OAB. msocher Not available 01/29/2020 11:47:52 03/21/2020 03/21/2020 1 week s/p TVT, Posterior Repair, healing well. Cont current mgmt. f/u 4 weeks postop. ER precautions. She understands. msocher Not available 03/21/2020 16:23:31 Plan of Treatment Reminders Order Date Submit Date Provider Last Modified By Organization Details Last Modified Time Details Appointments None recorded. Lab culture, urine 2019 020 NOVI [facility], [address], [address], [place], [address], 0 03:11:00 urinalysis , complete 2019 020 LIBAN [facility], [address], [address], [place], [address], 0 03:10:59 CBC w/ auto diff 2019 020 [facility]( Lab), [address] [place] [address] , [place], [address], 0 17:16:56 SARS CoV 2 RNA (COVID-19) , QL, technology manager-PCR, respirator y specimen 2019 [facility]( Lab), [address] [place] [address] [place], [address], 0 12:37:48 urinalysis , reflex culture 2019 [facility]( Lab), [address] [place] [address] [place], [address], 0 16:52:10 potassium, serum 2019 [facility]( Lab), [address] [place] [address] [place], [address], 0 12:37:48 culture, urine 2019 NOVI [facility], [address], [place], [address], 0 20:08:27 Referral None recorded. Procedures None recorded. Surgeries None recorded. Imaging None recorded. Medication Orders ceftriaxon e 1 gram solution for injection 2019 msocher [facility], [address] [place] [address], [address], 0 05:38:09 ceftriaxon e 1 gram solution for injection 2019 msocher [facility], [place], [address], 0 16:53:44 ceftriaxon e 1 gram solution for injection 2019 msocher [facility], [place], [address], 0 14:30:54 Pyridium 200 mg tablet 2019 020 INTERFACE [facility], [address] [place], [address], 0 13:26:42 oxybutynin chloride ER 10 mg tablet,ext ended release 24 hr 2019 020 INTERFACE [facility], [address] [place], [address], 0 11:46:49 Patient TargetsNo targets recorded. Patient Instructions Encounter Date Encounter Id Patient Instructions Last Modified By Organization Details Last Modified Time 02/22/2020 [id number] electrocardiogra m interpretation* [email or web address] Not available 03/20/2020 12:37:48 Reason for Referral None Reported. Results Created Date Observation Date Name Description Value Unit Range Abnormal Flag Note LastModifiedBy Organization Detail LastModifiedTime 01/29/20 20 01/31/2020 cultu re, urine urine culture, routine Final report abnormal Not Available [facility] ([facility]) [address] [facility], [place], [address], 01/31/2020 20:08:27 01/29/20 20 01/31/2020 cultu re, urine result 1 Klebsi rusty pneumo niae abnormal Great er than 100,0 00 colon y formi ng units per mL Cefaz timi <=4 ug/mL Cefaz timi with an TAVON <=16 predi cts susce ptibi lity to the oral agent s cefac natasha, cefdi shahida, cefpo doxim e, cefpr ozil, cefur oxime , cepha lexin , and lorac arbef when used for thera py of uncom plica adriana urina ry tract infec tions due to E. coli, Klebs iella pneum oniae , and Prote us mirab ilis. Not Available [facility] ([facility]) [address] [facility], [place], [address], 01/31/2020 20:08:27 01/29/20 20 01/31/2020 cultu re, urine antimicrobia l susceptibili ty Commen t S = Susce ptibl e; I = Inter media te; R = Resis tant P = Posit michele; N = Negat michele MICS are expre ssed in micro grams per mL Antib iotic RSLT# 1 RSLT# 2 RSLT# 3 RSLT# 4 Amoxi cilli n/Cla vulan ic Acid S =4 Ampic illin R =R Cefep marcia S<=0. 12 Ceftr iaxon e S<=0. 25 Cefur oxime S =2 Cipro floxa maribel S<=0. 25 Ertap enem S<=0. 12 Genta micin S<=1 Imipe nem S<=0. 25 Levof loxac in S<=0. 12 Merop enem S<=0. 25 Nitro furan toin S<=16 Piper acill in/Ta zobac moreno S<=4 Tetra cycli ne S<=1 Tobra mycin S<=1 Trime thopr im/Carrion lfa S<=20 Not Available [facility] ([facility]) [address] [place], [address], 01/31/2020 20:08:27 03/05/2003/06/2020 urina lysis , compl ete specific gravity 1.019 1.005- 1.030 Not Available [facility] ([facility]) [address] [place], [address], 03/07/2020 03:10:59 03/05/2003/06/2020 urina lysis , compl ete pH 5.5 5.0-7. 5 Not Available [facility] ([facility]) [address] [place], [address], 03/07/2020 03:10:59 03/05/2003/06/2020 urina lysis , compl ete urine-color Yellow yellow Not Available [facility] ([facility]) [address] [place], [address], 03/07/2020 03:10:59 03/05/2003/06/2020 urina lysis , compl ete appearance Clear clear Not Available [facility] ([facility]) [address] [facility], [place], [address], 03/07/2020 03:10:59 03/05/2003/06/2020 urina lysis , compl ete WBC esterase Negati ve negati ve Not Available [facility] ([facility]) [address] [place], [address], 03/07/2020 03:10:59 03/05/2003/06/2020 urina lysis , compl ete protein Negati ve negati ve/tra ce Not Available [facility] ([facility]) [address] [place], [address], 03/07/2020 03:10:59 03/05/2003/06/2020 urina lysis , compl ete glucose Negati ve negati ve Not Available [facility] ([facility]) [address] [place], [address], 03/07/2020 03:10:59 03/05/2003/06/2020 urina lysis , compl ete ketones Negati ve negati ve Not Available [facility] ([facility]) [address] [facility], [place], [address], 03/07/2020 03:10:59 03/05/2003/06/2020 urina lysis , compl ete occult blood Negati ve negati ve Not Available [facility] ([facility]) [address] [place], [address], 03/07/2020 03:10:59 03/05/2003/06/2020 urina lysis , compl ete bilirubin Negati ve negati ve Not Available [facility] ([facility]) [address] [place], [address], 03/07/2020 03:10:59 03/05/2003/06/2020 urina lysis , compl ete urobilinogen ,semi-qn 0.2 mg/dL 0.2-1. 0 Not Available [facility] ([facility]) [address] [facility], [place], [address], 03/07/2020 03:10:59 03/05/2003/06/2020 urina lysis , compl ete nitrite, urine Negati ve negati ve Not Available [facility] ([facility]) [address] [facility], [place], [address], 03/07/2020 03:10:59 03/05/2003/06/2020 urina lysis , compl ete microscopic examination Commen t Micro scopi c not indic ated and not perfo rmed. Not Available [facility] ([facility]) [address] [facility], [place], [address], 03/07/2020 03:10:59 03/05/2003/06/2020 cultu re, urine urine culture, routine Final report Not Available [facility] ([facility]) [address] [facility], [place], [address], 03/07/2020 03:11:00 03/05/2003/06/2020 cultu re, urine result 1 No growth Not Available [facility] ([facility]) [address] [facility], [place], [address], 03/07/2020 03:11:00 Result Notes None recorded. Problems Name Problem SNOMED Code Status Onset Date Resolution Date Notes Provider Name and Address Organization Details Recorded Time Suspecte d COVID-19 792628096 Completed 03/18/2020 Removal Reason: Problem added by user denis from the COVID-19 watch flag Matthew Godfrey RN [address], [place], [address] , [place] - [facility] 0 15:19:01 Problem Notes None recorded. Procedures Surgical History Date Name Laterality Status Provider Name and Address Organization Details Recorded Time Appendectomy completed Cecily Eugene [place] - [facility] 01/04/2020 13:22:11 Hysterectomy completed Cecily Eugene [place] - [facility] 01/04/2020 13:22:24 Imaging Results None recorded. Procedure Notes None recorded. Medical Equipment None Reported. Allergies No known drug allergies Medications Name Sig Start Date Stop Date Status Note LastModified by Organization Details LastModified Time methocarb bill 500 mg tablet TAKE 1 TABLET BY MOUTH THREE TIMES DAILY 01/03 completed Not Available Not Available Not Available metformin 500 mg tablet TAKE 1 TABLET BY MOUTH TWICE DAILY active Not Available Not Available No t Available carvedilo l 6.25 mg tablet TAKE 1 TABLET BY MOUTH TWICE DAILY active Not Available Not Available No t Available gabapenti n 600 mg tablet TAKE 1 TABLET BY MOUTH 5 TIMES A DAY active Not Available Not Available No t Available Stool Softener 100 mg capsule TAKE 1 CAPSULE BY MOUTH TWICE DAILY - TAKE WITH AT LEAST 8OZ OF WATER active Not Available Not Available No t Available oxybutyni n chloride ER 10 mg tablet,ex tended release 24 hr Take 1 tablet every day by oral route. active Not Available Not Available No t Available pravastat in 40 mg tablet TAKE 1 TABLET BY MOUTH AT BEDTIME active Not Available Not Available No t Available tizanidin e 4 mg tablet TAKE 1 TABLET BY MOUTH THREE TIMES DAILY active Not Available Not Available No t Available meloxicam 15 mg tablet TAKE 1 TABLET BY MOUTH ONCE DAILY FOR INFLAMMA TION active Not Available Not Available No t Available phenazopy ridine 200 mg tablet take 1 tablet (200 mg) by oral route 3 times per day after meals for 3 days: will turn urine orange active Not Available Not Available No t Available lisinopri l 20 mg tablet take 1 tablet (20 mg) by oral route once daily for 30 days 01/03 completed lisinopr il 20 mg oral tablet;R ecorded Status: Recorded on: 11/23/19 15 1:18PM;U ser: [email or web address]; Indicati on: Hyperten serg - (4019 ) Not Available Not Available Not Available prednison e 20 mg tablet TAKE 1 TABLET BY MOUTH TWICE DAILY 01/03 completed Not Available Not Available Not Available sulfameth oxazole 800 mg-trimet hoprim 160 mg tablet take 1 tablet by oral route every 12 hours for 7 days active Not Available Not Available No t Available tramadol 50 mg tablet TAKE 1 TABLET BY MOUTH THREE TIMES DAILY active Not Available Not Available No t Available oxycodone -acetamin ophen 5 mg-325 mg tablet active Not Available Not Available Not Available ceftriaxo ne 1 gram solution for injection Take 1 g every day by injectio n route as directed for 1 day. 2019 active Not Available Not Available Not Avai lable Metrogel Vaginal 0.75 % (37.5 mg/5 gram) insert 1 applicat orful (37.5 mg) by vaginal route once daily at bedtime for 5 days preop 09/05 completed Metrogel Vaginal vaginal gel 0.75 %;Record ed Status: Recorded on: 06/19/19 14 10:00AM; Disconti nued Status: Disconti nued on: 09/06/19 14 2:22PM;U ser: bruced; Est. Completi on: 06/24/19 14;Print ed: 06/19/19 14 Not Available Not Available Not Available gentamici n 0.3 % eye drops active Not Available Not Available No t Available amlodipin e 10 mg tablet TAKE 1 TABLET BY MOUTH EVERY DAY active Not Available Not Available No t Available hydrocodo ne 7.5 mg-acetam inophen 325 mg tablet TAKE 1 TABLET BY MOUTH EVERY FOUR HOURS FOR PAIN 01/03 completed Not Available Not Available Not Available metformin 1,000 mg tablet active Not Available Not Available Not Available ranitidin e 150 mg tablet TAKE 1 TABLET BY MOUTH TWICE DAILY 01/03 completed Not Available Not Available Not Available buspirone 10 mg tablet active Not Available Not Available Not Available lisinopri l 10 mg tablet take 1 tablet (10 mg) by oral route once daily 11/22 completed lisinopr il oral tablet 10 mg;Recor ded Status: Recorded on: 06/07/19 14 10:32AM; Disconti nued Status: Disconti nued on: 11/23/19 15 1:17PM;U ser: dez; Indicati on: Hyperten serg - () Not Available Not Available Not Available promethaz ine 25 mg tablet TAKE 1 TABLET BY MOUTH TWICE DAILY active Not Available Not Available No t Available omeprazol e 20 mg capsule,d elayed release active Not Available Not Available Not Available doxazosin 4 mg tablet TAKE 1 TABLET BY MOUTH ONCE DAILY active Not Available Not Available No t Available ibuprofen 600 mg tablet 600 mg by oral route. 2019 active Not Available Not Available Not Avai lable Ativan 0.5 mg tablet take 1 tablet (0.5 mg) by oral route 2 times per day as needed for 7 days 11/29 completed Ativan 0.5 mg oral tablet;R ecorded Status: Recorded on: 11/23/19 15 1:51PM;U ser: [email or web address]; Est. Completi on: 11/30/19 15 Not Available Not Available Not Available lisinopri l 40 mg tablet active Not Available Not Available Not Available fluoxetin e 20 mg capsule active Not Available Not Available Not Available Premarin 0.625 mg/gram vaginal cream Insert 1 applicat orful every day by vaginal route at bedtime. 2019 active Not Available Not Available Not Avai lable nitrofura ntoin monohydra te/macroc rystals 100 mg capsule Take 1 capsule every 12 hours by oral route for 7 days. active Not Available Not Available No t Available morphine (PF) 100 mg/100 mL(1 mg/mL) in 0.9% sod.chlor álvaro IV pump resv Inject by intraven ous route. active Not Available Not Available No t Available SaltStabl e LS cream active Not Available Not Available Not Available Afluria Qd 2019- (36 mos up)(PF)60 mcg (15 mcg x4)/0.5 mL IM syringe active Not Available Not Available Not Available Vitals Date Recorded Body height Body mass index (BMI) Body weight Systolic And Diastolic Provider Name and Address Organization Details Last Updated DateTime 01/29/2020 170.18 cm 38.1 kg/m2 824571.95 g 130/72 mm[Hg] Cecily Jabier [facility] 01/29/2020 10:39:14 Date Recorded Body height Body mass index (BMI) Body weight Systolic And Diastolic Provider Name and Address Organization Details Last Updated DateTime 02/22/2020 170.18 cm 37.7 kg/m2 405079.76 g 130/82 mm[Hg] Cecily Jabier [facility] 02/22/2020 09:06:00 Date Recorded Body height Body mass index (BMI) Body weight Systolic And Diastolic Provider Name and Address Organization Details Last Updated DateTime 03/05/2020 170.18 cm 38.2 kg/m2 908444.54 g 140/80 mm[Hg] Cecily Eugene [facility] 03/05/2020 13:01:29 Date Recorded Body height Body mass index (BMI) Body weight Systolic And Diastolic Provider Name and Address Organization Details Last Updated DateTime 03/06/2020 170.18 cm 38.2 kg/m2 245762.54 g 138/80 mm[Hg] Cecily GAINES [facility] 03/06/2020 10:52:45 Date Recorded Body height Body mass index (BMI) Body weight Systolic And Diastolic Provider Name and Address Organization Details Last Updated DateTime 03/21/2020 170.18 cm 38.7 kg/m2 462075.32 g 148/82 mm[Hg] Cecily GAINES [facility] 03/21/2020 12:55:30 Social History Question Answer Notes LastModified by Graduwayat ion Details LastModified Time Tobacco Smoking Status Never Smoker Not Available [facility] 03/15/2020 03:13:29 Are You Blind Or Do You Have Difficulty Seeing? No [id number] Information not available 03/15/2020 Is Blood Transfusion Acceptable In An Emergency? Yes [id number] Information not available 03/15/2020 What Is Your Level Of Caffeine Consumption? Occasional [id number] Information not available 03/15/2020 How Much Tobacco Do You Chew? None [id number] Information not available 03/15/2020 Are You Deaf Or Do You Have Serious Difficulty Hearing? No [id number] Information not available 03/15/2020 What Type Of Diet Are You Following? REGULAR [id number] Information not available 03/15/2020 Live Alone Or With Others? With Others Information not available 01/04/2020 What Was The Date Of Your Most Recent Tobacco Screening? 01/04/2020 [id number] Information not available 03/15/2020 Performs Monthly Self-breast Exam? Yes Information no t available 01/04/2020 Do You Use Protection During Sex? Always [id number] Information not available 03/15/2020 What Is Your Relationship Status? [id number] Information not available 03/15/2020 Seat Belts Used Routinely Yes Information not available 01/04/2020 Are You Sexually Active? No [id number] Information not available 03/15/2020 How Much Tobacco Do You Smoke? No [id number] Information not available 03/15/2020 General Stress Level Medium Information not available 01/04/2020 Do You Use Sunscreen Routinely? Yes [id number] Information not available 03/15/2020 Do You Have Difficulty Walking Or Climbing Stairs? No [id number] Information not available 03/15/2020 Sex: Female Functional Status Question Answer Note LastModified by Organizat ion Details LastModified Time What is your level of alcohol consumption? None [id number] Information not available 03/15/2020 Do you or have you ever used smokeless tobacco? Never used smokeless tobacco [id number] Information not available 03/15/2020 Are you currently employed? No [id number] Information not available 03/15/2020 Urinary incontinence assessment performed? No Information not available 01/04/2020 Do you have difficulty doing errands alone? No [id number] Information not available 03/15/2020 Do you have difficulty dressing or bathing? No [id number] Information not available 03/15/2020 Do you or have you ever used e-cigarettes or vape? Never used electronic cigarettes [id number] Information not available 03/15/2020 What is your exercise level? None [id number] Information not available 03/15/2020 Mental Status Question Answer Note LastModified by Organization D etails LastModified Time Do you have difficulty concentrating, remembering or making decisions? No [id number] Information no t available 03/15/2020 Family History Nothing Reported. Medical History No medical history recorded. Gynecological History Statement/Question Response Date of Last Colonoscopy Date of Last Mammogram Sexually Active? N On BCP's at Conception? N Menses Monthly N STIs/STDs N Date of Last Pap Smear Sexual Problems? N Current Control Method Hysterectom y Age at Menarche 15 Age at First Child 19 Hormone Replacement Therapy N Obstetrics History GPAL:G 0 P 0 0 0 0 Past Encounters Encounter ID Performer Location Encounter Start Date Encounter Closed Date Diagnosis/Indication Diagnosis SNOMED-CT Code Diagnosis ICD10 Code Diagnosis Note [id number] MD Sasha Woo [employer] [facility] [place] Stein [id number] 01/04/2020 13:09:06 01/04/2020 14:25:48 Menopausal syndrome 134375127 N95.9 20 minutes spent discussing her symptomati c pelvic prolapse, role of estrogens in this condition, r/b/a to estrogens w/r/t [place], stroke, DVT/VTE. She understand s and desires to proeced. Cystocele 419658102 N81. 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 Again reinforced that this surgery could make her incontinen ce worse, and she may need further surgery to repair but at this point she desires to have relief of pressure sensation and accepts that risk. [id number] MD Sasha Woo [employer] [address] [place] [address] L[place] Stein [id number] 03/05/2020 12:52:52 03/05/2020 13:48:08 Recurrent urinary tract infection 624325415 N39.0 [id number] MD Sasha Woo [employer] [address] [place] [address] L[place] Stein [id number] 03/06/2020 10:43:38 03/06/2020 11:49:30 Acute urinary tract infection 694983240 N39.0 [id number] MD Sasha Woo [employer] [address] [place] [address] LIANA Stein [id number] 03/21/2020 12:46:02 03/21/2020 14:13:47 Postoperative visit 516296912 Z09 Health Concerns Section Related Observation LastModified by Organization Detai ls LastModified Time None Recorded Concern Status LastModified by Organization Details LastModified Time None Recorded Advance Directives Directive None Recorded Payers Insurance Date Sequence Insurance Name Policy Number Policy Parada Covered Member ID Parada Member ID Guarantor Name 04/30/2020 [place] [id number] [place] [place]MEDICAID[place] Yazmin Caraballo [id number] Yazmin Caraballo 04/30/2020 1 [employer] [facility] (MEDICAID HMO) Yazmin Caraballo [id number] Yazmin Caraballo Notes Date Note Type Note Provider Name and Address Organization Details Recorded Time 01/29/2020 text/html pt presents toda y for a follow up and [facility]. Some improvement with estrogen, but still uncomfortable. Today she relates more history of falling asleep on the toilet feeling of incomplete relief. She dribbles when going to the shower after voiding, but most of her challenges is inability to stop leaking when feeling strong urge to void. LIANA Burroughs 01/29/2020 11:49:34 02/22/2020 text/html The patient was counseled about the procedure of anterior and posterior repair, cystoscopy., of the indications and proposed benefits of the proposed surgery. The potential risks of any procedure including bur not limited to, bleeding, infection, and anesthetic complications were reviewed; complications specific to gynecological procedures including damage to surrounding organs (vagina, bladder, ureters, gastrointestinal organs, nerves, or muscles), risks from surgical positioning, and deep vein thrombosis or pulmonary embolism risks were reviewed. The alternatives to this procedure which include were discussed and the patient prefers to proceed with the above surgical option. The proposed benefit of carol surgical procedure is for resolution of pre-operative complaints, however no guarantee can be made regarding surgical outcome(s). Realistic expectations have been discussed. Plan overnight stay for vag pack and [facility] mgmt. LIANA Burroughs 02/22/2020 09:30:54 03/05/2020 text/html pt presents toda y for a follow up on her UTI. She has completed all of her Bactrim as of yesterday. Still with pain, dysuria, urge, and frequency. No f/c/n/v. ADLs normal. LIANA Burroughs 03/05/2020 14:30:57 03/06/2020 text/html pt presents toda y for a second rocephin shot LIANA Burroughs [facility] 03/13/2020 05:38:42 03/21/2020 text/html Post-OpReported bypatient.Onset/Timing :date of surgery: (03/14/2020) Associated Symptoms:incision healing well; no fatigue; normal appetite; normal bowel function; no constipation; no nausea; no emesis; pain improving; no pain; no fever; no bleeding; no lower extremity edema/pain; no dysuria/urinary symptomsNotes:Overall feeling well. Still having some incontinence, but improved. Her sensation of fullness and pain with sitting is nearly completely resolved and she is ecstatic about that. During hygiene she felt tissue on the top that she was concerned about. No f/c. No dysuria, urge. Ghassan vásquez LIANA Vinson [facility] 03/21/2020 16:23:51 OBGyn Episode No OBEpisode recorded.
--- OUTSIDE RECORDS SUMMARY | 2024-11-24 11:45 | XMS_ITS | Continuity of Care Document ---
Author Organization [place] - [employer] [facility] Address [address] [place] [phone] Assessment No assessment recorded. Plan of Treatment Reminders Order Date Submit Date Provider Last Modified By Organization Details Last Modified Time Details Appointments FOLLOW UP 15 2024 10:45A M Red Oconnor APRN Not available Not available Not available Lab urinalysi s, dipstick 2024 025 [facility], [address] [place] [address], [phone], 10/16/2024 16:58:16 lipid panel, serum 2024 025 [facility], [address] [place] [address], [address], 10/17/2024 08:11:14 HbA1c (hemoglob in A1c), blood 2024 025 [email or web address] [facility], [address] [place] [address], [phone], 10/16/2024 17:50:42 CMP, serum or plasma 2024 025 [facility], [address] [place] [address], [id number], 10/17/2024 08:11:13 CBC w/ auto diff 2024 025 [facility] [address] [place], [address], 10/17/2024 08:11:12 TSH + free T4, serum 2024 025 [facility] [address] [place], [address], 10/17/2024 08:11:12 unlisted lab - toxassure flex 19, [id number] -P 2024 025 [facility] [address] [place], [address], 10/21/2024 12:08:17 vitamin D, 25-hydrox y, total, serum 2024 025 [facility]), [address] [place], [address], 10/17/2024 08:11:15 Hepatitis C IgG Ab, qual, serum 2024 025 [facility] [address] [place], [address], 10/17/2024 08:11:15 HIV 1 + 2, meaningfu l use set 2024 025 [facility]), [address] [place], [address], 10/17/2024 08:11:16 cobalamin and folate panel, serum 2024 025 [facility]), [address] [place], [address], 10/17/2024 08:11:14 Referral None recorded. Procedures diabetic foot screen (PROC) 2024 025 Not available 10/16/2024 11:48:07 Surgeries None recorded. Imaging electroca rdiogram [address], [address] [place] [address], [phone], 10/16/2024 12:27:21 Medication Orders phentermi ne 37.5 mg tablet 2024 025 [facility], [address] [place] [address], [id number], 10/16/2024 12:38:52 Ozempic 1 mg/dose (4 mg/3 mL) subcutane ous pen injector 2024 025 [facility], [address] [place] [address], [address], 10/16/2024 12:28:52 Patient TargetsNo targets recorded. Patient Instructions Encounter Date Encounter Id Patient Instructions Last Modified By Organization Details Last Modified Time 10/16/2024 [id number] diabetes foot health: care instructions [email or web address] Not available 10/16/2024 17:50:42 Reason for Referral None Reported. Results Created Date Observation Date Name Description Value Unit Range Abnormal Flag Note LastModifiedBy Organization Detail LastModifiedTime 10/17/1910/16/2024 urina lysis , dipst ick Leukocytes Negati ve Not Available [address], [address], 10/16/2024 12:02:10 10/17/19 25 10/16/2024 urina lysis , dipst ick Nitrite positi ve Not Available [address], [address], 10/16/2024 12:02:10 10/17/19 25 10/16/2024 urina lysis , dipst ick Urobilinogen 1 Not Available [address], [address], 10/16/2024 12:02:10 10/17/19 25 10/16/2024 urina lysis , dipst ick Protein Negati ve Not Available [address], [address], 10/16/2024 12:02:10 10/17/1910/16/2024 urina lysis , dipst ick pH 7.0 Not Available [address], [address], 10/16/2024 12:02:10 10/17/1910/16/2024 urina lysis , dipst ick Blood Small Not Available [address], [address], 10/16/2024 12:02:10 10/17/1910/16/2024 urina lysis , dipst ick Specific [place] 1.025 Not Available [address], [address], 10/16/2024 12:02:10 10/17/1910/16/2024 urina lysis , dipst ick Ketone Negati ve Not Available [address], [address], 10/16/2024 12:02:10 10/17/1910/16/2024 urina lysis , dipst ick Bilirubin Negati ve Not Available [address], [address], 10/16/2024 12:02:10 10/17/1910/16/2024 urina lysis , dipst ick Glucose Negati ve Not Available [address], [address], 10/16/2024 12:02:10 10/17/19 25 10/16/2024 urina lysis , dipst ick Appearance Clear Not Available [facility] - [address], [address], 10/16/2024 12:02:10 10/17/1910/16/2024 urina lysis , dipst ick Color Dark Yellow Not Available [address], [address], 10/16/2024 12:02:10 10/17/1910/16/2024 HbA1c (hemo globi n A1c), blood HbA1c 6.8 Not Available [address], [address], 10/14/2024 09:45:35 10/17/19 elect kevin henriquez am No observ ation record ed. [email or web address] Not Available 2024 16:03:11 Result Notes None recorded. Problems Name Problem SNOMED Code Status Onset Date Resolution Date Notes Provider Name and Address Organization Details Recorded Time Farrah yoon hyperten serg 95358999 Active 2023 Fabi Oconnor APRN [address] [place] [address], [address] , [employer] 4 16:33:16 Gastroes ophageal reflux disease without esophagi tis 018943827 Active 2023 Fabi Oconnor APRN [address] [place] [address], [address] , [employer] 4 16:33:18 Increase d frequenc y of urinatio n 082453423 Active 2023 Fabi Oconnor APRN [address] [place], [address] , [employer] 4 16:33:20 Hyperlip idemia 01342581 Active 2023 Fabi Oconnor APRN [address] [place], [address] , [employer] 4 16:33:22 Diabetes mellitus 99131005 Active 2023 Savanah vásquez, [employer] 4 13:57:34 Chronic constipa tion 424182181 Active 2023 aSvanah Jackson null, [employer] 4 11:28:03 Breast lump 41724901 Active 2023 Savanah vásquez, [employer] 4 11:28:03 Mass of right breast 27041997773 260616 Active 2023 Savanah Jackson null, [employer] 4 10:16:12 Fever 658970067 Active 2024 Savanah vásquez, [employer] 5 09:20:26 Type 2 diabetes mellitus 02200737 Active 2024 Savanah vásquez, [employer] 5 09:45:32 Type 2 diabetes mellitus without complica tion 406048353 Active 2017 Not Available formerly [facility] 2 22:13:05 Mixed hyperlip idemia 632064554 Active 2017 Problem Code: E78.2; Problem Code Type: ICD-10; Not Available formerly [facility] 2 22:13:05 Generali zed anxiety disorder 66465407 Active 2019 Problem Code: F41.1; Problem Code Type: ICD-10; Not Available formerly [facility] 2 22:13:05 Hyperten sive disorder 35706169 Completed 201704/13/2018 Problem Code: I10; Problem Code Type: ICD-10; Not Available formerly [facility] 2 22:13:05 Lumbosac ral radiculo desire 2679240 Active 2017 Problem Code: M54.16; Problem Code Type: ICD-10; Not Available formerly [facility] 2 22:13:05 Low back pain 400493944 Completed 201711/08/2017 Problem Code: M54.5; Problem Code Type: ICD-10; Not Available formerly [facility] 2 22:13:05 Renal colic 2276774 Completed 201711/15/2017 Problem Code: N23; Problem Code Type: ICD-10; Not Available formerly [facility] 2 22:13:05 Dysphagi a 93563806 Active 2018 Problem Code: R13.1; Problem Code Type: ICD-10; Not Available formerly [facility] 2 22:13:06 Contusio n of lower back 426434015 Completed 201703/14/2018 Not Available formerly [facility] 2 22:13:06 General examinat ion of patient Active 2020 Not Available formerly [facility] 2 22:13:06 Screenin g for malignan t neoplasm of colon Active 2018 Not Available formerly [facility] 2 22:13:06 Screenin g for malignan t neoplasm of colon Completed 201703/07/2018 Not Available formerly [facility] 2 22:13:06 Screenin g mammogra phy Completed 201812/25/2019 Problem Code: Z12.31; Problem Code Type: ICD-10; Not Available formerly [facility] 2 22:13:06 Screenin g mammogra phy Completed 201703/07/2018 Problem Code: Z12.31; Problem Code Type: ICD-10; Not Available formerly [facility] 2 22:13:06 Influenz a vaccine needed 39865388872 06 Completed 201906/28/2020 Problem Code: Z23; Problem Code Type: ICD-10; Not Available formerly [facility] 2 22:13:07 Influenz a vaccine needed 29547245454 06 Active 2018 Problem Code: Z23; Problem Code Type: ICD-10; Not Available formerly [facility] 2 22:13:07 Body mass index 30+ - obesity 986237260 Active 2018 Problem Code: Z68.39; Problem Code Type: ICD-10; Not Available formerly [facility] 2 22:13:07 Benign essentia l hyperten serg 3487617 Completed 201701/06/2018 Problem Code: 401.1; Problem Code Type: ICD-9; Not Available formerly [facility] 2 22:13:08 Fall Completed 201703/14/2018 Not Available formerly [facility] 2 22:13:08 Contusio n of back 17872686 Completed 201703/14/2018 Problem Code: 922.31; Problem Code Type: ICD-9; Not Available formerly [facility] 2 22:13:09 Accident al fall Completed 201703/14/2018 Problem Code: E888.9; Problem Code Type: ICD-9; Not Available formerly [facility] 2 22:13:09 Finding of body mass index 250934038 Completed 201703/14/2018 Problem Code: Z68.41; Problem Code Type: ICD-10; Not Available formerly [facility] 2 22:13:09 Finding of body mass index 862667666 Completed 201712/25/2019 Problem Code: Z68.41; Problem Code Type: ICD-10; Not Available formerly [facility] 2 22:13:09 Screenin g for cancer Completed 201703/07/2018 Problem Code: V76.49; Problem Code Type: ICD-9; Not Available formerly [facility] 2 22:13:10 Body mass index 40+ - severely obese 679075526 Completed 201703/14/2018 Problem Code: V85.41; Problem Code Type: ICD-9; Not Available formerly [facility] 2 22:13:10 Problem Notes None recorded. Procedures Surgical History Date Name Laterality Status Provider Name and Address Organization Details Recorded Time 10/17/19 25 Diabetic Foot Screen completed Fabi Oconnor APRN [address] [place] [address], [address], [employer] 10/16/2024 12:24:57 08/05/19 25 Most Recent Mammogram completed Savanah Jackson [employer] 11/13/2024 13:04:00 11/05/19 18 hysterectomy completed Not Available [facility] 22:56:19 05/31/18 97 Appendectomy completed [facility]ah [employer] 07/15/2023 14:28:56 Appendectomy completed Savanah [employer] 10/12/2023 15:31:15 Back Surgery completed [facility]ah [employer] 10/12/2023 15:31:15 Hysterectomy completed Savanah [employer] 10/12/2023 15:31:15 Imaging Results None recorded. Procedure Notes None recorded. Medical Equipment None Reported. Allergies Allergen ID Allergen Name Allergen Category Reaction Reaction Severity Criticality Documentation Date Start Date Code Code System Note Provider Name and Address Organization Details Recorded Time 77963 pravastat in sodium medicatio n Not available Not available Not available 02/03/202216623 4 RxNorm Aller gyCod e: '2030'; Aller gyNam e: 'prav astat in'; Aller gyCon ceptT ype: 'RxNO RM'; Savanah Jackson [facility] [employer] 14:15:57 Medications Name Sig Start Date [...] Updated DateTime 5 170.18 cm 37.9 kg/m2 922040. 35 g 85 /min 95 % 95 % 120 mm[Hg] 66 mm[Hg] Savanah Maumelle [employer] 5 11:46:39 Social History Question Answer Notes LastModified by Organizat ion Details LastModified Time Tobacco Smoking Status Never Smoker SocialHis toryQuest ion: 'Tobacco/ Alcohol/S upplement s'; SocialHis toryRespo nse: 'Never Smoker'; Not Available [facility] 02/03/2022 22:58:37 Do You Have An Advance [...] You Had Close Contact With A Laboratory-confir [facility] COVID-19 While That Case Was Ill? No [...] Do You Have A Medical Power Of Adult And Pediatric Neurologist? No Information not available 10/12/2023 What Was [...] Y Obesity Y Acid Reflux (GERD) Y Hypertension Y High Cholesterol Y Gynecological History Statement/Question Response Menses Monthly N HPV Vaccine N Date of Last Pap Smear Most Recent Mammogram 08/04/2024 Age at First Child 19 Obstetrics History GPAL:G 0 P 0 0 0 0 Immunizations Vaccine Type Date Status Note Provider Nam e and Address Organization Details Recorded Time Influenza, split virus, quadrivalent, preservative 0 completed Not Available formerly [facility] 02/03/2022 23:41:00 pneumococcal polysaccharide PPV23 8 completed Not Available formerly [facility] 02/03/2022 23:41:00 Influenza, split virus, quadrivalent, preservative 9 completed Not Available formerly [facility] 02/03/2022 23:41:00 Pneumococcal conjugate PCV15, polysaccharide [id number] conjugate, adjuvant, PF 5 completed Fabi Oconnor APRN [address] [place] [address], [address], [email or web address] 11/13/2024 13:34:38 zoster recombinant 5 completed Fabi Oconnor APRN [address] [place] [address], [address], [email or web address] 11/13/2024 13:34:38 MMR 8 completed Not Available formerly [facility] 11/13/2024 12:53:59 Td (adult), 2 Lf tetanus toxoid, preservative free, adsorbed 8 completed Not Available formerly [facility] 11/13/2024 12:53:59 Hep B, adult 8 completed Not Available formerly [facility] 11/13/2024 12:53:59 Hep B, adult 8 completed Not Available formerly [facility] 11/13/2024 12:53:59 Influenza, recombinant, quadrivalent, PF 2 completed Not Available formerly [facility] 11/13/2024 12:53:59 Influenza, split virus, quadrivalent, PF 3 completed Not Available formerly [facility] 11/13/2024 12:53:59 Past Encounters Encounter ID Performer Location Encounter Start Date Encounter Closed Date Diagnosis/Indication Diagnosis SNOMED-CT Code Diagnosis ICD10 Code Diagnosis Note [id number] Fabi Oconnor [address] [address] 10/16/2024 11:32:17 10/16/2024 12:27:20 Type 2 diabetes mellitus 74200303 E11.9 Patient reports that she had DM eye exam @ [facility] eye doc in [place], [place]. Will call for record. Severe obesity 764937787 1 9104 E66.01 Fatigue 70947106 R53.83 Mixed hyperlipidemia 267 676570 E78.2 Vitamin D deficiency 347 84383 E55.9 Cobalamin deficiency 190 061663 E53.8 HIV screening 707720815 Z11.4 Viral scre ening status 044357287 Z11.59 Dysuria 12860814 R30.0 Type 2 anirudh betes mellitus without complication 963789775 E11.9 Body mass index 30+ - obesity 859531043 Z68.37 Health Concerns Section Related Observation LastModified by Organization Detai ls LastModified Time None Recorded Concern Status LastModified by Organization Details LastModified Time None Recorded Payers Encounter Date Sequence Insurance Name Policy Number Policy Parada Covered Member ID Parada Member ID Guarantor Name 10/16/2024 2 [place] [employer] [place] FFS/TRADITI ONAL Yazmin Caraballo [id number] Yazmin Caraballo 10/16/2024 1 [employer] (MEDICARE REPLACEMENT /ADVANTAGE - PPO) [id number] Yazmin Caraballo [id number] Yazmin Caraballo Notes Date Note Type Note Provider Name and Address Organization Details Recorded Time 10/16/2024 text/html pt here today fo r [...] later today when she can. Savanah vásquez, [employer] 10/16/2024 16:58:27 OBGyn Episode No OBEpisode recorded.
--- OUTSIDE RECORDS SUMMARY | 2024-11-24 11:45 | XMS_ITS | Continuity of Care Document ---
Author Organization [facility] [employer] [facility] Address [address] [place] [id number] Assessment No assessment recorded. Plan of Treatment Reminders Order Date Submit Date Provider Last Modified By Organization Details Last Modified Time Details Appointments FOLLOW UP 15 2024 10:45A M Red Oconnor APRN Not available Not available Not available Lab None recorded. Referral None recorded. Procedures None recorded. Surgeries None recorded. Imaging None recorded. Medication Orders phentermi ne 37.5 mg tablet 2024 025 [facility], [address] [place] [address], [id number], 11/14/2024 16:09:57 Patient TargetsNo targets recorded. Patient InstructionsNo instructions recorded. Reason for Referral None Reported. Results Created Date Observation Date Name Description Value Unit Range Abnormal Flag Note LastModifiedBy Organization Detail LastModifiedTime 10/17/19 25 elect rocar diogr am No observ ation record ed. [email or web address] Not Available 2024 16:03:11 Result Notes None recorded. Problems Name Problem SNOMED Code Status Onset Date Resolution Date Notes Provider Name and Address Organization Details Recorded Time Farrah mendozaen serg 76316935 Active 2023 Fabi Oconnor APRN [address] [place], [address] , [place] [employer] 16:33:16 Gastroes ophageal reflux disease without esophagi tis 956607861 Active 2023 Fabi Oconnor APRN [address] [place], [address] , [employer] 4 16:33:18 Increase d frequenc y of urinatio n 300621160 Active 2023 Fabi Oconnor, [employer] EXAMINER [address] [place], [address] , [employer] 4 16:33:20 Hyperlip idemia 02968622 Active 2023 Fabi Oconnor, [employer] LINE EXAMINER [address] [place], [address] , [employer] 4 16:33:22 Diabetes mellitus 87159547 Active 2023 Savanah vásquez, [employer] 4 13:57:34 Chronic constipa tion 561421648 Active 2023 Savanah Jackson null, [employer] 4 11:28:03 Breast lump 38982631 Active 2023 Savanah Jackson null, [employer] 4 11:28:03 Mass of right breast 53515831196 992956 Active 2023 Savanah Jackson null, [employer] 4 10:16:12 Fever 559592548 Active 2024 Savanah Jackson null, [employer] 5 09:20:26 Type 2 diabetes mellitus 78238776 Active 2024 Savanah Jackson null, [employer] 5 09:45:32 Type 2 diabetes mellitus without complica tion 732230265 Active 2017 Not Available [facility] 2 22:13:05 Mixed hyperlip idemia 484419010 Active 2017 Problem Code: E78.2; Problem Code Type: ICD-10; Not Available [facility] 2 22:13:05 Generali zed anxiety disorder 02599559 Active 2019 Problem Code: F41.1; Problem Code Type: ICD-10; Not Available [facility] 2 22:13:05 Hyperten sive disorder 43403100 Completed 201704/13/2018 Problem Code: I10; Problem Code Type: ICD-10; Not Available [facility] 2 22:13:05 Lumbosac ral radiculo desire 1199935 Active 2017 Problem Code: M54.16; Problem Code Type: ICD-10; Not Available [facility] 2 22:13:05 Low back pain 951743637 Completed 201711/08/2017 Problem Code: M54.5; Problem Code Type: ICD-10; Not Available [facility] 2 22:13:05 Renal colic 3096493 Completed 201711/15/2017 Problem Code: N23; Problem Code Type: ICD-10; Not Available [facility] 2 22:13:05 Dysphagi a 75437559 Active 2018 Problem Code: R13.1; Problem Code Type: ICD-10; Not Available [facility] 2 22:13:06 Contusio n of lower back 781693749 Completed 201703/14/2018 Not Available [facility] 2 22:13:06 General examinat ion of patient Active 2020 Not Available [facility] 2 22:13:06 Screenin g for malignan t neoplasm of colon Active 2018 Not Available [facility] 2 22:13:06 Screenin g for malignan t neoplasm of colon Completed 201703/07/2018 Not Available [facility] 2 22:13:06 Screenin g mammogra phy Completed 201812/25/2019 Problem Code: Z12.31; Problem Code Type: ICD-10; Not Available [facility] 2 22:13:06 Screenin g mammogra phy Completed 201703/07/2018 Problem Code: Z12.31; Problem Code Type: ICD-10; Not Available [facility] 2 22:13:06 Influenz a vaccine needed 77126292355 06 Completed 201906/28/2020 Problem Code: Z23; Problem Code Type: ICD-10; Not Available [facility] 2 22:13:07 Influenz a vaccine needed 94043209646 Active 2018 Problem Code: Z23; Problem Code Type: ICD-10; Not Available [facility] 2 22:13:07 Body mass index 30+ - obesity 074583941 Active 2018 Problem Code: Z68.39; Problem Code Type: ICD-10; Not Available [facility] 2 22:13:07 Benign essentia l hyperten serg 9168304 Completed 201701/06/2018 Problem Code: 401.1; Problem Code Type: ICD-9; Not Available [facility] 2 22:13:08 Fall Completed 201703/14/2018 Not Available [facility] 2 22:13:08 Contusio n of back 00596786 Completed 201703/14/2018 Problem Code: 922.31; Problem Code Type: ICD-9; Not Available [facility] 2 22:13:09 Accident al fall Completed 201703/14/2018 Problem Code: E888.9; Problem Code Type: ICD-9; Not Available [facility] 2 22:13:09 Finding of body mass index 212457179 Completed 201703/14/2018 Problem Code: Z68.41; Problem Code Type: ICD-10; Not Available [facility] 2 22:13:09 Finding of body mass index 647571311 Completed 201712/25/2019 Problem Code: Z68.41; Problem Code Type: ICD-10; Not Available [facility] 2 22:13:09 Screenin g for cancer Completed 201703/07/2018 Problem Code: V76.49; Problem Code Type: ICD-9; Not Available [facility] 2 22:13:10 Body mass index 40+ - severely obese 530850100 Completed 201703/14/2018 Problem Code: V85.41; Problem Code Type: ICD-9; Not Available [facility] 22:13:10 Problem Notes None recorded. Procedures Surgical History Date Name Laterality Status Provider Name and Address Organization Details Recorded Time 10/17/19 25 Diabetic Foot Screen completed Fabi Oconnor, [employer] EXAMINER [address] [place], [address], [employer] 10/16/2024 12:24:57 08/05/19 25 Most Recent Mammogram completed [employer] 11/13/2024 13:04:00 11/05/19 18 hysterectomy completed Not Available [facility] 022 22:56:19 05/31/18 97 Appendectomy completed [employer]. 07/15/2023 14:28:56 Appendectomy completed [employer]. 10/12/2023 15:31:15 Back Surgery completed [employer]. 10/12/2023 15:31:15 Hysterectomy completed [employer]. 10/12/2023 15:31:15 Imaging Results None recorded. Procedure Notes None recorded. Medical Equipment None Reported. Allergies Allergen ID Allergen Name Allergen Category Reaction Reaction Severity Criticality Documentation Date Start Date Code Code System Note Provider Name and Address Organization Details Recorded Time 45755 pravastat in sodium medicatio n Not available Not available Not available 02/03/2022 4 RxNorm Aller gyCod e: '2030'; Aller gyNam e: 'prav astat in'; Aller gyCon ceptT ype: 'RxNO RM'; Savanah [place] 14:15:57 Medications Name Sig Start Date [...] Updated DateTime 5 170.18 cm 38.1 kg/m2 162900. 75 g 80 /min 97 % 97 % 136 mm[Hg] 84 mm[Hg] Savanah Jackson [facility] [employer] 13:12:56 Social History Question Answer Notes LastModified by Organizat ion Details LastModified Time Tobacco Smoking Status Never Smoker [employer] ion: 'Tobacco/ Alcohol/S upplement s'; [employer] nse: 'Never Smoker'; Not Available [facility] 02/03/2022 22:58:37 Do You Have An Advance [...] Do You Have A Medical Power Of Screen Cutter And Trimmer? No Information not available 10/12/2023 What Was [...] virus, quadrivalent, preservative 0 completed Not Available [facility] 02/03/2022 23:41:00 pneumococcal polysaccharide PPV23 8 completed Not Available [facility] 02/03/2022 23:41:00 Influenza, split virus, quadrivalent, preservative 9 completed Not Available [facility] 02/03/2022 23:41:00 Pneumococcal conjugate PCV15, polysaccharide FRL796 conjugate, adjuvant, PF 5 completed Fabi Oconnor APRN [address] [place], [address], [employer] 11/13/2024 13:34:38 zoster recombinant 5 completed Fabi Oconnor APRN [address] [place], [address], [employer] 11/13/2024 13:34:38 MMR 8 completed Not Available [facility] 11/13/2024 12:53:59 Td (adult), 2 Lf tetanus toxoid, preservative free, adsorbed 8 completed Not Available [facility] 11/13/2024 12:53:59 Hep B, adult 8 completed Not Available [facility] 11/13/2024 12:53:59 Hep B, adult 8 completed Not Available [facility] 11/13/2024 12:53:59 Influenza, recombinant, quadrivalent, PF 2 completed Not Available [facility] 11/13/2024 12:53:59 Influenza, split virus, quadrivalent, PF 3 completed Not Available [facility] 11/13/2024 12:53:59 Past Encounters Encounter ID Performer Location Encounter Start Date Encounter Closed Date Diagnosis/Indication Diagnosis SNOMED-CT Code Diagnosis ICD10 Code Diagnosis Note [id number] [place] [phone] 0 10/16/2024 11:32:17 10/16/2024 12:27:20 Type 2 diabetes mellitus 01814465 E11.9 Patient reports that she had DM eye exam @ [facility] doc in [place], [place]. Will call for record. Severe obesity 714640390 1 9104 E66.01 Fatigue 01824199 R53.83 Mixed hyperlipidemia 267 574011 E78.2 Vitamin D deficiency 347 84609 E55.9 Cobalamin deficiency 190 065980 E53.8 HIV screening 412395704 Z11.4 Viral scre ening status 595972924 Z11.59 Dysuria 62712790 R30.0 Type 2 anirudh betes mellitus without complication 347843461 E11.9 Body mass index 30+ - obesity 105088321 Z68.37 [id number] Fabi Oconnor [address] [address] 11/13/2024 12:53:23 11/13/2024 13:27:14 Active or passive immunization 232433812 Z23 Active immunization 3387 9002 Z23 General ex amination of patient 999943852 Z00.01 Obesity 804841573 E66.9 Body mass index 30+ - obesity 365730233 Z68.38 Health Concerns Section Related Observation LastModified by Organization Detai ls LastModified Time None Recorded Concern Status LastModified by Organization Details LastModified Time None Recorded Payers Encounter Date Sequence Insurance Name Policy Number Policy Parada Covered Member ID Parada Member ID Guarantor Name 11/13/2024 2 MEDICAID-[facility] CHOICES - FFS/TRADITI ONAL Yazmin [place] [employer] [id number] Yazmin Caraballo 11/13/2024 1 [employer] (MEDICARE REPLACEMENT /ADVANTAGE - PPO) [id number] Yazmin Caraballo [id number] Yazmin Caraballo Notes Date Note Type Note Provider Name and Address Organization Details Recorded Time 11/13/2024 text/html pt here today for AWV. pt states shes doing well and has no new complaints. pt states that she went last month and got the adipex filled, went to [facility] and it must have fell out of her purse because she didnt make it home with it. states it fell out with the bag and all because she didnt even open it. states that she called [facility] and no one had turned it in. states that she is going to [facility] today to check again to see if someone turned it in. Fabi Oconnor APRN [address] [facility], [place], [address], [employer] 11/13/2024 13:45:31 OBGyn Episode No OBEpisode recorded.
--- NOTE | 2024-11-24 11:46 | P.PCN_ITS ---
Procedure Date: 11/24/24 Time: 11:49 Anesthesiologist:: Yocasta Calderon APRN Complications:: None Pre-procedure Diagnosis:: Degenerative disc disease of lumbar spine with lumbar radiculopathy symptoms Post-procedure Diagnosis:: Same Indications for Procedure:: Patient is a pleasant 59-year-old female who presents today for intrathecal refill and reprogram. Today she rates her pain a 5 out of 10. She denies any new injuries or falls. She states overall she is doing well.She is currently managed with Dilaudid 4 mg/mL and bupivacaine 4 mg/mL with a daily dose of 0.765 mg/day. She denies any side effects. She is also ordered compounded cream. Patient is prescribed tramadol 50 mg 3 times a day and gabapentin 600 mg 5 times a day. She denies any side effects from this medication. Her Clive has been reviewed and is appropriate. Physical Exam: General: Alert and oriented x3, no acute distress, pleasant and cooperative Lungs: Respirations even and unlabored, symmetrical chest expansion Eyes: PERRL Musculoskeletal: Flexion and extension of lumbar [spine] somewhat guarded second oliver to pain, [antalgic gait noted] Neurological: Speech clear, no gross sensory deficit Procedure Details:: Informed consent was obtained and the risk and benefits of the procedure were explained to the patient. The patient had noninvasive monitoring placed including noninvasive blood pressure cuff and pulse oximeter. Patient's pump was interrogated. The area over the pump was cleansed with chlorhexidine as a cleansing solution. In sterile fashion the pump was accessed with a 22-gauge needle. Approximately 6.6 mls of the pump solution was removed and discarded appropriately. The pump was then refilled with 20 mL's of Dilaudid 4 mg/mL and bupivacaine 4 mg/mL. The needle was withdrawn and a bandage was placed over the puncture site. The infusion rate was reprogrammed and continued at its current dosage. The patient tolerated well with no complication. Plan and Disposition:: Patient tolerated the procedure well with no complications and was discharged neurologically intact. I will make sure she does have refills of her gabapentin and her tramadol. Patient will return to clinic on or before their next intrathecal refill date. We will see the patient back in the clinic at the next intrathecal refill. Patient has been instructed to contact the clinic with any concerns before the next appointment. Dr. Hope has reviewed this note and agrees with this plan of care. This note was dictated using voice recognition software and make contain errors or omissions. -- It Is medically necessary for this patient to continue to have their intrathecal pump refilled at regular intervals. This patient had an intrathecal pain pump implanted after meeting criteria of chronic intractable pain for greater than 3 months and failing conservative treatments. Patient has committed and been compliant to the treatment plan and all planned follow up care. Since implantation of the intrathecal pain pump, the patient has had decreased pain and been more functional. Oral medications have been reduced including intake of oral opioids. Patient continues to do well with intrathecal therapy with decrease in pain symptoms and increase in functional status. Stopping intrathecal medications can lead to life threatening withdrawal, seizures, cardiac arrest, severe pain, and possible . Pumps that are not refilled at regular intervals can be damages and cause and need for replacement. We continually titrate dose and concentration to optimize pain relief and function. We are limited in concentration for certain drugs to safely deliver medications through the pump and stay within the recommendations from the Polyanalgesic Consensus Committee Guidelines. Depending on dose and concentration these pumps may need to be refilled sooner than 3 months as we titrate. A UDS is needed to verify patient's compliance with our office pain contract. This is ordered based off specific treatments related to chronic pain with the potential to abuse certain medications.
[2024-11-24 11:51] VITALS: BP 129/74; PULSE 71; RESP 18; O2SAT 96
[2024-11-24 11:59] VITALS: BP 129/77; PULSE 80; RESP 18; O2SAT 97
== END 2024-11-24 11:59 | disposition home or self-care (01) ==
PROVIDERS: PCP Nurse Practitioner; Visit Provider Nurse Practitioner Family
DX: Z45.1 Encounter for adjustment and management of infusion pump (principal); M51.16 Intervertebral disc disorders with radiculopathy, lumbar region; G89.29 Other chronic pain; M54.9 Dorsalgia, unspecified; K21.9 Gastro-esophageal reflux disease without esophagitis; E11.9 Type 2 diabetes mellitus without complications; Z79.84 Long term (current) use of oral hypoglycemic drugs; Z79.85 Long-term (current) use of injectable non-insulin antidiabetic drugs; Z79.4 Long term (current) use of insulin; Z79.899 Other long term (current) drug therapy
CPT/HCPCS: 62370

== ENCOUNTER 2025-01-19 10:12 | Day surgery (SDC) | payer MEDICARE, MEDICAID, SELFPAY ==
--- NOTE | 2025-01-19 10:30 | EXP.PM.HP ---
History of Present Illness *Admission Date: 01/19/25 *Reason for visit:: Intrathecal refill; DDD *History of present illness: Same [facility] Disclaimer: The information contained in this section may have been updated after the patient was seen, as this information can be updated by other users. Medical History GERD (gastroesophageal reflux disease) Diabetes Diabetes Surgical History History of hysterectomy History of appendectomy Family History Other No significant family history Social History Smoking Status: Never smoker second hand exposure: No alcohol intake: never substance use type: other current occupational status: other Travel in the last 8 weeks?: None household members: spouse housing: house current occupational exposures/hazards: No caffeine: Yes Have you lived/traveled outside [place] in past 30 days?: No Contact w/someone who lives/traveled outside US past 30 days?: No Exposure to someone with infectious disease in past 14 days?: No Do you have a fever (greater than 100.4 F or 38 C)?: No Have you tested positive for COVID-19?: No Exposed to someone with COVID-19 in past 14 days?: No Do you have a sore throat?: No Do you have a cough?: No Do you have any weakness?: No Do you have any diarrhea?: No Are you experiencing any unusual bleeding?: No Do you have any muscle aches/pain?: No Do you have any abdominal pain?: No Are you experiencing loss of taste or smell?: No Other Medical History Have you received the Flu Vaccine for this season: No Have you received the Pneumonia Vaccine: No Meds Home Medications and Allergies Home Medications ?Medication ?Instructions ?Recorded ?Confirmed ?Type lisinopril 40 mg tablet 40 mg PO DAILY High blood pressure 01/03/18 11/24/24 History ranitidine HCl 150 mg tablet 150 mg PO DAILY Heartburn 01/03/18 11/24/24 History metformin 1,000 mg tablet 1,000 mg PO DAILY Diabetes 11/23/20 11/24/24 History promethazine 12.5 mg tablet 1 - 2 tab PO Q8H PRN Nausea 3 days 11/24/20 11/24/24 Rx #12 tabs carvedilol 6.25 mg tablet 6.25 mg PO BID Heartburn 03/03/21 11/24/24 History insulin glargine 100 unit/mL (3 100 unit SQ BID 08/03/23 11/24/24 History mL) subcutaneous pen (Lantus Solostar U-100 Insulin) semaglutide 0.25 mg or 0.5 mg (2 0.25 mg SQ WEEKLY 08/03/23 11/24/24 History mg/3 mL) subcutaneous pen injector (Ozempic) sulfamethoxazole 800 1 tab PO BID #14 tabs 08/06/23 11/24/24 Rx mg-trimethoprim 160 mg tablet (Bactrim DS) tramadol 50 mg tablet 50 mg PO TID PRN Moderate Pain 09/28/24 11/24/24 Rx #270 tabs tizanidine 4 mg tablet (Zanaflex) 4 mg PO TID Pain #270 tabs 09/29/24 11/24/24 Rx gabapentin 600 mg tablet 600 mg PO 5XDAY . #450 tabs 12/25/24 Rx New Prescriptions to Start Prescriptions: Allergies Allergy/AdvReac Type Severity Reaction Status Date / Time No Known Allergies Allergy Verified 11/30/23 13:53 Exam Constitutional Constitutional: no acute distress *Routine HEENT Exam Head: Present normocephalic and atraumatic Eye: Present PERRL ENT: Present mucous membranes moist *Routine Neck Exam Neck: Present supple *Routine Respiratory Exam Respiratory: Present CTA bilaterally *Routine Cardiovascular Exam Cardiovascular: Present RRR *Routine Abdominal Exam Abdominal: Present soft *Routine Rectal Exam Rectal:: deferred *Routine Genitalia Exam Genitalia:: deferred Routine Back/Spine/Pelvis Exam Back/Spine: Present pain with flexion *Routine Skin Exam Skin: Present intact and warm *Routine Neurological Exam Neurological: Present alert and oriented X3
--- NOTE | 2025-01-19 10:31 | EXP.PAIN.PRO ---
Procedure Date: 01/19/25 Time: 10:52 Anesthesiologist:: Yocasta Calderon APRN Complications:: None Pre-procedure Diagnosis:: Degenerative disc disease of lumbar spine with lumbar radiculopathy symptoms Post-procedure Diagnosis:: Same Indications for Procedure:: Patient is a pleasant 59-year-old female who presents today for intrathecal refill and reprogram. She rates her pain today as 6 out of 10. Patient does state that she has had a couple falls from her last visit but believes her sugar had dropped and that was what was causing the issue. Patient is currently managed with Dilaudid 4 mg/mL and bupivacaine 4 mg/mL with a daily dose of 0.765 mg/day. She is requesting an increase. She is also prescribed compounded cream, tramadol 50 mg 3 times a day and gabapentin 600 mg 5 times a day. She denies any side effects or pharmacy changes. Her Clive has been reviewed and is appropriate. Physical Exam: General: Alert and oriented x3, no acute distress, pleasant and cooperative Lungs: Respirations even and unlabored, symmetrical chest expansion Eyes: PERRL Musculoskeletal: Flexion and extension of lumbar [spine] somewhat guarded secondary to pain, [antalgic gait noted] Neurological: Speech clear, no gross sensory deficit Procedure Details:: Informed consent was obtained and the risk and benefits of the procedure were explained to the patient. The patient had noninvasive monitoring placed including noninvasive blood pressure cuff and pulse oximeter. Patient's pump was interrogated. The area over the pump was cleansed with chlorhexidine as a cleansing solution. In sterile fashion the pump was accessed with a 22-gauge needle. Approximately 8 mls of the pump solution was removed and discarded appropriately. The pump was then refilled with 20 mL's of Dilaudid 4 mg/mL and bupivacaine 4 mg/mL. The needle was withdrawn and a bandage was placed over the puncture site. The infusion rate was reprogrammed and increased 10% to Dilaudid 0.84 to 3 mg/day and bupivacaine 0.8423 mg/day. The patient tolerated well with no complication. Plan and Disposition:: Patient tolerated the procedure well with no complications and was discharged neurologically intact. I did also refill her tramadol and provide a 3-month supply of this medication. Patient does still have another refill on her gabapentin. Patient will return to clinic on or before their next intrathecal refill date. We will see the patient back in the clinic at the next intrathecal refill. Patient has been instructed to contact the clinic with any concerns before the next appointment. Dr. Hope has reviewed this note and agrees with this plan of care. this note was dictated using voice recognition software and make contain errors or omissions. -- It Is medically necessary for this patient to continue to have their intrathecal pump refilled at regular intervals. This patient had an intrathecal pain pump implanted after meeting criteria of chronic intractable pain for greater than 3 months and failing conservative treatments. Patient has committed and been compliant to the treatment plan and all planned follow up care. Since implantation of the intrathecal pain pump, the patient has had decreased pain and been more functional. Oral medications have been reduced including intake of oral opioids. Patient continues to do well with intrathecal therapy with decrease in pain symptoms and increase in functional status. Stopping intrathecal medications can lead to life threatening withdrawal, seizures, cardiac arrest, severe pain, and possible . Pumps that are not refilled at regular intervals can be damages and cause and need for replacement. We continually titrate dose and concentration to optimize pain relief and function. We are limited in concentration for certain drugs to safely deliver medications through the pump and stay within the recommendations from the Polyanalgesic Consensus Committee Guidelines. Depending on dose and concentration these pumps may need to be refilled sooner than 3 months as we titrate. A UDS is needed to verify patient's compliance with our office pain contract. This is ordered based off specific treatments related to chronic pain with the potential to abuse certain medications.
[2025-01-19 10:39] VITALS: BP 160/83; PULSE 71; RESP 18; O2SAT 98; BMI 36.0
[2025-01-19 10:45] VITALS: BP 147/78; PULSE 68; RESP 18; O2SAT 99
[2025-01-19 11:00] VITALS: BP 142/90; PULSE 66; RESP 16; O2SAT 95
== END 2025-01-19 11:00 | disposition home or self-care (01) ==
PROVIDERS: PCP Nurse Practitioner; Visit Provider Nurse Practitioner Family
DX: M51.16 Intervertebral disc disorders with radiculopathy, lumbar region (principal); Z45.1 Encounter for adjustment and management of infusion pump; K21.9 Gastro-esophageal reflux disease without esophagitis; E11.9 Type 2 diabetes mellitus without complications; Z79.4 Long term (current) use of insulin; Z79.899 Other long term (current) drug therapy; Z79.84 Long term (current) use of oral hypoglycemic drugs
CPT/HCPCS: 62370